=== PATIENT | male | born 1940 | race Caucasian/White ===

== ENCOUNTER 2017-08-03 19:36 | Emergency (ER) | payer MEDICARE, BC ==
[~2017-08-03] VITALS: Ht 167.6 cm; Wt 80.8 kg
[~2017-08-03 19:36] MED LIST: ARIC5TAB PO; ATEN-100 PO; CLIN150 PO; CLOP75 PO; SIMV40TA PO; TAMS0.4C67 PO
[2017-08-03 19:47] VITALS: BP 187/90; PULSE 69; RESP 18; TEMP 97.7; O2SAT 96
[2017-08-03] MEDS ORDERED: TRAM50TA PO (20:57)
--- NOTE | 2017-08-03 20:57 | PD ---
HPI Chief Complaint: Pain: Acute or Chronic Time Seen by Provider: 20:50 Travel History International Travel<30 days: No Contact w/Intl Traveler<30days: No Traveled to known affect area: No History of Present Illness HPI The patient is a 76-year-old male that complains of low back pain, his states he has a history of sciatic nerve problems. Initially he may have said the right leg hurt but his and him state its the left leg now. His states he could not walk at home. Now he is walking around fine. He claims a pain level of 7/10, sharp pain, aching pain in the back and left leg. He denies any bladder or bowel dysfunction. He is on Plavix to prevent strokes apparently. His gave him a tramadol 2 hours ago and he feels much better now. The gave the her tramadol, he has not been prescribed tramadol. PFSH Past Medical History Hx Anticoagulant Therapy: Yes (Plavix) Arthritis: No Asthma: No Autoimmune Disease: No Blood Disorders: No Anxiety: No Depression: No Heart Rhythm Problems: No Cancer: No Cardiovascular Problems: Yes (PAD) High Cholesterol: Yes Chemotherapy: No Chest Pain: No Congestive Heart Failure: No COPD: Yes Cerebrovascular Accident: No Diabetes: No Diminished Hearing: No Endocrine: No GERD: No Glaucoma: No Genitourinary: No Headaches: No Hepatitis: No Hiatal Hernia: No Hypertension: Yes Immune Disorder: No Implanted Vascular Access Dvce: Yes Kidney Stones: No Musculoskeletal: No Neurologic: No Psychiatric: No Reproductive: No Respiratory: Yes (COPD) Immunizations Current: Yes Migraines: No Myocardial Infarction: No Radiation Therapy: No Renal Failure: No Seizures: No Sickle Cell Disease: No Sleep Apnea: No Thyroid Disease: No Ulcer: No ?: Not Past Surgical History Abdominal Surgery: No AICD: No Appendectomy: No Arteriovenous Shunt: No Body Medical Devices: stent placed RLE on Cardiac Surgery: No Cholecystectomy: No Ear Surgery: No Endocrine Surgery: No Eye Surgery: No Genitourinary Surgery: No Gynecologic Surgery: No Insulin Pump: No Joint Replacement: No Oral Surgery: Yes (esophageal dialation) Pacemaker: No Thoracic Surgery: No Other Surgery: Yes Social History Alcohol Use: Yes (A BEER A DAY ) Tobacco Use: Yes (quit in september 2008) Substance Use: No Allergies-Medications (Allergen,Severity, Reaction): Coded Allergies: penicillin G (Unverified Allergy, Severe, Anaphylaxis, 08/03/17) haloperidol (Unverified Adverse Reaction, Intermediate, 08/03/17) lorazepam (Unverified Adverse Reaction, Intermediate, 08/03/17) *MDRO Multi-Drug Resistant Organism (Verified Adverse Reaction, Unknown, ) 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 His gait is fairly good without any help at all. He walks around the bed. His vital signs show blood pressure 187/90 but are otherwise normal. SKIN: Focused skin assessment warm/dry. HEAD: Atraumatic. Normocephalic. EYES: Pupils equal and round. No scleral icterus. No injection or drainage. ENT: No nasal bleeding or discharge. Mucous membranes pink and moist. NECK: Trachea midline. No JVD. CARDIOVASCULAR: Regular rate and rhythm. No murmur appreciated. RESPIRATORY: No accessory muscle use. Clear to auscultation. Breath sounds equal bilaterally. GASTROINTESTINAL: Abdomen soft, non-tender, nondistended. Hepatic and splenic margins not palpable. MUSCULOSKELETAL: No obvious deformities. No clubbing. No cyanosis. No edema. Straight leg raising is normal, deep tendon reflexes are +1 bilaterally both patella and Achilles and pinprick is normal. NEUROLOGICAL: Awake and alert. No obvious cranial nerve deficits. Motor grossly within normal limits. Normal speech. PSYCHIATRIC: Appropriate mood and affect; insight and judgment normal. Data Data Last Documented VS Vital Signs Date Time Temp Pulse Resp B/P (MAP) Pulse Ox O2 Delivery O2 Flow Rate FiO2 08/03/17 19:47 97.7 69 18 187/90 (122) 96 MDM Medical Decision Making Medical Screen Exam Complete: Yes Emergency Medical Condition: Yes Medical Record Reviewed: Yes Differential Diagnosis Herniated nucleus pulposus, acute lumbosacral strain, sciatic nerve pain Narrative Course The patient appears to have sciatic nerve pain. His pain is minimal at this time and he walks fairly well. Plan: He will be prescribed tramadol and follow up with Dr. Kim. He should get a walker for when his pain flares up again. Additional Instructions: As we discussed, his pain is likely to flare up again and he should get a walker. The tramadol is one tablet every 4-6 hours as needed for pain. Follow- up with Dr. Kim as soon as possible. Med/Other Pt SpecificInfo: Prescription(s) given Scripts Tramadol (Tramadol) 50 Mg Tab 50 MG PO Q4H Y for PAIN, #30 TAB 0 Refills Prov: Buck Good MD 08/03/17 Disposition: 01 DISCHARGE HOME Condition: Stable Buck Good MD Aug 03, 2017 20:57
== END 2017-08-03 21:22 | disposition home or self-care (01) ==
LOC: PHEFT 19:36
DX: M54.32 Sciatica, left side (principal); E78.00 Pure hypercholesterolemia, unspecified; I73.9 Peripheral vascular disease, unspecified; J44.9 Chronic obstructive pulmonary disease, unspecified; I10 Essential (primary) hypertension; Z79.02 Long term (current) use of antithrombotics/antiplatelets; Z79.899 Other long term (current) drug therapy; Z88.8 Allergy status to other drugs, medicaments and biological substances
CPT/HCPCS: 99283

== ENCOUNTER 2017-08-04 05:28 | Inpatient (IN) | payer MEDICARE, BC ==
[~2017-08-04] VITALS: Ht 167.6 cm; Wt 82.6 kg
[2017-08-04] VITALS (17 sets, daily range): BP systolic 69–193; BP diastolic 41–84; PULSE 59–114; RESP 16–19; TEMP 97.6–102.4; O2SAT 94–100
[~2017-08-04 05:28] MED LIST changes: +TRAM50TA PO
[2017-08-04] MEDS ORDERED: PROPOFOL 500 MG/50 ML INJ 50 ML ONE (05:31)
[2017-08-04] MEDS ORDERED: NITROGLYCERIN-D5W 50 MG/250 ML 250 ML ONE (05:32)
[2017-08-04] MEDS ORDERED: PROPOFOL 1000 MG/100 ML BTL IV STA (05:36)
--- NOTE | 2017-08-04 05:39 | PD ---
HPI Chief Complaint: resp failure Time Seen by Provider: 05:33 Travel History International Travel<30 days: No Contact w/Intl Traveler<30days: No Traveled to known affect area: No History of Present Illness HPI Patient CHF history was ddeveloping respiratory distress at home paramedics found him to be desaturating to 65 put him on CPAP gave him 100 of Lasix and transported him to [place].. En route patient became more somnolent en route and he decompensated. EMS then intubated him with no complications. On arrival he is sedated ET tube in place O2 sat is 96%... patient arrived sedated with 20 of etomidate for Versed 4mg per protocol EMS .. ET tube is in place good color change on the capnometer`. ROS and HPI unable to obtain from pt intubated and sedated [facility] Past Medical History Hx Anticoagulant Therapy: Yes (Plavix) Arthritis: No Asthma: No Autoimmune Disease: No Blood Disorders: No Anxiety: No Depression: No Heart Rhythm Problems: No Cancer: No Cardiovascular Problems: Yes (PAD) High Cholesterol: Yes Chemotherapy: No Chest Pain: No Congestive Heart Failure: No COPD: Yes Cerebrovascular Accident: No Diabetes: No Diminished Hearing: No Endocrine: No GERD: No Glaucoma: No Genitourinary: No Headaches: No Hepatitis: No Hiatal Hernia: No Hypertension: Yes Immune Disorder: No Implanted Vascular Access Dvce: Yes Kidney Stones: No Musculoskeletal: No Neurologic: No Psychiatric: No Reproductive: No Respiratory: Yes (COPD) Immunizations Current: Yes Migraines: No Myocardial Infarction: No Radiation Therapy: No Renal Failure: No Seizures: No Sickle Cell Disease: No Sleep Apnea: No Thyroid Disease: No Ulcer: No Past Surgical History Abdominal Surgery: No AICD: No Appendectomy: No Arteriovenous Shunt: No Body Medical Devices: stent placed RLE on Cardiac Surgery: No Cholecystectomy: No Ear Surgery: No Endocrine Surgery: No Eye Surgery: No Genitourinary Surgery: No Gynecologic Surgery: No Insulin Pump: No Joint Replacement: No Oral Surgery: Yes (esophageal dialation) Pacemaker: No Thoracic Surgery: No Other Surgery: Yes Social History Alcohol Use: Yes (A BEER A DAY ) Tobacco Use: Yes (quit in september 2008) Substance Use: No Allergies-Medications (Allergen,Severity, Reaction): Coded Allergies: penicillin G (Unverified Allergy, Severe, Anaphylaxis, 08/04/17) haloperidol (Unverified Adverse Reaction, Intermediate, 08/04/17) lorazepam (Unverified Adverse Reaction, Intermediate, 08/04/17) *MDRO Multi-Drug Resistant Organism (Verified Adverse Reaction, Unknown, ) 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 HEAD: Atraumatic. Normocephalic. EYES: Pupils equal and round. No scleral icterus. No injection or drainage. ENT: No nasal bleeding or discharge. Mucous membranes pink and moist. ET tube [place] frothy sputum in ET tube NECK: Trachea midline. No JVD. CARDIOVASCULAR: Regular rate and rhythm. RESPIRATORY: No accessory muscle use. Ventilated coarse Breath Sounds in axilla bilateral equal GASTROINTESTINAL: Abdomen soft, non-tender, nondistended. Hepatic and splenic margins not palpable. MUSCULOSKELETAL: Extremities without clubbing, cyanosis, or edema. No obvious deformities. NEUROLOGICAL: sedated and intubated neuro exam no able to be completed Data Data Last Documented VS Orders Orders Propofol 500 Mg/50 Ml Inj (Diprivan 500 (08/04/17 05:31) Nitroglycerin-D5w 50 Mg/250 Ml (Nitrogly (08/04/17 05:32) Propofol 1000 Mg/100 Ml Inj (Diprivan 10 (08/04/17 05:45) Urinary Catheter Management MILTON.Q8H (08/04/17 05:34) Propofol 1000 Mg/100 Ml Inj (Diprivan 10 (08/04/17 05:36) Atenolol (Tenormin) (08/04/17 09:00) Clopidogrel (Plavix) (08/04/17 09:00) Donepezil (Aricept) (08/04/17 09:00) Tamsulosin (Flomax) (08/04/17 09:00) Tramadol (Ultram) (08/04/17 05:45) Pravastatin (Pravachol) (08/04/17 21:00) Chest, Single Ap (08/04/17 ) Nitroglycerin-D5w 50 Mg/250 Ml (Nitrogly (08/04/17 06:00) Restraints Non-Violent MILTON.Q3H (08/04/17 05:53) Complete Blood Count With Diff (08/04/17 05:54) Comprehensive Metabolic Panel (08/04/17 05:54) Ckmb (Isoenzyme) Profile (08/04/17 05:54) Troponin I (08/04/17 05:54) B-Type Natriuretic Peptide (08/04/17 05:54) Lipase (08/04/17 05:54) Electrocardiogram (08/04/17 ) Admit To Inpatient (08/04/17 ) Code Status (08/04/17 05:54) Vital Signs (Adult) MILTON.Q1H (08/04/17 05:54) Activity Bed Rest (08/04/17 05:54) Elevate Head Of Bed (08/04/17 05:54) Neuro Checks . ORDERED (08/04/17 05:54) Intake + Output Q1H (08/04/17 05:54) Sodium Chloride 0.9% Flush (Ns Flush) (08/04/17 06:00) Sodium Chloride 0.9% Flush (Ns Flush) (08/04/17 09:00) Acetaminophen (Tylenol) (08/04/17 06:00) Famotidine Inj (Pepcid Inj) (08/04/17 09:00) Midazolam Inj (Versed Inj) (08/04/17 06:00) Artificial Tears Opth Soln (Tears Natura (08/04/17 09:00) Ondansetron Inj (Zofran Inj) (08/04/17 06:00) Albuterol-Ipratropium Neb (Duoneb Neb) (08/04/17 06:00) Complete Blood Count With Diff (08/05/17 04:00) Comprehensive Metabolic Panel (08/05/17 04:00) Troponin I (08/04/17 11:54) Act Partial Throm Time (Ptt) (08/05/17 04:00) Prothrombin Time / Inr (Pt) (08/05/17 04:00) Magnesium (Mg) (08/05/17 04:00) Phosphorus (Po4) (08/05/17 04:00) Lactic Acid (08/05/17 04:00) Chest, Single Ap (08/05/17 ) Electrocardiogram (08/04/17 11:54) Echo 2d Comp With Doppler (08/04/17 05:54) Arterial Blood Gas (Abg) (08/04/17 ) Pt Request For Service (08/04/17 05:54) Residential Coordinator / Telemetry MILTON.Q8H (08/04/17 05:54) Heparin Inj (Heparin Inj) (08/04/17 06:00) Scd Bilateral/Knee High MILTON.BID (08/04/17 05:54) Kaz Bilateral/Knee High MILTON.QSHIFT (08/04/17 05:54) ^ Initiate Protocol (08/04/17 05:54) Instruction (08/04/17 05:54) [facility] (08/04/17 06:00) Chlorhexidine 2% Cloth (Chlorhexidine 2% (08/05/17 04:00) Chlorhexidine 2% Cloth (Chlorhexidine 2% (08/04/17 06:00) Docusate Sodium-Senna (Adri-Colace) (08/04/17 09:00) Magnesium Hydroxide Liq (Milk Of Magnesi (08/04/17 06:00) Sennosides (Senokot) (08/04/17 06:00) Bisacodyl Supp (Dulcolax Supp) (08/04/17 06:00) Lactulose Liq (Lactulose Liq) (08/04/17 06:00) Elevate Head Of Bed (08/04/17 05:54) Chlorhexidine 0.12% Liq (Peridex 0.12% L (08/04/17 08:00) Oral Hygiene Kit (08/04/17 06:00) Restraints Non-Violent MILTON.Q3H (08/04/17 05:54) Ventilator Weaning Readiness MILTON.DAILY@0800 (08/04/17 05:54) Propofol 1000 Mg/100 Ml Inj (Diprivan 10 (08/04/17 06:00) Inpatient Certification (08/04/17 ) Tube Feeding 08,20 (08/04/17 05:54) Nicardipine Inj (Cardene Inj) (08/04/17 06:00) Admit Order (Ed Use Only) (08/04/17 06:05) Furosemide Inj (Lasix Inj) (08/04/17 06:15) CKMB (08/04/17 05:55) CKMB% (08/04/17 05:55) Labs Laboratory Tests Test 08/04/17 05:55 White Blood Count 17.7 TH/MM3 Red Blood Count 4.83 MIL/MM3 Hemoglobin 13.2 GM/DL Hematocrit 39.4 % Mean Corpuscular Volume 81.5 FL Mean Corpuscular Hemoglobin 27.4 PG Mean Corpuscular Hemoglobin Concent 33.7 % Red Cell Distribution Width 14.2 % Platelet Count 271 TH/MM3 Mean Platelet Volume 6.8 FL Neutrophils (%) (Auto) 88.1 % Lymphocytes (%) (Auto) 8.5 % Monocytes (%) (Auto) 1.8 % Eosinophils (%) (Auto) 0.8 % Basophils (%) (Auto) 0.8 % Neutrophils # (Auto) 15.6 TH/MM3 Lymphocytes # (Auto) 1.5 TH/MM3 Monocytes # (Auto) 0.3 TH/MM3 Eosinophils # (Auto) 0.1 TH/MM3 Basophils # (Auto) 0.1 TH/MM3 CBC Comment DIFF FINAL Differential Comment Blood Urea Nitrogen 13 MG/DL Creatinine 0.85 MG/DL Random Glucose 113 MG/DL Total Protein 7.1 GM/DL Albumin 3.4 GM/DL Calcium Level 8.6 MG/DL Alkaline Phosphatase 71 U/L Aspartate Amino Transf (AST/SGOT) 32 U/L Alanine Aminotransferase (ALT/SGPT) 27 U/L Total Bilirubin 0.7 MG/DL Sodium Level 131 MEQ/L Potassium Level 4.6 MEQ/L Chloride Level 93 MEQ/L Carbon Dioxide Level 33.6 MEQ/L Anion Gap 4 MEQ/L Estimat Glomerular Filtration Rate 87 ML/MIN Total Creatine Kinase 120 U/L Creatine Kinase MB 2.6 NG/ML Troponin I LESS THAN 0.02 NG/ML B-Type Natriuretic Peptide 79 PG/ML Lipase 133 U/L MDM Medical Decision Making Medical Screen Exam Complete: Yes Emergency Medical Condition: Yes Medical Record Reviewed: Yes Interpretation(s) ekg NSR 113 Differential Diagnosis Respiratory failure secondary CHF versus NM induced cardiac arrhythmia CHF versus fluid overload CHF versus infarct with akinesis of the ventricle left side of the heart causing CHF versus pneumonia versus bronchitis Narrative Course Patient comes intubated by the paramedics they had done CPAP but it did not work patient's mental dictation deteriorated patient is intubated in the field given 100 of Lasix for diuresis arrival we transfer rheumatoid stretcher I give him a nitroglycerin drip bolus propofol 50 mics to lower the pressure with the nitroglycerin and start the drip at 10 mics per kick per minute of propofol for sedation patient is on the vent chest x-ray, I see on Xray he has a large right lower lateral dependent PNA I ordered Zosyn to cover pneumonia , and the Vanco will be given in UNIT , CHF AND PNA RLL Critical Care Narrative 30 minutes CC time , Medical management of CHF HTN and Ventilator settings and discussion [facility] paramedics and ICU admit and report to attending medical coverage of PNA RLL Diagnosis Primary Impression: CHF (congestive heart failure) Qualified Codes: I50.9 - Heart failure, unspecified Additional Impression: Pneumonia involving right lung Admitting Information Admitting Physician Requests: Alonso Alfaro MD Aug 04, 2017 05:39
--- NOTE | 2017-08-04 05:39 | HHI.HP ---
HPI Service Critical Care Medicine Primary Care Physician Pedro White MD Admission Diagnosis Diagnosis: Travel History International Travel<30 Days: No Contact w/Intl Traveler <30 Da: No Traveled to Known Affected Are: No History of Present Illness 68-year-old gentleman with past medical history of coronary artery disease, CHF was complaining of worsening respiratory distress at home, paramedics found him to be decided to 65 put him on CPAP gave him 100 of Lasix and transported him patient became more somnolent en route and he decompensated they intubated him with no complications sat is 96% patient arrived sedated with 20 of etomidate for Versed ET tube is in place good color change on the capnometer. 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) Past Medical History Dementia History myocardial infarction Chronic obstructive pulmonary disease Peripheral vascular disease Hyperlipidemia Hypertension Past Surgical History Cataract surgery Reported Medications Reported Meds & Active Scripts Active Tramadol (Tramadol HCl) 50 Mg Tab 50 Mg PO Q4H PRN Cleocin (Clindamycin HCl) 150 Mg Cap 300 Mg PO Q6 10 Days Reported Flomax (Tamsulosin HCl) 0.4 Mg Cap 0.4 Mg PO DAILY Aricept (Donepezil HCl) 5 Mg Tab 10 Mg PO DAILY Simvastatin 40 Mg Tab 1 Tab PO HS Atenolol 25 Mg Tab 25 Mg PO DAILY Plavix (Clopidogrel Bisulfate) 75 Mg Tab 75 Mg PO DAILY Active Ordered Medications Current Medications Medications (Trade) Dose Ordered Sig/Veronica Route PRN Reason Start Time Stop Time Status Last Admin Dose Admin Propofol 100 ml @ 0 mls/hr TITRATE PRN IV SEDATION 08/04/17 05:45 08/04/17 05:47 Atenolol (Tenormin) 25 mg DAILY PO 08/04/17 09:00 Clopidogrel Bisulfate (Plavix) 75 mg DAILY PO 08/04/17 09:00 Donepezil HCl (Aricept) 10 mg DAILY PO 08/04/17 09:00 Tamsulosin HCl (Flomax) 0.4 mg DAILY PO 08/04/17 09:00 Tramadol HCl (Ultram) 50 mg Q4H PRN PO PAIN 08/04/17 05:45 Pravastatin Sodium (Pravachol) 80 mg HS PO 08/04/17 21:00 Nitroglycerin/ Dextrose 250 ml @ 1.5 mls/hr TITRATE PRN IV Hypertension 08/04/17 06:00 08/04/17 05:35 Sodium Chloride (NS Flush) 2 ml UNSCH PRN IV FLUSH FLUSH AFTER USING IV ACCESS 08/04/17 06:00 UNV Sodium Chloride (NS Flush) 2 ml BID IV FLUSH 08/04/17 09:00 UNV Acetaminophen (Tylenol) 650 mg Q6H PRN PO PAIN 1-10 AND/OR FEVER >101F 08/04/17 06:00 UNV Famotidine (Pepcid Inj) 20 mg Q12HR IV PUSH 08/04/17 09:00 UNV Midazolam HCl (Versed Inj) 2 mg Q1H PRN IV PUSH SEDATION 08/04/17 06:00 UNV Artificial Tears (Tears Naturale Opth Soln) 1 drop TID EACH EYE 08/04/17 09:00 UNV Ondansetron HCl (Zofran Inj) 4 mg Q6H PRN IV PUSH NAUSEA OR VOMITING 08/04/17 06:00 UNV Albuterol/ Ipratropium (Duoneb Neb) 1 ampule Q2HR NEB PRN INH WHEEZING 08/04/17 06:00 UNV Heparin Sodium (Porcine) (Heparin Inj) 5,000 units Q8H SQ 08/04/17 06:00 UNV Miscellaneous Information 1 Q361D XX 08/04/17 06:00 UNV Chlorhexidine Gluconate (Chlorhexidine 2% Cloth) 3 pack Taper DAILY@04 TOP 08/05/17 04:00 08/01/18 03:59 UNV Chlorhexidine Gluconate (Chlorhexidine 2% Cloth) 3 pack UNSCH PRN TOP HYGIENIC CARE 08/04/17 06:00 UNV Senna/Docusate Sodium (Adri-Colace) 1 tab BID PO 08/04/17 09:00 UNV Magnesium Hydroxide (Milk Of Magnesia Liq) 30 ml Q12H PRN PO Mild constipation 08/04/17 06:00 UNV Sennosides (Senokot) 17.2 mg Q12H PRN PO Moderate constipation 08/04/17 06:00 UNV Bisacodyl (Dulcolax Supp) 10 mg DAILY PRN RECTAL SEVERE CONSITIPATION 08/04/17 06:00 UNV Lactulose (Lactulose Liq) 30 ml DAILY PRN PO SEVERE CONSITIPATION 08/04/17 06:00 UNV Chlorhexidine Gluconate (Peridex 0.12% Liq) 15 ml BID@08,20 MT 08/04/17 08:00 UNV Propofol 100 ml @ 0 mls/hr TITRATE PRN IV SEDATION 08/04/17 06:00 UNV Nicardipine HCl 25 mg/Sodium Chloride 250 ml @ 50 mls/hr TITRATE PRN IV Blood pressure management 08/04/17 06:00 UNV Family History Reported Medications Reviewed is significant for father from myocardial infarction Social History Patient quit smoking in 2008, drinks beer occasionally, denies any illicit drugs Physical Exam Vital Signs Vital Signs Date Time Temp Pulse Resp B/P (MAP) Pulse Ox O2 Delivery O2 Flow Rate FiO2 08/04/17 05:33 97.6 114 16 193/83 (119 97 Physical Exam GENERAL: Elderly appearing gentleman sedated and intubated SKIN: Warm and dry. HEAD: Normocephalic. EYES: No scleral icterus. No injection or drainage. NECK: Supple, trachea midline. No JVD or lymphadenopathy. CARDIOVASCULAR: Regular rate and rhythm without murmurs, gallops, or rubs. RESPIRATORY: Breath sounds equal bilaterally. No accessory muscle use. GASTROINTESTINAL: Abdomen soft, non-tender, nondistended. MUSCULOSKELETAL: No cyanosis, or edema. BACK: Nontender without obvious deformity. NEURO EXAM: Mental Status: The patient is sedated and intubated Septic Shock Reassessment Septic shock perfusion: reassessment completed Caprini VTE Risk Assessment Caprini VTE Risk Assessment: Mod/High Risk (score >= 2) Caprini Risk Assessment Model Point Value = 1 Point Value = 2 Point Value = 3 Point Value = 5 Age 41-60 Minor surgery BMI > 25 kg/m2 Swollen legs Varicose veins or History of unexplained or recurrent spontaneous Oral contraceptives or hormone replacement Sepsis (< 1 month) Serious lung disease, including pneumonia (< 1 month) Abnormal pulmonary function Acute myocardial infarction Congestive heart failure (< 1 month) History of inflammatory bowel disease Medical patient at bed rest Age 61-74 Arthroscopic surgery Major open surgery (> 45 min) Laparoscopic surgery (> 45 min) Malignancy Confined to bed (> 72 hours) Immobilizing plaster cast Central venous access Age >= 75 History of VTE Family history of VTE Factor V Leiden Prothrombin [id number] Lupus anticoagulant Anticardiolipin antibodies Elevated serum homocysteine Heparin-induced thrombocytopenia Other congenital or acquired thrombophilia Stroke (< 1 month) Elective arthroplasty Hip, pelvis, or leg fracture Acute spinal cord injury (< 1 month) Prophylaxis Regimen Total Risk Factor Score Risk Level Prophylaxis Regimen 0-1 Low Early ambulation 2 Moderate Order ONE of the following: *Sequential Compression Device (SCD) *Heparin 5000 units SQ BID 3-4 Higher Order ONE of the following medications: *Heparin 5000 units SQ TID *Enoxaparin/Lovenox 40 mg SQ daily (WT < 150 kg, CrCl > 30 mL/min) *Enoxaparin/Lovenox 30 mg SQ daily (WT < 150 kg, CrCl > 10-29 mL/min) *Enoxaparin/Lovenox 30 mg SQ BID (WT < 150 kg, CrCl > 30 mL/min) AND/OR *Sequential Compression Device (SCD) 5 or more Highest Order ONE of the following medications: *Heparin 5000 units SQ TID (Preferred with Epidurals) *Enoxaparin/Lovenox 40 mg SQ daily (WT < 150 kg, CrCl > 30 mL/min) *Enoxaparin/Lovenox 30 mg SQ daily (WT < 150 kg, CrCl > 10-29 mL/min) *Enoxaparin/Lovenox 30 mg SQ BID (WT < 150 kg, CrCl > 30 mL/min) AND *Sequential Compression Device (SCD) Assessment and Plan Assessment and Plan Respiratory failure - CHF - Pneumonia - Broad-spectrum antibiotic - Mechanical ventilation - De-escalate antibiotics per sensitivity Hypertension - Continue home meds - Nicardipine drip to keep SBP less than 160 Dementia - Aricept Coronary artery disease - Aspirin - Series of troponin - 2-D echo - Series of EKGs Chronic obstructive pulmonary disease - DuoNeb scheduled and when necessary Hyperlipidemia - Continue home meds DVT GI prophylaxis - Teds SCDs - Subcutaneous heparin - Pepcid Critical Care: The total critical care time was 35 minutes. Time to perform other separately billable procedures was not included in the critical care time. Jamey Alvarez MD Aug 04, 2017 5:39 am
[2017-08-04] MEDS ORDERED: traMADol HCL 50 MG TAB PO PRN (05:45)
[2017-08-04] MEDS ORDERED: PROPOFOL 1000 MG/100 ML INJ 100 ML IV PRN ×2 (05:45→06:00)
[2017-08-04] MEDS ORDERED: NITROGLYCERIN-D5W 50 MG/250 ML 250 ML IV PRN ×2 (05:45→06:00)
[2017-08-04] MEDS ORDERED: SENNOSIDES 8.6 MG TAB PO PRN (06:00)
[2017-08-04] MEDS ORDERED: CHLORHEXIDINE GLUCONATE 2 % 1 PACK (2 CLOTHS) TOP PRN (06:00)
[2017-08-04] MEDS ORDERED: LACTULOSE SYRUP 20 GM/30 ML CUP PO PRN (06:00)
[2017-08-04] MEDS ORDERED: MISCELLANEOUS NURSING INFORMATION XX SCH (06:00)
[2017-08-04] MEDS ORDERED: ONDANSETRON HCL 4 MG/2 ML VIAL IV PUSH PRN (06:00)
[2017-08-04] MEDS ORDERED: niCARdipine INJ 25 MG in SODIUM CHLOR 0.9% 250 ML INJ 240 ML IV PRN (06:00)
[2017-08-04] MEDS ORDERED: RESP: ALBUTEROL 2.5 MG/IPRATROPIUM 0.5 MG NEB (PRN) INH (06:00)
[2017-08-04] MEDS ORDERED: BISACODYL 10 MG SUPP RECTAL PRN (06:00)
[2017-08-04] MEDS ORDERED: MIDAZOLAM HCL 2 MG/2 ML VIAL IV PUSH PRN (06:00)
[2017-08-04] MEDS ORDERED: MAGNESIUM HYDROXIDE SUSP 30 ML CUP PO PRN (06:00)
[2017-08-04] MEDS ORDERED: ACETAMINOPHEN 325 MG TAB PO PRN (06:00)
[2017-08-04 06:11] LABS: AUTOMATED NEUTROPHIL # 15.6 TH/MM3 (1.8-7.7); BASOPHIL # 0.1 TH/MM3 (0-0.2); BASOPHIL % 0.8 % (0.0-2.0); EOSINOPHIL # 0.1 TH/MM3 (0-0.4); EOSINOPHIL % 0.8 % (0.0-4.0); HEMATOCRIT 39.4 % (39.0-51.0); HEMOGLOBIN 13.2 GM/DL (13.0-17.0); LYMPH % 8.5 % (9.0-44.0); LYMPHOCYTE # 1.5 TH/MM3 (1.0-4.8); MEAN CELL VOLUME 81.5 FL (80.0-100.0); MEAN CORPUSCULAR HEMOGLOBIN 27.4 PG (27.0-34.0); MEAN CORPUSCULAR HGB CONC 33.7 % (32.0-36.0); MEAN PLATELET VOLUME 6.8 FL (7.0-11.0); MONO % 1.8 % (0.0-8.0); MONOCYTE # 0.3 TH/MM3 (0-0.9); NEUT % 88.1 % (16.0-70.0); PLATELET COUNT 271 TH/MM3 (150-450); RED BLOOD COUNT 4.83 MIL/MM3 (4.50-5.90); RED CELL DISTRIBUTION WIDTH 14.2 % (11.6-17.2); WHITE BLOOD COUNT 17.7 TH/MM3 (4.0-11.0)
[2017-08-04] MEDS ORDERED: FUROSEMIDE 20 MG/2 ML VIAL IV PUSH SCH (06:15)
[2017-08-04] MEDS: HEPARIN SODIUM - SQ 10,000 UNITS/ML VIAL SQ SCH ×3 (06:16→22:10)
[2017-08-04 06:33] LABS: ALT (GPT) 27 U/L (12-78)
[2017-08-04 06:35] LABS: ALBUMIN 3.4 GM/DL (3.4-5.0); AST (GOT) 32 U/L (15-37); BICARBONATE 33.6 MEQ/L (21.0-32.0); BLOOD UREA NITROGEN 13 MG/DL (7-18); CALCIUM 8.6 MG/DL (8.5-10.1); CHLORIDE 93 MEQ/L (98-107); CREATININE 0.85 MG/DL (0.60-1.30); GLOMERULAR FILTRATION RATE 87 ML/MIN (>89); GLUCOSE,RANDOM 113 MG/DL (74-106); SODIUM (NA) 131 MEQ/L (136-145)
[2017-08-04] MEDS ORDERED: PIPERACIL-TAZO 3.375 GM PREMIX 50 ML IV ONE (06:45)
[2017-08-04 06:46] LABS: ALKALINE PHOSPHATASE 71 U/L (45-117); TOTAL BILIRUBIN ADULT 0.7 MG/DL (0.2-1.0); TOTAL PROTEIN 7.1 GM/DL (6.4-8.2); TROPONIN I LESS THAN 0.02 NG/ML (0.02-0.05)
--- NOTE | 2017-08-04 06:47 | RADRPT ---
EXAM DATE/TIME: 08/04/2017 06:02 [facility] COMPARISON: CHEST SINGLE AP, March 16, 2016, 15:06. INDICATIONS : Short of breath. Post intubation, tube placement. MEDICAL HISTORY : Hypercholesterolemia. Hypertension. Myocardial infarction. COPD. PVD. SURGICAL HISTORY : Esophageal dilation. Right leg stent. ENCOUNTER: Initial ACUITY: 1 day PAIN SCORE: Non-responsive. LOCATION: Bilateral chest FINDINGS: Large area of peripheral dense consolidation seen of the right mid and lower lung. This is new. Left lung clear. No pleural effusion. No pneumothorax. Heart size stable, within normal limits. Nasogastric tube courses into the stomach. There is an endotracheal tube with tip about 4.5 cm above the jonah. CONCLUSION: Large area of dense consolidation/pneumonia of the right mid and lower lung. Medical management and f ollowup to resolution recommended. Appropriate position of the endotracheal tube and nasogastric tube . Santi Putnam MD on August 04, 2017 at 6:44 Board Certified Radiologist. This report was verified electronically.
[2017-08-04] MEDS ORDERED: HYDROCORTISONE SOD SUCCINATE 100 MG VIAL IV PUSH SCH (08:45)
[2017-08-04] MEDS ORDERED: ATENOLOL 25 MG TAB PO SCH (09:00)
[2017-08-04] MEDS ORDERED: DEXTROSE 50% IN WATER 50 ML VIAL(D50) IV PUSH PRN (09:00)
[2017-08-04] MEDS: INSULIN NovoLIN REGULAR SUPPLEMENTAL SCALE SQ SCH ×4 (09:00→21:00)
[2017-08-04] MEDS ORDERED: GLUCAGON 1 MG/ML VIAL OTHER PRN (09:00)
[2017-08-04] MEDS ORDERED: TAMSULOSIN HCL 0.4 MG CAP PO SCH (09:00)
[2017-08-04] MEDS: DONEPEZIL HCL 5 MG TAB PO SCH (09:00)
--- NOTE | 2017-08-04 09:08 | RADRPT ---
EXAM DATE/TIME: 08/04/2017 08:32 [facility] COMPARISON: CHEST SINGLE AP, August 04, 2017, 6:02. INDICATIONS : Post line placement. MEDICAL HISTORY : Hypercholesterolemia. Hypertension. Myocardial infarction. COPD. PVD. SURGICAL HISTORY : Esophageal dilation. Right leg stent. ENCOUNTER: Initial ACUITY: 1 day PAIN SCORE: Non-responsive. LOCATION: Bilateral chest FINDINGS: Interval placement of right internal jugular catheter with tip projected over the distal superior paul a cava. No evidence of pneumothorax. ET tube and gastric tube stable in position. Large area of co nsolidation in the lateral right mid and lower lung stable in size and appearance. The left lung is clear. The heart is normal in size. CONCLUSION: Right IJ catheter in good position. No evidence of pneumothorax. Chris Rhoades MD on August 04, 2017 at 9:05 Board Certified Radiologist. This report was verified electronically.
[2017-08-04] MEDS ORDERED: SODIUM CHLOR 0.9% 1000 ML INJ 1,000 ML IV ONE ×4 (09:15→13:30)
[2017-08-04] MEDS: FAMOTIDINE 20 MG/2 ML VIAL IV PUSH SCH ×2 (09:46→22:10)
[2017-08-04] MEDS: SODIUM CHLORIDE 0.9% FLUSH 10 ML FLUSH IV FLUSH SCH ×2 (09:47→22:10)
[2017-08-04] MEDS: VANCOMYCIN INJ 1,000 MG in SODIUM CHLOR 0.9% 250 ML INJ 250 ML IV SCH ×2 (09:48→22:22)
[2017-08-04] MEDS: CHLORHEXIDINE 0.12% (ORAL KIT) 15 ML CUP MT SCH ×2 (09:49→20:23)
[2017-08-04] MEDS: ARTIFICIAL TEARS OPTH SOLN 15 ML BTL EACH EYE SCH ×3 (09:49→18:03)
[2017-08-04] MEDS: SODIUM CHLOR 0.9% 1000 ML INJ 1,000 ML IV SCH ×2 (10:07→18:47)
[2017-08-04] MEDS: AZTREONAM INJ 1,000 MG in SODIUM CHLORIDE 0.9% INJ 100 ML IV SCH ×2 (10:20→18:03)
[2017-08-04] MEDS: AZITHROMYCIN INJ 500 MG in SODIUM CHLOR 0.9% 250 ML INJ 250 ML IV SCH (11:30)
[2017-08-04] MEDS ORDERED: ATROPINE SULFATE 1 MG/10 ML SYRINGE ONE ×2 (11:52)
[2017-08-04] MEDS ORDERED: EPINEPHrine HCL (1:10,000) 1 MG/10 ML SYRINGE ONE ×2 (11:52→11:53)
[2017-08-04 12:37] LABS: AUTOMATED NEUTROPHIL # 26.2 TH/MM3 (1.8-7.7); BASOPHIL # 0.1 TH/MM3 (0-0.2); BASOPHIL % 0.3 % (0.0-2.0); EOSINOPHIL # 0.1 TH/MM3 (0-0.4); EOSINOPHIL % 0.2 % (0.0-4.0); HEMATOCRIT 33.2 % (39.0-51.0); HEMOGLOBIN 10.8 GM/DL (13.0-17.0); LYMPH % 4.2 % (9.0-44.0); LYMPHOCYTE # 1.2 TH/MM3 (1.0-4.8); MEAN CELL VOLUME 81.8 FL (80.0-100.0); MEAN CORPUSCULAR HEMOGLOBIN 26.6 PG (27.0-34.0); MEAN CORPUSCULAR HGB CONC 32.6 % (32.0-36.0); MEAN PLATELET VOLUME 6.9 FL (7.0-11.0); MONO % 5.3 % (0.0-8.0); MONOCYTE # 1.5 TH/MM3 (0-0.9); PLATELET COUNT 252 TH/MM3 (150-450); RED BLOOD COUNT 4.06 MIL/MM3 (4.50-5.90); WHITE BLOOD COUNT 29.2 TH/MM3 (4.0-11.0)
--- NOTE | 2017-08-04 12:40 | RADRPT ---
EXAM DATE/TIME: 08/04/2017 12:24 [facility] COMPARISON: No previous studies available for comparison. INDICATIONS : Altered mental status, unstable BP RADIATION DOSE: 59.75 CTDIvol (mGy) ; Tabletop CT Head MEDICAL HISTORY : Cardiovascular disease. Hypertension. Beer a day SURGICAL HISTORY : PVD, esophageal dilitation ENCOUNTER: Initial ACUITY: 1 day PAIN SCALE: 0/10 LOCATION: cranial TECHNIQUE: Multiple contiguous axial images were obtained of the head. Using automated exposure control and adj ustment of the mA and/or kV according to patient size, radiation dose was kept as low as reasonably a chievable to obtain optimal diagnostic quality images. DICOM format image data is available electro nically for review and comparison. FINDINGS: There is a focal area of low attenuation in the superior left frontal lobe. Primary differential diag nosis includes a subacute infarct. This is a somewhat rounded appearance. No mass effect or shift. No hydrocephalus. No acute bony abnormalities. CONCLUSION: 1. Oval-shaped 1.6 cm low attenuation area in the superior left frontal lobe. Primary differential di agnosis is a subacute infarct. This could be either evaluated with MRI to exclude other etiologies. Gallo Caal MD on August 04, 2017 at 12:35 Board Certified Radiologist. This report was verified electronically.
--- NOTE | 2017-08-04 12:44 | RADRPT ---
EXAM DATE/TIME: 08/04/2017 12:28 [facility] COMPARISON: CHEST SINGLE AP, August 04, 2017, 6:02. INDICATIONS : Pneumonia, CHF RADIATION DOSE: 15.49 CTDIvol (mGy) MEDICAL HISTORY : Cardiovascular disease. Congestive heart failure. Hypertension. Respiratory failure,Beer a day SURGICAL HISTORY : Esophageal dilitation,PVC ENCOUNTER: Initial ACUITY: 1 day PAIN SCALE: 0/10 LOCATION: chest TECHNIQUE: Volumetric scanning of the chest was performed. Using automated exposure control and adjustment of t he mA and/or kV according to patient size, radiation dose was kept as low as reasonably achievable to obtain optimal diagnostic quality images. DICOM format image data is available electronically for r eview and comparison. Follow-up recommendations for detected pulmonary nodules are based at a minimum on nodule size and pa tient risk factors according to Fleischner Society Guidelines. FINDINGS: There is patchy airspace disease in the right lung most characteristic of a bronchopneumonia. There i s a small right-sided pleural effusion. A borderline enlarged right hilar and mediastinal lymph nodes are present. There is mild underlying emphysema. Endotracheal tube is in good position. Nasogastric tube enters stomach. Moderate to severe coronary calcifications. No acute infiltrate in the left lung. Right central line in superior vena cava. A CONCLUSION: 1. Patchy airspace disease and some interstitial prominence in the right lung most characteristic of a bronchopneumonia with small parapneumonic right pleural effusion and dependent atelectasis. Borderl ine enlarged mediastinal and hilar lymph nodes. 2. Moderate to severe coronary calcifications. 3. There is some narrowing of the bronchi, especially on the right side at bronchus intermedius. Etio logy unclear. Gallo Caal MD on August 04, 2017 at 12:37 Board Certified Radiologist. This report was verified electronically.
--- NOTE | 2017-08-04 12:59 | ECHRPT ---
Indication: heart failure CONCLUSIONS Normal left ventricular size. The left ventricular systolic function is normal with an estimated ejection fraction in the range of 55-60%. [id number] mitral valve regurgitation. The aortic valve is not well visualized. Aortic valve sclerosis is present. No aortic valve regurgitation. No aortic valve stenosis. There is mild tricuspid valve regurgitation. The estimated pulmonary arterial pressure is 38.9 mmHg. BP: / HR: Rhythm: MEASUREMENTS (Male / Female) Normal Values Technical Quality:Very technically difficult study 2D ECHO LV Diastolic Diameter PLAX 4.2 cm 4.2 - 5.9 / 3.9 - 5.3 cm LV Systolic Diameter PLAX 3.1 cm IVS Diastolic Thickness 1.1 cm 0.6 - 1.0 / 0.6 - 0.9 cm LVPW Diastolic Thickness 1.1 cm 0.6 - 1.0 / 0.6 - 0.9 cm LV Relative Wall Thickness 0.5 RV Internal Dim ED PLAX 2.7 cm M-MODE Aortic Root Diameter MM 3.5 cm LA Systolic Diameter MM 3.6 cm LA Ao Ratio MM 1.0 AV Cusp Separation MM 1.5 cm DOPPLER Mitral E Point Velocity 54.3 cm/s Mitral A Point Velocity 83.9 cm/s Mitral E to A Ratio 0.6 LV E' Lateral Velocity 6.3 cm/s Mitral E to LV E' Lateral Ratio 8.6 LV E' Septal Velocity 5.8 cm/s Mitral E to LV E' Septal Ratio 9.4 TR Peak Velocity 269.0 cm/s TR Peak Gradient 28.9 mmHg Right Atrial Pressure 10.0 mmHg Pulmonary Artery Systolic Pressu 38.9 mmHg Right Ventricular Systolic Press 38.9 mmHg FINDINGS LEFT VENTRICLE Normal left ventricular size. The left ventricular systolic function is normal with an estimated ejection fraction in the range of 55-60%. RIGHT VENTRICLE Normal right ventricular size and systolic function. LEFT ATRIUM The left atrial size is normal. RIGHT ATRIUM The right atrial size is normal. ATRIAL SEPTUM Normal atrial septal thickness without atrial level shunting by limited color doppler interrogation. AORTA The aortic root and proximal ascending aorta are normal in size on limited imaging. MITRAL VALVE Structurally normal mitral valve. [id number]-aw-[id number] mitral valve regurgitation. AORTIC VALVE The aortic valve is not well visualized. Aortic valve sclerosis is present. No aortic valve regurgitation. No aortic valve stenosis. TRICUSPID VALVE Structurally normal tricuspid valve. There is mild tricuspid valve regurgitation. The estimated pulmonary arterial pressure is 38.9 mmHg. PULMONARY VALVE No pulmonary valve regurgitation or stenosis. VESSELS The inferior vena cava is normal in size. PERICARDIUM No pericardial effusion. Isaias Rivera MD, FACC (Electronically Signed) Final Date:04 August 2017 12:58
[2017-08-04 13:01] LABS: BICARBONATE 27.9 MEQ/L (21.0-32.0); CALCIUM 7.4 MG/DL (8.5-10.1); CREATININE 1.11 MG/DL (0.60-1.30)
[2017-08-04] MEDS: HYDROCORTISONE SOD SUCCINATE 100 MG VIAL IV PUSH SCH ×2 (13:03→18:03)
[2017-08-04 13:14] LABS: CALCIUM-PROTEIN CORRECTED 8.5 MG/DL (8.5-10.1); TOTAL PROTEIN 5.1 GM/DL (6.4-8.2)
--- NOTE | 2017-08-04 13:29 | PD.PROCEDR ---
Central Line Procedure REASON FOR PROCEDURE Central venous access PROCEDURE PERFORMED Central line placement: Right IJ CVP CONSENT Informed consent for procedure was obtained . The risks and benefits of the procedure were discussed to include but limited to bleeding, clot formation, infection, and even . ANESTHESIA Local injection of 1% Lidocaine DESCRIPTION OF THE PROCEDURE The patient was placed in supine, mild Trendelenburg position. The area was exposed and cleansed with ChloraPrep, times two. Large sterile drape was used to cover the patient, with the site exposed, under sterile conditions including cap, face mask, sterile gown, and sterile gloves. On single attempt, the introducer needle was inserted with negative pressure in syringe and venous flash was obtained. The guide wire was then advanced without any restriction and the needle was removed. The dilator was used without any complications. Using Seldinger technique the catheter was advanced over the guide wire to a depth of 20centimeters. The guide wire was removed. All ports were aspirated with dark venous blood return and flushed easily with sterile saline. All ports were capped. Antibiotic disc was placed around central line at puncture site. The central line was secured to the skin with two interrupted 2.0 silk sutures. The area was bandaged with sterile see-through central line bandage. RADIOLOGICAL DATA Ultrasound guidance was used to locate right IJ vein. CXR post line placement showed line is in good position, no evidence of PTX COMPLICATIONS: No apparent complications ESTIMATED BLOOD LOSS: Less than 1 cc. Henrry Frey MD Aug 04, 2017 13:29
--- NOTE | 2017-08-04 14:18 | EKG ---
Date Performed: 08/04/2017 Time Performed: 05:37:36 PTAGE: 76 years EKG: SINUS TACHYCARDIA POSSIBLE LEFT ATRIAL ENLARGEMENT LEFT ANTERIOR FASCICULAR BLOCK ABNORMAL ECG PREVIOUS TRACING : 03/12/2016 04.24 Since the prior tracing, there has been no serial change ex cept for the prominent sinus tachycardia on the present tracing. The patient does have some minimal i ncrease in the T-wave changes. DOCTOR: Candace Pathak Interpretating Date/Time 08/04/2017 14:16:51
[2017-08-04] MEDS: DOCUSATE SODIUM 50 MG/SENNA 8.6 MG TAB PO SCH (15:00)
[2017-08-04] MEDS ORDERED: VASOPRESSIN INJ 40 UNITS in DEXTROSE 5% IN WATER 100ML INJ 98 ML IV SCH ×2 (15:00)
[2017-08-04] MEDS: CLOPIDOGREL 75 MG TAB PO SCH (15:02)
--- NOTE | 2017-08-04 17:02 | MB ---
cc: BELEM ESCAMILLA M.D. DATE OF CONSULTATION: 08/04/2017. REASON FOR CONSULTATION: He is a 76-year-old seen in neurological consultation in regards to obtundation. HISTORY OF PRESENT ILLNESS: The patient has a history of dementia and apparently had some decreased responsiveness today and required prompt intubation and was brought to the hospital where he remained obtunded. He did receive some sedation initially. A CT brain showed a small area possible subacute left frontal lobe infarct. NEUROLOGICAL EXAMINATION: Exam shows the patient on the ventilator and deeply asleep. No longer being sedated but he just not awakening. Pupils were pinpoint. As I stimulated him stronger and stronger, he opened the eyes and woke up at least briefly and started following commands. 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 His pupils became larger. His reflexes were absent throughout and plantar response is flexor. LABS: White count up to 29.2, hemoglobin 10.8, platelets 252,000. Chemistry largely unremarkable. Calcium today is 7.4 but earlier today it was 8.6. ASSESSMENT: Probable metabolic encephalopathy. The possibility of multiple ischemic strokes is a consideration. He is scheduled for MRI brain and this will be helpful. The CT brain was reviewed with an abnormality in the left high frontal lobe possibly subacute infarct. Apparent underlying dementia. He is on a statin and Plavix at home. Okay to resume the Plavix. He is also on Aricept. Discussed with the R.N. I will follow the neurological course and thank you for asking us to assist in his care. MD CHAITANYA Morris/DOLORES /3:07 PM /4:37 PM
[2017-08-04] MEDS ORDERED: POTASSIUM PHOSPHATE MONOBASIC 500 MG TAB PO/TUBE PRN (17:30)
[2017-08-04] MEDS ORDERED: POTASSIUM PHOSPHATE MONOBASIC 500 MG TAB PO PRN (17:30)
[2017-08-04] MEDS ORDERED: MAGNESIUM SULFATE INJ 2 GM in SODIUM CHLORIDE 0.9% INJ 96 ML IV PRN (17:30)
[2017-08-04] MEDS ORDERED: POTASSIUM CHLORIDE 25 MEQ EFFERVESCENT TAB PO PRN (17:30)
[2017-08-04] MEDS ORDERED: POTASSIUM CHLOR 40 MEQ PREMIX 100 ML IV PRN (17:30)
[2017-08-04] MEDS ORDERED: POTASSIUM PHOSPHATE INJ 30 MMOL in SODIUM CHLOR 0.9% 250 ML INJ 250 ML IV PRN (17:30)
[2017-08-04] MEDS ORDERED: MAGNESIUM OXIDE 400 MG TAB PO PRN (17:30)
[2017-08-04] MEDS ORDERED: POTASSIUM CHLOR 20 MEQ PREMIX 100 ML IV PRN ×2 (17:30)
[2017-08-04] MEDS ORDERED: MAGNESIUM SULFATE INJ 4 GM in SODIUM CHLORIDE 0.9% INJ 92 ML IV PRN (17:30)
[2017-08-04] MEDS ORDERED: DIATRIZOATE MEGLUM/DIATRIZOATE SOD 9 ML CUP PO ONE (18:00)
--- NOTE | 2017-08-04 18:05 | RADRPT ---
EXAM DATE/TIME: 08/04/2017 17:22 [facility] COMPARISON: No previous studies available for comparison. INDICATIONS : Altered mental status. MEDICAL HISTORY : Hypertension. Cardiovascular disease SURGICAL HISTORY : Craniotomy. Coronary artery stent. ENCOUNTER: Initial ACUITY: 1 day PAIN SCORE: 0/10 LOCATION: cranial Known MRI PrecautionsSedation Utilized? No Anesthesia Present? MRI reaction? If YES expla in: TECHNIQUE: Multiplanar, multisequence MRI of the brain was performed without contrast. FINDINGS: CEREBRUM: Mild diffuse dural volume loss. The ventricles are normal for age. No evidence of midline shift, mas s lesion, hemorrhage or acute infarction. No extraaxial fluid collections are seen. The pituitary g land and suprasellar cistern are normal in configuration. WHITE MATTER: Mild periventricular and deep white matter focal T2 pronation. POSTERIOR FOSSA: The cerebellum and brainstem are intact. The 4th ventricle is midline. The cerebellopontine angle is unremarkable. The cerebellar tonsils are normal in position. DIFFUSION IMAGING: Very small focal region of restricted diffusion in the right occipital lobe. EXTRACRANIAL: The visualized portions of the orbits and paranasal sinuses are unremarkable. CONCLUSION: 1. Small focal region of acute infarction in the right occipital lobe. 2. Senescent changes with mild periventricular small vessel ischemic white matter demyelination. Julian Vernon MD on August 04, 2017 at 17:59 Board Certified Radiologist. This report was verified electronically.
[2017-08-04] MEDS: POTASSIUM CHLOR 40 MEQ PREMIX 100 ML IV PRN (18:27)
--- NOTE | 2017-08-04 19:34 | PD.ID.CON ---
History of Present Illness Service ID Consult Requested By Dr Singh Reason for Consult multilobar PNA Primary Care Physician Pedro White MD Diagnoses: History of Present Illness 76 yo male with h/o COPD, dementia and chronic schiatica pain presetned wtih RLE pain typical for his schiaticva in ER yday and was released He was later admitted wtih resp failure, hypoxia His sats were in 60s He was intubated CXR showed dense consolidation R lung CT chest showed PNA UOP was minimal and urine seemed quirte concentrated, thought he started to produce urine later + gastric drainage Fever up to 102.4 lactic acodosis of 2.5 on presentation WBC 29 K No diarrhea, no abd pain - per , but did noticed worsning abdominal distention He is now intubated, frothy white ETT secretions Due to high grade PCN allergy pt was started on azactam based Rx (along with vancomycin and azithromycin) Review of Systems ROS Limitations: Clinical Condition, Intubated, Altered Mental Status, Unresponsive Past Family Social History 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) Past Medical History Dementia History myocardial infarction Chronic obstructive pulmonary disease Peripheral vascular disease Hyperlipidemia Hypertension Past Surgical History Cataract surgery Active Ordered Medications Medications where reviewed in EMR Antibiotics Include: azctam vanco aztreonam Family History SC (father) Social History quit tobacco 2009 occasional beer no drugs of abuse Physical Exam Vital Signs Vital Signs Date Time Temp Pulse Resp B/P (MAP) Pulse Ox O2 Delivery O2 Flow Rate FiO2 08/04/17 16:00 68 08/04/17 16:00 100.9 68 19 120/60 (80) 95 08/04/17 16:00 40 08/04/17 15:46 99 40 08/04/17 14:19 99 40 08/04/17 12:20 97 08/04/17 11:00 73 08/04/17 11:00 60 08/04/17 11:00 100.3 73 19 100/52 (68) 95 08/04/17 10:15 98 40 08/04/17 08:00 102.4 63 19 69/41 (50) 94 08/04/17 08:00 62 08/04/17 08:00 60 08/04/17 07:22 97 40 08/04/17 06:29 79 16 143/84 (103) 98 Ventilator 100 08/04/17 06:08 83 16 92/55 (67) 100 Ventilator 100 08/04/17 05:53 100 08/04/17 05:45 109 16 113/56 (75) 100 Ventilator 100 08/04/17 05:35 105 195/85 08/04/17 05:33 97.6 114 16 193/83 (119) 97 08/04/17 05:28 100 100 Physical Exam CONSTITUTIONAL/GENERAL: This is an adequately nourished patient, in no apparent distress. TUBES/LINES/DRAINS: SKIN: No jaundice, rashes, or lesions. Skin temperature appropriate. Not diaphoretic. HEAD: Atraumatic. Normocephalic. EYES: Pupils equal and round and reactive. Extraocular motions intact. No scleral icterus. No injection or drainage. Fundi not examined. ENT: Hearing grossly normal. Nose without bleeding or purulent drainage. Oral mucosae without visible erythema, exudates, masses, or lesions. Orally intubated NGT in place NECK: Trachea midline. Supple, nontender. No palpable thyroid enlargement or nodularity. CARDIOVASCULAR: Regular rate and rhythm without murmurs, gallops, or rubs. No JVD. Peripheral pulses symmetric. RESPIRATORY/CHEST: Symmetric, unlabored respirations. Clear to auscultation. Breath sounds equal bilaterally. No wheezes, rales, or rhonchi. GASTROINTESTINAL: Abdomen soft, non-tender, markedly distended. Tympany to percussion. BS markedly diminished No hepato-splenomegaly, or palpable masses. No guarding. GENITOURINARY: Without palpable bladder distension. Fang catheter in place with dark yellow urine MUSCULOSKELETAL: Extremities without clubbing, cyanosis, or edema. No joint tenderness or effusion noted. No calf tenderness. No mottling or clubbing. LYMPHATICS: No palpable cervical or supraclavicular adenopathy. NEUROLOGICAL: sedated. Arousable. Follows some commands PSYCHIATRIC: unable to assess Laboratory Laboratory Tests Test 08/04/17 05:55 08/04/17 06:20 08/04/17 09:30 08/04/17 09:45 White Blood Count 17.7 Red Blood Count 4.83 Hemoglobin 13.2 Hematocrit 39.4 Mean Corpuscular Volume 81.5 Mean Corpuscular Hemoglobin 27.4 Mean Corpuscular Hemoglobin Concent 33.7 Red Cell Distribution Width 14.2 Platelet Count 271 Mean Platelet Volume 6.8 Neutrophils (%) (Auto) 88.1 Lymphocytes (%) (Auto) 8.5 Monocytes (%) (Auto) 1.8 Eosinophils (%) (Auto) 0.8 Basophils (%) (Auto) 0.8 Neutrophils # (Auto) 15.6 Lymphocytes # (Auto) 1.5 Monocytes # (Auto) 0.3 Eosinophils # (Auto) 0.1 Basophils # (Auto) 0.1 CBC Comment DIFF FINAL Differential Comment Blood Urea Nitrogen 13 Creatinine 0.85 Random Glucose 113 Total Protein 7.1 Albumin 3.4 Calcium Level 8.6 Alkaline Phosphatase 71 Aspartate Amino Transf (AST/SGOT) 32 Alanine Aminotransferase (ALT/SGPT) 27 Total Bilirubin 0.7 Sodium Level 131 Potassium Level 4.6 Chloride Level 93 Carbon Dioxide Level 33.6 Anion Gap 4 Estimat Glomerular Filtration Rate 87 Total Creatine Kinase 120 Creatine Kinase MB 2.6 Troponin I LESS THAN 0.02 B-Type Natriuretic Peptide 79 Lipase 133 Blood Gas Puncture Site RT RADIAL Blood Gas Patient Temperature 98.6 Blood Gas HCO3 27 Blood Gas Base Excess 2.4 Blood Gas Oxygen Saturation 99 Arterial Blood pH 7.42 Arterial Blood Partial Pressure CO2 42 Arterial Blood Partial Pressure O2 299 Arterial Blood Oxygen Content 17.3 Arterial Blood Carboxyhemoglobin 1.2 Arterial Blood Methemoglobin 0.4 Blood Gas Hemoglobin 12.0 Oxygen Delivery Device VENTILATOR Blood Gas Ventilator Setting Blood Gas Inspired Oxygen 100 Lactic Acid Level 2.4 Test 08/04/17 12:12 08/04/17 18:30 08/04/17 18:45 White Blood Count 29.2 Red Blood Count 4.06 Hemoglobin 10.8 Hematocrit 33.2 Mean Corpuscular Volume 81.8 Mean Corpuscular Hemoglobin 26.6 Mean Corpuscular Hemoglobin Concent 32.6 Red Cell Distribution Width 14.0 Platelet Count 252 Mean Platelet Volume 6.9 Neutrophils (%) (Auto) 90.0 Lymphocytes (%) (Auto) 4.2 Monocytes (%) (Auto) 5.3 Eosinophils (%) (Auto) 0.2 Basophils (%) (Auto) 0.3 Neutrophils # (Auto) 26.2 Lymphocytes # (Auto) 1.2 Monocytes # (Auto) 1.5 Eosinophils # (Auto) 0.1 Basophils # (Auto) 0.1 CBC Comment DIFF FINAL Differential Comment Blood Urea Nitrogen 18 Creatinine 1.11 Random Glucose 91 Total Protein 5.1 Calcium Level 7.4 Sodium Level 136 Potassium Level 3.5 Chloride Level 100 Carbon Dioxide Level 27.9 Anion Gap 8 Estimat Glomerular Filtration Rate 64 Protein Corrected Calcium 8.5 Troponin I 0.10 Lactic Acid Level 1.4 Date/Time Source Procedure Growth Status 08/04/17 09:45 Blood Peripheral Aerobic Blood Culture Pending Received 08/04/17 09:45 Blood Peripheral Anaerobic Blood Culture Pending Received 08/04/17 18:30 Nasal Washing Influenza Types A,B Antigen (VALERIANO) - Final NEGATIVE FOR FLU A AND B ANTIGEN.... Complete 08/04/17 09:15 Urine Catheterized Urine Legionella Antigen - Final PRESUMPTIVE NEGATIVE FOR LEGIONELLA P... Complete 08/04/17 09:15 Urine Catheterized Urine Streptococcus pneumoniae Antigen (M - Final PRESUMPTIVE NEGATIVE FOR STREPTOCOCCU... Complete Result Diagram: 08/04/17 1212 08/04/17 1212 Imaging Last Impressions Head CT 08/04/17 0000 Signed Impressions: Service Date/Time: Friday, August 04, 2017 12:24 - CONCLUSION: 1. Oval-shaped 1.6 cm low attenuation area in the superior left frontal lobe. Primary differential diagnosis is a subacute infarct. This could be either evaluated with MRI to exclude other etiologies. Gallo Caal MD Chest X-Ray 08/04/17 0000 Signed Impressions: Service Date/Time: Friday, August 04, 2017 08:32 - CONCLUSION: Right IJ catheter in good position. No evidence of pneumothorax. Chris Rhoades MD Chest CT 08/04/17 0000 Signed Impressions: Service Date/Time: Friday, August 04, 2017 12:28 - CONCLUSION: 1. Patchy airspace disease and some interstitial prominence in the right lung most characteristic of a bronchopneumonia with small parapneumonic right pleural effusion and dependent atelectasis. Borderline enlarged mediastinal and hilar lymph nodes. 2. Moderate to severe coronary calcifications. 3. There is some narrowing of the bronchi, especially on the right side at bronchus intermedius. Etiology unclear. Gallo Caal MD Brain MRI 08/04/17 0000 Signed Impressions: Service Date/Time: Friday, August 04, 2017 17:22 - CONCLUSION: 1. Small focal region of acute infarction in the right occipital lobe. 2. Senescent changes with mild periventricular small vessel ischemic white matter demyelination. Julian Vernon MD Assessment and Plan Assessment and Plan PNA, multilobar, severe ethiolgy included bacterial vs viral, including flu Resp failure Sepsis Abnormal abd distention - r/o intraabd process Critically ill unstable cont current abx flu test/resp panle tamiflu while awaiting results CT A/P UA, C+S if indicalted add flagyl Discussed Condition With RN pt's spouse @ b/s Alexandra Hernandez MD Aug 04, 2017 19:34
[2017-08-04] MEDS: metroNIDAZOLE 500 MG INJ 100 ML IV SCH (20:23)
[2017-08-04] MEDS: PRAVASTATIN SOD 80 MG TAB PO SCH (21:00)
--- NOTE | 2017-08-04 21:13 | MG ---
cc: BELEM BENNETT MD Lab No: Date: 08/04/17 Age: 76 Sex: M Race: REFERRING PHYSICIAN Dr. Ball An EEG was obtained on this 76-year-old patient intubated and being evaluated for apparent stroke. The EEG shows continuous bilateral slowing and attenuation. There are theta and delta rhythms bilaterally. There are some beta rhythms and artifact. There are no epileptiform features. Photic stimulation was unremarkable. INTERPRETATION Abnormal EEG because of bihemisphere slowing suggesting bilateral abnormalities. No epileptiform features are present. Belem Bennett MD [facility] /8:23 PM /9:08 PM
[2017-08-04] MEDS ORDERED: NOREPINEPHRINE INJ 4 MG in SODIUM CHLOR 0.9% 250 ML INJ 250 ML IV PRN (21:30)
[2017-08-04] MEDS: PROPOFOL 1000 MG/100 ML IV PRN (22:08)
--- NOTE | 2017-08-04 23:10 | EKG ---
Date Performed: 08/04/2017 Time Performed: 16:35:10 PTAGE: 76 years EKG: Sinus rhythm Left anterior fascicular block Low QRS voltages in precordial leads Borderline ECG PREVIOUS TRACING : 08/04/2017 05.37 No significant change from previous tracing noted. DOCTOR: Sebas Monteiro Interpretating Date/Time 08/04/2017 23:08:47
[2017-08-05] VITALS (13 sets, daily range): BP systolic 114–171; BP diastolic 56–95; PULSE 55–112; RESP 16–25; TEMP 97.9–98.8; O2SAT 97–99
--- NOTE | 2017-08-05 00:14 | RADRPT ---
EXAM DATE/TIME: 08/04/2017 22:55 [facility] COMPARISON: CT THORAX W/O CONTRAST, August 04, 2017, 12:28. INDICATIONS : Abdominal distention and leukocytosis. ORAL CONTRAST: Prescribed oral contrast ingested. RADIATION DOSE: 9.3 CTDIvol (mGy) MEDICAL HISTORY : Cardiovascular disease. Peripheral vascular disease. SURGICAL HISTORY : None. ENCOUNTER: Initial ACUITY: 1 day PAIN SCALE: Non-responsive LOCATION: abdomen TECHNIQUE: Volumetric scanning of the abdomen and pelvis was performed. Using automated exposure control and ad justment of the mA and/or kV according to patient size, radiation dose was kept as low as reasonably achievable to obtain optimal diagnostic quality images. DICOM format image data is available electro nically for review and comparison. FINDINGS: LOWER LUNGS: Patchy consolidation visualized portions of the right base. LIVER: Homogeneous density without lesion. There is no dilation of the biliary tree. No calcified gallston es. SPLEEN: Normal size without lesion. PANCREAS: Within normal limits. KIDNEYS: Normal in size and shape. There is no mass, stone, or hydronephrosis. ADRENAL GLANDS: Within normal limits. VASCULAR: Atherosclerotic abdominal aorta. No aneurysm. BOWEL/MESENTERY: The stomach, small bowel, and colon demonstrate no acute abnormality. There is no free intraperitone al air or fluid. Considerable stool in the rectum. Normal appendix. Nasogastric tube present with tip in the proximal duodenum. ABDOMINAL WALL: Within normal limits. RETROPERITONEUM: There is no lymphadenopathy. BLADDER: No wall thickening or mass. REPRODUCTIVE: Within normal limits. INGUINAL: There is a right inguinal hernia that measures approximately 3.4 cm across and contains a short loop of ileum. No associated obstruction or inflammatory changes. MUSCULOSKELETAL: No acute bony abnormality demonstrated. There are chronic L5 pars defects with grade one L5/S1 spondy lolisthesis. CONCLUSION: 1. No acute abnormality seen in the abdomen or pelvis. 2. Right base pneumonia. 3. Right inguinal hernia containing distal small bowel but no obstruction or evidence of strangulatio n. 4. Atherosclerotic aorta without aneurysm. 5. Chronic L5 pars defects with grade one L5/S1 spondylolisthesis. No acute bony abnormality demonstr ated. Santi Putnam MD on August 05, 2017 at 0:08 Board Certified Radiologist. This report was verified electronically.
[2017-08-05] MEDS: HYDROCORTISONE SOD SUCCINATE 100 MG VIAL IV PUSH SCH ×3 (00:33→12:50)
[2017-08-05] MEDS: DOCUSATE SODIUM 50 MG/SENNA 8.6 MG TAB PO SCH ×3 (00:33→20:23)
[2017-08-05] MEDS: OSELTAMIVIR PHOSPHATE 75 MG CAP PO SCH ×2 (00:34→10:49)
[2017-08-05] MEDS: INSULIN NovoLIN REGULAR SUPPLEMENTAL SCALE SQ SCH ×6 (00:45→20:21)
[2017-08-05 00:47] LABS: BILIRUBIN, URINE NEG (NEG); BLOOD, URINE NEG (NEG); GLUCOSE,URINE NEG (NEG); KETONE, URINE NEG (NEG); NITRITE,URINE NEG (NEG); PH, URINE 5.5 (5.0-8.5); URINE COLOR YELLOW (YELLW/STRAW); URINE LEUKOCYTE ESTERASE TRACE (NEG)
[2017-08-05 00:48] LABS: BACTERIA, URINE RARE /hpf
[2017-08-05] MEDS: AZTREONAM INJ 1,000 MG in SODIUM CHLORIDE 0.9% INJ 100 ML IV SCH ×3 (02:03→18:21)
[2017-08-05] MEDS: SODIUM CHLOR 0.9% 1000 ML INJ 1,000 ML IV SCH ×3 (02:03→21:20)
[2017-08-05] MEDS: CHLORHEXIDINE GLUCONATE 2 % 1 PACK (2 CLOTHS) TOP SCH (04:00)
[2017-08-05 04:59] LABS: AUTOMATED NEUTROPHIL # 31.3 TH/MM3 (1.8-7.7); BASOPHIL % 0.1 % (0.0-2.0); HEMOGLOBIN 9.8 GM/DL (13.0-17.0); LYMPH % 2.9 % (9.0-44.0); MEAN CELL VOLUME 81.4 FL (80.0-100.0); MEAN CORPUSCULAR HEMOGLOBIN 26.5 PG (27.0-34.0); MEAN CORPUSCULAR HGB CONC 32.6 % (32.0-36.0); MONO % 3.3 % (0.0-8.0); MONOCYTE # 1.1 TH/MM3 (0-0.9); NEUT % 93.7 % (16.0-70.0); PLATELET COUNT 209 TH/MM3 (150-450); RED BLOOD COUNT 3.69 MIL/MM3 (4.50-5.90); RED CELL DISTRIBUTION WIDTH 14.2 % (11.6-17.2); WHITE BLOOD COUNT 33.5 TH/MM3 (4.0-11.0)
[2017-08-05 05:15] LABS: ALBUMIN 2.1 GM/DL (3.4-5.0); BICARBONATE 24.3 MEQ/L (21.0-32.0); CALCIUM 6.7 MG/DL (8.5-10.1); CALCIUM-PROTEIN CORRECTED 7.9 MG/DL (8.5-10.1); CREATININE 0.89 MG/DL (0.60-1.30); MAGNESIUM 1.5 MG/DL (1.5-2.5); PHOSPHORUS 2.2 MG/DL (2.5-4.9); TOTAL BILIRUBIN ADULT 0.5 MG/DL (0.2-1.0); TOTAL PROTEIN 4.8 GM/DL (6.4-8.2)
[2017-08-05 05:23] LABS: INTERNATIONAL NORMALIZED RATIO 1.3 RATIO; PROTHROMBIN TIME - PATIENT 12.7 SEC (9.8-11.6)
[2017-08-05] MEDS: HEPARIN SODIUM - SQ 10,000 UNITS/ML VIAL SQ SCH ×3 (05:30→21:48)
[2017-08-05] MEDS: metroNIDAZOLE 500 MG INJ 100 ML IV SCH ×2 (05:30→12:50)
[2017-08-05] MEDS: PROPOFOL 1000 MG/100 ML IV PRN (06:06)
--- NOTE | 2017-08-05 06:20 | RADRPT ---
EXAM DATE/TIME: 08/05/2017 04:52 [facility] COMPARISON: No previous studies available for comparison. INDICATIONS : Shortness of breath, possible pulmonary disease. MEDICAL HISTORY : Hypercholesterolemia. Hypertension Myocardial infarction. COPD PVD SURGICAL HISTORY : Esophageal dilitation ENCOUNTER: Subsequent ACUITY: 3 days PAIN SCORE: Non-responsive. LOCATION: Bilateral chest FINDINGS: Broad area of moderate severity parenchymal consolidation again seen in the right midlung, slightly i mproved in the interim. Left lung remains clear. No pleural effusion or pneumothorax. Endotracheal tube tip approximately 4 cm above the jonah. Nasogastric tube courses into the stomach. There is a right internal jugular central venous catheter with tip in the superior vena cava. CONCLUSION: Right mid lung infiltrate is slightly improved. Santi Putnam MD on August 05, 2017 at 6:18 Board Certified Radiologist. This report was verified electronically.
[2017-08-05 06:32] LABS: BANDS 15 % (0-6); MONOCYTES 1 % (0-8); NEUTROPHIL # MANUAL DIFF 33.2 TH/MM3 (1.8-7.7); POLYS (SEG NEUTROPHILS) 84 % (16-70)
[2017-08-05 06:33] LABS: BURR CELLS 1+ (NORMAL); OVALOCYTES 1+ (NORMAL)
--- NOTE | 2017-08-05 06:43 | HHI.CCPN ---
Subjective Remarks/Hospital Course 68-year-old gentleman with past medical history of coronary artery disease, CHF was complaining of worsening respiratory distress at home, paramedics found him to be decided to 65 put him on CPAP gave him 100 of Lasix and transported him patient became more somnolent en route and he decompensated they intubated him with no complications sat is 96% patient arrived sedated with 20 of etomidate for Versed ET tube is in place good color change on the capnometer. Subjective: 08/05 On levophed 1 mcg/min. Vasopressin was never started. Tolerating tube feeds 10 ml/hr with scant residuals. Had a formed BM. Following commands on vent , placing on CPAP trial. Objective Vital Signs Date Time Temp Pulse Resp B/P (MAP) Pulse Ox O2 Delivery O2 Flow Rate FiO2 08/05/17 06:06 55 77/50 08/05/17 04:24 99 40 08/05/17 03:00 97.9 17 08/04/17 06:29 Ventilator Intake and Output 08/05/17 08/05/17 08/06/17 08:00 16:00 00:00 Intake Total 1608 ml Output Total 720 ml Balance 888 ml Result Diagram: 08/05/17 0430 08/05/17 0430 Other Results Microbiology Date/Time Source Procedure Growth Status 08/04/17 18:30 Nasal Washing Influenza Types A,B Antigen (VALERIANO) - Final NEGATIVE FOR FLU A AND B ANTIGEN.... Complete 08/04/17 09:15 Urine Catheterized Urine Legionella Antigen - Final PRESUMPTIVE NEGATIVE FOR LEGIONELLA P... Complete 08/04/17 09:15 Urine Catheterized Urine Streptococcus pneumoniae Antigen (M - Final PRESUMPTIVE NEGATIVE FOR STREPTOCOCCU... Complete Imaging Last 72 hours Impressions Chest X-Ray 08/05/17 0000 Signed Impressions: Service Date/Time: Saturday, August 05, 2017 04:52 - CONCLUSION: Right mid lung infiltrate is slightly improved. Santi Putnam MD Head CT 08/04/17 0000 Signed Impressions: Service Date/Time: Friday, August 04, 2017 12:24 - CONCLUSION: 1. Oval-shaped 1.6 cm low attenuation area in the superior left frontal lobe. Primary differential diagnosis is a subacute infarct. This could be either evaluated with MRI to exclude other etiologies. Gallo Caal MD Chest X-Ray 08/04/17 0000 Signed Impressions: Service Date/Time: Friday, August 04, 2017 08:32 - CONCLUSION: Right IJ catheter in good position. No evidence of pneumothorax. Chris Rhoades MD Chest X-Ray 08/04/17 0000 Signed Impressions: Service Date/Time: Friday, August 04, 2017 06:02 - CONCLUSION: Large area of dense consolidation/pneumonia of the right mid and lower lung. Medical management and followup to resolution recommended. Appropriate position of the endotracheal tube and nasogastric tube. Santi Putnam MD Chest CT 08/04/17 0000 Signed Impressions: Service Date/Time: Friday, August 04, 2017 12:28 - CONCLUSION: 1. Patchy airspace disease and some interstitial prominence in the right lung most characteristic of a bronchopneumonia with small parapneumonic right pleural effusion and dependent atelectasis. Borderline enlarged mediastinal and hilar lymph nodes. 2. Moderate to severe coronary calcifications. 3. There is some narrowing of the bronchi, especially on the right side at bronchus intermedius. Etiology unclear. Gallo Caal MD Brain MRI 08/04/17 0000 Signed Impressions: Service Date/Time: Friday, August 04, 2017 17:22 - CONCLUSION: 1. Small focal region of acute infarction in the right occipital lobe. 2. Senescent changes with mild periventricular small vessel ischemic white matter demyelination. Julian Vernon MD Abdomen/Pelvis CT 08/04/17 0000 Signed Impressions: Service Date/Time: Friday, August 04, 2017 22:55 - CONCLUSION: 1. No acute abnormality seen in the abdomen or pelvis. 2. Right base pneumonia. 3. Right inguinal hernia containing distal small bowel but no obstruction or evidence of strangulation. 4. Atherosclerotic aorta without aneurysm. 5. Chronic L5 pars defects with grade one L5/S1 spondylolisthesis. No acute bony abnormality demonstrated. Santi Putnam MD Objective Remarks GENERAL: Elderly male who is orotracheally intubated. SKIN: Warm and dry, well perfused. HEAD: Atraumatic. Normocephalic. EYES: Pupils equal and round, 2mm and reactive bilaterally. No scleral icterus. No injection or drainage. ENT: No nasal bleeding or discharge. Mucous membranes pink and moist. NECK: Trachea midline. No JVD. R IJ CVL with dressing c/d/i. CARDIOVASCULAR: Regular rate and rhythm. No murmurs rubs or gallops. RESPIRATORY: Breathing appears comfortable on mechanical ventilation with no accessory muscle use. Rhonchi in the right lung. GASTROINTESTINAL: Abdomen soft, mildly distended. Bowel sounds present. Reducible R Inguinal hernia. : Fang in place with yellow urine output. MUSCULOSKELETAL: Extremities without clubbing, cyanosis, or edema. No obvious deformities. NEUROLOGICAL: Opens eyes to voice while on sedation.. No obvious cranial nerve deficits. Follows commands by hand squeezing and moving legs bilaterally. Unable to to assess speech A/P Assessment and Plan NEURO: Acute ischemic stroke, R occipital lobe Dementia h/o cataract removal. CT brain 08/04 - 1.6 cm low-attenuation superior left frontal lobe which may represent subacute infarct. MRI brain - focal area of restricted diffusion and right occipital lobe. Mild periventricular small vessel ischemic white matter demyelination. EEG 08/04/17 - bihemispheric slowing. No epileptiform features. Neurology following, Dr. Bennett. On statin/plavix. Propofol for sedation. Target RASS -2. Daily sedation vacation. Following commands now. Continue Aricept 10 mg by mouth daily. Tramadol (home med) 50 milligram by mouth every 4 hours as needed for pain. RESP: Acute Respiratory failure COPD Acute community acquired pneumonia, right. Tiny right parapneumonic effusion is not amenable to drainage. Prior tobacco abuse -On mechanical ventilation. Ventilator bundle. Spontaneous breathing trial today with possible extubation if tolerated. DuoNeb every 6 hours. Albuterol every 2 hours as needed. CXR 08/05 R lung opacity improved CV: Septic shock Essential hypertension Coronary artery disease with prior CO Hyperlipidemia PVD 2-D echo 08/04/17 - EF 55-60%. Trace to mild MR. Aortic valve sclerosis. Mild TR. Pulmonary artery pressure 38.9 mmHg. Plavix 75 mg by mouth daily Pravastatin 80 mg by mouth daily at bedtime Atenolol on hold due to hypotension. Wean the Levophed off for MAP greater than 65 Hydrocortisone 50 g IV every 6 hours, taper when off vasopressors GI: OG tube is in place. On TwoCal at 10 ML's per hour. Adjust goal rate to 50 mL per hour per nutrition recommendations CT abdomen and pelvis -no acute abnormality. Right inguinal hernia containing distal small bowel but no evidence of obstruction or strangulation. Atherosclerotic aorta. FEN/RENAL/UROLOGY: Lactic acidemia, resolved Hypophosphatemia Fang catheter in place. Urine output is on the low side but adequate. Monitor intake and output. Monitor electrolytes and replace as indicated per ICU electrolyte replacement protocol. 0.9 NaCl at 125 mL per hour BPH - Resume Flomax 0.4 mg po daily when hypotension resolved and able to swallow. ID: Septic shock Acute community acquired pneumonia Leukocytosis -uptrend noted but patient otherwise clinically improving and afebrile. Abdomen benign and denies abd pain. CT negative. Had a formed stool. Follow cultures. ??steroids Antibiotics per infectious disease, Dr. Hernandez. Tamiflu 75 twice a day 08/04 #2 Aztreonam 1 g IV every 8 hours 08/04 #2 Azithromycin 500 mg IV every 24 hours 08/04 #2 Flagyl 500 mg IV q8 08/04 #2. Vancomycin 08/04 #2 Microbiology: Urine Legionella and pneumococcal antigen - negative Blood cultures 07/2317 - pending Sputum culture 08/04 - pending Influenza nasal washing negative HEME: Anemia. Hgb downtrending in setting of critical illness, multiple lab draws and crystalloid resuscitation but does not appear to be actively bleeding. ENDO: Monitor bedside glucose every 4 hours while on steroids and administer low -dose insulin sliding scale as indicated. Previously was on 20 day course of prednisone for COPD, was completed 1 week ago PROPH: SCDs/heparin 5000 units subcutaneous every 8 hours for DVT prophylaxis. Famotidine for stress ulcer prophylaxis. ACCESS: Right IJ central venous line placed 08/04 #2 Reassesed several times throughout the day. Tolerating CPAP 5/5 with RSBI 20s. Following commands, Added precedex for anxiety. Came off levophed. D/c IVF and gave Lasix 20 m g IV which resulted in >1 L additional diuresis. Extubated and tolerating NC. Will use Bipap with precedex for Bipap tolerance post extubation. D/c hydrocortisone, will place on solumedrol. updated multiple times regarding this management. Reintubate if needed. Level III follow-up Alia Rosen MD Aug 05, 2017 06:43
[2017-08-05] MEDS ORDERED: RESP: ALBUTEROL 2.5 MG/3 ML NEB (PRN) NEB (07:30)
[2017-08-05] MEDS: CHLORHEXIDINE 0.12% (ORAL KIT) 15 ML CUP MT SCH ×2 (08:00→20:00)
[2017-08-05] MEDS: DONEPEZIL HCL 5 MG TAB PO SCH (09:00)
[2017-08-05] MEDS: RESP: ALBUTEROL 2.5 MG/IPRATROPIUM 0.5 MG NEB (SCH) NEB ×4 (10:31→23:29)
[2017-08-05] MEDS: AZITHROMYCIN INJ 500 MG in SODIUM CHLOR 0.9% 250 ML INJ 250 ML IV SCH ×2 (10:36→11:27)
[2017-08-05] MEDS: VANCOMYCIN INJ 1,000 MG in SODIUM CHLOR 0.9% 250 ML INJ 250 ML IV SCH ×2 (10:36→21:49)
[2017-08-05] MEDS: SODIUM CHLORIDE 0.9% FLUSH 10 ML FLUSH IV FLUSH SCH ×2 (10:37→20:23)
[2017-08-05] MEDS: FAMOTIDINE 20 MG/2 ML VIAL IV PUSH SCH ×2 (10:37→20:23)
[2017-08-05] MEDS: CLOPIDOGREL 75 MG TAB PO SCH (10:38)
[2017-08-05] MEDS: ARTIFICIAL TEARS OPTH SOLN 15 ML BTL EACH EYE SCH ×3 (10:39→18:20)
--- NOTE | 2017-08-05 12:09 | PD.PROCEDR ---
Alia Rosen MD Aug 05, 2017 12:09
[2017-08-05] MEDS ORDERED: NOREPINEPHRINE-DEXTROSE DRIP 250 ML IV PRN (12:15)
[2017-08-05] MEDS ORDERED: TERBUTALINE INJ 1 MG/ML AMP SQ PRN (12:15)
[2017-08-05] MEDS ORDERED: FUROSEMIDE 40 MG/4 ML VIAL ONE (15:30)
[2017-08-05] MEDS ORDERED: FUROSEMIDE 20 MG/2 ML VIAL IV PUSH ONE (15:30)
[2017-08-05] MEDS: DEXMEDETOMIDINE INJ 200 MCG in SODIUM CHLORIDE 0.9% INJ 50 ML IV PRN ×2 (16:25→21:22)
--- NOTE | 2017-08-05 18:15 | HHI.IDPN ---
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 Vital Signs Date Time Temp Pulse Resp B/P (MAP) Pulse Ox O2 Delivery O2 Flow Rate FiO2 08/05/17 17:07 97 Nasal Cannula 4 08/05/17 16:57 99 Nasal Cannula 2.00 08/05/17 15:00 112 08/05/17 15:00 98.4 112 25 171/89 (116) 98 08/05/17 15:00 40 08/05/17 14:52 40 08/05/17 14:30 98 40 08/05/17 11:00 95 08/05/17 11:00 40 08/05/17 11:00 98.3 95 18 162/91 (114) 99 08/05/17 10:31 99 40 08/05/17 10:31 40 08/05/17 10:00 75 136/73 08/05/17 08:00 40 08/05/17 07:25 99 40 08/05/17 07:00 40 08/05/17 07:00 56 08/05/17 07:00 98.3 56 16 120/67 (84) 99 08/05/17 06:06 55 77/50 08/05/17 04:24 99 40 08/05/17 04:00 55 111/60 08/05/17 03:00 55 08/05/17 03:00 97.9 55 17 114/56 (75) 98 08/05/17 03:00 40 08/05/17 03:00 55 114/56 08/05/17 02:00 53 103/54 08/05/17 01:06 99 40 08/05/17 00:00 59 95/51 08/04/17 23:00 59 08/04/17 23:00 40 08/04/17 23:00 98.5 59 17 89/56 (67) 98 08/04/17 23:00 59 89/56 08/04/17 22:40 98 100 08/04/17 22:09 61 103/63 08/04/17 19:55 99 40 08/04/17 19:00 76 08/04/17 19:00 99.0 85 17 125/66 (85) 99 08/04/17 19:00 40 08/05/17 08/05/17 08/06/17 15:00 23:00 07:00 Intake Total 663 ml Balance 663 ml IV Total 663 ml . Laboratory Tests Test 08/04/17 05:55 08/04/17 12:12 08/05/17 04:30 White Blood Count 17.7 TH/MM3 29.2 TH/MM3 33.5 TH/MM3 Red Blood Count 4.83 MIL/MM3 4.06 MIL/MM3 3.69 MIL/MM3 Hemoglobin 13.2 GM/DL 10.8 GM/DL 9.8 GM/DL Hematocrit 39.4 % 33.2 % 30.0 % Mean Corpuscular Volume 81.5 FL 81.8 FL 81.4 FL Mean Corpuscular Hemoglobin 27.4 PG 26.6 PG 26.5 PG Mean Corpuscular Hemoglobin Concent 33.7 % 32.6 % 32.6 % Red Cell Distribution Width 14.2 % 14.0 % 14.2 % Platelet Count 271 TH/MM3 252 TH/MM3 209 TH/MM3 Mean Platelet Volume 6.8 FL 6.9 FL 7.0 FL Neutrophils (%) (Auto) 88.1 % 90.0 % 93.7 % Lymphocytes (%) (Auto) 8.5 % 4.2 % 2.9 % Monocytes (%) (Auto) 1.8 % 5.3 % 3.3 % Eosinophils (%) (Auto) 0.8 % 0.2 % 0.0 % Basophils (%) (Auto) 0.8 % 0.3 % 0.1 % Neutrophils # (Auto) 15.6 TH/MM3 26.2 TH/MM3 31.3 TH/MM3 Lymphocytes # (Auto) 1.5 TH/MM3 1.2 TH/MM3 1.0 TH/MM3 Monocytes # (Auto) 0.3 TH/MM3 1.5 TH/MM3 1.1 TH/MM3 Eosinophils # (Auto) 0.1 TH/MM3 0.1 TH/MM3 0.0 TH/MM3 Basophils # (Auto) 0.1 TH/MM3 0.1 TH/MM3 0.0 TH/MM3 CBC Comment DIFF FINAL DIFF FINAL AUTO DIFF Differential Comment FINAL DIFF MANUAL Differential Total Cells Counted 100 Neutrophils % (Manual) 84 % Band Neutrophils % 15 % Monocytes % 1 % Neutrophils # (Manual) 33.2 TH/MM3 Platelet Estimate NORMAL Platelet Morphology Comment NORMAL Ovalocytes 1+ Lizet Cells 1+ Laboratory Tests Test 08/04/17 05:55 08/04/17 09:45 08/04/17 12:12 08/04/17 18:30 Blood Urea Nitrogen 13 MG/DL 18 MG/DL Creatinine 0.85 MG/DL 1.11 MG/DL Random Glucose 113 MG/DL 91 MG/DL Total Protein 7.1 GM/DL 5.1 GM/DL Albumin 3.4 GM/DL Calcium Level 8.6 MG/DL 7.4 MG/DL Alkaline Phosphatase 71 U/L Aspartate Amino Transf (AST/SGOT) 32 U/L Alanine Aminotransferase (ALT/SGPT) 27 U/L Total Bilirubin 0.7 MG/DL Sodium Level 131 MEQ/L 136 MEQ/L Potassium Level 4.6 MEQ/L 3.5 MEQ/L Chloride Level 93 MEQ/L 100 MEQ/L Carbon Dioxide Level 33.6 MEQ/L 27.9 MEQ/L Anion Gap 4 MEQ/L 8 MEQ/L Estimat Glomerular Filtration Rate 87 ML/MIN 64 ML/MIN Total Creatine Kinase 120 U/L Creatine Kinase MB 2.6 NG/ML Troponin I LESS THAN 0.02 NG/ML 0.10 NG/ML B-Type Natriuretic Peptide 79 PG/ML Lipase 133 U/L Lactic Acid Level 2.4 mmol/L 1.4 mmol/L Protein Corrected Calcium 8.5 MG/DL Phosphorus Level 2.8 MG/DL Test 08/05/17 04:30 08/05/17 12:57 Blood Urea Nitrogen 20 MG/DL Creatinine 0.89 MG/DL Random Glucose 128 MG/DL Total Protein 4.8 GM/DL Albumin 2.1 GM/DL Calcium Level 6.7 MG/DL Phosphorus Level 2.2 MG/DL Magnesium Level 1.5 MG/DL Alkaline Phosphatase 47 U/L Aspartate Amino Transf (AST/SGOT) 37 U/L Alanine Aminotransferase (ALT/SGPT) 20 U/L Total Bilirubin 0.5 MG/DL Sodium Level 136 MEQ/L Potassium Level 4.3 MEQ/L Chloride Level 105 MEQ/L Carbon Dioxide Level 24.3 MEQ/L Anion Gap 7 MEQ/L Estimat Glomerular Filtration Rate 83 ML/MIN Lactic Acid Level 1.0 mmol/L 0.9 mmol/L Protein Corrected Calcium 7.9 MG/DL Lipase 42 U/L Microbiology Date/Time Source Procedure Growth Status 08/04/17 09:45 Blood Peripheral Aerobic Blood Culture - Preliminary NO GROWTH IN 1 DAY Resulted 08/04/17 09:45 Blood Peripheral Anaerobic Blood Culture - Preliminary NO GROWTH IN 1 DAY Resulted 08/04/17 09:35 Blood Peripheral Aerobic Blood Culture - Preliminary NO GROWTH IN 1 DAY Resulted 08/04/17 09:35 Blood Peripheral Anaerobic Blood Culture - Preliminary NO GROWTH IN 1 DAY Resulted 08/04/17 18:30 Nasal Washing Influenza Types A,B Antigen (VALERIANO) - Final NEGATIVE FOR FLU A AND B ANTIGEN.... Complete 08/04/17 12:00 Sputum Endotracheal Gram Stain - Final Resulted 08/04/17 12:00 Sputum Endotracheal Sputum Culture - Preliminary IMMATURE GROWTH - REINCUBATE Resulted 08/04/17 23:20 Urine Catheterized Urine Urine Culture Pending Received 08/04/17 09:15 Urine Catheterized Urine Legionella Antigen - Final PRESUMPTIVE NEGATIVE FOR LEGIONELLA P... Complete 08/04/17 09:15 Urine Catheterized Urine Streptococcus pneumoniae Antigen (M - Final PRESUMPTIVE NEGATIVE FOR STREPTOCOCCU... Complete Imaging Last Impressions Chest X-Ray 08/05/17 0000 Signed Impressions: Service Date/Time: Saturday, August 05, 2017 04:52 - CONCLUSION: Right mid lung infiltrate is slightly improved. Santi Putnam MD Head CT 08/04/17 0000 Signed Impressions: Service Date/Time: Friday, August 04, 2017 12:24 - CONCLUSION: 1. Oval-shaped 1.6 cm low attenuation area in the superior left frontal lobe. Primary differential diagnosis is a subacute infarct. This could be either evaluated with MRI to exclude other etiologies. Gallo Caal MD Chest CT 08/04/17 0000 Signed Impressions: Service Date/Time: Friday, August 04, 2017 12:28 - CONCLUSION: 1. Patchy airspace disease and some interstitial prominence in the right lung most characteristic of a bronchopneumonia with small parapneumonic right pleural effusion and dependent atelectasis. Borderline enlarged mediastinal and hilar lymph nodes. 2. Moderate to severe coronary calcifications. 3. There is some narrowing of the bronchi, especially on the right side at bronchus intermedius. Etiology unclear. Gallo Caal MD Brain MRI 08/04/17 0000 Signed Impressions: Service Date/Time: Friday, August 04, 2017 17:22 - CONCLUSION: 1. Small focal region of acute infarction in the right occipital lobe. 2. Senescent changes with mild periventricular small vessel ischemic white matter demyelination. Julian Vernon MD Abdomen/Pelvis CT 08/04/17 0000 Signed Impressions: Service Date/Time: Friday, August 04, 2017 22:55 - CONCLUSION: 1. No acute abnormality seen in the abdomen or pelvis. 2. Right base pneumonia. 3. Right inguinal hernia containing distal small bowel but no obstruction or evidence of strangulation. 4. Atherosclerotic aorta without aneurysm. 5. Chronic L5 pars defects with grade one L5/S1 spondylolisthesis. No acute bony abnormality demonstrated. Santi Putnam MD Physical Exam CONSTITUTIONAL/GENERAL: This is an adequately nourished patient, in no apparent distress. TUBES/LINES/DRAINS: SKIN: No jaundice, rashes, or lesions. Skin temperature appropriate. Not diaphoretic. CARDIOVASCULAR: Regular rate and rhythm without murmurs, gallops, or rubs. No JVD. Peripheral pulses symmetric. RESPIRATORY/CHEST: Symmetric, unlabored respirations. Clear to auscultation. Breath sounds equal bilaterally. No wheezes, rales, or rhonchi. GASTROINTESTINAL: Abdomen soft, non-tender, mildly distended. No tympany to percussion. BS markedly diminished No hepato-splenomegaly, or palpable masses. No guarding. GENITOURINARY: Without palpable bladder distension. Fang catheter in place with light yellow urine MUSCULOSKELETAL: Extremities without clubbing, cyanosis, or edema. No joint tenderness or effusion noted. No calf tenderness. No mottling or clubbing. LYMPHATICS: No palpable cervical or supraclavicular adenopathy. NEUROLOGICAL: awake alert and talking over the phone . Follows some commands PSYCHIATRIC: calm and cooperative Assessment & Plan Remarks Assessment and Plan Assessment and Plan PNA, multilobar, severe: marked improvement clinically and some radiological clearing - resp panel negative - flu neg - clx P ethiolgy included bacterial vs viral, including flu Resp failure - resolved Sepsis Abnormal abd distention - no e/o intraabd process on CT - clinically resolving ileus Critically ill stable Worsning leukocytosis - probably reactive, plus sterroids are contributing cont azithro, azactam vanco dc tamiflu dc flagyl Discussed Condition With Dr Rosen pt's spouse @ b/s Alexandra Hernandez MD Aug 05, 2017 18:15
[2017-08-05] MEDS: PRAVASTATIN SOD 80 MG TAB PO SCH (20:24)
[2017-08-05] MEDS ORDERED: ZIPRASIDONE MESYLATE 20 MG VIAL IM ONE (21:00)
[2017-08-05 21:02] LABS: BICARBONATE 27.1 MEQ/L (21.0-32.0); CREATININE 0.77 MG/DL (0.60-1.30)
[2017-08-05 21:20] LABS: CALCIUM-PROTEIN CORRECTED 7.9 MG/DL (8.5-10.1); TOTAL PROTEIN 5.3 GM/DL (6.4-8.2)
[2017-08-05] MEDS: methylPREDNISolone SOD SUCC 40 MG/1 ML VIAL IV PUSH SCH (21:47)
[2017-08-05] MEDS: POTASSIUM CHLOR 40 MEQ PREMIX 100 ML IV PRN (22:14)
[2017-08-05] MEDS ORDERED: CALCIUM GLUCONATE INJ 2 GM in DEXTROSE 5% IN WATER 100ML INJ 100 ML IV ONE ×2 (23:15)
[2017-08-06] VITALS (9 sets, daily range): BP systolic 147–192; BP diastolic 48–104; PULSE 53–118; RESP 20–28; TEMP 97.4–98.5; O2SAT 92–99
[2017-08-06] MEDS: DEXMEDETOMIDINE INJ 200 MCG in SODIUM CHLORIDE 0.9% INJ 50 ML IV PRN ×2 (00:34→02:57)
[2017-08-06] MEDS ORDERED: HYDROCORTISONE SOD SUCCINATE 100 MG VIAL IV PUSH SCH (01:00)
[2017-08-06] MEDS: INSULIN NovoLIN REGULAR SUPPLEMENTAL SCALE SQ SCH ×6 (01:00→21:00)
[2017-08-06] MEDS: AZTREONAM INJ 1,000 MG in SODIUM CHLORIDE 0.9% INJ 100 ML IV SCH ×3 (02:00→18:07)
[2017-08-06] MEDS: CHLORHEXIDINE GLUCONATE 2 % 1 PACK (2 CLOTHS) TOP SCH (03:50)
[2017-08-06] MEDS: RESP: ALBUTEROL 2.5 MG/IPRATROPIUM 0.5 MG NEB (SCH) NEB ×4 (03:56→20:27)
[2017-08-06 04:05] LABS: AUTOMATED NEUTROPHIL # 31.1 TH/MM3 (1.8-7.7); BASOPHIL # 0.1 TH/MM3 (0-0.2); BASOPHIL % 0.2 % (0.0-2.0); HEMATOCRIT 31.1 % (39.0-51.0); HEMOGLOBIN 10.4 GM/DL (13.0-17.0); LYMPH % 1.6 % (9.0-44.0); LYMPHOCYTE # 0.5 TH/MM3 (1.0-4.8); MEAN CELL VOLUME 80.1 FL (80.0-100.0); MEAN CORPUSCULAR HEMOGLOBIN 26.8 PG (27.0-34.0); MEAN CORPUSCULAR HGB CONC 33.4 % (32.0-36.0); MEAN PLATELET VOLUME 6.8 FL (7.0-11.0); MONOCYTE # 0.6 TH/MM3 (0-0.9); NEUT % 96.2 % (16.0-70.0); PLATELET COUNT 201 TH/MM3 (150-450); RED BLOOD COUNT 3.89 MIL/MM3 (4.50-5.90); RED CELL DISTRIBUTION WIDTH 14.1 % (11.6-17.2); WHITE BLOOD COUNT 32.3 TH/MM3 (4.0-11.0)
[2017-08-06 04:36] LABS: ALBUMIN 2.5 GM/DL (3.4-5.0); AST (GOT) 46 U/L (15-37); BICARBONATE 26.3 MEQ/L (21.0-32.0); BLOOD UREA NITROGEN 22 MG/DL (7-18); CALCIUM 7.8 MG/DL (8.5-10.1); CHLORIDE 107 MEQ/L (98-107); CREATININE 0.73 MG/DL (0.60-1.30); GLOMERULAR FILTRATION RATE 104 ML/MIN (>89); GLUCOSE,RANDOM 140 MG/DL (74-106); SODIUM (NA) 140 MEQ/L (136-145)
[2017-08-06 04:41] LABS: ALKALINE PHOSPHATASE 59 U/L (45-117); ALT (GPT) 24 U/L (12-78); PHOSPHORUS 1.5 MG/DL (2.5-4.9); TOTAL BILIRUBIN ADULT 0.4 MG/DL (0.2-1.0); TOTAL PROTEIN 5.8 GM/DL (6.4-8.2)
[2017-08-06] MEDS: methylPREDNISolone SOD SUCC 40 MG/1 ML VIAL IV PUSH SCH ×3 (05:09→21:11)
[2017-08-06] MEDS: HEPARIN SODIUM - SQ 10,000 UNITS/ML VIAL SQ SCH ×3 (05:09→21:11)
[2017-08-06 05:35] LABS: BANDS 8 % (0-6); LYMPHOCYTES 1 % (9-44); MONOCYTES 3 % (0-8); POLYS (SEG NEUTROPHILS) 88 % (16-70)
[2017-08-06 05:36] LABS: ACANTHOCYTES OCC (NORMAL)
[2017-08-06 05:37] LABS: DOHLE BODIES PRESENT (NONE SEEN); TOXIC GRANULATION 1+ (NORMAL)
[2017-08-06] MEDS: VANCOMYCIN INJ 1,000 MG in SODIUM CHLOR 0.9% 250 ML INJ 250 ML IV SCH ×2 (08:33→21:11)
[2017-08-06] MEDS: SODIUM PHOSPHATE INJ 30 MMOL in SODIUM CHLOR 0.9% 250 ML INJ 240 ML IV PRN ×2 (08:34→08:39)
[2017-08-06] MEDS: CLOPIDOGREL 75 MG TAB PO SCH (08:35)
[2017-08-06] MEDS: DOCUSATE SODIUM 50 MG/SENNA 8.6 MG TAB PO SCH ×2 (08:35→21:09)
[2017-08-06] MEDS: FAMOTIDINE 20 MG/2 ML VIAL IV PUSH SCH ×2 (08:36→21:10)
[2017-08-06] MEDS: CHLORHEXIDINE 0.12% (ORAL KIT) 15 ML CUP MT SCH ×2 (08:37→20:00)
[2017-08-06] MEDS: DONEPEZIL HCL 5 MG TAB PO SCH (08:42)
[2017-08-06] MEDS: ARTIFICIAL TEARS OPTH SOLN 15 ML BTL EACH EYE SCH (08:43)
[2017-08-06] MEDS: SODIUM CHLORIDE 0.9% FLUSH 10 ML FLUSH IV FLUSH SCH ×2 (08:43→21:00)
--- NOTE | 2017-08-06 08:49 | HHI.PR ---
Review/Management Daily Summary 08/06 exrtubated agitated, given geodon, sedated now mri small acute infarct right occipital plavix, statin, add asa Subjective Subjective Comments sedated Active Medications Current Medications Medications (Trade) Dose Ordered Sig/Veronica Route Start Time Stop Time Status Last Admin (Plavix) 75 mg DAILY PO 08/04/17 09:00 08/06/17 08:35 (Aricept) 10 mg DAILY PO 08/04/17 09:00 08/06/17 08:42 (Flomax) 0.4 mg DAILY PO 08/04/17 09:00 Future Hold 08/04/17 18:01 (Ultram) 50 mg Q4H PRN PO 08/04/17 05:45 (Pravachol) 80 mg HS PO 08/04/17 21:00 08/05/17 20:24 (NS Flush) 2 ml UNSCH PRN IV FLUSH 08/04/17 06:00 (NS Flush) 2 ml BID IV FLUSH 08/04/17 09:00 08/06/17 08:43 (Tylenol) 650 mg Q6H PRN PO 08/04/17 06:00 (Pepcid Inj) 20 mg Q12HR IV PUSH 08/04/17 09:00 08/06/17 08:36 (Tears Naturale Opth Soln) 1 drop TID EACH EYE 08/04/17 09:00 08/06/17 08:43 (Zofran Inj) 4 mg Q6H PRN IV PUSH 08/04/17 06:00 (Heparin Inj) 5,000 units Q8H SQ 08/04/17 06:00 08/06/17 05:09 Miscellaneous Information 1 Q361D XX 08/04/17 06:00 (Chlorhexidine 2% Cloth) 3 pack Taper DAILY@04 TOP 08/05/17 04:00 08/01/18 03:59 08/06/17 03:50 (Chlorhexidine 2% Cloth) 3 pack UNSCH PRN TOP 08/04/17 06:00 (Adri-Colace) 1 tab BID PO 08/04/17 09:00 08/06/17 08:35 (Milk Of Magnesia Liq) 30 ml Q12H PRN PO 08/04/17 06:00 (Senokot) 17.2 mg Q12H PRN PO 08/04/17 06:00 (Dulcolax Supp) 10 mg DAILY PRN RECTAL 08/04/17 06:00 (Lactulose Liq) 30 ml DAILY PRN PO 08/04/17 06:00 08/04/17 15:00 (Peridex 0.12% Liq) 15 ml BID@08,20 MT 08/04/17 08:00 08/06/17 08:37 Vancomycin HCl 1000 mg/Sodium Chloride 250 ml @ 250 mls/hr Q12H IV 08/04/17 10:00 08/06/17 08:33 Aztreonam 1000 mg/ Sodium Chloride 100 ml @ 200 mls/hr Q8H IV 08/04/17 10:00 08/06/17 02:00 Azithromycin 500 mg/Sodium Chloride 250 ml @ 250 mls/hr Q24H IV 08/04/17 11:00 08/05/17 11:27 Sodium Chloride 1,000 ml @ 10 mls/hr Q24H IV 08/04/17 09:30 08/05/17 21:20 (D50w (Vial) Inj) 50 ml UNSCH PRN IV PUSH 08/04/17 09:00 (Glucagon Inj) 1 mg UNSCH PRN OTHER 08/04/17 09:00 (NovoLIN R SUPPLEMENTAL SCALE) 1 Q4H SQ 08/04/17 09:00 08/06/17 08:42 Potassium Chloride 100 ml @ 50 mls/hr Q2H PRN IV 08/04/17 17:30 Potassium Chloride 100 ml @ 50 mls/hr Q2H PRN IV 08/04/17 17:30 08/05/17 12:01 (K-Lyte Cl Eff) 50 meq UNSCH PRN PO 08/04/17 17:30 Potassium Chloride 100 ml @ 25 mls/hr UNSCH PRN IV 08/04/17 17:30 08/05/17 22:14 Potassium Chloride 100 ml @ 50 mls/hr Q2H PRN IV 08/04/17 17:30 Magnesium Sulfate 4 gm/Sodium Chloride 100 ml @ 50 mls/hr UNSCH PRN IV 08/04/17 17:30 (Mag-Ox) 800 mg UNSCH PRN PO 08/04/17 17:30 Magnesium Sulfate 2 gm/Sodium Chloride 100 ml @ 50 mls/hr UNSCH PRN IV 08/04/17 17:30 08/05/17 08:03 (K-Phos) 2,000 mg Q4H PRN PO 08/04/17 17:30 Sodium Phosphate 30 mmol/Sodium Chloride 250 ml @ 42 mls/hr UNSCH PRN IV 08/04/17 17:30 08/06/17 08:39 (K-Phos) 2,000 mg UNSCH PRN PO/TUBE 08/04/17 17:30 Potassium Phosphate 30 mmol/ Sodium Chloride 260 ml @ 42 mls/hr UNSCH PRN IV 08/04/17 17:30 (Brethine Inj) 1 mg UNSCH PRN SQ 08/05/17 12:15 Dexmedetomidine HCl 200 mcg/ Sodium Chloride 52 ml @ 4.29 mls/hr TITRATE PRN IV 08/05/17 15:30 08/06/17 02:57 (SoluMEDROL INJ) 40 mg Q8HR IV PUSH 08/05/17 22:00 08/06/17 05:09 (Atrovent Neb) 0.5 mg Q6HR NEB NEB 08/06/17 10:00 Allergies Allergies Coded Allergies penicillin G (Unverified Allergy, Severe, Anaphylaxis, 08/04/17) haloperidol (Unverified Adverse Reaction, Intermediate, 08/04/17) lorazepam (Unverified Adverse Reaction, Intermediate, 08/04/17) *MDRO Multi-Drug Resistant Organism (Verified Adverse Reaction, Unknown, ) Exam I&O / VS Vital Signs Date Time Temp Pulse Resp B/P (MAP) Pulse Ox O2 Delivery O2 Flow Rate FiO2 08/06/17 07:32 98 Nasal Cannula 4.00 08/06/17 07:00 97.4 53 26 174/86 (115) 98 08/06/17 06:00 57 182/93 (122) 08/06/17 03:00 82 08/06/17 03:00 98.5 68 21 192/104 (133) 96 08/05/17 23:33 97 Nasal Cannula 4.00 08/05/17 23:00 81 08/05/17 23:00 98.7 78 22 149/95 (113) 98 08/05/17 19:00 98.8 86 20 149/79 (102) 97 08/05/17 19:00 90 08/05/17 19:00 97 Nasal Cannula 4.00 08/05/17 17:07 97 Nasal Cannula 4 08/05/17 16:57 99 Nasal Cannula 2.00 08/05/17 15:00 112 08/05/17 15:00 98.4 112 25 171/89 (116) 98 08/05/17 15:00 40 08/05/17 14:52 40 08/05/17 14:30 98 40 08/05/17 11:00 95 08/05/17 11:00 40 08/05/17 11:00 98.3 95 18 162/91 (114) 99 08/05/17 10:31 99 40 08/05/17 10:31 40 08/05/17 10:00 75 136/73 Objective Radiology Results Laboratory Tests Test 08/04/17 05:55 08/04/17 06:20 08/04/17 09:30 08/04/17 09:45 White Blood Count 17.7 TH/MM3 (4.0-11.0) Mean Platelet Volume 6.8 FL (7.0-11.0) Neutrophils (%) (Auto) 88.1 % (16.0-70.0) Lymphocytes (%) (Auto) 8.5 % (9.0-44.0) Neutrophils # (Auto) 15.6 TH/MM3 (1.8-7.7) Random Glucose 113 MG/DL (74-106) Sodium Level 131 MEQ/L (136-145) Chloride Level 93 MEQ/L (98-107) Carbon Dioxide Level 33.6 MEQ/L (21.0-32.0) Anion Gap 4 MEQ/L (5-15) Estimat Glomerular Filtration Rate 87 ML/MIN (>89) Troponin I LESS THAN 0.02 NG/ML Blood Gas HCO3 27 mmol/L (22-26) Blood Gas Base Excess 2.4 mmol/L (-2-2) Arterial Blood Partial Pressure O2 299 mmHG (61-120) Lactic Acid Level 2.4 mmol/L (0.4-2.0) Test 08/04/17 12:12 08/04/17 18:30 08/04/17 18:45 08/04/17 23:20 White Blood Count 29.2 TH/MM3 (4.0-11.0) Red Blood Count 4.06 MIL/MM3 (4.50-5.90) Hemoglobin 10.8 GM/DL (13.0-17.0) Hematocrit 33.2 % (39.0-51.0) Mean Corpuscular Hemoglobin 26.6 PG (27.0-34.0) Mean Platelet Volume 6.9 FL (7.0-11.0) Neutrophils (%) (Auto) 90.0 % (16.0-70.0) Lymphocytes (%) (Auto) 4.2 % (9.0-44.0) Neutrophils # (Auto) 26.2 TH/MM3 (1.8-7.7) Monocytes # (Auto) 1.5 TH/MM3 (0-0.9) Total Protein 5.1 GM/DL (6.4-8.2) Calcium Level 7.4 MG/DL (8.5-10.1) Estimat Glomerular Filtration Rate 64 ML/MIN (>89) Troponin I 0.10 NG/ML (0.02-0.05) Urine Leukocyte Esterase TRACE (NEG) Urine Bacteria RARE /hpf (NONE) Test 08/05/17 04:30 08/05/17 12:57 08/05/17 20:00 08/06/17 03:38 White Blood Count 33.5 TH/MM3 (4.0-11.0) 32.3 TH/MM3 (4.0-11.0) Red Blood Count 3.69 MIL/MM3 (4.50-5.90) 3.89 MIL/MM3 (4.50-5.90) Hemoglobin 9.8 GM/DL (13.0-17.0) 10.4 GM/DL (13.0-17.0) Hematocrit 30.0 % (39.0-51.0) 31.1 % (39.0-51.0) Mean Corpuscular Hemoglobin 26.5 PG (27.0-34.0) 26.8 PG (27.0-34.0) Neutrophils (%) (Auto) 93.7 % (16.0-70.0) 96.2 % (16.0-70.0) Lymphocytes (%) (Auto) 2.9 % (9.0-44.0) 1.6 % (9.0-44.0) Neutrophils # (Auto) 31.3 TH/MM3 (1.8-7.7) 31.1 TH/MM3 (1.8-7.7) Monocytes # (Auto) 1.1 TH/MM3 (0-0.9) Neutrophils % (Manual) 84 % (16-70) 88 % (16-70) Band Neutrophils % 15 % (0-6) 8 % (0-6) Neutrophils # (Manual) 33.2 TH/MM3 (1.8-7.7) 31.0 TH/MM3 (1.8-7.7) Ovalocytes 1+ (NORMAL) Lizet Cells 1+ (NORMAL) Prothrombin Time 12.7 SEC (9.8-11.6) Blood Urea Nitrogen 20 MG/DL (7-18) 21 MG/DL (7-18) 22 MG/DL (7-18) Random Glucose 128 MG/DL (74-106) 124 MG/DL (74-106) 140 MG/DL (74-106) Total Protein 4.8 GM/DL (6.4-8.2) 5.3 GM/DL (6.4-8.2) 5.8 GM/DL (6.4-8.2) Albumin 2.1 GM/DL (3.4-5.0) 2.5 GM/DL (3.4-5.0) Calcium Level 6.7 MG/DL (8.5-10.1) 7.0 MG/DL (8.5-10.1) 7.8 MG/DL (8.5-10.1) Phosphorus Level 2.2 MG/DL (2.5-4.9) 1.5 MG/DL (2.5-4.9) Estimat Glomerular Filtration Rate 83 ML/MIN (>89) Protein Corrected Calcium 7.9 MG/DL (8.5-10.1) 7.9 MG/DL (8.5-10.1) Lipase 42 U/L (73-393) Potassium Level 3.4 MEQ/L (3.5-5.1) Mean Platelet Volume 6.8 FL (7.0-11.0) Lymphocytes # (Auto) 0.5 TH/MM3 (1.0-4.8) Lymphocytes % 1 % (9-44) Toxic Granulation 1+ (NORMAL) Dohle Bodies PRESENT (NONE SEEN) Aspartate Amino Transf (AST/SGOT) 46 U/L (15-37) Last 48 hours Impressions Chest X-Ray 08/05/17 0000 Signed Impressions: Service Date/Time: Saturday, August 05, 2017 04:52 - CONCLUSION: Right mid lung infiltrate is slightly improved. Santi Putnam MD Micro and Labs Laboratory Tests Test 08/05/17 12:57 08/05/17 20:00 08/06/17 03:38 Lactic Acid Level 0.9 Blood Urea Nitrogen 21 22 Creatinine 0.77 0.73 Random Glucose 124 140 Total Protein 5.3 5.8 Calcium Level 7.0 7.8 Magnesium Level 2.0 Sodium Level 138 140 Potassium Level 3.4 3.9 Chloride Level 106 107 Carbon Dioxide Level 27.1 26.3 Anion Gap 5 7 Estimat Glomerular Filtration Rate 98 104 Protein Corrected Calcium 7.9 White Blood Count 32.3 Red Blood Count 3.89 Hemoglobin 10.4 Hematocrit 31.1 Mean Corpuscular Volume 80.1 Mean Corpuscular Hemoglobin 26.8 Mean Corpuscular Hemoglobin Concent 33.4 Red Cell Distribution Width 14.1 Platelet Count 201 Mean Platelet Volume 6.8 Neutrophils (%) (Auto) 96.2 Lymphocytes (%) (Auto) 1.6 Monocytes (%) (Auto) 2.0 Eosinophils (%) (Auto) 0.0 Basophils (%) (Auto) 0.2 Neutrophils # (Auto) 31.1 Lymphocytes # (Auto) 0.5 Monocytes # (Auto) 0.6 Eosinophils # (Auto) 0.0 Basophils # (Auto) 0.1 CBC Comment AUTO DIFF Differential Total Cells Counted 100 Neutrophils % (Manual) 88 Band Neutrophils % 8 Lymphocytes % 1 Monocytes % 3 Neutrophils # (Manual) 31.0 Differential Comment FINAL DIFF MANUAL Toxic Granulation 1+ Dohle Bodies PRESENT Platelet Estimate NORMAL Platelet Morphology Comment NORMAL Acanthocytes OCC Albumin 2.5 Phosphorus Level 1.5 Alkaline Phosphatase 59 Aspartate Amino Transf (AST/SGOT) 46 Alanine Aminotransferase (ALT/SGPT) 24 Total Bilirubin 0.4 Date/Time Source Procedure Growth Status 08/04/17 09:45 Blood Peripheral Aerobic Blood Culture - Preliminary NO GROWTH IN 1 DAY Resulted 08/04/17 09:45 Blood Peripheral Anaerobic Blood Culture - Preliminary NO GROWTH IN 1 DAY Resulted 08/04/17 18:30 Nasal Washing Influenza Types A,B Antigen (VALERIANO) - Final NEGATIVE FOR FLU A AND B ANTIGEN.... Complete 08/04/17 23:20 Urine Catheterized Urine Urine Culture Pending Received Ulises Bennett MD Aug 06, 2017 08:49
[2017-08-06] MEDS ORDERED: RESP: IPRATROPIUM 0.5 MG/2.5 ML NEB NEB SCH (10:00)
--- NOTE | 2017-08-06 10:21 | HHI.CCPN ---
Subjective Remarks/Hospital Course 68-year-old gentleman with past medical history of coronary artery disease, CHF was complaining of worsening respiratory distress at home, paramedics found him to be decided to 65 put him on CPAP gave him 100 of Lasix and transported him patient became more somnolent en route and he decompensated they intubated him with no complications sat is 96% patient arrived sedated with 20 of etomidate for Versed ET tube is in place good color change on the capnometer. 08/05 On levophed 1 mcg/min. Vasopressin was never started. Tolerating tube feeds 10 ml/hr with scant residuals. Had a formed BM. Following commands on vent , placing on CPAP trial. Subjective: 08/06: Afebrile. Received ziprasidone 10 mg IM last night due to agitation. Currently on dexmedetomidine drip at 0.2 mcg/kg per minute and appears also tended. ABG. Not retaining pCO2 is currently 42.6. Stat CT brain ordered. Noted acute right occipital CVA on MRI brain. states baseline he is severe dementia has capacity 5-year-old currently. Objective Vital Signs Date Time Temp Pulse Resp B/P (MAP) Pulse Ox O2 Delivery O2 Flow Rate FiO2 08/06/17 07:32 98 Nasal Cannula 4.00 08/06/17 07:00 97.4 53 26 174/86 (115) 08/05/17 15:00 40 Intake and Output 08/06/17 08/06/17 08/07/17 08:00 16:00 00:00 Intake Total 516 ml Output Total 530 ml Balance -14 ml Result Diagram: 08/06/17 0338 08/06/17 0338 Other Results Microbiology Date/Time Source Procedure Growth Status 08/04/17 09:45 Blood Peripheral Aerobic Blood Culture - Preliminary NO GROWTH IN 1 DAY Resulted 08/04/17 09:45 Blood Peripheral Anaerobic Blood Culture - Preliminary NO GROWTH IN 1 DAY Resulted 08/04/17 18:30 Nasal Washing Influenza Types A,B Antigen (VALERIANO) - Final NEGATIVE FOR FLU A AND B ANTIGEN.... Complete 08/04/17 23:20 Urine Catheterized Urine Urine Culture Pending Received Imaging Last Impressions Chest X-Ray 08/05/17 0000 Signed Impressions: Service Date/Time: Saturday, August 05, 2017 04:52 - CONCLUSION: Right mid lung infiltrate is slightly improved. Santi Putnam MD Head CT 08/04/17 0000 Signed Impressions: Service Date/Time: Friday, August 04, 2017 12:24 - CONCLUSION: 1. Oval-shaped 1.6 cm low attenuation area in the superior left frontal lobe. Primary differential diagnosis is a subacute infarct. This could be either evaluated with MRI to exclude other etiologies. Gallo Caal MD Chest CT 08/04/17 0000 Signed Impressions: Service Date/Time: Friday, August 04, 2017 12:28 - CONCLUSION: 1. Patchy airspace disease and some interstitial prominence in the right lung most characteristic of a bronchopneumonia with small parapneumonic right pleural effusion and dependent atelectasis. Borderline enlarged mediastinal and hilar lymph nodes. 2. Moderate to severe coronary calcifications. 3. There is some narrowing of the bronchi, especially on the right side at bronchus intermedius. Etiology unclear. Gallo Caal MD Brain MRI 08/04/17 0000 Signed Impressions: Service Date/Time: Friday, August 04, 2017 17:22 - CONCLUSION: 1. Small focal region of acute infarction in the right occipital lobe. 2. Senescent changes with mild periventricular small vessel ischemic white matter demyelination. Julian Vernon MD Abdomen/Pelvis CT 08/04/17 0000 Signed Impressions: Service Date/Time: Friday, August 04, 2017 22:55 - CONCLUSION: 1. No acute abnormality seen in the abdomen or pelvis. 2. Right base pneumonia. 3. Right inguinal hernia containing distal small bowel but no obstruction or evidence of strangulation. 4. Atherosclerotic aorta without aneurysm. 5. Chronic L5 pars defects with grade one L5/S1 spondylolisthesis. No acute bony abnormality demonstrated. Santi Putnam MD Objective Remarks GENERAL: 68-year-old male currently resting in bed on 4 L nasal cannula in no acute distress SKIN: Warm and dry, well perfused. HEAD: Atraumatic. Normocephalic. EYES: Pupils equal and round, 2mm and reactive bilaterally. No scleral icterus. No injection or drainage. ENT: No nasal bleeding or discharge. Mucous membranes pink and moist. Oropharynx without erythema or exudates NECK: Trachea midline. No JVD. R IJ CVL with dressing clean dry and intact without erythema or exudates CARDIOVASCULAR: RRR. S1, S2are present murmur RESPIRATORY: Coarse rhonchorous breath sounds are appreciated throughout the right lung zambrano anteriorly and posteriorly are positive and extremity wheezes GASTROINTESTINAL: Abdomen soft, mildly distended. Bowel sounds present. Reducible R Inguinal hernia. MUSCULOSKELETAL: Extremities without significant peripheral edema. No obvious deformities. NEUROLOGICAL: Currently appears almost obtunded. We'll discontinue dexmedetomidine drip. Pupils about 1 mm bilaterally and reactive. Withdraws to pain in right upper extremity. He is difficult to elicit withdrawal symptoms involving right lower, left upper along with left lower extremity. Upward toes bilaterally. Urinary Catheter: Yes Assessment to: Remove Assessment to: Continue Date of Insertion: Aug 04, 2017 Line: Central Venous Catheter Side: Right Location: Internal, Jugular A/P Assessment and Plan NEURO/PSYCH: Acute ischemic stroke, R occipital lobe Severe Dementia H/o cataract removal unknown eye CT brain 08/04 - 1.6 cm low-attenuation superior left frontal lobe which may represent subacute infarct. MRI brain - focal area of restricted diffusion involving right occipital lobe. Mild periventricular small vessel ischemic white matter demyelination. EEG 08/04/17 - bihemispheric slowing. No epileptiform features. Neurology following, Dr. Bennett. On pravastatin 80 mg daily and clopidogrel bisulfate 75 mg by mouth daily Check MRA brain/neck today 08/06 Continue acetaminophen 650 mg by mouth every 6 hours when necessary fever/pain 1 -10 Continue donepezil 10 mg by mouth daily. Discontinue Tramadol (home med) 50 milligram by mouth every 4 hours as needed for pain. Currently on dexmedetomidine drip at 0.2 mcg/kg per minute. Weaned off. Received 1 dose of ziprasidone 10 mg IM 1 overnight RESP: COPD Acute community acquired pneumonia, right. Small right parapneumonic effusion is not amenable to drainage. Prior tobacco abuse Nasal cannula to maintain saturations greater than equal to 92% Incentive spirometry while awake Albuterol/ipratropium aerosols every 6 hours with Albuterol aerosols 2.5 mg/3 milliliters every 2 hours as needed. Reevaluate chest x-ray 08/07 AM CV: Septic shock - resolving Essential hypertension Coronary artery disease with prior UT Hyperlipidemia Peripheral vascular disease History of left SFA/popliteal occlusion/right iliac stent Related troponin Moderate MR 2-D echo 08/04/17 - EF 55-60%. Trace to mild MR. Aortic valve sclerosis. Mild TR. Pulmonary artery pressure 38.9 mmHg. Clopidogrel bisulfate 75 mg by mouth daily Pravastatin 80 mg by mouth daily at bedtime - on simvastatin 40 mg daily at home Atenolol 25 mg daily/home medication on hold due to hypotension. Currently off norepinephrine drip with goal MAP greater than 65 Hydrocortisone 50 mg IV every 8 hours was transition to methylprednisolone succinate 40 mg IV every 8 hours decubitus COPD exacerbation by hand washer yesterday IV fluids currently normal saline at 50 cc an hour while nothing by mouth GI: History of esophageal dilatation Right inguinal hernia Elevated AST Hypoalbuminemia Currently not able to swallow. Speech therapy evaluate and treat If unable to place NG tube today CT abdomen and pelvis -no acute abnormality. Right inguinal hernia containing distal small bowel but no evidence of obstruction or strangulation. Atherosclerotic aorta. Famotidine for GI prophylaxis Docusate sodium/senna 1 tablet twice a day for bowel regimen FEN/RENAL/UROLOGY: Hypophosphatemia BPH Fang catheter in place. Removed as clinically indicated Urine output is on the low side but adequate. Monitor intake and output. Monitor electrolytes and replace as indicated per ICU electrolyte replacement protocol. Resume tamsulosin 0.4 mg po daily when hypotension resolved and able to swallow. Will receive sodium phosphate 30 mmol IV 1. Recheck in a.m. ID: Acute community acquired pneumonia Antibiotics and antivirals per infectious disease, Dr. Hernandez. Oseltamivir 75 milligrams twice a day 08/04-08/05 Aztreonam 1 g IV every 8 hours 08/04 #3 Azithromycin 500 mg IV every 24 hours 08/04 #3 Metronidazole 500 mg IV q8 08/04-08/05 Vancomycin 08/04 #3 Pertinent cultures Urine Legionella and pneumococcal antigen - negative Blood cultures 08/04 -no growth to date Urine culture 08/04 - pending Influenza A&B nasal washing negative Sputum culture 08/04 immature growth/reincubate HEME: Normocytic normochromic Anemia. Hemoglobin downtrending in setting of critical illness, multiple lab draws and crystalloid resuscitation but does not appear to be actively bleeding. Does not meet transfusion thresholds at this time Recheck CBC in a.m. ENDO: Scale insulin with Accu-Cheks before meals/at bedtime on steroids and administer low-dose insulin sliding scale as indicated. Previously was on 20 day course of prednisone for COPD, was completed 1 week ago MSK Sciatica Chronic L5 pars defects with grade one L5/S1 spondylolisthesis. No acute bony abnormality demonstrated. PT evaluate and treat PROPH: SCDs/heparin 5000 units subcutaneous every 8 hours for DVT prophylaxis. Famotidine for stress ulcer prophylaxis. ACCESS: Right IJ central venous line placed 08/04 #3 Level II follow-up Oscar Louis MD Aug 06, 2017 10:21
[2017-08-06] MEDS ORDERED: SODIUM PHOSPHATE INJ 30 MMOL in SODIUM CHLOR 0.9% 250 ML INJ 250 ML IV ONE (11:00)
--- NOTE | 2017-08-06 11:28 | RADRPT ---
EXAM DATE/TIME: 08/06/2017 10:44 [facility] COMPARISON: MRI BRAIN W/O CONTRAST, August 04, 2017, 17:22. CT BRAIN W/O CONTRAST, August 04, 2017, 12:24. INDICATIONS : Altered mental status. RADIATION DOSE: 50.97 CTDIvol (mGy) MEDICAL HISTORY : Stroke. Hypertension. SURGICAL HISTORY : None. ENCOUNTER: Subsequent ACUITY: 1 day PAIN SCALE: Non-responsive LOCATION: Bilateral head TECHNIQUE: Multiple contiguous axial images were obtained of the head. Using automated exposure control and adj ustment of the mA and/or kV according to patient size, radiation dose was kept as low as reasonably a chievable to obtain optimal diagnostic quality images. DICOM format image data is available electro nically for review and comparison. FINDINGS: CEREBRUM: The ventricles and cortical sulci are widened. There is low density in the cerebral white matter incl uding a peripheral area in the left parietal lobe. These are stable. No evidence of midline shift, m ass lesion, hemorrhage or acute infarction. No extra-axial fluid collections are seen. POSTERIOR FOSSA: The cerebellum and brainstem are intact. The 4th ventricle is midline. The cerebellopontine angle i s unremarkable. EXTRACRANIAL: The visualized portion of the orbits is intact. There is mucosal disease of the left maxillary sinus. SKULL: The calvaria is intact. No evidence of skull fracture. CONCLUSION: No acute intracranial abnormality seen on this noncontrast CT examination. There is age-related atrop hy and suspected small vessel ischemic change in the white matter. Small areas of infarction are seen on the prior MRI examination in the occipital lobes and possibly in the left cerebellar hemisphere. Santi Aguillon MD on August 06, 2017 at 11:22 Board Certified Radiologist. This report was verified electronically.
[2017-08-06] MEDS ORDERED: GADODIAMIDE PF 287 MG/ML 20 ML VIAL (for RAD MRI) IVCONTRAST ONE (11:55)
[2017-08-06] MEDS ORDERED: NITROGLYCERIN 2% OINT 1 GM PACKET TOPICAL PRN (12:00)
--- NOTE | 2017-08-06 12:07 | RADRPT ---
EXAM DATE/TIME: 08/06/2017 10:52 [facility] COMPARISON: MRI BRAIN W/O CONTRAST, August 04, 2017, 17:22. CT BRAIN W/O CONTRAST, August 06, 2017, 10:44. INDICATIONS : Altered mental status. CONTRAST: 20 cc Omniscan (gadodiamide) IV MEDICAL HISTORY : Hypertension. Cardiovascular disease SURGICAL HISTORY : Stent left leg. Head injury 1963. ENCOUNTER: Subsequent ACUITY: 3 day PAIN SCORE: 0/10 LOCATION: cranial Percent stenosis is calculated using the diameter of the stenotic region over the diameter of the nor mal distal internal carotid artery. TECHNIQUE: Bolus infused MRA of the extracranial circulation was performed using a neurovascular coil. Post pro cessing was performed including rotating subvolume maximum intensity projections of each carotid trell ry, rotating full volume maximum intensity projections of both carotid arteries, sagittal and coronal sliding thin slab reformations of each carotid artery, and left oblique sliding thin slab reformatio n through the aortic arch to include the origin of the arch branch vessels. FINDINGS: AORTIC ARCH: There is a three vessel origin of the great vessels from the aorta. No evidence of ostial narrowing. RIGHT CAROTID: The common carotid artery is intact. The carotid bulb has a normal configuration without ulceration or narrowing. The internal carotid artery lumen is smooth without stenosis. There is some plaquing a t the origin of the external carotid artery. The external carotid artery is patent.. LEFT CAROTID: The common carotid artery is intact. The carotid bulb has a normal configuration without ulceration or narrowing. The internal carotid artery lumen is smooth without stenosis. There appears to be a fo joellen stenosis at the origin of the left external carotid artery. The external carotid artery is patent . VERTEBRALS: The vertebral arteries have a symmetric diameter. No stenotic lesions are seen. The left vertebral a rtery ends in PICA CONCLUSION: 1. No focal or high-grade stenosis is demonstrated involving the right or left internal carotid arter ies. 2. There is some narrowing at the origin of both the right and left external carotid arteries. 3. Otherwise, the rest examination is unremarkable for patient's age. Mark Madden MD on August 06, 2017 at 12:01 Board Certified Radiologist. This report was verified electronically.
--- NOTE | 2017-08-06 12:09 | RADRPT ---
EXAM DATE/TIME: 08/06/2017 10:52 [facility] COMPARISON: MRI BRAIN W/O CONTRAST, August 04, 2017, 17:22. INDICATIONS : Altered mental status. MEDICAL HISTORY : Hypertension. SURGICAL HISTORY : Stent left leg. Head injury 1963. ENCOUNTER: Initial ACUITY: 3 day PAIN SCORE: 0/10 LOCATION: cranial Please note a normal MRA of the brain does not entirely exclude the possibility of a small aneurysm, nor the possibility of distal intracranial vessel disease. TECHNIQUE: 3D time of flight MRA was performed. Source images, multiplanar STS MIP, and 3D volume MIP reconstru ctions were reviewed. FINDINGS: There is excellent visualization of the major intracranial arteries out to the second-order branch ve ssels. There appears to be a gap in the mid left M1 segment of the middle cerebral artery. This could be art ifact from splicing 2 adjacent acquisition slices. Similar appearance are seen in some of the M2 segm ents of the left middle cerebral artery. The distal flow in the left middle cerebral artery territory appears normal. There are similar but less prominent gaps seen in the medial A1 segments of the ante rior cerebral arteries. These are likely artifact given the normal distal flow. No aneurysm is seen. CONCLUSION: Suspected artifacts at the left middle cerebral and anterior cerebral arteries as described above. Santi Aguillon MD on August 06, 2017 at 12:01 Board Certified Radiologist. This report was verified electronically.
[2017-08-06] MEDS: ASPIRIN EC 81 MG TABEC PO SCH (12:58)
[2017-08-06] MEDS: RESP: ALBUTEROL 2.5 MG/3 ML NEB (PRN) NEB (13:59)
[2017-08-06] MEDS ORDERED: OLANZapine IM 10 MG VIAL IM ONE (17:45)
[2017-08-06] MEDS: RESP: BUDESONIDE 0.5 MG/2 ML NEB NEB SCH (20:26)
[2017-08-06] MEDS: PRAVASTATIN SOD 80 MG TAB PO SCH (21:09)
[2017-08-06] MEDS: SODIUM CHLOR 0.9% 1000 ML INJ 1,000 ML IV SCH (21:20)
[2017-08-06] MEDS: diphenhydrAMINE HCL 50 MG/ML VIAL IV PRN (22:14)
[2017-08-07] VITALS (9 sets, daily range): BP systolic 147–187; BP diastolic 74–102; PULSE 67–98; RESP 20–36; TEMP 97.7–97.9; O2SAT 96–98
[2017-08-07] MEDS: RESP: ALBUTEROL 2.5 MG/3 ML NEB (PRN) NEB (01:27)
[2017-08-07] MEDS: AZTREONAM INJ 1,000 MG in SODIUM CHLORIDE 0.9% INJ 100 ML IV SCH ×3 (03:24→16:55)
[2017-08-07] MEDS: CHLORHEXIDINE GLUCONATE 2 % 1 PACK (2 CLOTHS) TOP SCH (04:00)
[2017-08-07] MEDS: RESP: ALBUTEROL 2.5 MG/IPRATROPIUM 0.5 MG NEB (SCH) NEB ×4 (04:04→21:00)
[2017-08-07] MEDS: DEXMEDETOMIDINE INJ 200 MCG in SODIUM CHLORIDE 0.9% INJ 50 ML IV PRN ×2 (04:58→08:48)
[2017-08-07 05:19] LABS: AUTOMATED NEUTROPHIL # 27.5 TH/MM3 (1.8-7.7); BASOPHIL % 0.1 % (0.0-2.0); HEMATOCRIT 30.6 % (39.0-51.0); HEMOGLOBIN 10.2 GM/DL (13.0-17.0); LYMPH % 2.5 % (9.0-44.0); LYMPHOCYTE # 0.7 TH/MM3 (1.0-4.8); MEAN CELL VOLUME 80.3 FL (80.0-100.0); MEAN CORPUSCULAR HEMOGLOBIN 26.8 PG (27.0-34.0); MEAN CORPUSCULAR HGB CONC 33.4 % (32.0-36.0); MEAN PLATELET VOLUME 6.8 FL (7.0-11.0); MONO % 2.3 % (0.0-8.0); MONOCYTE # 0.7 TH/MM3 (0-0.9); NEUT % 95.1 % (16.0-70.0); PLATELET COUNT 228 TH/MM3 (150-450); RED BLOOD COUNT 3.81 MIL/MM3 (4.50-5.90); RED CELL DISTRIBUTION WIDTH 14.3 % (11.6-17.2); WHITE BLOOD COUNT 28.9 TH/MM3 (4.0-11.0)
[2017-08-07] MEDS: hydrALAZINE HCL 20 MG/ML VIAL IV PUSH PRN ×2 (05:35→14:23)
--- NOTE | 2017-08-07 05:39 | RADRPT ---
EXAM DATE/TIME: 08/07/2017 04:21 [facility] COMPARISON: CHEST SINGLE AP, August 05, 2017, 4:52. INDICATIONS : Shortness of breath, possible pulmonary disease. MEDICAL HISTORY : Hypercholesterolemia. Hypertension Myocardial infarction. COPD PVD SURGICAL HISTORY : Esophageal dilitation ENCOUNTER: Subsequent ACUITY: 4 - 6 days PAIN SCORE: Non-responsive. LOCATION: Bilateral chest FINDINGS: Stable right IJ central line. Patient has been extubated and NGT removed. Persistent diffuse intersti tial prominence with patchy airspace disease throughout the right lung, slightly progressed. Minimal patchy airspace disease in the left lower lung zone also appears slightly more prominent. Cardiomedia stinal contours are stable with slightly increased central pulmonary vascularity. Remainder of the ex am is unchanged. CONCLUSION: 1. Status post extubation with slightly more prominent patchy airspace disease in the right lung and left lung base. 2. Mild positive fluid balance. Julian Vernon MD on August 07, 2017 at 5:37 Board Certified Radiologist. This report was verified electronically.
[2017-08-07 05:45] LABS: ALBUMIN 2.5 GM/DL (3.4-5.0); AST (GOT) 43 U/L (15-37); BICARBONATE 27.3 MEQ/L (21.0-32.0); BLOOD UREA NITROGEN 21 MG/DL (7-18); CHLORIDE 109 MEQ/L (98-107); CHOLESTEROL 111 MG/DL (120-200); CREATININE 0.69 MG/DL (0.60-1.30); GLOMERULAR FILTRATION RATE 111 ML/MIN (>89); GLUCOSE,RANDOM 149 MG/DL (74-106); MAGNESIUM 2.5 MG/DL (1.5-2.5); SODIUM (NA) 142 MEQ/L (136-145)
[2017-08-07 05:58] LABS: ALKALINE PHOSPHATASE 67 U/L (45-117); ALT (GPT) 33 U/L (12-78); CHOLESTEROL/ HDL RATIO 2.12 RATIO; HDL CHOLESTEROL 52.3 MG/DL (40.0-60.0); LDL CHOLESTEROL 46 MG/DL (0-99); PHOSPHORUS 1.8 MG/DL (2.5-4.9); TOTAL BILIRUBIN ADULT 0.4 MG/DL (0.2-1.0); TOTAL PROTEIN 5.8 GM/DL (6.4-8.2); TRIGLYCERIDES 62 MG/DL (42-150)
[2017-08-07] MEDS: HEPARIN SODIUM - SQ 10,000 UNITS/ML VIAL SQ SCH ×3 (06:34→21:12)
[2017-08-07] MEDS: methylPREDNISolone SOD SUCC 40 MG/1 ML VIAL IV PUSH SCH ×2 (06:35→21:12)
[2017-08-07] MEDS: CHLORHEXIDINE 0.12% (ORAL KIT) 15 ML CUP MT SCH ×2 (08:00→20:00)
[2017-08-07] MEDS: INSULIN NovoLIN REGULAR SUPPLEMENTAL SCALE SQ SCH ×4 (08:00→21:00)
[2017-08-07] MEDS: DOCUSATE SODIUM 50 MG/SENNA 8.6 MG TAB PO SCH ×2 (08:48→21:13)
[2017-08-07] MEDS: CLOPIDOGREL 75 MG TAB PO SCH (08:48)
[2017-08-07] MEDS: FAMOTIDINE 20 MG/2 ML VIAL IV PUSH SCH ×2 (08:49→21:12)
[2017-08-07] MEDS: DONEPEZIL HCL 5 MG TAB PO SCH (08:49)
[2017-08-07] MEDS: ASPIRIN EC 81 MG TABEC PO SCH (08:49)
[2017-08-07] MEDS: SODIUM CHLORIDE 0.9% FLUSH 10 ML FLUSH IV FLUSH SCH ×2 (08:50→21:12)
[2017-08-07 09:09] LABS: BANDS 6 % (0-6); LYMPHOCYTES 2 % (9-44); METAMYELOCYTES 2 % (0-1); MONOCYTES 1 % (0-8); POLYS (SEG NEUTROPHILS) 89 % (16-70)
[2017-08-07 09:10] LABS: ACANTHOCYTES OCC (NORMAL)
[2017-08-07] MEDS: RESP: BUDESONIDE 0.5 MG/2 ML NEB NEB SCH ×2 (09:24→21:00)
[2017-08-07] MEDS: VANCOMYCIN INJ 1,000 MG in SODIUM CHLOR 0.9% 250 ML INJ 250 ML IV SCH ×2 (10:00→21:14)
[2017-08-07] MEDS: AZITHROMYCIN INJ 500 MG in SODIUM CHLOR 0.9% 250 ML INJ 250 ML IV SCH (11:32)
--- NOTE | 2017-08-07 11:59 | HHI.CCPN ---
Subjective Remarks/Hospital Course 68-year-old gentleman with past medical history of coronary artery disease, CHF was complaining of worsening respiratory distress at home, paramedics found him to be decided to 65 put him on CPAP gave him 100 of Lasix and transported him patient became more somnolent en route and he decompensated they intubated him with no complications sat is 96% patient arrived sedated with 20 of etomidate for Versed ET tube is in place good color change on the capnometer. 08/05 On levophed 1 mcg/min. Vasopressin was never started. Tolerating tube feeds 10 ml/hr with scant residuals. Had a formed BM. Following commands on vent , placing on CPAP trial. Subjective: 08/06: Afebrile. Received ziprasidone 10 mg IM last night due to agitation. Currently on dexmedetomidine drip at 0.2 mcg/kg per minute and appears also tended. ABG. Not retaining pCO2 is currently 42.6. Stat CT brain ordered. Noted acute right occipital CVA on MRI brain. states baseline he is severe dementia has capacity 5-year-old currently. 08/07 Patient is on Precedex drip. Afebrile. On 2L oxygen. Objective Vital Signs Date Time Temp Pulse Resp B/P (MAP) Pulse Ox O2 Delivery O2 Flow Rate FiO2 08/07/17 11:00 67 08/07/17 11:00 97.8 21 147/82 (103) 98 08/07/17 09:24 Nasal Cannula 2.00 08/05/17 15:00 40 Intake and Output 08/07/17 08/07/17 08/08/17 08:00 16:00 00:00 Intake Total 120 ml Output Total 650 ml Balance -530 ml Result Diagram: 08/07/17 0440 08/07/17 0440 Other Results Laboratory Tests Test 08/06/17 18:35 08/07/17 04:40 Nasal Screen MRSA (PCR) MRSA NOT DETECTED White Blood Count 28.9 TH/MM3 Red Blood Count 3.81 MIL/MM3 Hemoglobin 10.2 GM/DL Hematocrit 30.6 % Mean Corpuscular Volume 80.3 FL Mean Corpuscular Hemoglobin 26.8 PG Mean Corpuscular Hemoglobin Concent 33.4 % Red Cell Distribution Width 14.3 % Platelet Count 228 TH/MM3 Mean Platelet Volume 6.8 FL Neutrophils (%) (Auto) 95.1 % Lymphocytes (%) (Auto) 2.5 % Monocytes (%) (Auto) 2.3 % Eosinophils (%) (Auto) 0.0 % Basophils (%) (Auto) 0.1 % Neutrophils # (Auto) 27.5 TH/MM3 Lymphocytes # (Auto) 0.7 TH/MM3 Monocytes # (Auto) 0.7 TH/MM3 Eosinophils # (Auto) 0.0 TH/MM3 Basophils # (Auto) 0.0 TH/MM3 CBC Comment AUTO DIFF Differential Total Cells Counted 100 Neutrophils % (Manual) 89 % Band Neutrophils % 6 % Lymphocytes % 2 % Monocytes % 1 % Neutrophils # (Manual) 28.0 TH/MM3 Metamyelocytes 2 % Differential Comment FINAL DIFF MANUAL Platelet Estimate NORMAL Platelet Morphology Comment NORMAL Basophilic Stippling MOD Acanthocytes OCC Blood Urea Nitrogen 21 MG/DL Creatinine 0.69 MG/DL Random Glucose 149 MG/DL Total Protein 5.8 GM/DL Albumin 2.5 GM/DL Calcium Level 8.0 MG/DL Phosphorus Level 1.8 MG/DL Magnesium Level 2.5 MG/DL Alkaline Phosphatase 67 U/L Aspartate Amino Transf (AST/SGOT) 43 U/L Alanine Aminotransferase (ALT/SGPT) 33 U/L Total Bilirubin 0.4 MG/DL Sodium Level 142 MEQ/L Potassium Level 3.6 MEQ/L Chloride Level 109 MEQ/L Carbon Dioxide Level 27.3 MEQ/L Anion Gap 6 MEQ/L Estimat Glomerular Filtration Rate 111 ML/MIN Ammonia 22 MCMOL/L Triglycerides Level 62 MG/DL Cholesterol Level 111 MG/DL LDL Cholesterol 46 MG/DL HDL Cholesterol 52.3 MG/DL Cholesterol/HDL Ratio 2.12 RATIO Imaging Last Impressions Neck Magnetic Resonance Angiography 08/06/17 0000 Signed Impressions: Service Date/Time: Sunday, August 06, 2017 10:52 - CONCLUSION: 1. No focal or high-grade stenosis is demonstrated involving the right or left internal carotid arteries. 2. There is some narrowing at the origin of both the right and left external carotid arteries. 3. Otherwise, the rest examination is unremarkable for patient's age. Mark Madden MD Head Magnetic Resonance Angiography 08/06/17 0000 Signed Impressions: Service Date/Time: Sunday, August 06, 2017 10:52 - CONCLUSION: Suspected artifacts at the left middle cerebral and anterior cerebral arteries as described above. Santi Aguillon MD Head CT 08/06/17 0000 Signed Impressions: Service Date/Time: Sunday, August 06, 2017 10:44 - CONCLUSION: No acute intracranial abnormality seen on this noncontrast CT examination. There is age-related atrophy and suspected small vessel ischemic change in the white matter. Small areas of infarction are seen on the prior MRI examination in the occipital lobes and possibly in the left cerebellar hemisphere. Santi Aguillon MD Chest X-Ray 08/05/17 Signed Impressions: Service Date/Time: Saturday, August 05, 2017 04:52 - CONCLUSION: Right mid lung infiltrate is slightly improved. Santi Putnam MD Chest CT 08/04/17 0000 Signed Impressions: Service Date/Time: Friday, August 04, 2017 12:28 - CONCLUSION: 1. Patchy airspace disease and some interstitial prominence in the right lung most characteristic of a bronchopneumonia with small parapneumonic right pleural effusion and dependent atelectasis. Borderline enlarged mediastinal and hilar lymph nodes. 2. Moderate to severe coronary calcifications. 3. There is some narrowing of the bronchi, especially on the right side at bronchus intermedius. Etiology unclear. Gallo Caal MD Brain MRI 08/04/17 0000 Signed Impressions: Service Date/Time: Friday, August 04, 2017 17:22 - CONCLUSION: 1. Small focal region of acute infarction in the right occipital lobe. 2. Senescent changes with mild periventricular small vessel ischemic white matter demyelination. Julian Vernon MD Abdomen/Pelvis CT 08/04/17 0000 Signed Impressions: Service Date/Time: Friday, August 04, 2017 22:55 - CONCLUSION: 1. No acute abnormality seen in the abdomen or pelvis. 2. Right base pneumonia. 3. Right inguinal hernia containing distal small bowel but no obstruction or evidence of strangulation. 4. Atherosclerotic aorta without aneurysm. 5. Chronic L5 pars defects with grade one L5/S1 spondylolisthesis. No acute bony abnormality demonstrated. Santi Putnam MD Objective Remarks GENERAL: 68-year-old male currently resting in bed on 2 L nasal cannula in no acute distress SKIN: Warm and dry, well perfused. HEAD: Atraumatic. Normocephalic. EYES: Pupils equal and round, 2mm and reactive bilaterally. No scleral icterus. No injection or drainage. ENT: No nasal bleeding or discharge. Mucous membranes pink and moist. Oropharynx without erythema or exudates NECK: Trachea midline. No JVD. R IJ CVL with dressing clean dry and intact without erythema or exudates CARDIOVASCULAR: RRR. S1, S2are present murmur RESPIRATORY: B/L equal air entry GASTROINTESTINAL: Abdomen soft, mildly distended. Bowel sounds present. Reducible R Inguinal hernia. MUSCULOSKELETAL: Extremities without significant peripheral edema. No obvious deformities. NEUROLOGICAL: Currently appears almost obtunded. Withdraws to pain in right upper extremity. He is difficult to elicit withdrawal symptoms involving right lower, left upper along with left lower extremity. Upward toes bilaterally. Date of Insertion: Aug 04, 2017 Line: Central Venous Catheter Side: Right Location: Internal, Jugular A/P Assessment and Plan NEURO/PSYCH: Acute ischemic stroke, R occipital lobe Severe Dementia H/o cataract removal unknown eye CT brain 08/04 - 1.6 cm low-attenuation superior left frontal lobe which may represent subacute infarct. MRI brain - focal area of restricted diffusion involving right occipital lobe. Mild periventricular small vessel ischemic white matter demyelination. EEG 08/04/17 - bihemispheric slowing. No epileptiform features. Neurology following, Dr. Bennett. On pravastatin 80 mg daily and clopidogrel bisulfate 75 mg by mouth daily MRA neck 08/06: No focal or high-grade stenosis is demonstrated involving the right or left internal carotid arteries. There is some narrowing at the origin of both the right and left external carotid arteries. MRA Brain: suspected artifacts Continue acetaminophen 650 mg by mouth every 6 hours when necessary fever/pain 1 -10 Continue donepezil 10 mg by mouth daily. Discontinue Tramadol (home med) 50 milligram by mouth every 4 hours as needed for pain. Wean off Precedex drip RESP: COPD Acute community acquired pneumonia, right. Small right parapneumonic effusion is not amenable to drainage. Prior tobacco abuse Continue with oxygen keep sat> 92% Incentive spirometry while awake Albuterol/ipratropium aerosols every 6 hours with Albuterol aerosols 2.5 mg/3 milliliters every 2 hours as needed. CV: Septic shock - resolving Essential hypertension Coronary artery disease with prior [place] Hyperlipidemia Peripheral vascular disease History of left SFA/popliteal occlusion/right iliac stent Related troponin Moderate MR 2-D echo 08/04/17 - EF 55-60%. Trace to mild MR. Aortic valve sclerosis. Mild TR. Pulmonary artery pressure 38.9 mmHg. Clopidogrel bisulfate 75 mg by mouth daily Pravastatin 80 mg by mouth daily at bedtime - on simvastatin 40 mg daily at home On Solumederol 40 mg IV every 8 hours GI: History of esophageal dilatation Right inguinal hernia Elevated AST Hypoalbuminemia On PO diet per speech CT abdomen and pelvis -no acute abnormality. Right inguinal hernia containing distal small bowel but no evidence of obstruction or strangulation. Atherosclerotic aorta. Famotidine for GI prophylaxis Docusate sodium/senna 1 tablet twice a day for bowel regimen FEN/RENAL/UROLOGY: Hypophosphatemia BPH Monitor intake and output. Monitor electrolytes and replace as indicated per ICU electrolyte replacement protocol. d/c IVF and diurese with Lasix 40mg x1 Will need Phos replacement today ID: Acute community acquired pneumonia Continue abx per ID ( On Aztreonam, Azithromycin, Vanco) Monitor for signs of infections ( Fever, WBC) Pertinent cultures Urine Legionella and pneumococcal antigen - negative Blood cultures 08/04 -no growth to date Urine culture 08/04 - pending Influenza A&B nasal washing negative Sputum culture 08/04 immature growth/reincubate HEME: Normocytic normochromic Anemia. Monitor CBC ENDO: Scale insulin with Accu-Cheks before meals/at bedtime on steroids and administer low-dose insulin sliding scale as indicated. MSK Sciatica Chronic L5 pars defects with grade one L5/S1 spondylolisthesis. No acute bony abnormality demonstrated. PT evaluate and treat PROPH: SCDs/heparin 5000 units subcutaneous every 8 hours for DVT prophylaxis. Famotidine for stress ulcer prophylaxis. ACCESS: Right IJ central venous line placed 08/04 #3 Level III Henrry Frey MD Aug 07, 2017 11:59
[2017-08-07] MEDS ORDERED: FUROSEMIDE 40 MG/4 ML VIAL IV PUSH ONE (12:00)
[2017-08-08] VITALS (28 sets, daily range): BP systolic 150–191; BP diastolic 69–95; PULSE 66–99; RESP 15–33; TEMP 97.6–98.3; O2SAT 93–99
[2017-08-08] MEDS: hydrALAZINE HCL 20 MG/ML VIAL IV PUSH PRN ×6 (02:45→23:24)
[2017-08-08] MEDS: AZTREONAM INJ 1,000 MG in SODIUM CHLORIDE 0.9% INJ 100 ML IV SCH ×3 (02:45→18:03)
[2017-08-08] MEDS: SODIUM CHLORIDE 0.9% FLUSH 10 ML FLUSH IV FLUSH PRN (02:45)
[2017-08-08] MEDS: PRAVASTATIN SOD 80 MG TAB PO SCH ×2 (02:46→21:56)
[2017-08-08] MEDS: RESP: ALBUTEROL 2.5 MG/IPRATROPIUM 0.5 MG NEB (SCH) NEB ×4 (03:02→20:37)
[2017-08-08] MEDS ORDERED: FUROSEMIDE 40 MG/4 ML VIAL IV PUSH ONE (03:15)
[2017-08-08] MEDS: CHLORHEXIDINE GLUCONATE 2 % 1 PACK (2 CLOTHS) TOP SCH (04:00)
--- NOTE | 2017-08-08 05:15 | RADRPT ---
EXAM DATE/TIME: 08/08/2017 03:48 [facility] COMPARISON: CHEST SINGLE AP, August 07, 2017, 4:21. INDICATIONS : Short of breath. MEDICAL HISTORY : Hypercholesterolemia. Hypertension Myocardial infarction. COPD PVD SURGICAL HISTORY : Esophageal dilitation ENCOUNTER: Subsequent ACUITY: 4 - 6 days PAIN SCORE: 0/10 LOCATION: Bilateral chest FINDINGS: Stable right IJ central line. Improving patchy airspace disease throughout the right lung and left sridevi ng base. Improved interstitial prominence. Cardiomediastinal contours are within normal limits. Remai nder of the exam is unchanged. CONCLUSION: 1. Improved patchy airspace disease throughout the right lung and in the left lung base. 2. Improved mild interstitial edema. Julian Vernon MD on August 08, 2017 at 5:13 Board Certified Radiologist. This report was verified electronically.
[2017-08-08] MEDS: HEPARIN SODIUM - SQ 10,000 UNITS/ML VIAL SQ SCH ×3 (06:00→21:57)
[2017-08-08 06:50] LABS: AUTOMATED NEUTROPHIL # 24.4 TH/MM3 (1.8-7.7); BASOPHIL % 0.1 % (0.0-2.0); HEMATOCRIT 31.3 % (39.0-51.0); HEMOGLOBIN 10.5 GM/DL (13.0-17.0); LYMPH % 3.5 % (9.0-44.0); LYMPHOCYTE # 0.9 TH/MM3 (1.0-4.8); MEAN CELL VOLUME 79.9 FL (80.0-100.0); MEAN CORPUSCULAR HEMOGLOBIN 26.8 PG (27.0-34.0); MEAN CORPUSCULAR HGB CONC 33.5 % (32.0-36.0); MEAN PLATELET VOLUME 6.6 FL (7.0-11.0); MONO % 3.6 % (0.0-8.0); MONOCYTE # 0.9 TH/MM3 (0-0.9); NEUT % 92.8 % (16.0-70.0); PLATELET COUNT 257 TH/MM3 (150-450); RED BLOOD COUNT 3.92 MIL/MM3 (4.50-5.90); RED CELL DISTRIBUTION WIDTH 14.3 % (11.6-17.2); WHITE BLOOD COUNT 26.3 TH/MM3 (4.0-11.0)
[2017-08-08 07:06] LABS: BICARBONATE 33.9 MEQ/L (21.0-32.0); CALCIUM 8.4 MG/DL (8.5-10.1); CREATININE 0.81 MG/DL (0.60-1.30); MAGNESIUM 2.2 MG/DL (1.5-2.5); PHOSPHORUS 1.9 MG/DL (2.5-4.9)
[2017-08-08] MEDS: CHLORHEXIDINE 0.12% (ORAL KIT) 15 ML CUP MT SCH ×2 (08:00→20:00)
[2017-08-08] MEDS: INSULIN NovoLIN REGULAR SUPPLEMENTAL SCALE SQ SCH ×4 (08:00→21:00)
[2017-08-08 08:29] LABS: BANDS 4 % (0-6); LYMPHOCYTES 5 % (9-44); METAMYELOCYTES 2 % (0-1); MONOCYTES 3 % (0-8); MYELOCYTES 1 % (0-0); NEUTROPHIL # MANUAL DIFF 24.2 TH/MM3 (1.8-7.7); POLYS (SEG NEUTROPHILS) 85 % (16-70)
--- NOTE | 2017-08-08 08:39 | HHI.CCPN ---
Subjective Remarks/Hospital Course 68-year-old gentleman with past medical history of coronary artery disease, CHF was complaining of worsening respiratory distress at home, paramedics found him to be decided to 65 put him on CPAP gave him 100 of Lasix and transported him patient became more somnolent en route and he decompensated they intubated him with no complications sat is 96% patient arrived sedated with 20 of etomidate for Versed ET tube is in place good color change on the capnometer. 08/05 On levophed 1 mcg/min. Vasopressin was never started. Tolerating tube feeds 10 ml/hr with scant residuals. Had a formed BM. Following commands on vent , placing on CPAP trial. Subjective: 08/06: Afebrile. Received ziprasidone 10 mg IM last night due to agitation. Currently on dexmedetomidine drip at 0.2 mcg/kg per minute and appears also tended. ABG. Not retaining pCO2 is currently 42.6. Stat CT brain ordered. Noted acute right occipital CVA on MRI brain. states baseline he is severe dementia has capacity 5-year-old currently. 08/07 Patient is on Precedex drip. Afebrile. On 2L oxygen. 08/08 Patient was placed on BIPAP 10/5 with 35% FIO2. Afebrile. Hypertensive Objective Vital Signs Date Time Temp Pulse Resp B/P (MAP) Pulse Ox O2 Delivery O2 Flow Rate FiO2 08/08/17 06:00 83 08/08/17 04:00 98.0 27 171/72 (105) 97 08/08/17 03:25 35 08/07/17 21:00 Nasal Cannula 4.00 Intake and Output 08/08/17 08/08/17 08/09/17 08:00 16:00 00:00 Intake Total 100 ml Output Total 1850 ml Balance -1750 ml Result Diagram: 08/08/17 0630 08/08/17 0630 Other Results Laboratory Tests Test 08/07/17 19:35 08/08/17 06:30 Potassium Level 3.3 MEQ/L 3.3 MEQ/L White Blood Count 26.3 TH/MM3 Red Blood Count 3.92 MIL/MM3 Hemoglobin 10.5 GM/DL Hematocrit 31.3 % Mean Corpuscular Volume 79.9 FL Mean Corpuscular Hemoglobin 26.8 PG Mean Corpuscular Hemoglobin Concent 33.5 % Red Cell Distribution Width 14.3 % Platelet Count 257 TH/MM3 Mean Platelet Volume 6.6 FL Neutrophils (%) (Auto) 92.8 % Lymphocytes (%) (Auto) 3.5 % Monocytes (%) (Auto) 3.6 % Eosinophils (%) (Auto) 0.0 % Basophils (%) (Auto) 0.1 % Neutrophils # (Auto) 24.4 TH/MM3 Lymphocytes # (Auto) 0.9 TH/MM3 Monocytes # (Auto) 0.9 TH/MM3 Eosinophils # (Auto) 0.0 TH/MM3 Basophils # (Auto) 0.0 TH/MM3 CBC Comment AUTO DIFF Differential Total Cells Counted 100 Neutrophils % (Manual) 85 % Band Neutrophils % 4 % Lymphocytes % 5 % Monocytes % 3 % Neutrophils # (Manual) 24.2 TH/MM3 Metamyelocytes 2 % Myelocytes 1 % Differential Comment FINAL DIFF MANUAL Platelet Estimate NORMAL Platelet Morphology Comment NORMAL Blood Urea Nitrogen 26 MG/DL Creatinine 0.81 MG/DL Random Glucose 133 MG/DL Calcium Level 8.4 MG/DL Phosphorus Level 1.9 MG/DL Magnesium Level 2.2 MG/DL Sodium Level 145 MEQ/L Chloride Level 106 MEQ/L Carbon Dioxide Level 33.9 MEQ/L Anion Gap 5 MEQ/L Estimat Glomerular Filtration Rate 92 ML/MIN Imaging Last Impressions Chest X-Ray 08/08/17 0000 Signed Impressions: Service Date/Time: Tuesday, August 08, 2017 03:48 - CONCLUSION: 1. Improved patchy airspace disease throughout the right lung and in the left lung base. 2. Improved mild interstitial edema. Julian Vernon MD Neck Magnetic Resonance Angiography 08/06/17 0000 Signed Impressions: Service Date/Time: Sunday, August 06, 2017 10:52 - CONCLUSION: 1. No focal or high-grade stenosis is demonstrated involving the right or left internal carotid arteries. 2. There is some narrowing at the origin of both the right and left external carotid arteries. 3. Otherwise, the rest examination is unremarkable for patient's age. Mark Madden MD Head Magnetic Resonance Angiography 08/06/17 0000 Signed Impressions: Service Date/Time: Sunday, August 06, 2017 10:52 - CONCLUSION: Suspected artifacts at the left middle cerebral and anterior cerebral arteries as described above. Santi Aguillon MD Head CT 08/06/17 0000 Signed Impressions: Service Date/Time: Sunday, August 06, 2017 10:44 - CONCLUSION: No acute intracranial abnormality seen on this noncontrast CT examination. There is age-related atrophy and suspected small vessel ischemic change in the white matter. Small areas of infarction are seen on the prior MRI examination in the occipital lobes and possibly in the left cerebellar hemisphere. Santi Aguillon MD Chest CT 08/04/17 0000 Signed Impressions: Service Date/Time: Friday, August 04, 2017 12:28 - CONCLUSION: 1. Patchy airspace disease and some interstitial prominence in the right lung most characteristic of a bronchopneumonia with small parapneumonic right pleural effusion and dependent atelectasis. Borderline enlarged mediastinal and hilar lymph nodes. 2. Moderate to severe coronary calcifications. 3. There is some narrowing of the bronchi, especially on the right side at bronchus intermedius. Etiology unclear. Gallo Caal MD Brain MRI 08/04/17 0000 Signed Impressions: Service Date/Time: Friday, August 04, 2017 17:22 - CONCLUSION: 1. Small focal region of acute infarction in the right occipital lobe. 2. Senescent changes with mild periventricular small vessel ischemic white matter demyelination. Julian Vernon MD Abdomen/Pelvis CT 08/04/17 0000 Signed Impressions: Service Date/Time: Friday, August 04, 2017 22:55 - CONCLUSION: 1. No acute abnormality seen in the abdomen or pelvis. 2. Right base pneumonia. 3. Right inguinal hernia containing distal small bowel but no obstruction or evidence of strangulation. 4. Atherosclerotic aorta without aneurysm. 5. Chronic L5 pars defects with grade one L5/S1 spondylolisthesis. No acute bony abnormality demonstrated. Santi Putnam MD Objective Remarks GENERAL: 68-year-old male currently resting in bed in no acute distress SKIN: Warm and dry, well perfused. HEAD: Atraumatic. Normocephalic. EYES: Pupils equal and round, 2mm and reactive bilaterally. No scleral icterus. No injection or drainage. ENT: No nasal bleeding or discharge. Mucous membranes pink and moist. Oropharynx without erythema or exudates NECK: Trachea midline. No JVD. CARDIOVASCULAR: RRR. S1, S2 , no murmurs RESPIRATORY: B/L equal air entry, scattered wheezing GASTROINTESTINAL: Abdomen soft, mildly distended. Bowel sounds present. MUSCULOSKELETAL: Extremities without significant peripheral edema. No obvious deformities. NEUROLOGICAL: Awake, alert confused at times Date of Insertion: Aug 04, 2017 Line: Central Venous Catheter Side: Right Location: Internal, Jugular A/P Assessment and Plan NEURO/PSYCH: Acute ischemic stroke, R occipital lobe Severe Dementia H/o cataract removal unknown eye Awake and alert avoid sedatives. Off Precedex drip. CT brain 08/04 - 1.6 cm low-attenuation superior left frontal lobe which may represent subacute infarct. MRI brain - focal area of restricted diffusion involving right occipital lobe. Mild periventricular small vessel ischemic white matter demyelination. EEG 08/04/17 - bihemispheric slowing. No epileptiform features. Neurology following, Dr. Bennett. On pravastatin 80 mg daily and clopidogrel bisulfate 75 mg by mouth daily MRA neck 08/06: No focal or high-grade stenosis is demonstrated involving the right or left internal carotid arteries. There is some narrowing at the origin of both the right and left external carotid arteries. MRA Brain: suspected artifacts Continue acetaminophen 650 mg by mouth every 6 hours when necessary fever/pain 1 -10 Continue donepezil 10 mg by mouth daily. RESP: COPD Acute community acquired pneumonia, right. Small right parapneumonic effusion is not amenable to drainage. Prior tobacco abuse Continue with oxygen keep sat> 92% Incentive spirometry while awake Albuterol/ipratropium aerosols every 6 hours with Albuterol aerosols 2.5 mg/3 milliliters every 2 hours as needed. On Solumederol 40 mg IV Q12 NIPPV PRN for resod distress CXR today- Improved patchy airspace disease throughout the right lung and in the left lung base. Improved mild interstitial edema. CV: Septic shock - resolved Essential hypertension Coronary artery disease with prior [place] Hyperlipidemia Peripheral vascular disease History of left SFA/popliteal occlusion/right iliac stent Related troponin Moderate MR Place on Hydralazine 50mg Q8 for BP control. Avoid beta rhonda due to bronchospasm and wheezing on exam 2-D echo 08/04/17 - EF 55-60%. Trace to mild MR. Aortic valve sclerosis. Mild TR. Pulmonary artery pressure 38.9 mmHg. Clopidogrel bisulfate 75 mg by mouth daily Pravastatin 80 mg by mouth daily at bedtime - on simvastatin 40 mg daily at home GI: History of esophageal dilatation Right inguinal hernia Elevated AST Hypoalbuminemia On PO diet per speech CT abdomen and pelvis -no acute abnormality. Right inguinal hernia containing distal small bowel but no evidence of obstruction or strangulation. Atherosclerotic aorta. Famotidine for GI prophylaxis Docusate sodium/senna 1 tablet twice a day for bowel regimen FEN/RENAL/UROLOGY: Hypophosphatemia BPH Monitor intake and output. Monitor electrolytes and replace as indicated per ICU electrolyte replacement protocol. Will need K, Phos replacement today ID: Acute community acquired pneumonia Continue abx per ID ( On Aztreonam, Azithromycin, Vanco) Monitor for signs of infections ( Fever, WBC) WBC is trending down Pertinent cultures Urine Legionella and pneumococcal antigen - negative Blood cultures 08/04 -no growth to date Urine culture 08/04 - pending Influenza A&B nasal washing negative Sputum culture 08/04 immature growth/reincubate HEME: Normocytic normochromic Anemia. Monitor CBC ENDO: Scale insulin with Accu-Cheks before meals/at bedtime on steroids and administer low-dose insulin sliding scale as indicated. MSK Sciatica Chronic L5 pars defects with grade one L5/S1 spondylolisthesis. No acute bony abnormality demonstrated. PT evaluate and treat PROPH: SCDs/heparin 5000 units subcutaneous every 8 hours for DVT prophylaxis. Famotidine for stress ulcer prophylaxis. ACCESS: Right IJ central venous line placed 08/04, d/c central line and place peripheral IV's. Level2 Henrry Frey MD Aug 08, 2017 08:39
[2017-08-08] MEDS: DONEPEZIL HCL 5 MG TAB PO SCH (09:00)
[2017-08-08] MEDS: RESP: BUDESONIDE 0.5 MG/2 ML NEB NEB SCH ×2 (09:36→20:37)
[2017-08-08] MEDS: VANCOMYCIN INJ 1,000 MG in SODIUM CHLOR 0.9% 250 ML INJ 250 ML IV SCH ×2 (10:00→21:58)
[2017-08-08] MEDS: DOCUSATE SODIUM 50 MG/SENNA 8.6 MG TAB PO SCH ×2 (10:03→21:56)
[2017-08-08] MEDS: SODIUM CHLORIDE 0.9% FLUSH 10 ML FLUSH IV FLUSH SCH ×2 (10:04→21:55)
[2017-08-08] MEDS: CLOPIDOGREL 75 MG TAB PO SCH (10:04)
[2017-08-08] MEDS: ASPIRIN EC 81 MG TABEC PO SCH (10:05)
[2017-08-08] MEDS: FAMOTIDINE 20 MG/2 ML VIAL IV PUSH SCH ×2 (10:05→21:56)
[2017-08-08] MEDS: methylPREDNISolone SOD SUCC 40 MG/1 ML VIAL IV PUSH SCH ×2 (10:06→21:56)
[2017-08-08] MEDS: hydrALAZINE HCL 50 MG TAB PO SCH ×2 (10:06→17:34)
[2017-08-08] MEDS: POTASSIUM CHLOR 40 MEQ PREMIX 100 ML IV PRN (10:52)
[2017-08-08] MEDS: AZITHROMYCIN INJ 500 MG in SODIUM CHLOR 0.9% 250 ML INJ 250 ML IV SCH (11:01)
[2017-08-08] MEDS: SODIUM PHOSPHATE INJ 30 MMOL in SODIUM CHLOR 0.9% 250 ML INJ 240 ML IV PRN (11:38)
[2017-08-08] MEDS: LABETALOL HCL 100 MG/20 ML VIAL IV PUSH PRN ×2 (14:20→15:56)
[2017-08-08] MEDS ORDERED: DILTIAZEM HCL 25 MG/5 ML VIAL IV ONE ×2 (16:15→17:30)
[2017-08-08] MEDS: DILTIAZEM HCL 30 MG TAB PO SCH ×2 (17:34→21:00)
[2017-08-09] VITALS (14 sets, daily range): BP systolic 117–178; BP diastolic 67–83; PULSE 66–85; RESP 15–18; TEMP 97.6–99.1; O2SAT 72–95
[2017-08-09] MEDS: AZTREONAM INJ 1,000 MG in SODIUM CHLORIDE 0.9% INJ 100 ML IV SCH ×2 (01:06→11:19)
[2017-08-09] MEDS: hydrALAZINE HCL 50 MG TAB PO SCH ×4 (01:06→23:35)
[2017-08-09] MEDS: LABETALOL HCL 100 MG/20 ML VIAL IV PUSH PRN ×3 (01:07→06:10)
[2017-08-09] MEDS: CHLORHEXIDINE GLUCONATE 2 % 1 PACK (2 CLOTHS) TOP SCH (03:29)
[2017-08-09] MEDS: RESP: ALBUTEROL 2.5 MG/IPRATROPIUM 0.5 MG NEB (SCH) NEB ×4 (03:31→20:53)
[2017-08-09] MEDS: HEPARIN SODIUM - SQ 10,000 UNITS/ML VIAL SQ SCH ×3 (05:05→20:43)
[2017-08-09] MEDS: hydrALAZINE HCL 20 MG/ML VIAL IV PUSH PRN (05:09)
[2017-08-09 05:35] LABS: AUTOMATED NEUTROPHIL # 20.2 TH/MM3 (1.8-7.7); BASOPHIL % 0.1 % (0.0-2.0); HEMATOCRIT 31.7 % (39.0-51.0); HEMOGLOBIN 10.2 GM/DL (13.0-17.0); LYMPH % 5.3 % (9.0-44.0); LYMPHOCYTE # 1.2 TH/MM3 (1.0-4.8); MEAN CELL VOLUME 80.4 FL (80.0-100.0); MEAN CORPUSCULAR HEMOGLOBIN 25.8 PG (27.0-34.0); MEAN CORPUSCULAR HGB CONC 32.1 % (32.0-36.0); MEAN PLATELET VOLUME 6.9 FL (7.0-11.0); MONO % 3.6 % (0.0-8.0); MONOCYTE # 0.8 TH/MM3 (0-0.9); PLATELET COUNT 274 TH/MM3 (150-450); RED BLOOD COUNT 3.95 MIL/MM3 (4.50-5.90); RED CELL DISTRIBUTION WIDTH 14.7 % (11.6-17.2); WHITE BLOOD COUNT 22.1 TH/MM3 (4.0-11.0)
[2017-08-09 05:57] LABS: BICARBONATE 33.9 MEQ/L (21.0-32.0); CALCIUM 8.4 MG/DL (8.5-10.1); CREATININE 0.69 MG/DL (0.60-1.30); MAGNESIUM 2.3 MG/DL (1.5-2.5); PHOSPHORUS 2.5 MG/DL (2.5-4.9)
[2017-08-09] MEDS: RESP: BUDESONIDE 0.5 MG/2 ML NEB NEB SCH ×2 (07:35→20:53)
[2017-08-09] MEDS: FAMOTIDINE 20 MG/2 ML VIAL IV PUSH SCH (07:45)
[2017-08-09] MEDS: methylPREDNISolone SOD SUCC 40 MG/1 ML VIAL IV PUSH SCH ×2 (07:46→20:42)
[2017-08-09] MEDS: DILTIAZEM HCL 30 MG TAB PO SCH ×4 (07:47→20:42)
[2017-08-09] MEDS: DONEPEZIL HCL 5 MG TAB PO SCH (07:47)
[2017-08-09] MEDS: ASPIRIN EC 81 MG TABEC PO SCH (07:48)
[2017-08-09] MEDS: DOCUSATE SODIUM 50 MG/SENNA 8.6 MG TAB PO SCH ×2 (07:48→20:43)
[2017-08-09] MEDS: CLOPIDOGREL 75 MG TAB PO SCH (07:48)
[2017-08-09] MEDS: SODIUM CHLORIDE 0.9% FLUSH 10 ML FLUSH IV FLUSH SCH ×2 (07:49→20:42)
[2017-08-09 07:51] LABS: BANDS 16 % (0-6); LYMPHOCYTES 11 % (9-44); METAMYELOCYTES 1 % (0-1); MONOCYTES 7 % (0-8); MYELOCYTES 6 % (0-0); NEUTROPHIL # MANUAL DIFF 18.1 TH/MM3 (1.8-7.7); POLYS (SEG NEUTROPHILS) 59 % (16-70)
[2017-08-09 07:52] LABS: ACANTHOCYTES OCC (NORMAL); OVALOCYTES 1+ (NORMAL)
[2017-08-09] MEDS: INSULIN NovoLIN REGULAR SUPPLEMENTAL SCALE SQ SCH ×4 (08:00→20:44)
[2017-08-09] MEDS: CHLORHEXIDINE 0.12% (ORAL KIT) 15 ML CUP MT SCH ×2 (08:00→20:00)
[2017-08-09] MEDS ORDERED: HALOPERIDOL LACTATE 5 MG/ML AMP IV PRN (09:30)
--- NOTE | 2017-08-09 09:35 | HHI.CCPN ---
Subjective Remarks/Hospital Course 68-year-old gentleman with past medical history of coronary artery disease, CHF was complaining of worsening respiratory distress at home, paramedics found him to be decided to 65 put him on CPAP gave him 100 of Lasix and transported him patient became more somnolent en route and he decompensated they intubated him with no complications sat is 96% patient arrived sedated with 20 of etomidate for Versed ET tube is in place good color change on the capnometer. 08/05 On levophed 1 mcg/min. Vasopressin was never started. Tolerating tube feeds 10 ml/hr with scant residuals. Had a formed BM. Following commands on vent , placing on CPAP trial. Subjective: 08/06: Afebrile. Received ziprasidone 10 mg IM last night due to agitation. Currently on dexmedetomidine drip at 0.2 mcg/kg per minute and appears also tended. ABG. Not retaining pCO2 is currently 42.6. Stat CT brain ordered. Noted acute right occipital CVA on MRI brain. states baseline he is severe dementia has capacity 5-year-old currently. 08/07 Patient is on Precedex drip. Afebrile. On 2L oxygen. 08/08 Patient was placed on BIPAP / with 35% FIO2. Afebrile. Hypertensive 08/09: Breathing comfortably. Agitated overnight. Currently lethargic but wakes up easily follows commands. Oriented to person only. Patient has significant underlying dementia Objective Vital Signs Date Time Temp Pulse Resp B/P (MAP) Pulse Ox O2 Delivery O2 Flow Rate FiO2 08/09/17 07:37 94 Nasal Cannula 4.00 08/09/17 06:00 71 08/09/17 04:00 98.5 16 178/83 (114) 08/08/17 03:25 35 Intake and Output 08/09/17 08/09/17 08/10/17 08:00 16:00 00:00 Intake Total 340 ml Output Total 650 ml Balance -310 ml Result Diagram: 08/09/17 0405 08/09/17 0405 Imaging Last Impressions Chest X-Ray 08/08/17 0000 Signed Impressions: Service Date/Time: Tuesday, August 08, 2017 03:48 - CONCLUSION: 1. Improved patchy airspace disease throughout the right lung and in the left lung base. 2. Improved mild interstitial edema. Julian Vernon MD Neck Magnetic Resonance Angiography 08/06/17 Signed Impressions: Service Date/Time: Sunday, August 06, 2017 10:52 - CONCLUSION: 1. No focal or high-grade stenosis is demonstrated involving the right or left internal carotid arteries. 2. There is some narrowing at the origin of both the right and left external carotid arteries. 3. Otherwise, the rest examination is unremarkable for patient's age. Mark Madden MD Head Magnetic Resonance Angiography 08/06/17 Signed Impressions: Service Date/Time: Sunday, August 06, 2017 10:52 - CONCLUSION: Suspected artifacts at the left middle cerebral and anterior cerebral arteries as described above. Santi Aguillon MD Head CT 08/06/17 Signed Impressions: Service Date/Time: Sunday, August 06, 2017 10:44 - CONCLUSION: No acute intracranial abnormality seen on this noncontrast CT examination. There is age-related atrophy and suspected small vessel ischemic change in the white matter. Small areas of infarction are seen on the prior MRI examination in the occipital lobes and possibly in the left cerebellar hemisphere. Santi Aguillon MD Chest CT 08/04/17 Signed Impressions: Service Date/Time: Friday, August 04, 2017 12:28 - CONCLUSION: 1. Patchy airspace disease and some interstitial prominence in the right lung most characteristic of a bronchopneumonia with small parapneumonic right pleural effusion and dependent atelectasis. Borderline enlarged mediastinal and hilar lymph nodes. 2. Moderate to severe coronary calcifications. 3. There is some narrowing of the bronchi, especially on the right side at bronchus intermedius. Etiology unclear. Gallo Caal MD Brain MRI 08/04/17 Signed Impressions: Service Date/Time: Friday, August 04, 2017 17:22 - CONCLUSION: 1. Small focal region of acute infarction in the right occipital lobe. 2. Senescent changes with mild periventricular small vessel ischemic white matter demyelination. Julian Vernon MD Abdomen/Pelvis CT 08/04/17 Signed Impressions: Service Date/Time: Friday, August 04, 2017 22:55 - CONCLUSION: 1. No acute abnormality seen in the abdomen or pelvis. 2. Right base pneumonia. 3. Right inguinal hernia containing distal small bowel but no obstruction or evidence of strangulation. 4. Atherosclerotic aorta without aneurysm. 5. Chronic L5 pars defects with grade one L5/S1 spondylolisthesis. No acute bony abnormality demonstrated. Santi Putnam MD Objective Remarks GENERAL: 68-year-old male currently resting in bed in no acute distress, somnolent SKIN: Warm and dry, well perfused. HEAD: Atraumatic. Normocephalic. EYES: Pupils equal and round, 2mm and reactive bilaterally. No scleral icterus. No injection or drainage. ENT: No nasal bleeding or discharge. Mucous membranes pink and moist. NECK: Trachea midline. No JVD. CARDIOVASCULAR: RRR. S1, S2 , no murmurs RESPIRATORY: B/L equal air entry, bilateral wheezing GASTROINTESTINAL: Abdomen soft, mildly distended. Bowel sounds present. MUSCULOSKELETAL: Extremities without significant peripheral edema. No obvious deformities. NEUROLOGICAL: Awake, alert oriented to person only. Following commands Date of Insertion: Aug 04, 2017 Line: Central Venous Catheter Side: Right Location: Internal, Jugular A/P Assessment and Plan NEURO/PSYCH: Acute ischemic stroke, R occipital lobe Agitated delirium Severe Dementia H/o cataract removal unknown eye Awake and alert minimize sedatives. Off Precedex drip. CT brain 08/04 - 1.6 cm low-attenuation superior left frontal lobe which may represent subacute infarct. MRI brain - focal area of restricted diffusion involving right occipital lobe. Mild periventricular small vessel ischemic white matter demyelination. EEG 08/04/17 - bihemispheric slowing. No epileptiform features. Neurology following, Dr. Bennett. On pravastatin 80 mg daily and clopidogrel bisulfate 75 mg by mouth daily MRA neck 08/06: No focal or high-grade stenosis is demonstrated involving the right or left ICA. There is some narrowing at the origin of both the right and left external carotid arteries. MRA Brain: suspected artifacts Continue acetaminophen 650 mg by mouth every 6 hours when necessary fever/pain 1 -10 Continue donepezil 10 mg by mouth daily. May use Haldol PRN for agitation RESP: COPD with exacerbation Acute community acquired pneumonia, right. Prior tobacco abuse Continue with oxygen keep sat> 92% Incentive spirometry while awake Albuterol/ipratropium aerosols every 6 hours with Albuterol aerosols 2.5 mg/3 milliliters every 2 hours as needed. On Solu Medrol 40 mg IV Q12. Add Symbicort, Spiriva NIPPV PRN for resod distress CXR 08/08- Improved patchy airspace disease throughout the right lung and in the left lung base. Improved mild interstitial edema. CV: Septic shock - resolved Coronary artery disease with prior AK Hyperlipidemia Essential hypertension Peripheral vascular disease History of left SFA/popliteal occlusion/right iliac stent Moderate MR (mild on Echo 08/04/17) Hydralazine 50mg Q8 for BP control. Avoiding beta rhonda due to bronchospasm and wheezing on exam 2-D echo 08/04/17 - EF 55-60%. Trace to mild MR. Aortic valve sclerosis. Mild TR. Pulmonary artery pressure 38.9 mmHg. Clopidogrel bisulfate 75 mg by mouth daily Pravastatin 80 mg by mouth daily at bedtime - on simvastatin 40 mg daily at home GI: History of esophageal dilatation Right inguinal hernia Elevated AST Hypoalbuminemia On PO diet per speech CT abdomen and pelvis -no acute abnormality. Right inguinal hernia containing distal small bowel but no evidence of obstruction or strangulation. Atherosclerotic aorta. Famotidine for GI prophylaxis Docusate sodium/senna 1 tablet twice a day for bowel regimen FEN/RENAL/UROLOGY: Hypophosphatemia BPH Monitor intake and output. Monitor electrolytes and replace as indicated per ICU electrolyte replacement protocol. K- Phos replacement today ID: Acute community acquired pneumonia Continue ABX per ID ( On Aztreonam, Azithromycin, Off Vanco) Monitor for signs of infections ( Fever, WBC) WBC is trending down Pertinent cultures Urine Legionella and pneumococcal antigen - negative Blood cultures 08/04 -no growth to date Urine culture 08/04 - pending Influenza A&B nasal washing negative Sputum culture 08/04 immature growth/reincubate HEME: Normocytic normochromic Anemia. Monitor CBC ENDO: Scale insulin with Accu-Cheks before meals/at bedtime on steroids and administer low-dose insulin sliding scale as indicated. MSK Sciatica Chronic L5 pars defects with grade one L5/S1 spondylolisthesis. No acute bony abnormality demonstrated. PT evaluate and treat PROPH: SCDs/heparin 5000 units subcutaneous every 8 hours for DVT prophylaxis. Famotidine for stress ulcer prophylaxis. ACCESS: Right IJ central venous line placed 08/04, d/c central line and place peripheral IV's. Level 3 Continue ICU care due to agitation, COPD exacerbation and risk of acute decompensation Jeyson Hancock MD Aug 09, 2017 09:35
[2017-08-09] MEDS: TIOTROPIUM BROMIDE 18 MCG INH INH SCH (11:08)
[2017-08-09] MEDS: BUDESONIDE-FORMOTEROL 160/4.5 MCG INHALER INH SCH ×2 (11:08→20:42)
[2017-08-09] MEDS: AZITHROMYCIN INJ 500 MG in SODIUM CHLOR 0.9% 250 ML INJ 250 ML IV SCH (11:09)
[2017-08-09] MEDS: VANCOMYCIN INJ 1,000 MG in SODIUM CHLOR 0.9% 250 ML INJ 250 ML IV SCH (11:09)
--- NOTE | 2017-08-09 12:18 | HHI.IDPN ---
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 Vital Signs Date Time Temp Pulse Resp B/P (MAP) Pulse Ox O2 Delivery O2 Flow Rate FiO2 08/09/17 07:37 94 Nasal Cannula 4.00 08/09/17 07:00 96 Nasal Cannula 3.00 08/09/17 06:00 71 08/09/17 04:00 98.5 75 16 178/83 (114) 91 08/09/17 04:00 75 08/09/17 02:00 85 08/09/17 02:00 80 08/09/17 00:00 83 08/09/17 00:00 99.1 85 16 174/81 (112) 91 08/08/17 22:00 68 08/08/17 20:42 97 Nasal Cannula 4.00 08/08/17 20:00 71 08/08/17 20:00 98.3 68 15 176/81 (112) 96 08/08/17 19:00 96 Nasal Cannula 3.00 08/08/17 18:00 71 08/08/17 16:45 74 159/82 (107) 95 08/08/17 16:30 72 159/80 (106) 96 08/08/17 16:15 78 153/83 (106) 96 08/08/17 16:00 83 08/08/17 16:00 98.0 83 167/79 (108) 95 08/08/17 15:50 73 188/88 (121) 96 08/08/17 15:45 69 184/88 (120) 96 08/08/17 15:30 68 185/86 (119) 97 08/08/17 15:15 68 190/95 (126) 97 08/08/17 15:00 71 189/92 (124) 96 08/08/17 14:45 79 188/89 (122) 96 08/08/17 14:30 66 182/85 (117) 95 08/08/17 14:00 81 08/08/17 14:00 81 26 186/85 (118) 96 08/08/17 13:00 84 27 182/86 (118) 96 . Laboratory Tests Test 08/08/17 06:30 08/09/17 04:05 White Blood Count 26.3 TH/MM3 22.1 TH/MM3 Red Blood Count 3.92 MIL/MM3 3.95 MIL/MM3 Hemoglobin 10.5 GM/DL 10.2 GM/DL Hematocrit 31.3 % 31.7 % Mean Corpuscular Volume 79.9 FL 80.4 FL Mean Corpuscular Hemoglobin 26.8 PG 25.8 PG Mean Corpuscular Hemoglobin Concent 33.5 % 32.1 % Red Cell Distribution Width 14.3 % 14.7 % Platelet Count 257 TH/MM3 274 TH/MM3 Mean Platelet Volume 6.6 FL 6.9 FL Neutrophils (%) (Auto) 92.8 % 91.0 % Lymphocytes (%) (Auto) 3.5 % 5.3 % Monocytes (%) (Auto) 3.6 % 3.6 % Eosinophils (%) (Auto) 0.0 % 0.0 % Basophils (%) (Auto) 0.1 % 0.1 % Neutrophils # (Auto) 24.4 TH/MM3 20.2 TH/MM3 Lymphocytes # (Auto) 0.9 TH/MM3 1.2 TH/MM3 Monocytes # (Auto) 0.9 TH/MM3 0.8 TH/MM3 Eosinophils # (Auto) 0.0 TH/MM3 0.0 TH/MM3 Basophils # (Auto) 0.0 TH/MM3 0.0 TH/MM3 CBC Comment AUTO DIFF AUTO DIFF Differential Total Cells Counted 100 100 Neutrophils % (Manual) 85 % 59 % Band Neutrophils % 4 % 16 % Lymphocytes % 5 % 11 % Monocytes % 3 % 7 % Neutrophils # (Manual) 24.2 TH/MM3 18.1 TH/MM3 Metamyelocytes 2 % 1 % Myelocytes 1 % 6 % Differential Comment FINAL DIFF MANUAL FINAL DIFF MANUAL Platelet Estimate NORMAL NORMAL Platelet Morphology Comment NORMAL NORMAL Ovalocytes 1+ Acanthocytes OCC Laboratory Tests Test 08/07/17 19:35 08/08/17 06:30 08/09/17 04:05 Potassium Level 3.3 MEQ/L 3.3 MEQ/L 4.0 MEQ/L Blood Urea Nitrogen 26 MG/DL 28 MG/DL Creatinine 0.81 MG/DL 0.69 MG/DL Random Glucose 133 MG/DL 128 MG/DL Calcium Level 8.4 MG/DL 8.4 MG/DL Phosphorus Level 1.9 MG/DL 2.5 MG/DL Magnesium Level 2.2 MG/DL 2.3 MG/DL Sodium Level 145 MEQ/L 148 MEQ/L Chloride Level 106 MEQ/L 109 MEQ/L Carbon Dioxide Level 33.9 MEQ/L 33.9 MEQ/L Anion Gap 5 MEQ/L 5 MEQ/L Estimat Glomerular Filtration Rate 92 ML/MIN 111 ML/MIN Imaging Last Impressions Chest X-Ray 08/08/17 0000 Signed Impressions: Service Date/Time: Tuesday, August 08, 2017 03:48 - CONCLUSION: 1. Improved patchy airspace disease throughout the right lung and in the left lung base. 2. Improved mild interstitial edema. Julian Vernon MD Neck Magnetic Resonance Angiography 08/06/17 0000 Signed Impressions: Service Date/Time: Sunday, August 06, 2017 10:52 - CONCLUSION: 1. No focal or high-grade stenosis is demonstrated involving the right or left internal carotid arteries. 2. There is some narrowing at the origin of both the right and left external carotid arteries. 3. Otherwise, the rest examination is unremarkable for patient's age. Mark Madden MD Head Magnetic Resonance Angiography 08/06/17 0000 Signed Impressions: Service Date/Time: Sunday, August 06, 2017 10:52 - CONCLUSION: Suspected artifacts at the left middle cerebral and anterior cerebral arteries as described above. Santi Aguillon MD Head CT 08/06/17 0000 Signed Impressions: Service Date/Time: Sunday, August 06, 2017 10:44 - CONCLUSION: No acute intracranial abnormality seen on this noncontrast CT examination. There is age-related atrophy and suspected small vessel ischemic change in the white matter. Small areas of infarction are seen on the prior MRI examination in the occipital lobes and possibly in the left cerebellar hemisphere. Santi Aguillon MD Chest CT 08/04/17 0000 Signed Impressions: Service Date/Time: Friday, August 04, 2017 12:28 - CONCLUSION: 1. Patchy airspace disease and some interstitial prominence in the right lung most characteristic of a bronchopneumonia with small parapneumonic right pleural effusion and dependent atelectasis. Borderline enlarged mediastinal and hilar lymph nodes. 2. Moderate to severe coronary calcifications. 3. There is some narrowing of the bronchi, especially on the right side at bronchus intermedius. Etiology unclear. Gallo Caal MD Brain MRI 08/04/17 0000 Signed Impressions: Service Date/Time: Friday, August 04, 2017 17:22 - CONCLUSION: 1. Small focal region of acute infarction in the right occipital lobe. 2. Senescent changes with mild periventricular small vessel ischemic white matter demyelination. Julian Vernon MD Abdomen/Pelvis CT 08/04/17 0000 Signed Impressions: Service Date/Time: Friday, August 04, 2017 22:55 - CONCLUSION: 1. No acute abnormality seen in the abdomen or pelvis. 2. Right base pneumonia. 3. Right inguinal hernia containing distal small bowel but no obstruction or evidence of strangulation. 4. Atherosclerotic aorta without aneurysm. 5. Chronic L5 pars defects with grade one L5/S1 spondylolisthesis. No acute bony abnormality demonstrated. Santi Putnam MD Physical Exam CONSTITUTIONAL/GENERAL: This is an adequately nourished patient, in no apparent distress. TUBES/LINES/DRAINS: SKIN: No jaundice, rashes, or lesions. Skin temperature appropriate. Not diaphoretic. CARDIOVASCULAR: Regular rate and rhythm without murmurs, gallops, or rubs. No JVD. Peripheral pulses symmetric. RESPIRATORY/CHEST: Symmetric, unlabored respirations. Breath sounds markedly diminished + Tight wheezes GASTROINTESTINAL: Abdomen soft, non-tender, mildly distended. No tympany to percussion. BS markedly diminished No hepato-splenomegaly, or palpable masses. No guarding. GENITOURINARY: Without palpable bladder distension. Fang catheter in place with yellow urine MUSCULOSKELETAL: Extremities without clubbing, cyanosis, or edema. No joint tenderness or effusion noted. No calf tenderness. No mottling or clubbing. LYMPHATICS: No palpable cervical or supraclavicular adenopathy. NEUROLOGICAL: awake alert and talking over the phone . Follows some commands PSYCHIATRIC: calm and cooperative Assessment & Plan Remarks Assessment and Plan Assessment and Plan PNA, multilobar, severe: marked improvement clinically and some radiological clearing - resp panel negative - flu neg - clx P ethiolgy included bacterial vs viral, including flu Resp failure - resolved Sepsis Abnormal abd distention - no e/o intraabd process on CT - clinically resolving ileus stable, extubatged Worsning leukocytosis - probably reactive, plus sterroids are contributing cont naima yu azactam vanco start levaquine Discussed Condition With Dr Santi Hernandez,Alexandra Stone MD Aug 09, 2017 12:18
[2017-08-09] MEDS: FAMOTIDINE 20 MG TAB PO SCH (20:43)
[2017-08-09] MEDS: PRAVASTATIN SOD 80 MG TAB PO SCH (20:43)
[2017-08-10] VITALS (14 sets, daily range): BP systolic 100–148; BP diastolic 58–84; PULSE 55–100; RESP 15–24; TEMP 97.8–98.4; O2SAT 93–97
[2017-08-10] MEDS ORDERED: ZIPRASIDONE MESYLATE 20 MG VIAL IM ONE (02:00)
[2017-08-10] MEDS: CHLORHEXIDINE GLUCONATE 2 % 1 PACK (2 CLOTHS) TOP SCH (04:00)
[2017-08-10] MEDS: RESP: ALBUTEROL 2.5 MG/IPRATROPIUM 0.5 MG NEB (SCH) NEB ×4 (04:08→20:50)
[2017-08-10 04:20] LABS: AUTOMATED NEUTROPHIL # 21.4 TH/MM3 (1.8-7.7); BASOPHIL % 0.2 % (0.0-2.0); HEMATOCRIT 32.5 % (39.0-51.0); HEMOGLOBIN 10.6 GM/DL (13.0-17.0); LYMPH % 4.4 % (9.0-44.0); MEAN CELL VOLUME 81.1 FL (80.0-100.0); MEAN CORPUSCULAR HEMOGLOBIN 26.4 PG (27.0-34.0); MEAN CORPUSCULAR HGB CONC 32.6 % (32.0-36.0); MEAN PLATELET VOLUME 6.8 FL (7.0-11.0); MONO % 3.8 % (0.0-8.0); MONOCYTE # 0.9 TH/MM3 (0-0.9); NEUT % 91.6 % (16.0-70.0); PLATELET COUNT 279 TH/MM3 (150-450); RED BLOOD COUNT 4.01 MIL/MM3 (4.50-5.90); RED CELL DISTRIBUTION WIDTH 14.7 % (11.6-17.2); WHITE BLOOD COUNT 23.4 TH/MM3 (4.0-11.0)
--- NOTE | 2017-08-10 04:47 | RADRPT ---
EXAM DATE/TIME: 08/10/2017 03:26 [facility] COMPARISON: CHEST SINGLE AP, August 08, 2017, 3:48. INDICATIONS : Shortness of breath, possible pulmonary disease. MEDICAL HISTORY : Hypercholesterolemia. Hypertension Myocardial infarction. COPD PVD SURGICAL HISTORY : Esophageal dilitation ENCOUNTER: Subsequent ACUITY: 1 week PAIN SCORE: Non-responsive. LOCATION: Bilateral chest FINDINGS: Interval removal right IJ central line. Persistent mild interstitial prominence with improving patchy airspace disease throughout the right lung and left lung base. Cardiomediastinal contours are within normal limits. Remainder of the exam is unchanged. CONCLUSION: 1. Continued improving patchy right lung and left lower lung zone airspace disease. 2. Mild interstitial edema. Julian Vernon MD on August 10, 2017 at 4:45 Board Certified Radiologist. This report was verified electronically.
[2017-08-10 04:48] LABS: ALBUMIN 2.9 GM/DL (3.4-5.0); AST (GOT) 32 U/L (15-37); BICARBONATE 31.1 MEQ/L (21.0-32.0); BLOOD UREA NITROGEN 25 MG/DL (7-18); CALCIUM 8.8 MG/DL (8.5-10.1); CHLORIDE 107 MEQ/L (98-107); CREATININE 0.68 MG/DL (0.60-1.30); GLOMERULAR FILTRATION RATE 113 ML/MIN (>89); GLUCOSE,RANDOM 141 MG/DL (74-106); SODIUM (NA) 147 MEQ/L (136-145)
[2017-08-10 04:49] LABS: ALT (GPT) 46 U/L (12-78)
[2017-08-10] MEDS: HEPARIN SODIUM - SQ 10,000 UNITS/ML VIAL SQ SCH ×3 (04:49→22:35)
[2017-08-10 04:51] LABS: ALKALINE PHOSPHATASE 69 U/L (45-117); TOTAL BILIRUBIN ADULT 0.5 MG/DL (0.2-1.0); TOTAL PROTEIN 6.1 GM/DL (6.4-8.2)
[2017-08-10] MEDS ORDERED: HALOPERIDOL LACTATE 5 MG/ML AMP IV PRN (05:30)
[2017-08-10] MEDS: LEVOFLOXACIN 750 MG TAB PO SCH (07:46)
[2017-08-10] MEDS: DONEPEZIL HCL 5 MG TAB PO SCH (07:47)
[2017-08-10] MEDS: hydrALAZINE HCL 50 MG TAB PO SCH ×2 (07:47→17:00)
[2017-08-10] MEDS: FAMOTIDINE 20 MG TAB PO SCH ×2 (07:48→19:44)
[2017-08-10] MEDS: SODIUM CHLORIDE 0.9% FLUSH 10 ML FLUSH IV FLUSH SCH ×2 (07:48→19:46)
[2017-08-10] MEDS: CLOPIDOGREL 75 MG TAB PO SCH (07:48)
[2017-08-10] MEDS: DILTIAZEM HCL 30 MG TAB PO SCH ×4 (07:48→19:45)
[2017-08-10] MEDS: methylPREDNISolone SOD SUCC 40 MG/1 ML VIAL IV PUSH SCH ×2 (07:48→19:45)
[2017-08-10] MEDS: ASPIRIN EC 81 MG TABEC PO SCH (07:48)
[2017-08-10] MEDS: BUDESONIDE-FORMOTEROL 160/4.5 MCG INHALER INH SCH ×2 (07:49→19:44)
[2017-08-10] MEDS: CHLORHEXIDINE 0.12% (ORAL KIT) 15 ML CUP MT SCH ×2 (07:49→19:42)
[2017-08-10] MEDS: TIOTROPIUM BROMIDE 18 MCG INH INH SCH (07:49)
[2017-08-10] MEDS: DOCUSATE SODIUM 50 MG/SENNA 8.6 MG TAB PO SCH ×2 (07:49→19:44)
[2017-08-10] MEDS: INSULIN NovoLIN REGULAR SUPPLEMENTAL SCALE SQ SCH ×4 (08:00→20:04)
[2017-08-10 08:27] LABS: BANDS 1 % (0-6); LYMPHOCYTES 6 % (9-44); METAMYELOCYTES 4 % (0-1); MONOCYTES 5 % (0-8); MYELOCYTES 3 % (0-0); NEUTROPHIL # MANUAL DIFF 20.8 TH/MM3 (1.8-7.7); POLYS (SEG NEUTROPHILS) 81 % (16-70)
[2017-08-10 08:28] LABS: ACANTHOCYTES OCC (NORMAL)
[2017-08-10] MEDS: QUEtiapine FUMARATE 100 MG TAB PO SCH ×2 (08:39→19:44)
[2017-08-10] MEDS: diphenhydrAMINE HCL 50 MG/ML VIAL IV PRN (08:39)
[2017-08-10] MEDS: RESP: BUDESONIDE 0.5 MG/2 ML NEB NEB SCH ×2 (08:57→20:50)
[2017-08-10] MEDS ORDERED: DEXMEDETOMIDINE HCL 200 MCG/2 ML VIAL IV PUSH ONE (09:00)
[2017-08-10] MEDS ORDERED: DEXMEDETOMIDINE INJ 200 MCG in SODIUM CHLORIDE 0.9% INJ 50 ML IV PRN (09:00)
--- NOTE | 2017-08-10 09:19 | HHI.CCPN ---
Subjective Remarks/Hospital Course 68-year-old gentleman with past medical history of coronary artery disease, CHF was complaining of worsening respiratory distress at home, paramedics found him to be decided to 65 put him on CPAP gave him 100 of Lasix and transported him patient became more somnolent en route and he decompensated they intubated him with no complications sat is 96% patient arrived sedated with 20 of etomidate for Versed ET tube is in place good color change on the capnometer. 08/05 On levophed 1 mcg/min. Vasopressin was never started. Tolerating tube feeds 10 ml/hr with scant residuals. Had a formed BM. Following commands on vent , placing on CPAP trial. Subjective: 08/06: Afebrile. Received ziprasidone 10 mg IM last night due to agitation. Currently on dexmedetomidine drip at 0.2 mcg/kg per minute and appears also tended. ABG. Not retaining pCO2 is currently 42.6. Stat CT brain ordered. Noted acute right occipital CVA on MRI brain. states baseline he is severe dementia has capacity 5-year-old currently. 08/07 Patient is on Precedex drip. Afebrile. On 2L oxygen. 08/08 Patient was placed on BIPAP / with 35% FIO2. Afebrile. Hypertensive 08/09: Breathing comfortably. Agitated overnight. Currently lethargic but wakes up easily follows commands. Oriented to person only. Patient has significant underlying dementia 08/10: Agitated with some wheezing. Appears anxious. Oriented to person only. Objective Vital Signs Date Time Temp Pulse Resp B/P (MAP) Pulse Ox O2 Delivery O2 Flow Rate FiO2 08/10/17 06:00 83 08/10/17 04:00 98.3 15 117/79 (92) 93 08/09/17 20:20 Nasal Cannula 3.50 08/08/17 03:25 35 Intake and Output 08/10/17 08/10/17 08/11/17 08:00 16:00 00:00 Intake Total 240 ml Output Total 700 ml Balance -460 ml Result Diagram: 08/10/17 0340 08/10/17 0340 Imaging Last Impressions Chest X-Ray 08/08/17 0000 Signed Impressions: Service Date/Time: Tuesday, August 08, 2017 03:48 - CONCLUSION: 1. Improved patchy airspace disease throughout the right lung and in the left lung base. 2. Improved mild interstitial edema. Julian Vernon MD Neck Magnetic Resonance Angiography 08/06/17 Signed Impressions: Service Date/Time: Sunday, August 06, 2017 10:52 - CONCLUSION: 1. No focal or high-grade stenosis is demonstrated involving the right or left internal carotid arteries. 2. There is some narrowing at the origin of both the right and left external carotid arteries. 3. Otherwise, the rest examination is unremarkable for patient's age. Mark Madden MD Head Magnetic Resonance Angiography 08/06/17 Signed Impressions: Service Date/Time: Sunday, August 06, 2017 10:52 - CONCLUSION: Suspected artifacts at the left middle cerebral and anterior cerebral arteries as described above. Santi Aguillon MD Head CT 08/06/17 Signed Impressions: Service Date/Time: Sunday, August 06, 2017 10:44 - CONCLUSION: No acute intracranial abnormality seen on this noncontrast CT examination. There is age-related atrophy and suspected small vessel ischemic change in the white matter. Small areas of infarction are seen on the prior MRI examination in the occipital lobes and possibly in the left cerebellar hemisphere. Santi Aguillon MD Chest CT 08/04/17 Signed Impressions: Service Date/Time: Friday, August 04, 2017 12:28 - CONCLUSION: 1. Patchy airspace disease and some interstitial prominence in the right lung most characteristic of a bronchopneumonia with small parapneumonic right pleural effusion and dependent atelectasis. Borderline enlarged mediastinal and hilar lymph nodes. 2. Moderate to severe coronary calcifications. 3. There is some narrowing of the bronchi, especially on the right side at bronchus intermedius. Etiology unclear. Gallo Caal MD Brain MRI 08/04/17 Signed Impressions: Service Date/Time: Friday, August 04, 2017 17:22 - CONCLUSION: 1. Small focal region of acute infarction in the right occipital lobe. 2. Senescent changes with mild periventricular small vessel ischemic white matter demyelination. Julian Vernon MD Abdomen/Pelvis CT 08/04/17 Signed Impressions: Service Date/Time: Friday, August 04, 2017 22:55 - CONCLUSION: 1. No acute abnormality seen in the abdomen or pelvis. 2. Right base pneumonia. 3. Right inguinal hernia containing distal small bowel but no obstruction or evidence of strangulation. 4. Atherosclerotic aorta without aneurysm. 5. Chronic L5 pars defects with grade one L5/S1 spondylolisthesis. No acute bony abnormality demonstrated. Santi Putnam MD Objective Remarks GENERAL: 68-year-old male currently resting in bed in no acute distress, somnolent SKIN: Warm and dry, well perfused. HEAD: Atraumatic. Normocephalic. EYES: Pupils equal and round, 2mm and reactive bilaterally. No scleral icterus. No injection or drainage. ENT: No nasal bleeding or discharge. Mucous membranes pink and moist. NECK: Trachea midline. No JVD. CARDIOVASCULAR: RRR. S1, S2 , no murmurs RESPIRATORY: B/L equal air entry, bilateral wheezing GASTROINTESTINAL: Abdomen soft, mildly distended. Bowel sounds present. MUSCULOSKELETAL: Extremities without significant peripheral edema. No obvious deformities. NEUROLOGICAL: Awake, alert oriented to person only. Following commands Date of Insertion: Aug 04, 2017 Line: Central Venous Catheter Side: Right Location: Internal, Jugular A/P Assessment and Plan NEURO/PSYCH: Acute ischemic stroke, R occipital lobe Agitated delirium Severe Dementia H/o cataract removal unknown eye Awake and alert minimize sedatives. Restarting Precedex drip for agitation on CT brain 08/04 - 1.6 cm low-attenuation superior left frontal lobe which may represent subacute infarct. MRI brain - focal area of restricted diffusion involving right occipital lobe. Mild periventricular small vessel ischemic white matter demyelination. EEG 08/04/17 - bihemispheric slowing. No epileptiform features. Neurology following, Dr. Bennett. On pravastatin 80 mg daily and clopidogrel bisulfate 75 mg by mouth daily MRA neck 08/06: No focal or high-grade stenosis is demonstrated involving the right or left ICA. There is some narrowing at the origin of both the right and left external carotid arteries. MRA Brain: suspected artifacts Continue acetaminophen 650 mg by mouth every 6 hours when necessary fever/pain 1 -10 Continue donepezil 10 mg by mouth daily. May use Haldol PRN for agitation. Added Seroquel when necessary on 08/10. RESP: COPD with exacerbation Acute community acquired pneumonia, right. Prior tobacco abuse Continue with oxygen keep sat> 92% Incentive spirometry while awake Albuterol/ipratropium aerosols every 6 hours with Albuterol aerosols 2.5 mg/3 milliliters every 2 hours as needed. On Solu Medrol 40 mg IV Q12. Add Symbicort, Spiriva NIPPV PRN for resp distress CXR 08/08- Improved patchy airspace disease throughout the right lung and in the left lung base. Improved mild interstitial edema. CV: Septic shock - resolved Coronary artery disease with prior [place] Hyperlipidemia Essential hypertension Peripheral vascular disease History of left SFA/popliteal occlusion/right iliac stent Moderate MR (mild on Echo 08/04/17) Hydralazine 50mg Q8 for BP control. Avoiding beta rhonda due to bronchospasm and wheezing on exam 2-D echo 08/04/17 - EF 55-60%. Trace to mild MR. Aortic valve sclerosis. Mild TR. Pulmonary artery pressure 38.9 mmHg. Clopidogrel bisulfate 75 mg by mouth daily Pravastatin 80 mg by mouth daily at bedtime - on simvastatin 40 mg daily at home GI: History of esophageal dilatation Right inguinal hernia Elevated AST Hypoalbuminemia On PO diet per speech CT abdomen and pelvis -no acute abnormality. Right inguinal hernia containing distal small bowel but no evidence of obstruction or strangulation. Atherosclerotic aorta. Famotidine for GI prophylaxis Docusate sodium/senna 1 tablet twice a day for bowel regimen FEN/RENAL/UROLOGY: Hypophosphatemia BPH Monitor intake and output. Monitor electrolytes and replace as indicated per ICU electrolyte replacement protocol. ID: Acute community acquired pneumonia Continue ABX per ID ( On Aztreonam, Azithromycin, Off Vanco) Monitor for signs of infections ( Fever, WBC) WBC is trending down Pertinent cultures Urine Legionella and pneumococcal antigen - negative Blood cultures 08/04 -no growth to date Urine culture 08/04 - pending Influenza A&B nasal washing negative Sputum culture 08/04 immature growth/reincubate HEME: Normocytic normochromic Anemia. Monitor CBC ENDO: Scale insulin with Accu-Cheks before meals/at bedtime on steroids and administer low-dose insulin sliding scale as indicated. MSK Sciatica Chronic L5 pars defects with grade one L5/S1 spondylolisthesis. No acute bony abnormality demonstrated. PT evaluate and treat PROPH: SCDs/heparin 5000 units subcutaneous every 8 hours for DVT prophylaxis. Famotidine for stress ulcer prophylaxis. ACCESS: Right IJ central venous line placed 08/04, d/c central line and place peripheral IV's. Level 3 Continue ICU care due to agitation, COPD exacerbation and risk of acute decompensation Roberto Pritchett MD Aug 10, 2017 09:18
[2017-08-10] MEDS: DEXMEDETOMIDINE INJ 400 MCG in SODIUM CHLORIDE 0.9% INJ 96 ML IV PRN (09:55)
[2017-08-10] MEDS: AZITHROMYCIN INJ 500 MG in SODIUM CHLOR 0.9% 250 ML INJ 250 ML IV SCH (11:30)
[2017-08-10 11:47] LABS: BILIRUBIN, URINE NEG (NEG); BLOOD, URINE MOD (NEG); GLUCOSE,URINE NEG (NEG); KETONE, URINE NEG (NEG); MUCUS URINE FEW /lpf (OCC); NITRITE,URINE NEG (NEG); PH, URINE 7.5 (5.0-8.5); SQUAMOUS EPITHELIAL CELL URINE <1 /hpf (0-5); URINE COLOR YELLOW (YELLW/STRAW); URINE LEUKOCYTE ESTERASE NEG (NEG)
[2017-08-10] MEDS: PRAVASTATIN SOD 80 MG TAB PO SCH (20:15)
[2017-08-11] VITALS (14 sets, daily range): BP systolic 118–143; BP diastolic 60–80; PULSE 50–92; RESP 16–19; TEMP 97.5–98.6; O2SAT 93–100
[2017-08-11] MEDS: hydrALAZINE HCL 50 MG TAB PO SCH ×3 (00:37→17:00)
[2017-08-11] MEDS: DEXMEDETOMIDINE INJ 400 MCG in SODIUM CHLORIDE 0.9% INJ 96 ML IV PRN (02:22)
[2017-08-11] MEDS: RESP: ALBUTEROL 2.5 MG/IPRATROPIUM 0.5 MG NEB (SCH) NEB ×4 (03:03→21:22)
[2017-08-11] MEDS: CHLORHEXIDINE GLUCONATE 2 % 1 PACK (2 CLOTHS) TOP SCH (03:37)
[2017-08-11] MEDS: HEPARIN SODIUM - SQ 10,000 UNITS/ML VIAL SQ SCH ×3 (05:15→23:04)
[2017-08-11 05:16] LABS: AUTOMATED NEUTROPHIL # 17.6 TH/MM3 (1.8-7.7); BASOPHIL % 0.2 % (0.0-2.0); EOSINOPHIL % 0.1 % (0.0-4.0); HEMATOCRIT 28.9 % (39.0-51.0); HEMOGLOBIN 9.7 GM/DL (13.0-17.0); LYMPH % 4.3 % (9.0-44.0); LYMPHOCYTE # 0.8 TH/MM3 (1.0-4.8); MEAN CORPUSCULAR HEMOGLOBIN 27.1 PG (27.0-34.0); MEAN CORPUSCULAR HGB CONC 33.4 % (32.0-36.0); MONO % 2.1 % (0.0-8.0); MONOCYTE # 0.4 TH/MM3 (0-0.9); NEUT % 93.3 % (16.0-70.0); PLATELET COUNT 236 TH/MM3 (150-450); RED BLOOD COUNT 3.57 MIL/MM3 (4.50-5.90); RED CELL DISTRIBUTION WIDTH 14.6 % (11.6-17.2); WHITE BLOOD COUNT 18.9 TH/MM3 (4.0-11.0)
[2017-08-11 05:37] LABS: ALBUMIN 2.5 GM/DL (3.4-5.0); AST (GOT) 37 U/L (15-37); BICARBONATE 30.3 MEQ/L (21.0-32.0); BLOOD UREA NITROGEN 25 MG/DL (7-18); CALCIUM 8.5 MG/DL (8.5-10.1); CHLORIDE 108 MEQ/L (98-107); GLUCOSE,RANDOM 143 MG/DL (74-106); SODIUM (NA) 145 MEQ/L (136-145)
[2017-08-11 06:17] LABS: ALKALINE PHOSPHATASE 64 U/L (45-117); ALT (GPT) 57 U/L (12-78); CREATININE 0.66 MG/DL (0.60-1.30); GLOMERULAR FILTRATION RATE 117 ML/MIN (>89); TOTAL BILIRUBIN ADULT 0.4 MG/DL (0.2-1.0)
[2017-08-11 07:38] LABS: TOTAL PROTEIN 5.3 GM/DL (6.4-8.2)
[2017-08-11] MEDS: RESP: BUDESONIDE 0.5 MG/2 ML NEB NEB SCH ×2 (07:47→21:22)
[2017-08-11] MEDS: CHLORHEXIDINE 0.12% (ORAL KIT) 15 ML CUP MT SCH ×2 (08:00→19:30)
[2017-08-11] MEDS: INSULIN NovoLIN REGULAR SUPPLEMENTAL SCALE SQ SCH ×4 (08:00→19:31)
[2017-08-11] MEDS: TIOTROPIUM BROMIDE 18 MCG INH INH SCH (08:18)
[2017-08-11] MEDS: BUDESONIDE-FORMOTEROL 160/4.5 MCG INHALER INH SCH ×2 (08:18→19:27)
[2017-08-11] MEDS: SODIUM CHLORIDE 0.9% FLUSH 10 ML FLUSH IV FLUSH SCH ×2 (08:18→19:29)
[2017-08-11] MEDS: ASPIRIN EC 81 MG TABEC PO SCH (08:19)
[2017-08-11] MEDS: DONEPEZIL HCL 5 MG TAB PO SCH (08:19)
[2017-08-11] MEDS: QUEtiapine FUMARATE 100 MG TAB PO SCH ×2 (08:19→19:27)
[2017-08-11] MEDS: DOCUSATE SODIUM 50 MG/SENNA 8.6 MG TAB PO SCH ×2 (08:19→19:27)
[2017-08-11] MEDS: methylPREDNISolone SOD SUCC 40 MG/1 ML VIAL IV PUSH SCH ×2 (08:20→19:28)
[2017-08-11] MEDS: DILTIAZEM HCL 30 MG TAB PO SCH ×4 (08:20→19:36)
[2017-08-11] MEDS: LEVOFLOXACIN 750 MG TAB PO SCH (08:20)
[2017-08-11] MEDS: CLOPIDOGREL 75 MG TAB PO SCH (08:20)
[2017-08-11] MEDS: FAMOTIDINE 20 MG TAB PO SCH ×2 (08:20→19:27)
[2017-08-11 09:35] LABS: BANDS 6 % (0-6); KERATOCYTES OCC (NORMAL); LYMPHOCYTES 4 % (9-44); MONOCYTES 3 % (0-8); MYELOCYTES 3 % (0-0); NEUTROPHIL # MANUAL DIFF 17.6 TH/MM3 (1.8-7.7); POLYS (SEG NEUTROPHILS) 84 % (16-70)
[2017-08-11 09:36] LABS: OVALOCYTES 1+ (NORMAL)
[2017-08-11] MEDS: AZITHROMYCIN INJ 500 MG in SODIUM CHLOR 0.9% 250 ML INJ 250 ML IV SCH (12:56)
--- NOTE | 2017-08-11 14:59 | HHI.CCPN ---
Subjective Remarks/Hospital Course 68-year-old gentleman with past medical history of coronary artery disease, CHF was complaining of worsening respiratory distress at home, paramedics found him to be decided to 65 put him on CPAP gave him 100 of Lasix and transported him patient became more somnolent en route and he decompensated they intubated him with no complications sat is 96% patient arrived sedated with 20 of etomidate for Versed ET tube is in place good color change on the capnometer. 08/05 On levophed 1 mcg/min. Vasopressin was never started. Tolerating tube feeds 10 ml/hr with scant residuals. Had a formed BM. Following commands on vent , placing on CPAP trial. Subjective: 08/06: Afebrile. Received ziprasidone 10 mg IM last night due to agitation. Currently on dexmedetomidine drip at 0.2 mcg/kg per minute and appears also tended. ABG. Not retaining pCO2 is currently 42.6. Stat CT brain ordered. Noted acute right occipital CVA on MRI brain. states baseline he is severe dementia has capacity 5-year-old currently. 08/07 Patient is on Precedex drip. Afebrile. On 2L oxygen. 08/08 Patient was placed on BIPAP 03/16 with 35% FIO2. Afebrile. Hypertensive 08/09: Breathing comfortably. Agitated overnight. Currently lethargic but wakes up easily follows commands. Oriented to person only. Patient has significant underlying dementia 08/10: Agitated with some wheezing. Appears anxious. Oriented to person only. 08/11: Currently off Precedex. Appears comfortable. Not in any acute distress. Objective Vital Signs Date Time Temp Pulse Resp B/P (MAP) Pulse Ox O2 Delivery O2 Flow Rate FiO2 08/11/17 14:00 56 08/11/17 12:00 97.5 16 126/70 (88) 97 08/11/17 07:48 Nasal Cannula 3.00 08/08/17 03:25 35 Intake and Output 08/11/17 08/11/17 08/12/17 08:00 16:00 00:00 Intake Total 730.1 ml Output Total 1000 ml Balance -269.9 ml Result Diagram: 08/11/17 0350 08/11/17 0350 Imaging Last Impressions Chest X-Ray 08/08/17 0000 Signed Impressions: Service Date/Time: Tuesday, August 08, 2017 03:48 - CONCLUSION: 1. Improved patchy airspace disease throughout the right lung and in the left lung base. 2. Improved mild interstitial edema. Julian Vernon MD Neck Magnetic Resonance Angiography 08/06/17 0000 Signed Impressions: Service Date/Time: Sunday, August 06, 2017 10:52 - CONCLUSION: 1. No focal or high-grade stenosis is demonstrated involving the right or left internal carotid arteries. 2. There is some narrowing at the origin of both the right and left external carotid arteries. 3. Otherwise, the rest examination is unremarkable for patient's age. Mark Madden MD Head Magnetic Resonance Angiography 08/06/17 0000 Signed Impressions: Service Date/Time: Sunday, August 06, 2017 10:52 - CONCLUSION: Suspected artifacts at the left middle cerebral and anterior cerebral arteries as described above. Santi Aguillon MD Head CT 08/06/17 0000 Signed Impressions: Service Date/Time: Sunday, August 06, 2017 10:44 - CONCLUSION: No acute intracranial abnormality seen on this noncontrast CT examination. There is age-related atrophy and suspected small vessel ischemic change in the white matter. Small areas of infarction are seen on the prior MRI examination in the occipital lobes and possibly in the left cerebellar hemisphere. Santi Aguillon MD Chest CT 08/04/17 0000 Signed Impressions: Service Date/Time: Friday, August 04, 2017 12:28 - CONCLUSION: 1. Patchy airspace disease and some interstitial prominence in the right lung most characteristic of a bronchopneumonia with small parapneumonic right pleural effusion and dependent atelectasis. Borderline enlarged mediastinal and hilar lymph nodes. 2. Moderate to severe coronary calcifications. 3. There is some narrowing of the bronchi, especially on the right side at bronchus intermedius. Etiology unclear. Gallo Caal MD Brain MRI 08/04/17 0000 Signed Impressions: Service Date/Time: Friday, August 04, 2017 17:22 - CONCLUSION: 1. Small focal region of acute infarction in the right occipital lobe. 2. Senescent changes with mild periventricular small vessel ischemic white matter demyelination. Julian Vernon MD Abdomen/Pelvis CT 08/04/17 0000 Signed Impressions: Service Date/Time: Friday, August 04, 2017 22:55 - CONCLUSION: 1. No acute abnormality seen in the abdomen or pelvis. 2. Right base pneumonia. 3. Right inguinal hernia containing distal small bowel but no obstruction or evidence of strangulation. 4. Atherosclerotic aorta without aneurysm. 5. Chronic L5 pars defects with grade one L5/S1 spondylolisthesis. No acute bony abnormality demonstrated. Santi Putnam MD Objective Remarks GENERAL: 68-year-old male currently resting in bed in no acute distress, somnolent SKIN: Warm and dry, well perfused. HEAD: Atraumatic. Normocephalic. EYES: Pupils equal and round, 2mm and reactive bilaterally. No scleral icterus. No injection or drainage. ENT: No nasal bleeding or discharge. Mucous membranes pink and moist. NECK: Trachea midline. No JVD. CARDIOVASCULAR: RRR. S1, S2 , no murmurs RESPIRATORY: B/L equal air entry, scattered rhonchi, no wheezing GASTROINTESTINAL: Abdomen soft, mildly distended. Bowel sounds present. MUSCULOSKELETAL: Extremities without significant peripheral edema. No obvious deformities. NEUROLOGICAL: Awake, alert oriented to person only. Following commands Date of Insertion: Aug 04, 2017 Line: Central Venous Catheter Side: Right Location: Internal, Jugular A/P Assessment and Plan NEURO/PSYCH: Acute ischemic stroke, R occipital lobe Agitated delirium Severe Dementia H/o cataract removal unknown eye Awake and alert minimize sedatives. Restarted Precedex drip for agitation on 08/10 CT brain 08/04 - 1.6 cm low-attenuation superior left frontal lobe which may represent subacute infarct. MRI brain - focal area of restricted diffusion involving right occipital lobe. Mild periventricular small vessel ischemic white matter demyelination. EEG 08/04/17 - bihemispheric slowing. No epileptiform features. Neurology following, Dr. Bennett. On pravastatin 80 mg daily and clopidogrel bisulfate 75 mg by mouth daily MRA neck 08/06: No focal or high-grade stenosis is demonstrated involving the right or left ICA. There is some narrowing at the origin of both the right and left external carotid arteries. MRA Brain: suspected artifacts Continue acetaminophen 650 mg by mouth every 6 hours when necessary fever/pain 1 -10 Continue donepezil 10 mg by mouth daily. May use Haldol PRN for agitation. Added Seroquel when necessary on 08/10. RESP: COPD with exacerbation Acute community acquired pneumonia, right. Prior tobacco abuse Continue with oxygen keep sat> 92% Incentive spirometry while awake Albuterol/ipratropium aerosols every 6 hours with Albuterol aerosols 2.5 mg/3 milliliters every 2 hours as needed. On Solu Medrol 40 mg IV Q12. Add Symbicort, Spiriva NIPPV PRN for resp distress CXR 08/08- Improved patchy airspace disease throughout the right lung and in the left lung base. Improved mild interstitial edema. CV: Septic shock - resolved Coronary artery disease with prior [place] Hyperlipidemia Essential hypertension Peripheral vascular disease History of left SFA/popliteal occlusion/right iliac stent Moderate MR (mild on Echo 08/04/17) Hydralazine 50mg Q8 for BP control. Avoiding beta rhonda due to bronchospasm and wheezing on exam 2-D echo 08/04/17 - EF 55-60%. Trace to mild MR. Aortic valve sclerosis. Mild TR. Pulmonary artery pressure 38.9 mmHg. Clopidogrel bisulfate 75 mg by mouth daily Pravastatin 80 mg by mouth daily at bedtime - on simvastatin 40 mg daily at home GI: History of esophageal dilatation Right inguinal hernia Elevated AST Hypoalbuminemia On PO diet per speech CT abdomen and pelvis -no acute abnormality. Right inguinal hernia containing distal small bowel but no evidence of obstruction or strangulation. Atherosclerotic aorta. Famotidine for GI prophylaxis Docusate sodium/senna 1 tablet twice a day for bowel regimen FEN/RENAL/UROLOGY: Hypophosphatemia BPH Monitor intake and output. Monitor electrolytes and replace as indicated per ICU electrolyte replacement protocol. ID: Acute community acquired pneumonia Continue ABX per ID ( On Aztreonam, Azithromycin, Off Vanco) Monitor for signs of infections ( Fever, WBC) WBC is trending down Pertinent cultures Urine Legionella and pneumococcal antigen - negative Blood cultures 08/04 -no growth to date Urine culture 08/04 - pending Influenza A&B nasal washing negative Sputum culture 08/04 immature growth/reincubate HEME: Normocytic normochromic Anemia. Monitor CBC ENDO: Scale insulin with Accu-Cheks before meals/at bedtime on steroids and administer low-dose insulin sliding scale as indicated. MSK Sciatica Chronic L5 pars defects with grade one L5/S1 spondylolisthesis. No acute bony abnormality demonstrated. PT evaluate and treat PROPH: SCDs/heparin 5000 units subcutaneous every 8 hours for DVT prophylaxis. Famotidine for stress ulcer prophylaxis. ACCESS: Right IJ central venous line placed 08/04, d/c central line and placed peripheral IV's on 08/10. Level 3 Consult and transfer to hospitalist service for further medical management. Critical care will be signing off, please reconsult if needed. Roberto Pritchett MD Aug 11, 2017 14:59
[2017-08-11] MEDS: PRAVASTATIN SOD 80 MG TAB PO SCH (19:27)
--- NOTE | 2017-08-11 20:33 | HHI.IDPN ---
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 Vital Signs Date Time Temp Pulse Resp B/P (MAP) Pulse Ox O2 Delivery O2 Flow Rate FiO2 08/11/17 18:00 70 08/11/17 16:00 53 08/11/17 16:00 97.6 53 18 123/60 (81) 100 08/11/17 14:00 56 08/11/17 12:00 70 08/11/17 12:00 97.5 70 16 126/70 (88) 97 08/11/17 10:00 55 08/11/17 08:00 50 08/11/17 08:00 98.6 50 18 143/76 (98) 100 08/11/17 07:48 98 Nasal Cannula 3.00 08/11/17 07:00 97 Nasal Cannula 3.00 08/11/17 06:00 51 08/11/17 04:00 97.9 53 119/67 (84) 96 08/11/17 04:00 53 08/11/17 02:00 53 08/11/17 00:00 97.7 86 19 118/74 (89) 93 08/11/17 00:00 86 08/10/17 22:00 80 08/10/17 20:52 96 Nasal Cannula 3.50 08/11/17 08/11/17 08/12/17 15:00 23:00 07:00 Intake Total 730 ml Output Total 600 ml Balance 130 ml Intake Oral 480 ml IV Total 250 ml Output Urine Total 600 ml . Laboratory Tests Test 08/10/17 03:40 08/11/17 03:50 White Blood Count 23.4 TH/MM3 18.9 TH/MM3 Red Blood Count 4.01 MIL/MM3 3.57 MIL/MM3 Hemoglobin 10.6 GM/DL 9.7 GM/DL Hematocrit 32.5 % 28.9 % Mean Corpuscular Volume 81.1 FL 81.0 FL Mean Corpuscular Hemoglobin 26.4 PG 27.1 PG Mean Corpuscular Hemoglobin Concent 32.6 % 33.4 % Red Cell Distribution Width 14.7 % 14.6 % Platelet Count 279 TH/MM3 236 TH/MM3 Mean Platelet Volume 6.8 FL 7.0 FL Neutrophils (%) (Auto) 91.6 % 93.3 % Lymphocytes (%) (Auto) 4.4 % 4.3 % Monocytes (%) (Auto) 3.8 % 2.1 % Eosinophils (%) (Auto) 0.0 % 0.1 % Basophils (%) (Auto) 0.2 % 0.2 % Neutrophils # (Auto) 21.4 TH/MM3 17.6 TH/MM3 Lymphocytes # (Auto) 1.0 TH/MM3 0.8 TH/MM3 Monocytes # (Auto) 0.9 TH/MM3 0.4 TH/MM3 Eosinophils # (Auto) 0.0 TH/MM3 0.0 TH/MM3 Basophils # (Auto) 0.0 TH/MM3 0.0 TH/MM3 CBC Comment AUTO DIFF AUTO DIFF Differential Total Cells Counted 100 100 Neutrophils % (Manual) 81 % 84 % Band Neutrophils % 1 % 6 % Lymphocytes % 6 % 4 % Monocytes % 5 % 3 % Neutrophils # (Manual) 20.8 TH/MM3 17.6 TH/MM3 Metamyelocytes 4 % Myelocytes 3 % 3 % Differential Comment FINAL DIFF MANUAL FINAL DIFF MANUAL Platelet Estimate NORMAL NORMAL Platelet Morphology Comment NORMAL NORMAL Acanthocytes OCC Ovalocytes 1+ Keratocytes OCC Laboratory Tests Test 08/10/17 03:40 08/11/17 03:50 Blood Urea Nitrogen 25 MG/DL 25 MG/DL Creatinine 0.68 MG/DL 0.66 MG/DL Random Glucose 141 MG/DL 143 MG/DL Total Protein 6.1 GM/DL 5.3 GM/DL Albumin 2.9 GM/DL 2.5 GM/DL Calcium Level 8.8 MG/DL 8.5 MG/DL Alkaline Phosphatase 69 U/L 64 U/L Aspartate Amino Transf (AST/SGOT) 32 U/L 37 U/L Alanine Aminotransferase (ALT/SGPT) 46 U/L 57 U/L Total Bilirubin 0.5 MG/DL 0.4 MG/DL Sodium Level 147 MEQ/L 145 MEQ/L Potassium Level 3.5 MEQ/L 3.9 MEQ/L Chloride Level 107 MEQ/L 108 MEQ/L Carbon Dioxide Level 31.1 MEQ/L 30.3 MEQ/L Anion Gap 9 MEQ/L 7 MEQ/L Estimat Glomerular Filtration Rate 113 ML/MIN 117 ML/MIN Imaging Last Impressions Chest X-Ray 08/10/17 0600 Signed Impressions: Service Date/Time: August 03:26 - CONCLUSION: 1. Continued improving patchy right lung and left lower lung zone airspace disease. 2. Mild interstitial edema. Julian Vernon MD Neck Magnetic Resonance Angiography 08/06/17 0000 Signed Impressions: Service Date/Time: Sunday, August 06, 2017 10:52 - CONCLUSION: 1. No focal or high-grade stenosis is demonstrated involving the right or left internal carotid arteries. 2. There is some narrowing at the origin of both the right and left external carotid arteries. 3. Otherwise, the rest examination is unremarkable for patient's age. Mark Madden MD Head Magnetic Resonance Angiography 08/06/17 0000 Signed Impressions: Service Date/Time: Sunday, August 06, 2017 10:52 - CONCLUSION: Suspected artifacts at the left middle cerebral and anterior cerebral arteries as described above. Santi Aguillon MD Head CT 08/06/17 0000 Signed Impressions: Service Date/Time: Sunday, August 06, 2017 10:44 - CONCLUSION: No acute intracranial abnormality seen on this noncontrast CT examination. There is age-related atrophy and suspected small vessel ischemic change in the white matter. Small areas of infarction are seen on the prior MRI examination in the occipital lobes and possibly in the left cerebellar hemisphere. Santi Aguillon MD Chest CT 08/04/17 0000 Signed Impressions: Service Date/Time: Friday, August 04, 2017 12:28 - CONCLUSION: 1. Patchy airspace disease and some interstitial prominence in the right lung most characteristic of a bronchopneumonia with small parapneumonic right pleural effusion and dependent atelectasis. Borderline enlarged mediastinal and hilar lymph nodes. 2. Moderate to severe coronary calcifications. 3. There is some narrowing of the bronchi, especially on the right side at bronchus intermedius. Etiology unclear. Gallo Caal MD Brain MRI 08/04/17 0000 Signed Impressions: Service Date/Time: Friday, August 04, 2017 17:22 - CONCLUSION: 1. Small focal region of acute infarction in the right occipital lobe. 2. Senescent changes with mild periventricular small vessel ischemic white matter demyelination. Julian Vernon MD Abdomen/Pelvis CT 08/04/17 0000 Signed Impressions: Service Date/Time: Friday, August 04, 2017 22:55 - CONCLUSION: 1. No acute abnormality seen in the abdomen or pelvis. 2. Right base pneumonia. 3. Right inguinal hernia containing distal small bowel but no obstruction or evidence of strangulation. 4. Atherosclerotic aorta without aneurysm. 5. Chronic L5 pars defects with grade one L5/S1 spondylolisthesis. No acute bony abnormality demonstrated. Santi Putnam MD Physical Exam CONSTITUTIONAL/GENERAL: This is an adequately nourished patient, in no apparent distress. TUBES/LINES/DRAINS: SKIN: No jaundice, rashes, or lesions. Skin temperature appropriate. Not diaphoretic. CARDIOVASCULAR: Regular rate and rhythm without murmurs, gallops, or rubs. No JVD. Peripheral pulses symmetric. RESPIRATORY/CHEST: Symmetric, unlabored respirations. Breath sounds markedly diminished + scattered rhonchi GASTROINTESTINAL: Abdomen soft, non-tender, mildly distended. No tympany to percussion. BS markedly diminished No hepato-splenomegaly, or palpable masses. No guarding. GENITOURINARY: Without palpable bladder distension. Fang catheter in place with yellow urine MUSCULOSKELETAL: Extremities without clubbing, cyanosis, or edema. No joint tenderness or effusion noted. No calf tenderness. No mottling or clubbing. NEUROLOGICAL:awake alert . Follows some commands PSYCHIATRIC: resting Assessment & Plan Remarks Assessment and Plan Assessment and Plan PNA, multilobar, severe: marked improvement clinically and some radiological clearing - resp panel negative - flu neg - clx P ethiolgy included bacterial vs viral, including flu Resp failure - resolved Sepsis Abnormal abd distention - no e/o intraabd process on CT - clinically resolving ileus stable, extubatged Worsning leukocytosis - improving now angel romano Discussed Condition With Alexandra Soares MD Aug 11, 2017 20:33
[2017-08-12] VITALS (15 sets, daily range): BP systolic 92–163; BP diastolic 53–82; PULSE 75–160; RESP 18–19; TEMP 97.8–98.7; O2SAT 89–98
[2017-08-12] MEDS: hydrALAZINE HCL 50 MG TAB PO SCH ×3 (01:47→17:30)
[2017-08-12] MEDS: CHLORHEXIDINE GLUCONATE 2 % 1 PACK (2 CLOTHS) TOP SCH (04:00)
[2017-08-12] MEDS: RESP: ALBUTEROL 2.5 MG/IPRATROPIUM 0.5 MG NEB (SCH) NEB ×4 (04:30→21:30)
[2017-08-12] MEDS: HEPARIN SODIUM - SQ 10,000 UNITS/ML VIAL SQ SCH ×3 (06:06→21:58)
[2017-08-12] MEDS: RESP: BUDESONIDE 0.5 MG/2 ML NEB NEB SCH ×2 (07:25→21:30)
[2017-08-12] MEDS: CHLORHEXIDINE 0.12% (ORAL KIT) 15 ML CUP MT SCH ×2 (08:00→19:57)
[2017-08-12] MEDS: INSULIN NovoLIN REGULAR SUPPLEMENTAL SCALE SQ SCH ×4 (08:00→19:57)
[2017-08-12 08:35] LABS: HEMATOCRIT 34.7 % (39.0-51.0); HEMOGLOBIN 11.3 GM/DL (13.0-17.0); MEAN CORPUSCULAR HEMOGLOBIN 26.3 PG (27.0-34.0); MEAN CORPUSCULAR HGB CONC 32.5 % (32.0-36.0); MEAN PLATELET VOLUME 7.1 FL (7.0-11.0); PLATELET COUNT 285 TH/MM3 (150-450); RED BLOOD COUNT 4.29 MIL/MM3 (4.50-5.90); WHITE BLOOD COUNT 25.7 TH/MM3 (4.0-11.0)
[2017-08-12 08:58] LABS: ALBUMIN 2.9 GM/DL (3.4-5.0); AST (GOT) 36 U/L (15-37); BICARBONATE 31.7 MEQ/L (21.0-32.0); BLOOD UREA NITROGEN 26 MG/DL (7-18); CALCIUM 9.2 MG/DL (8.5-10.1); CHLORIDE 106 MEQ/L (98-107); CREATININE 0.74 MG/DL (0.60-1.30); GLOMERULAR FILTRATION RATE 102 ML/MIN (>89); GLUCOSE,RANDOM 124 MG/DL (74-106); SODIUM (NA) 144 MEQ/L (136-145)
[2017-08-12 08:59] LABS: ALT (GPT) 57 U/L (12-78)
[2017-08-12 09:01] LABS: ALKALINE PHOSPHATASE 66 U/L (45-117); TOTAL BILIRUBIN ADULT 0.5 MG/DL (0.2-1.0); TOTAL PROTEIN 5.9 GM/DL (6.4-8.2)
[2017-08-12] MEDS: SODIUM CHLORIDE 0.9% FLUSH 10 ML FLUSH IV FLUSH SCH ×2 (09:05→20:02)
[2017-08-12] MEDS: methylPREDNISolone SOD SUCC 40 MG/1 ML VIAL IV PUSH SCH ×2 (09:05→19:50)
[2017-08-12] MEDS: TIOTROPIUM BROMIDE 18 MCG INH INH SCH (09:05)
[2017-08-12] MEDS: BUDESONIDE-FORMOTEROL 160/4.5 MCG INHALER INH SCH ×2 (09:05→19:55)
[2017-08-12] MEDS: SODIUM CHLORIDE 0.9% FLUSH 10 ML FLUSH IV FLUSH PRN (09:05)
[2017-08-12] MEDS: DILTIAZEM HCL 30 MG TAB PO SCH ×4 (09:06→19:48)
[2017-08-12] MEDS: DONEPEZIL HCL 5 MG TAB PO SCH (09:06)
[2017-08-12] MEDS: ASPIRIN EC 81 MG TABEC PO SCH (09:06)
[2017-08-12] MEDS: FAMOTIDINE 20 MG TAB PO SCH ×2 (09:06→19:49)
[2017-08-12] MEDS: QUEtiapine FUMARATE 100 MG TAB PO SCH ×2 (09:07→19:48)
[2017-08-12] MEDS: DOCUSATE SODIUM 50 MG/SENNA 8.6 MG TAB PO SCH ×2 (09:07→19:49)
[2017-08-12] MEDS: CLOPIDOGREL 75 MG TAB PO SCH (09:07)
[2017-08-12 10:08] LABS: ACANTHOCYTES OCC (NORMAL); BANDS 1 % (0-6); CORRECTED NUCLEATED RBC 1 /100 WBC (0-0); LYMPHOCYTES 3 % (9-44); METAMYELOCYTES 3 % (0-1); MONOCYTES 1 % (0-8); MYELOCYTES 1 % (0-0); NEUTROPHIL # MANUAL DIFF 24.7 TH/MM3 (1.8-7.7); NUCLEATED RED BLOOD CELL 1 (0-0); OVALOCYTES 1+ (NORMAL); POLYS (SEG NEUTROPHILS) 91 % (16-70)
[2017-08-12 10:09] LABS: TOXIC VACUOLATION PRESENT (NONE SEEN)
--- NOTE | 2017-08-12 10:25 | HHI.PR ---
Subjective Remarks Follow up Sepsis shock/PNA/COPD exacerbation 08/12/17-patient seen and examined; still with shortness of breath and wheezings. Alert and oriented x 2; by the bedside Objective Vitals Vital Signs Date Time Temp Pulse Resp B/P (MAP) Pulse Ox O2 Delivery O2 Flow Rate FiO2 08/12/17 10:00 77 08/12/17 09:00 97 138/78 (98) 08/12/17 08:00 98.6 160 158/72 (100) 98 08/12/17 08:00 97 08/12/17 07:28 94 Nasal Cannula 4.00 08/12/17 07:00 94 Nasal Cannula 3.00 08/12/17 07:00 82 160/77 (104) 95 08/12/17 06:00 78 08/12/17 04:00 98.5 115 163/82 (109) 90 08/12/17 04:00 115 08/12/17 02:00 86 08/12/17 00:00 75 08/12/17 00:00 98.4 75 124/70 (88) 93 08/11/17 22:00 92 08/11/17 21:24 95 Nasal Cannula 4.00 08/11/17 20:00 98.3 83 135/80 (98) 96 08/11/17 20:00 83 08/11/17 19:00 96 Nasal Cannula 3.00 08/11/17 18:00 70 08/11/17 16:00 53 08/11/17 16:00 97.6 53 18 123/60 (81) 100 08/11/17 14:00 56 08/11/17 12:00 70 08/11/17 12:00 97.5 70 16 126/70 (88) 97 I/O 08/11/17 08/11/17 08/11/17 08/12/17 08/12/17 08/12/17 07:00 15:00 23:00 07:00 15:00 23:00 Intake Total 730.1 ml 730 ml 360 ml Output Total 1000 ml 600 ml 1200 ml Balance -269.9 ml 130 ml -840 ml Intake Oral 600 ml 480 ml 360 ml IV Total 130.1 ml 250 ml Output Urine Total 1000 ml 600 ml 1200 ml # Bowel Movements 0 0 Result Diagram: 3/3/18 0818 3/3/18 0818 Imaging Last Impressions Chest X-Ray 08/10/17 0600 Signed Impressions: Service Date/Time: August 03:26 - CONCLUSION: 1. Continued improving patchy right lung and left lower lung zone airspace disease. 2. Mild interstitial edema. Julian Vernon MD Neck Magnetic Resonance Angiography 08/06/17 0000 Signed Impressions: Service Date/Time: Sunday, August 06, 2017 10:52 - CONCLUSION: 1. No focal or high-grade stenosis is demonstrated involving the right or left internal carotid arteries. 2. There is some narrowing at the origin of both the right and left external carotid arteries. 3. Otherwise, the rest examination is unremarkable for patient's age. Mark Madden MD Head Magnetic Resonance Angiography 08/06/17 0000 Signed Impressions: Service Date/Time: Sunday, August 06, 2017 10:52 - CONCLUSION: Suspected artifacts at the left middle cerebral and anterior cerebral arteries as described above. Santi Aguillon MD Head CT 08/06/17 0000 Signed Impressions: Service Date/Time: Sunday, August 06, 2017 10:44 - CONCLUSION: No acute intracranial abnormality seen on this noncontrast CT examination. There is age-related atrophy and suspected small vessel ischemic change in the white matter. Small areas of infarction are seen on the prior MRI examination in the occipital lobes and possibly in the left cerebellar hemisphere. Santi Aguillon MD Chest CT 08/04/17 0000 Signed Impressions: Service Date/Time: Friday, August 04, 2017 12:28 - CONCLUSION: 1. Patchy airspace disease and some interstitial prominence in the right lung most characteristic of a bronchopneumonia with small parapneumonic right pleural effusion and dependent atelectasis. Borderline enlarged mediastinal and hilar lymph nodes. 2. Moderate to severe coronary calcifications. 3. There is some narrowing of the bronchi, especially on the right side at bronchus intermedius. Etiology unclear. Gallo Caal MD Brain MRI 08/04/17 0000 Signed Impressions: Service Date/Time: Friday, August 04, 2017 17:22 - CONCLUSION: 1. Small focal region of acute infarction in the right occipital lobe. 2. Senescent changes with mild periventricular small vessel ischemic white matter demyelination. Julian Vernon MD Abdomen/Pelvis CT 08/04/17 0000 Signed Impressions: Service Date/Time: Friday, August 04, 2017 22:55 - CONCLUSION: 1. No acute abnormality seen in the abdomen or pelvis. 2. Right base pneumonia. 3. Right inguinal hernia containing distal small bowel but no obstruction or evidence of strangulation. 4. Atherosclerotic aorta without aneurysm. 5. Chronic L5 pars defects with grade one L5/S1 spondylolisthesis. No acute bony abnormality demonstrated. Santi Putnam MD Objective Remarks GENERAL: NAD SKIN: Warm and dry. HEAD: Normocephalic. EYES: No scleral icterus. No injection or drainage. NECK: Supple, trachea midline. No JVD or lymphadenopathy. CARDIOVASCULAR: Regular rate and rhythm with II/ MARCELO RESPIRATORY: Breath sounds equal bilaterally. No accessory muscle use. GASTROINTESTINAL: Abdomen soft, non-tender, nondistended. MUSCULOSKELETAL: No cyanosis, or edema. BACK: Nontender without obvious deformity. No CVA tenderness. Date of Insertion: Aug 04, 2017 Line: Central Venous Catheter Side: Right Location: Internal, Jugular A/P Problem List: (1) COPD with exacerbation ICD Code: J44.1 - Chronic obstructive pulmonary disease with (acute) exacerbation (2) Metabolic encephalopathy ICD Code: G93.41 - Metabolic encephalopathy Status: Resolved Assessment and Plan 76 yrs old man with Acute ischemic stroke, R occipital lobe Agitated delirium-Resolved Severe Dementia H/o cataract removal unknown eye CT brain 08/04 - 1.6 cm low-attenuation superior left frontal lobe which may represent subacute infarct. MRI brain - focal area of restricted diffusion involving right occipital lobe. Mild periventricular small vessel ischemic white matter demyelination. EEG 08/04/17 - bihemispheric slowing. No epileptiform features. Neurology following, Dr. Bennett. On pravastatin 80 mg daily and clopidogrel bisulfate 75 mg by mouth daily MRA neck 08/06: No focal or high-grade stenosis is demonstrated involving the right or left ICA. MRA Brain: suspected artifacts Continue donepezil 10 mg by mouth daily. Seroquel when necessary on 08/10. COPD with exacerbation Acute community acquired pneumonia, right. Prior tobacco abuse Continue with oxygen keep sat> 92% Incentive spirometry while awake Albuterol/ipratropium aerosols every 6 hours with Albuterol aerosols 2.5 mg/3 milliliters every 2 hours as needed. On Solu Medrol 40 mg IV Q12H, Symbicort, Spiriva. Add Mucinex Septic shock - resolved Coronary artery disease with prior [place] Hyperlipidemia Essential hypertension Peripheral vascular disease History of left SFA/popliteal occlusion/right iliac stent Moderate MR (mild on Echo 08/04/17) Hydralazine 50mg Q8 Avoiding beta rhonda due to bronchospasm and wheezing on exam 2-D echo 08/04/17 - EF 55-60%. Clopidogrel bisulfate 75 mg by mouth daily Pravastatin 80 mg by mouth daily at bedtime History of esophageal dilatation Right inguinal hernia Elevated AST Hypoalbuminemia CT abdomen and pelvis -no acute abnormality. Famotidine for GI prophylaxis Acute community acquired pneumonia Completed ABX per ID Normocytic normochromic Anemia. Monitor CBC Sciatica Chronic L5 pars defects with grade one L5/S1 spondylolisthesis. No acute bony abnormality demonstrated. PT evaluate and treat PROPH: SCDs/heparin 5000 units subcutaneous every 8 hours for DVT prophylaxis. Famotidine for stress ulcer prophylaxis. Transfer to Med/Surg Mj Gordon MD Aug 12, 2017 10:25
[2017-08-12] MEDS ORDERED: ARTIFICIAL TEARS OPTH SOLN 15 ML BTL EACH EYE PRN (10:30)
[2017-08-12] MEDS: guaiFENesin E.R. 600 MG TAB PO SCH (19:48)
[2017-08-12] MEDS: PRAVASTATIN SOD 80 MG TAB PO SCH (19:48)
[2017-08-13] VITALS (10 sets, daily range): BP systolic 106–143; BP diastolic 57–71; PULSE 68–90; RESP 18–24; TEMP 97.6–99.7; O2SAT 94–98
[2017-08-13] MEDS: hydrALAZINE HCL 50 MG TAB PO SCH ×3 (01:00→17:12)
[2017-08-13] MEDS: CHLORHEXIDINE GLUCONATE 2 % 1 PACK (2 CLOTHS) TOP SCH (04:00)
[2017-08-13] MEDS: RESP: ALBUTEROL 2.5 MG/IPRATROPIUM 0.5 MG NEB (SCH) NEB ×4 (04:09→21:06)
[2017-08-13] MEDS: HEPARIN SODIUM - SQ 10,000 UNITS/ML VIAL SQ SCH ×3 (06:21→22:05)
[2017-08-13] MEDS: CHLORHEXIDINE 0.12% (ORAL KIT) 15 ML CUP MT SCH ×2 (07:20→20:00)
[2017-08-13] MEDS: INSULIN NovoLIN REGULAR SUPPLEMENTAL SCALE SQ SCH ×4 (07:39→21:00)
[2017-08-13] MEDS: TIOTROPIUM BROMIDE 18 MCG INH INH SCH (09:18)
[2017-08-13] MEDS: SODIUM CHLORIDE 0.9% FLUSH 10 ML FLUSH IV FLUSH SCH ×2 (09:18→20:55)
[2017-08-13] MEDS: BUDESONIDE-FORMOTEROL 160/4.5 MCG INHALER INH SCH ×2 (09:18→20:56)
[2017-08-13] MEDS: DOCUSATE SODIUM 50 MG/SENNA 8.6 MG TAB PO SCH ×2 (09:19→20:55)
[2017-08-13] MEDS: QUEtiapine FUMARATE 100 MG TAB PO SCH ×2 (09:19→20:54)
[2017-08-13] MEDS: DILTIAZEM HCL 30 MG TAB PO SCH ×4 (09:19→20:54)
[2017-08-13] MEDS: DONEPEZIL HCL 5 MG TAB PO SCH (09:19)
[2017-08-13] MEDS: ASPIRIN EC 81 MG TABEC PO SCH (09:19)
[2017-08-13] MEDS: FAMOTIDINE 20 MG TAB PO SCH ×2 (09:19→20:54)
[2017-08-13] MEDS: CLOPIDOGREL 75 MG TAB PO SCH (09:19)
[2017-08-13] MEDS: guaiFENesin E.R. 600 MG TAB PO SCH ×2 (09:19→20:55)
[2017-08-13] MEDS: methylPREDNISolone SOD SUCC 40 MG/1 ML VIAL IV PUSH SCH ×2 (09:20→20:55)
[2017-08-13] MEDS: RESP: BUDESONIDE 0.5 MG/2 ML NEB NEB SCH ×2 (09:44→21:06)
--- NOTE | 2017-08-13 09:56 | HHI.PR ---
Subjective Remarks In bed appers in nad Pleasantly confused. Denies cp, sob, n/v/dc. No fevers or chills. Patent is not wheezing . no cough , fever or chills. Feels week Objective Vitals Vital Signs Date Time Temp Pulse Resp B/P (MAP) Pulse Ox O2 Delivery O2 Flow Rate FiO2 08/13/17 09:42 Nasal Cannula 3.00 08/13/17 08:00 81 08/13/17 04:12 94 Nasal Cannula 3.00 08/13/17 04:00 83 08/13/17 04:00 Nasal Cannula 3.00 08/13/17 04:00 98.0 84 22 113/59 (77) 96 08/13/17 00:00 Nasal Cannula 3.00 08/13/17 00:00 81 08/12/17 21:38 98.5 86 18 92/55 (67) 95 08/12/17 21:30 Nasal Cannula 3.00 08/12/17 21:30 94 Nasal Cannula 3.00 08/12/17 20:00 98.7 80 19 136/70 (92) 89 08/12/17 20:00 80 08/12/17 19:00 95 Nasal Cannula 3.00 08/12/17 16:00 80 08/12/17 16:00 97.8 80 129/74 (92) 95 08/12/17 12:00 83 08/12/17 12:00 97.9 83 122/66 (84) 95 08/12/17 11:00 86 122/70 (87) 95 08/12/17 10:00 76 96/53 (67) 95 08/12/17 10:00 77 I/O 08/12/17 08/12/17 08/12/17 08/13/17 08/13/17 08/13/17 07:00 15:00 23:00 07:00 15:00 23:00 Intake Total 360 ml Output Total 1200 ml 1200 ml Balance -840 ml -1200 ml Intake Oral 360 ml Output Urine Total 1200 ml 1200 ml # Voids 2 # Bowel Movements 0 Result Diagram: 08/12/17 0818 08/12/17 0818 Imaging Last Impressions Chest X-Ray 08/10/17 0600 Signed Impressions: Service Date/Time: August 03:26 - CONCLUSION: 1. Continued improving patchy right lung and left lower lung zone airspace disease. 2. Mild interstitial edema. Julian Vernon MD Neck Magnetic Resonance Angiography 08/06/17 Signed Impressions: Service Date/Time: Sunday, August 06, 2017 10:52 - CONCLUSION: 1. No focal or high-grade stenosis is demonstrated involving the right or left internal carotid arteries. 2. There is some narrowing at the origin of both the right and left external carotid arteries. 3. Otherwise, the rest examination is unremarkable for patient's age. Mark Madden MD Head Magnetic Resonance Angiography 08/06/17 Signed Impressions: Service Date/Time: Sunday, August 06, 2017 10:52 - CONCLUSION: Suspected artifacts at the left middle cerebral and anterior cerebral arteries as described above. Santi Aguillon MD Head CT 08/06/17 Signed Impressions: Service Date/Time: Sunday, August 06, 2017 10:44 - CONCLUSION: No acute intracranial abnormality seen on this noncontrast CT examination. There is age-related atrophy and suspected small vessel ischemic change in the white matter. Small areas of infarction are seen on the prior MRI examination in the occipital lobes and possibly in the left cerebellar hemisphere. Santi Aguillon MD Chest CT 08/04/17 Signed Impressions: Service Date/Time: Friday, August 04, 2017 12:28 - CONCLUSION: 1. Patchy airspace disease and some interstitial prominence in the right lung most characteristic of a bronchopneumonia with small parapneumonic right pleural effusion and dependent atelectasis. Borderline enlarged mediastinal and hilar lymph nodes. 2. Moderate to severe coronary calcifications. 3. There is some narrowing of the bronchi, especially on the right side at bronchus intermedius. Etiology unclear. Gallo Caal MD Brain MRI 08/04/17 0000 Signed Impressions: Service Date/Time: Friday, August 04, 2017 17:22 - CONCLUSION: 1. Small focal region of acute infarction in the right occipital lobe. 2. Senescent changes with mild periventricular small vessel ischemic white matter demyelination. Julian Vernon MD Abdomen/Pelvis CT 08/04/17 Signed Impressions: Service Date/Time: Friday, August 04, 2017 22:55 - CONCLUSION: 1. No acute abnormality seen in the abdomen or pelvis. 2. Right base pneumonia. 3. Right inguinal hernia containing distal small bowel but no obstruction or evidence of strangulation. 4. Atherosclerotic aorta without aneurysm. 5. Chronic L5 pars defects with grade one L5/S1 spondylolisthesis. No acute bony abnormality demonstrated. Santi Putnam MD Objective Remarks GENERAL: NAD CARDIOVASCULAR: Regular rate and rhythm with II/ MARCELO RESPIRATORY: Breath sounds equal bilaterally. No accessory muscle use. GASTROINTESTINAL: Abdomen soft, non-tender, nondistended. MUSCULOSKELETAL: No cyanosis, or edema. BACK: Nontender without obvious deformity. No CVA tenderness. Date of Insertion: Aug 04, 2017 Line: Central Venous Catheter Side: Right Location: Internal, Jugular A/P Problem List: (1) COPD with exacerbation ICD Code: J44.1 - Chronic obstructive pulmonary disease with (acute) exacerbation (2) Metabolic encephalopathy ICD Code: G93.41 - Metabolic encephalopathy Status: Resolved Assessment and Plan 76 yrs old man with Acute ischemic stroke, R occipital lobe Agitated delirium-Resolved Severe Dementia H/o cataract removal unknown eye CT brain 08/04 - 1.6 cm low-attenuation superior left frontal lobe which may represent subacute infarct. MRI brain - focal area of restricted diffusion involving right occipital lobe. Mild periventricular small vessel ischemic white matter demyelination. EEG 08/04/17 - bihemispheric slowing. No epileptiform features. Neurology following, Dr. Bennett. On pravastatin 80 mg daily and clopidogrel bisulfate 75 mg by mouth daily MRA neck 08/06: No focal or high-grade stenosis is demonstrated involving the right or left ICA. MRA Brain: suspected artifacts Continue donepezil 10 mg by mouth daily. Seroquel when necessary on 08/10. COPD with exacerbation Acute community acquired pneumonia, right. Prior tobacco abuse Continue with oxygen keep sat> 92% Incentive spirometry while awake Albuterol/ipratropium aerosols every 6 hours with Albuterol aerosols 2.5 mg/3 milliliters every 2 hours as needed. On Solu Medrol 40 mg IV Q12H, Symbicort, Spiriva. Add Mucinex Septic shock - resolved Coronary artery disease with prior [place] Hyperlipidemia Essential hypertension Peripheral vascular disease History of left SFA/popliteal occlusion/right iliac stent Moderate MR (mild on Echo 08/04/17) Hydralazine 50mg Q8 Avoiding beta rhonda due to bronchospasm and wheezing on exam 2-D echo 08/04/17 - EF 55-60%. Clopidogrel bisulfate 75 mg by mouth daily Pravastatin 80 mg by mouth daily at bedtime History of esophageal dilatation Right inguinal hernia Elevated AST Hypoalbuminemia CT abdomen and pelvis -no acute abnormality. Famotidine for GI prophylaxis Acute community acquired pneumonia Completed ABX per ID Normocytic normochromic Anemia. Monitor CBC Sciatica Chronic L5 pars defects with grade one L5/S1 spondylolisthesis. No acute bony abnormality demonstrated. PT evaluate and treat PROPH: SCDs/heparin 5000 units subcutaneous every 8 hours for DVT prophylaxis. Famotidine for stress ulcer prophylaxis. DC when improved and cleared by consultants PT recommends Rehab However patient / declinig rehab and would like to go home with home health. PT reevaluation if patient deemed safe for DC at home Discussed with the patient, nurse, Lianet Lee MD Aug 13, 2017 09:56
[2017-08-13] MEDS ORDERED: QUET1TAB8 PO (10:03)
[2017-08-13] MEDS ORDERED: FAMO20TA2 PO (10:03)
[2017-08-13] MEDS ORDERED: HYDR-3800 PO (10:03)
[2017-08-13] MEDS ORDERED: SPIRCAP INH (10:03)
[2017-08-13] MEDS ORDERED: AMLO10 PO (10:03)
[2017-08-13] MEDS ORDERED: IPRA17I INH (10:03)
[2017-08-13] MEDS ORDERED: PRED10PA PO (10:03)
[2017-08-13] MEDS ORDERED: BUDE.5I NEB (10:03)
[2017-08-13] MEDS ORDERED: DILT31TA PO (10:03)
[2017-08-13] MEDS ORDERED: VENTAER INH (10:03)
[2017-08-13] MEDS ORDERED: ECASA81 PO (10:03)
--- NOTE | 2017-08-13 10:03 | HHI.DS ---
Discharge Summary Admission Date Aug 04, 2017 at 06:06 Discharge Date: Aug 14, 2017 Admitting Diagnosis (1) COPD with exacerbation ICD Code: J44.1 - Chronic obstructive pulmonary disease with (acute) exacerbation (2) Metabolic encephalopathy ICD Code: G93.41 - Metabolic encephalopathy Status: Resolved Procedures none Brief History - From Admission 68-year-old gentleman with past medical history of coronary artery disease, CHF was complaining of worsening respiratory distress at home, paramedics found him to be decided to 65 put him on CPAP gave him 100 of Lasix and transported him patient became more somnolent en route and he decompensated they intubated him with no complications sat is 96% patient arrived sedated with 20 of etomidate for Versed ET tube is in place good color change on the capnometer. CBC/BMP: 08/12/17 0818 08/12/17 0818 Significant Findings Laboratory Tests Test 08/10/17 11:00 08/11/17 03:50 08/12/17 08:18 Urine Occult Blood MOD (NEG) Urine RBC 69 /hpf (0-3) Urine Mucus FEW /lpf (OCC) White Blood Count 18.9 TH/MM3 (4.0-11.0) 25.7 TH/MM3 (4.0-11.0) Red Blood Count 3.57 MIL/MM3 (4.50-5.90) 4.29 MIL/MM3 (4.50-5.90) Hemoglobin 9.7 GM/DL (13.0-17.0) 11.3 GM/DL (13.0-17.0) Hematocrit 28.9 % (39.0-51.0) 34.7 % (39.0-51.0) Neutrophils (%) (Auto) 93.3 % (16.0-70.0) Lymphocytes (%) (Auto) 4.3 % (9.0-44.0) Neutrophils # (Auto) 17.6 TH/MM3 (1.8-7.7) Lymphocytes # (Auto) 0.8 TH/MM3 (1.0-4.8) Neutrophils % (Manual) 84 % (16-70) 91 % (16-70) Lymphocytes % 4 % (9-44) 3 % (9-44) Neutrophils # (Manual) 17.6 TH/MM3 (1.8-7.7) 24.7 TH/MM3 (1.8-7.7) Myelocytes 3 % (0-0) 1 % (0-0) Ovalocytes 1+ (NORMAL) 1+ (NORMAL) Blood Urea Nitrogen 25 MG/DL (7-18) 26 MG/DL (7-18) Random Glucose 143 MG/DL (74-106) 124 MG/DL (74-106) Total Protein 5.3 GM/DL (6.4-8.2) 5.9 GM/DL (6.4-8.2) Albumin 2.5 GM/DL (3.4-5.0) 2.9 GM/DL (3.4-5.0) Chloride Level 108 MEQ/L (98-107) Mean Corpuscular Hemoglobin 26.3 PG (27.0-34.0) Metamyelocytes 3 % (0-1) Nucleated Red Blood Cells 1 /100 WBC (0-0) Toxic Vacuolation PRESENT (NONE SEEN) Imaging Last Impressions Chest X-Ray 08/13/17 0000 Signed Impressions: Service Date/Time: Sunday, August 13, 2017 12:28 - CONCLUSION: No acute disease. Khanh Nina MD Neck Magnetic Resonance Angiography 08/06/17 0000 Signed Impressions: Service Date/Time: Sunday, August 06, 2017 10:52 - CONCLUSION: 1. No focal or high-grade stenosis is demonstrated involving the right or left internal carotid arteries. 2. There is some narrowing at the origin of both the right and left external carotid arteries. 3. Otherwise, the rest examination is unremarkable for patient's age. Mark Madden MD Head Magnetic Resonance Angiography 08/06/17 0000 Signed Impressions: Service Date/Time: Sunday, August 06, 2017 10:52 - CONCLUSION: Suspected artifacts at the left middle cerebral and anterior cerebral arteries as described above. Santi Aguillon MD Head CT 08/06/17 0000 Signed Impressions: Service Date/Time: Sunday, August 06, 2017 10:44 - CONCLUSION: No acute intracranial abnormality seen on this noncontrast CT examination. There is age-related atrophy and suspected small vessel ischemic change in the white matter. Small areas of infarction are seen on the prior MRI examination in the occipital lobes and possibly in the left cerebellar hemisphere. Santi Aguillon MD Chest CT 08/04/17 0000 Signed Impressions: Service Date/Time: Friday, August 04, 2017 12:28 - CONCLUSION: 1. Patchy airspace disease and some interstitial prominence in the right lung most characteristic of a bronchopneumonia with small parapneumonic right pleural effusion and dependent atelectasis. Borderline enlarged mediastinal and hilar lymph nodes. 2. Moderate to severe coronary calcifications. 3. There is some narrowing of the bronchi, especially on the right side at bronchus intermedius. Etiology unclear. Gallo Cala MD Brain MRI 08/04/17 0000 Signed Impressions: Service Date/Time: Friday, August 04, 2017 17:22 - CONCLUSION: 1. Small focal region of acute infarction in the right occipital lobe. 2. Senescent changes with mild periventricular small vessel ischemic white matter demyelination. Julian Vernon MD Abdomen/Pelvis CT 08/04/17 0000 Signed Impressions: Service Date/Time: Friday, August 04, 2017 22:55 - CONCLUSION: 1. No acute abnormality seen in the abdomen or pelvis. 2. Right base pneumonia. 3. Right inguinal hernia containing distal small bowel but no obstruction or evidence of strangulation. 4. Atherosclerotic aorta without aneurysm. 5. Chronic L5 pars defects with grade one L5/S1 spondylolisthesis. No acute bony abnormality demonstrated. Santi Putnam MD PE at Discharge GENERAL: NAD CARDIOVASCULAR: Regular rate and rhythm with II/ MARCELO RESPIRATORY: Breath sounds equal bilaterally. No accessory muscle use. GASTROINTESTINAL: Abdomen soft, non-tender, nondistended. MUSCULOSKELETAL: No cyanosis, or edema. BACK: Nontender without obvious deformity. No CVA tenderness. Pt update on day of discharge Patien tin nad walkign with PT . Failed O2 walking test. Patient/ doesn't want to go t any rehab. he is accepted to [facility]. Patient with dementia. Very pleasant at this time; Has no complaints. No n/v/d/ c. Eating fairly well. Hospital Course 76 yrs old man with Acute ischemic stroke, R occipital lobe Agitated delirium-Resolved Severe Dementia H/o cataract removal unknown eye CT brain 08/04 - 1.6 cm low-attenuation superior left frontal lobe which may represent subacute infarct. MRI brain - focal area of restricted diffusion involving right occipital lobe. Mild periventricular small vessel ischemic white matter demyelination. EEG 08/04/17 - bihemispheric slowing. No epileptiform features. Neurology following, Dr. Bennett. On pravastatin 80 mg daily and clopidogrel bisulfate 75 mg by mouth daily MRA neck 08/06: No focal or high-grade stenosis is demonstrated involving the right or left ICA. MRA Brain: suspected artifacts Continue donepezil 10 mg by mouth daily. Seroquel when necessary on 08/10. COPD with exacerbation Acute community acquired pneumonia, right. Prior tobacco abuse Continue with oxygen keep sat> 92% Incentive spirometry while awake Albuterol/ipratropium aerosols every 6 hours with Albuterol aerosols 2.5 mg/3 milliliters every 2 hours as needed. On Solu Medrol 40 mg IV Q12H, Symbicort, Spiriva. Added Mucinex.Prednisone po taper at DC. Failed O2 walk test , O2 at home Septic shock - resolved Coronary artery disease with prior ME Hyperlipidemia Essential hypertension Peripheral vascular disease History of left SFA/popliteal occlusion/right iliac stent Moderate MR (mild on Echo 08/04/17) Hydralazine 50mg Q8 Avoiding beta rhonda due to bronchospasm and wheezing on exam 2-D echo 08/04/17 - EF 55-60%. Clopidogrel bisulfate 75 mg by mouth daily Pravastatin 80 mg by mouth daily at bedtime History of esophageal dilatation Right inguinal hernia Elevated AST Hypoalbuminemia CT abdomen and pelvis -no acute abnormality. Famotidine for GI prophylaxis Acute community acquired pneumonia Completed ABX per ID CXR repeat stable Normocytic normochromic Anemia. Monitor CBC Sciatica Chronic L5 pars defects with grade one L5/S1 spondylolisthesis. No acute bony abnormality demonstrated. PT evaluate and treat PROPH: SCDs/heparin 5000 units subcutaneous every 8 hours for DVT prophylaxis. Famotidine for stress ulcer prophylaxis. DC when improved and cleared by consultants PT recommends Rehab However patient / declinig rehab and would like to go home with home health. PT reevaluation if patient deemed safe for DC at home. dC patient home with home health. Discussed with the and she says if not doing well at home she will contact PCP for SNF placement later on. Says she has a very good family support son lieaving across the street and will help, other son is flying in to help as well. Failed O2 walk test needs O2 at home. CM arranging Discussed with the patient, nurse, Pt Condition on Discharge: Stable Discharge Disposition: Discharge to SNF Discharge Time: > 30 minutes Discharge Instructions DIET: Follow Instructions for: Heart Healthy Diet Speech Therapy-Diet Recommends: Honey Thickened Liquids, Mechanical Soft Activities you can perform: Regular-No Restrictions Follow up Referrals: Appointment for Follow Up - 1 Week @ [facility] Neurology - 1 Week PCP Follow-up - 2-3 Days PCP Follow-up - 2-3 Days [place] [facility] [place] - 2 Weeks Pulmonology - 2 Weeks New Medications: Albuterol 18 GM Inh (Ventolin Hfa 18 GM Inh) 90 Mcg/Act Aer 2 PUFF INH Q4-6H PRN for SHORTNESS OF BREATH, #1 INHALER 0 Refills Commode 3-in-1 (Commode 3-in-1) 1 Mis Mis EA .XX DIRECTED, #1 0 Refills Ipratropium HFA 12.9 GM Inh (Atrovent HFA 12.9 GM Inh) 17 Mcg/Actuation Aer 2 PUFF INH Q6HR PRN for SHORTNESS OF BREATH, #1 INHALER 0 Refills Misc. Devices (Roller Walker) 1 Mis Mis EA .XX NOW, #1 Oxygen (O2) (Oxygen (O2)) Device LITER SINTIA.CANULA CONTINUOUS for Prevent Hypoxemia, #2 Oxygen Concentrator Portable Gaseous 2 L/min via Nasal Canula Continuous For 99 months Prednisone (21) 10 mg tab Dose Pack (Prednisone (21) 10 mg tab Dose Pack) 10 Mg Pack 10 MG PO DIRECTED for Inflammation, #1 DSPK 0 Refills Wheelchair (Wheelchair) 1 Mis Mis EA .XX DIRECTED, #1 0 Refills Amlodipine (Norvasc) 10 Mg Tab 10 MG PO DAILY for Blood Pressure Management, #[address] (Aspirin DR) 81 Mg Tabdr 81 MG PO DAILY for Blood Clot Prevention, #30 TAB Budesonide Neb (Pulmicort Respules) 0.5 Mg/2 Ml Neb 0.5 MG NEB Q12HR NEB for Broncospasm for 30 Days, CONTAINER Diltiazem (Cardizem) 30 Mg Tab 60 MG PO QID for Blood Pressure Management, #60 TAB Famotidine (Famotidine) 20 Mg Tab 20 MG PO BID for Dyspepsia, #60 TAB Hydralazine HCl (Hydralazine HCl) 50 Mg Tablet 50 MG PO Q8H for Blood Pressure Management, #90 MG Quetiapine (Quetiapine) 100 Mg Tab 100 MG PO BID for Agitation, #31 TAB Tiotropium Inh (Spiriva Handihaler) 18 Mcg Cap 18 MCG INH DAILY for Shortness of Breath, #30 CAP 1 capsule = 18 mcg Continued Medications: Atenolol (Atenolol) 25 Mg Tab 25 MG PO DAILY Clopidogrel Bisulfate (Plavix) 75 Mg Tab 75 MG PO DAILY Donepezil Hydrochloride (Aricept) 5 Mg Tab 10 MG PO DAILY, TAB Simvastatin (Simvastatin) 40 Mg Tab 1 TAB PO HS, TAB Tamsulosin Hcl (Flomax) 0.4 Mg Cap 0.4 MG PO DAILY, CAP Discontinued Medications: Clindamycin Hcl (Cleocin) 150 Mg Cap 300 MG PO Q6 for Infection for 10 Days, CAP Tramadol (Tramadol) 50 Mg Tab 50 MG PO Q4H PRN for PAIN, #30 TAB 0 Refills Lianet Lee MD Aug 13, 2017 10:03
--- NOTE | 2017-08-13 12:46 | RADRPT ---
EXAM DATE/TIME: 08/13/2017 12:28 [facility] COMPARISON: CHEST SINGLE AP, August 10, 2017, 3:26. INDICATIONS : Short of breath MEDICAL HISTORY : Hypercholesterolemia. Hypertension Myocardial infarction. COPD PVD SURGICAL HISTORY : Esophageal dilitation ENCOUNTER: Subsequent ACUITY: 1 week PAIN SCORE: 0/10 LOCATION: chest FINDINGS: Cardiomegaly. Clear lungs. Aortic calcification. Degenerative changes of the spine. CONCLUSION: No acute disease. Khanh Nina MD on August 13, 2017 at 12:45 Board Certified Radiologist. This report was verified electronically.
[2017-08-13] MEDS: PRAVASTATIN SOD 80 MG TAB PO SCH (20:55)
[2017-08-14] VITALS (8 sets, daily range): BP systolic 103–132; BP diastolic 60–63; PULSE 72–103; RESP 18–20; TEMP 97.2–98.2; O2SAT 92–99
[2017-08-14] MEDS: hydrALAZINE HCL 50 MG TAB PO SCH ×2 (00:05→09:59)
[2017-08-14] MEDS: CHLORHEXIDINE GLUCONATE 2 % 1 PACK (2 CLOTHS) TOP SCH (01:05)
[2017-08-14] MEDS: RESP: ALBUTEROL 2.5 MG/IPRATROPIUM 0.5 MG NEB (SCH) NEB (03:54)
[2017-08-14] MEDS: HEPARIN SODIUM - SQ 10,000 UNITS/ML VIAL SQ SCH ×2 (05:14→14:37)
[2017-08-14] MEDS: RESP: BUDESONIDE 0.5 MG/2 ML NEB NEB SCH (07:46)
[2017-08-14] MEDS: CHLORHEXIDINE 0.12% (ORAL KIT) 15 ML CUP MT SCH (08:00)
[2017-08-14] MEDS: INSULIN NovoLIN REGULAR SUPPLEMENTAL SCALE SQ SCH ×2 (08:00→12:00)
[2017-08-14] MEDS: DILTIAZEM HCL 30 MG TAB PO SCH ×2 (09:58→13:13)
[2017-08-14] MEDS: DONEPEZIL HCL 5 MG TAB PO SCH (09:59)
[2017-08-14] MEDS: FAMOTIDINE 20 MG TAB PO SCH (09:59)
[2017-08-14] MEDS: ASPIRIN EC 81 MG TABEC PO SCH (09:59)
[2017-08-14] MEDS: DOCUSATE SODIUM 50 MG/SENNA 8.6 MG TAB PO SCH (09:59)
[2017-08-14] MEDS: guaiFENesin E.R. 600 MG TAB PO SCH (09:59)
[2017-08-14] MEDS: CLOPIDOGREL 75 MG TAB PO SCH (09:59)
[2017-08-14] MEDS: QUEtiapine FUMARATE 100 MG TAB PO SCH (09:59)
[2017-08-14] MEDS: methylPREDNISolone SOD SUCC 40 MG/1 ML VIAL IV PUSH SCH (10:00)
[2017-08-14] MEDS: SODIUM CHLORIDE 0.9% FLUSH 10 ML FLUSH IV FLUSH SCH (10:00)
[2017-08-14] MEDS: BUDESONIDE-FORMOTEROL 160/4.5 MCG INHALER INH SCH (10:42)
--- NOTE | 2017-08-14 11:05 | HHI.FF ---
Face to Face Verification Diagnosis: (1) COPD with exacerbation (2) Metabolic encephalopathy (3) History of myocardial infarction (4) Occipital stroke (5) Hypertension (6) Peripheral vascular disease (7) Hyperlipidemia (8) Dementia (9) Chronic obstructive pulmonary disease Physical Therapy Order: Evaluate and Treat Occupational Therapy Order: Evaluate and Treat Speech Therapy Order: To Improve: Speech and communication skills, Cognitive skills, Swallowing Home Health Nursing Order: Medical education Signs/symptoms of disease process Oxygen administration education Medication education-adverse effect Nursing assessment with vital signs I have seen patient Steven Butts on 08/14/17. My clinical findings support the need for the requested home health care services because: Ltd mobility - disease progression Patient has SOB I certify that my clinical findings support that this patient is homebound because: Post-op weakness Impaired cognitive ability/safety Hx COPD- exertion dyspnea/weakness Unsteady gait/balance Lianet Lee MD Aug 14, 2017 11:05
[2017-08-14] MEDS ORDERED: WHEEMIS3 (11:09)
[2017-08-14] MEDS ORDERED: COMMODE 3-IN-11 MIS (11:09)
[2017-08-14] MEDS ORDERED: ROLLER WALKER1 MI1 (11:09)
[2017-08-14] MEDS: TIOTROPIUM BROMIDE 18 MCG INH INH SCH (11:18)
[2017-08-14] MEDS: RESP: ALBUTEROL 2.5 MG/3 ML NEB (PRN) NEB (12:15)
[2017-08-14] MEDS ORDERED: OXYGENDME NAS.CANULA (12:45)
== END 2017-08-14 16:46 | disposition home health service (06) | DRG 871 ==
LOC: NEPC 05:28 → NEDA 06:06 → HCVI 07:15 → HIMN 08-07 11:39 → HCVI 08-07 11:44 → HIME 08-07 13:37 → N04B 08-12 21:25
PROVIDERS: ADMIT Hospitalist; ATTEND Hospitalist
PROC: 05HM33Z Insertion of Infusion Device into Right Internal Jugular Vein, Percutaneous Approach (ICD-10-PCS; principal; 2017-08-04)
PROC: 5A1935Z Respiratory Ventilation, Less than 24 Consecutive Hours (ICD-10-PCS; 2017-08-04)
PROC: 0D9670Z Drainage of Stomach with Drainage Device, Via Natural or Artificial Opening (ICD-10-PCS; 2017-08-04)
PROC: 0T9B70Z Drainage of Bladder with Drainage Device, Via Natural or Artificial Opening (ICD-10-PCS; 2017-08-04)
PROC: 5A09357 Assistance with Respiratory Ventilation, Less than 24 Consecutive Hours, Continuous Positive Airway Pressure (ICD-10-PCS; 2017-08-08)
DX: A41.9 Sepsis, unspecified organism (principal); I63.9 Cerebral infarction, unspecified; J96.01 Acute respiratory failure with hypoxia; R65.21 Severe sepsis with septic shock; J18.9 Pneumonia, unspecified organism; G93.41 Metabolic encephalopathy; I11.0 Hypertensive heart disease with heart failure; J44.0 Chronic obstructive pulmonary disease with (acute) lower respiratory infection; E87.2 Acidosis; I50.9 Heart failure, unspecified; J44.1 Chronic obstructive pulmonary disease with (acute) exacerbation; F03.90 Unspecified dementia, unspecified severity, without behavioral disturbance, psychotic disturbance, mood disturbance, and anxiety; I25.10 Atherosclerotic heart disease of native coronary artery without angina pectoris; I25.2 Old myocardial infarction; I73.9 Peripheral vascular disease, unspecified; E78.5 Hyperlipidemia, unspecified; Z87.891 Personal history of nicotine dependence; M79.604 Pain in right leg; Z88.0 Allergy status to penicillin; M54.30 Sciatica, unspecified side; R45.1 Restlessness and agitation; K40.90 Unilateral inguinal hernia, without obstruction or gangrene, not specified as recurrent; I70.0 Atherosclerosis of aorta; N40.0 Benign prostatic hyperplasia without lower urinary tract symptoms; E83.39 Other disorders of phosphorus metabolism; I08.3 Combined rheumatic disorders of mitral, aortic and tricuspid valves; E88.09 Other disorders of plasma-protein metabolism, not elsewhere classified; D64.9 Anemia, unspecified; J98.01 Acute bronchospasm; Z95.820 Peripheral vascular angioplasty status with implants and grafts
CPT/HCPCS: 36600; 70450; 70544; 70548; 70551; 71045; 71250; 74176; 76937; 80048; 80053; 80061; 81001; 82140; 82550; 82552; 82805; 82948; 83036; 83605; 83690; 83735; 83880; 84100; 84132; 84155; 84484; 85007; 85025; 85027; 85610; 85730; 87040; 87070; 87086; 87205; 87449; 87633; 87641; 87804; 93005; 93306; 94002; 94003; 94150; 94618; 94640; 94664; 95819; 96365; 96375; A9579; J0171; J0360; J0456; J0461; J0610; J1200; J1630; J1644; J1720; J1940; J2920; J3370; J3475; J3480; J3486; J7030; J7050; J7613; J7626; J7644; Q9963

== ENCOUNTER 2017-08-18 12:25 | Emergency (ER) | payer BC, MEDICARE ==
[~2017-08-18 12:25] MED LIST changes: +AMLO10 PO; +BUDE.5I NEB; -CLIN150 PO; +COMMODE 3-IN-11 MIS; +DILT31TA PO; +ECASA81 PO; +FAMO20TA2 PO; +HYDR-3800 PO; +IPRA17I INH; +OXYGENDME NAS.CANULA; +PRED10PA PO; +QUET1TAB8 PO; +ROLLER WALKER1 MI1; +SPIRCAP INH; -TRAM50TA PO; +VENTAER INH; +WHEEMIS3
[2017-08-18 12:39] VITALS: BP 108/71; PULSE 80; RESP 20; TEMP 97.8; O2SAT 94
[2017-08-18 13:28] LABS: AUTOMATED NEUTROPHIL # 21.1 TH/MM3 (1.8-7.7); BASOPHIL # 0.1 TH/MM3 (0-0.2); BASOPHIL % 0.6 % (0.0-2.0); HEMATOCRIT 28.6 % (39.0-51.0); HEMOGLOBIN 9.5 GM/DL (13.0-17.0); LYMPH % 2.8 % (9.0-44.0); LYMPHOCYTE # 0.6 TH/MM3 (1.0-4.8); MEAN CELL VOLUME 81.5 FL (80.0-100.0); MEAN CORPUSCULAR HGB CONC 33.1 % (32.0-36.0); MEAN PLATELET VOLUME 7.1 FL (7.0-11.0); MONO % 4.7 % (0.0-8.0); MONOCYTE # 1.1 TH/MM3 (0-0.9); NEUT % 91.9 % (16.0-70.0); PLATELET COUNT 248 TH/MM3 (150-450); RED BLOOD COUNT 3.51 MIL/MM3 (4.50-5.90); RED CELL DISTRIBUTION WIDTH 15.3 % (11.6-17.2)
--- NOTE | 2017-08-18 13:30 | RADRPT ---
EXAM DATE/TIME: 08/18/2017 13:03 [facility] COMPARISON: CHEST SINGLE AP, August 13, 2017, 12:28. INDICATIONS : Short of breath. Cough. MEDICAL HISTORY : Hypercholesterolemia. Hypertension Myocardial infarction. COPD PVD SURGICAL HISTORY : Esophageal dilation. ENCOUNTER: Initial ACUITY: 1 day PAIN SCORE: Non-responsive. LOCATION: Bilateral chest FINDINGS: A single view of the chest demonstrates the lungs to be symmetrically aerated without evidence of mas s, infiltrate or effusion. The cardiomediastinal contours are unremarkable. Osseous structures are intact. CONCLUSION: No acute disease. Chris Zuñiga Jr., MD on August 18, 2017 at 13:27 Board Certified Radiologist. This report was verified electronically.
[2017-08-18 13:59] VITALS: BP 122/66; PULSE 77; RESP 18; O2SAT 92
[2017-08-18 13:59] LABS: ALBUMIN 2.9 GM/DL (3.4-5.0); DIRECT BILIRUBIN ADULT 0.1 MG/DL (0.0-0.2)
[2017-08-18 14:00] LABS: INDIRECT BILIRUBIN 0.3 MG/DL (0.0-0.8); TOTAL BILIRUBIN ADULT 0.4 MG/DL (0.2-1.0); TOTAL PROTEIN 5.6 GM/DL (6.4-8.2)
[2017-08-18 14:04] LABS: BICARBONATE 25.2 MEQ/L (21.0-32.0); BLOOD UREA NITROGEN 36 MG/DL (7-18); CALCIUM 8.8 MG/DL (8.5-10.1); CHLORIDE 110 MEQ/L (98-107); CREATININE 0.93 MG/DL (0.60-1.30); GLOMERULAR FILTRATION RATE 79 ML/MIN (>89); GLUCOSE,RANDOM 90 MG/DL (74-106); SODIUM (NA) 143 MEQ/L (136-145)
--- NOTE | 2017-08-18 14:06 | PD ---
HPI Chief Complaint: Edema Time Seen by Provider: 13:59 Travel History International Travel<30 days: No Contact w/Intl Traveler<30days: No Traveled to known affect area: No History of Present Illness HPI Patient is a 76-year-old male presenting to the emergency department for evaluation of weakness and edema. History is limited due to patient's cognitive deficits. Per RN in the ambulance hernandez agents called EMS because of those symptoms. Patient has no complaints at this time. PFSH Past Medical History Hx Anticoagulant Therapy: Yes (Plavix) Arthritis: No Asthma: Yes Autoimmune Disease: No Blood Disorders: No Anxiety: No Depression: No Heart Rhythm Problems: No Cancer: No High Cholesterol: Yes Chemotherapy: No Chest Pain: Yes Congestive Heart Failure: No COPD: Yes Cerebrovascular Accident: No Diabetes: No Diminished Hearing: No Endocrine: No GERD: No Glaucoma: No Genitourinary: No Headaches: No Hepatitis: No Hiatal Hernia: No Hypertension: Yes Immune Disorder: No Implanted Vascular Access Dvce: Yes Kidney Stones: No Musculoskeletal: Yes (sciatica) Neurologic: No Psychiatric: No Reproductive: No Respiratory: Yes (COPD) Immunizations Current: Yes Migraines: No Myocardial Infarction: No Radiation Therapy: No Renal Failure: No Seizures: No Sickle Cell Disease: No Sleep Apnea: No Thyroid Disease: No Ulcer: No Past Surgical History Abdominal Surgery: No AICD: No Appendectomy: No Arteriovenous Shunt: No Body Medical Devices: stent placed RLE on Cardiac Surgery: No Cholecystectomy: No Ear Surgery: No Endocrine Surgery: No Eye Surgery: No Genitourinary Surgery: No Gynecologic Surgery: No Insulin Pump: No Joint Replacement: No Oral Surgery: Yes (esophageal dialation) Pacemaker: No Thoracic Surgery: No Other Surgery: Yes Social History Alcohol Use: Yes (A BEER A DAY ) Tobacco Use: Yes (quit in september 2008) Substance Use: No Allergies-Medications (Allergen,Severity, Reaction): Coded Allergies: penicillin G (Unverified Allergy, Severe, Anaphylaxis, 08/04/17) haloperidol (Unverified Adverse Reaction, Intermediate, 08/04/17) lorazepam (Unverified Adverse Reaction, Intermediate, 08/04/17) *MDRO Multi-Drug Resistant Organism (Verified Adverse Reaction, Unknown, ) 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 Devices) 1 Mis Mis Ea .XX NOW Atrovent HFA 12.9 GM Inh (Ipratropium [place]) 17 Mcg/Actuation Aer 2 Puff INH Q6HR PRN Ventolin Hfa 18 GM Inh (Albuterol Sulfate) 90 Mcg/Act Aer 2 Puff INH Q4-6H PRN Prednisone (21) 10 mg tab Dose Pack (Prednisone) 10 Mg Pack 10 Mg PO DIRECTED Famotidine 20 Mg Tab 20 Mg PO BID Pulmicort Respules (Budesonide) 0.5 Mg/2 Ml Neb 0.5 Mg NEB Q12HR NEB 30 Days Quetiapine (Quetiapine Fumarate) 100 Mg Tab 100 Mg PO BID Aspirin DR (Aspirin) 81 Mg Tabdr 81 Mg PO DAILY Cardizem (Diltiazem HCl) 30 Mg Tab 60 Mg PO QID Norvasc (Amlodipine Besylate) 10 Mg Tab 10 Mg PO DAILY Hydralazine HCl 50 Mg Tablet 50 Mg PO Q8H Spiriva Handihaler (Tiotropium Inh) 18 Mcg Cap 18 Mcg INH DAILY 1 capsule = 18 mcg Reported Flomax (Tamsulosin HCl) 0.4 Mg Cap 0.4 Mg PO DAILY Aricept (Donepezil HCl) 5 Mg Tab 10 Mg PO DAILY Simvastatin 40 Mg Tab 1 Tab PO HS Atenolol 25 Mg Tab 25 Mg PO DAILY Plavix (Clopidogrel Bisulfate) 75 Mg Tab 75 Mg PO DAILY Review of Systems ROS Limitations: Poor Historian Except as stated in HPI: all other systems reviewed are Neg Physical Exam Narrative GENERAL: Well-developed, well-nourished, alert elderly gentleman. Resting in no acute distress. SKIN: Warm and dry. HEAD: Atraumatic. Normocephalic. EYES: Pupils equal and round. No scleral icterus. No injection or drainage. ENT: No nasal bleeding or discharge. Mucous membranes pink and moist. NECK: Trachea midline. No JVD. CARDIOVASCULAR: Regular rate and rhythm. RESPIRATORY: No accessory muscle use. Breath sounds diminished in bases bilaterally, wheezes throughout. GASTROINTESTINAL: Abdomen soft, non-tender, nondistended. Hepatic and splenic margins not palpable. MUSCULOSKELETAL: Extremities without clubbing, cyanosis. No obvious deformities. Trace-1+ nonpitting edema to bilateral lower extremities. NEUROLOGICAL: Awake and alert oriented to self only. No obvious cranial nerve deficits. Motor grossly within normal limits. Five out of 5 muscle strength in the arms and legs. Normal speech. PSYCHIATRIC: Appropriate mood and affect; insight and judgment normal. Data Data Last Documented VS Vital Signs Date Time Temp Pulse Resp B/P (MAP) Pulse Ox O2 Delivery O2 Flow Rate FiO2 08/18/17 13:59 77 18 122/66 (84) 92 Room Air 08/18/17 12:39 97.8 Orders Orders Electrocardiogram (08/18/17 12:39) Complete Blood Count With Diff (08/18/17 12:39) Basic Metabolic Panel (Bmp) (08/18/17 12:39) Ckmb (Isoenzyme) Profile (08/18/17 12:39) Troponin I (08/18/17 12:39) Chest, Single Ap (08/18/17 12:39) B-Type Natriuretic Peptide (08/18/17 12:43) Hepatic Functional Panel (08/18/17 12:43) Act Partial Throm Time (Ptt) (08/18/17 12:43) Prothrombin Time / Inr (Pt) (08/18/17 12:43) CKMB (08/18/17 12:50) CKMB% (08/18/17 12:50) Urinary Catheter Insert/Apply (08/18/17 15:17) Urinalysis - C+S If Indicated (08/18/17 15:40) Cath, Leg Strap Ea (08/18/17 16:33) Bag, Leg 32oz Sterile Large Ea (08/18/17 16:33) Ed Discharge Order (08/18/17 16:33) Labs Laboratory Tests Test 08/18/17 12:50 08/18/17 15:20 White Blood Count 23.0 TH/MM3 Red Blood Count 3.51 MIL/MM3 Hemoglobin 9.5 GM/DL Hematocrit 28.6 % Mean Corpuscular Volume 81.5 FL Mean Corpuscular Hemoglobin 27.0 PG Mean Corpuscular Hemoglobin Concent 33.1 % Red Cell Distribution Width 15.3 % Platelet Count 248 TH/MM3 Mean Platelet Volume 7.1 FL Neutrophils (%) (Auto) 91.9 % Lymphocytes (%) (Auto) 2.8 % Monocytes (%) (Auto) 4.7 % Eosinophils (%) (Auto) 0.0 % Basophils (%) (Auto) 0.6 % Neutrophils # (Auto) 21.1 TH/MM3 Lymphocytes # (Auto) 0.6 TH/MM3 Monocytes # (Auto) 1.1 TH/MM3 Eosinophils # (Auto) 0.0 TH/MM3 Basophils # (Auto) 0.1 TH/MM3 CBC Comment DIFF FINAL Differential Comment Blood Urea Nitrogen 36 MG/DL Creatinine 0.93 MG/DL Random Glucose 90 MG/DL Calcium Level 8.8 MG/DL Sodium Level 143 MEQ/L Potassium Level 4.7 MEQ/L Chloride Level 110 MEQ/L Carbon Dioxide Level 25.2 MEQ/L Anion Gap 8 MEQ/L Estimat Glomerular Filtration Rate 79 ML/MIN Total Bilirubin 0.4 MG/DL Direct Bilirubin 0.1 MG/DL Indirect Bilirubin 0.3 MG/DL Aspartate Amino Transf (AST/SGOT) 32 U/L Alanine Aminotransferase (ALT/SGPT) 58 U/L Alkaline Phosphatase 63 U/L Total Creatine Kinase 108 U/L Creatine Kinase MB 3.5 NG/ML Troponin I LESS THAN 0.02 NG/ML B-Type Natriuretic Peptide 52 PG/ML Total Protein 5.6 GM/DL Albumin 2.9 GM/DL Urine Color YELLOW Urine Turbidity CLEAR Urine pH 5.5 Urine Specific [place] 1.015 Urine Protein NEG mg/dL Urine Glucose (UA) NEG mg/dL Urine Ketones NEG mg/dL Urine Occult Blood NEG Urine Nitrite NEG Urine Bilirubin NEG Urine Urobilinogen LESS THAN 2.0 MG/DL Urine Leukocyte Esterase NEG Urine WBC 1 /hpf Urine Hyaline Casts 1 /lpf Microscopic Urinalysis Comment CATH-CULT NOT IND MDM Medical Decision Making Medical Screen Exam Complete: Yes Emergency Medical Condition: Yes Medical Record Reviewed: Yes Interpretation(s) Laboratory Tests Test 08/18/17 12:50 08/18/17 15:20 White Blood Count 23.0 TH/MM3 Red Blood Count 3.51 MIL/MM3 Hemoglobin 9.5 GM/DL Hematocrit 28.6 % Mean Corpuscular Volume 81.5 FL Mean Corpuscular Hemoglobin 27.0 PG Mean Corpuscular Hemoglobin Concent 33.1 % Red Cell Distribution Width 15.3 % Platelet Count 248 TH/MM3 Mean Platelet Volume 7.1 FL Neutrophils (%) (Auto) 91.9 % Lymphocytes (%) (Auto) 2.8 % Monocytes (%) (Auto) 4.7 % Eosinophils (%) (Auto) 0.0 % Basophils (%) (Auto) 0.6 % Neutrophils # (Auto) 21.1 TH/MM3 Lymphocytes # (Auto) 0.6 TH/MM3 Monocytes # (Auto) 1.1 TH/MM3 Eosinophils # (Auto) 0.0 TH/MM3 Basophils # (Auto) 0.1 TH/MM3 CBC Comment DIFF FINAL Differential Comment Blood Urea Nitrogen 36 MG/DL Creatinine 0.93 MG/DL Random Glucose 90 MG/DL Calcium Level 8.8 MG/DL Sodium Level 143 MEQ/L Potassium Level 4.7 MEQ/L Chloride Level 110 MEQ/L Carbon Dioxide Level 25.2 MEQ/L Anion Gap 8 MEQ/L Estimat Glomerular Filtration Rate 79 ML/MIN Total Bilirubin 0.4 MG/DL Direct Bilirubin 0.1 MG/DL Indirect Bilirubin 0.3 MG/DL Aspartate Amino Transf (AST/SGOT) 32 U/L Alanine Aminotransferase (ALT/SGPT) 58 U/L Alkaline Phosphatase 63 U/L Total Creatine Kinase 108 U/L Creatine Kinase MB 3.5 NG/ML Troponin I LESS THAN 0.02 NG/ML B-Type Natriuretic Peptide 52 PG/ML Total Protein 5.6 GM/DL Albumin 2.9 GM/DL Urine Color YELLOW Urine Turbidity CLEAR Urine pH 5.5 Urine Specific [place] 1.015 Urine Protein NEG mg/dL Urine Glucose (UA) NEG mg/dL Urine Ketones NEG mg/dL Urine Occult Blood NEG Urine Nitrite NEG Urine Bilirubin NEG Urine Urobilinogen LESS THAN 2.0 MG/DL Urine Leukocyte Esterase NEG Urine WBC 1 /hpf Urine Hyaline Casts 1 /lpf Microscopic Urinalysis Comment CATH-CULT NOT IND Vital Signs Date Time Temp Pulse Resp B/P (MAP) Pulse Ox O2 Delivery O2 Flow Rate FiO2 08/18/17 13:59 77 18 122/66 (84) 92 Room Air 08/18/17 12:39 97.8 80 20 108/71 (83) 94 Differential Diagnosis CHF versus metabolic abnormality versus COPD exacerbation versus other Narrative Course Patient is a 76-year-old male presenting for evaluation of edema and weakness. Patient was just discharged from [place] on August 14, 2017 after being diagnosed with COPD exacerbation and the metabolic encephalopathy. It also appears patient suffered from an acute ischemic stroke the right occipital lobe. Patient has a history of coronary artery disease, congestive heart failure. Patient's vital signs are stable. Labs and imaging ordered and pending. CBC with white blood cell count of 23,000 with left shift. This is improved from prior results on 08/12/17. Hemoglobin and hematocrit 9.5/28.6 Chemistry with BUN of 36 Hemoccult is negative for occult blood. presented at bedside, she states patient has been unable to completely urinate for the last 3 days. She states that he will dribble every 5-10 minutes. She reports that he was complaining of lower abdominal/suprapubic pain and pressure. A urinary catheter was placed, 2000 cc of urine was drained from patient's bladder. Urinalysis is pending. Urinalysis is not consistent with urinary tract infection. Patient will be switched to a leg bag, they are encouraged to follow-up with urologist. Patient is to continue home medications as previously prescribed. They are encouraged to follow-up with his primary doctor as well. Patient verbalized understanding of instructions. Patient stable for discharge. Diagnosis Primary Impression: Urinary retention Referrals: Urologist 3 days Patient Instructions: General Instructions, Urinary Leg Bag (GEN), Urinary Retention in Men (ED) Additional Instructions: Follow-up with your urologist on Monday Follow-up with your primary doctor Continue home medications as previously prescribed Return to emergency department for any new worsening symptoms Med/Other Pt SpecificInfo: No Change to Meds Disposition: 01 DISCHARGE HOME Condition: Stable Shruthi Griffith Aug 18, 2017 14:06
[2017-08-18 14:08] LABS: TROPONIN I LESS THAN 0.02 NG/ML (0.02-0.05)
[2017-08-18 15:52] LABS: BILIRUBIN, URINE NEG (NEG); BLOOD, URINE NEG (NEG); GLUCOSE,URINE NEG (NEG); HYALINE CAST, URINE 1 /lpf (RARE); KETONE, URINE NEG (NEG); NITRITE,URINE NEG (NEG); PH, URINE 5.5 (5.0-8.5); URINE COLOR YELLOW (YELLW/STRAW); URINE LEUKOCYTE ESTERASE NEG (NEG)
[2017-08-18 17:02] VITALS: BP 147/76
--- NOTE | 2017-08-19 23:36 | EKG ---
Date Performed: 08/18/2017 Time Performed: 13:23:53 PTAGE: 76 years EKG: Sinus rhythm BASELINE ARTIFACT MARKED LEFT AXIS DEVIATION ABNORMAL ECG PREVIOUS TRACING : 08/04/2017 16.35 Since the prior tracing, there has been no significant chun DOCTOR: Chaka Worrell Interpretating Date/Time 08/19/2017 23:34:27
== END 2017-08-18 17:04 | disposition home or self-care (01) ==
LOC: NEPE 12:25
DX: R33.9 Retention of urine, unspecified (principal); J44.9 Chronic obstructive pulmonary disease, unspecified; I10 Essential (primary) hypertension; E78.00 Pure hypercholesterolemia, unspecified; R94.31 Abnormal electrocardiogram [ECG] [EKG]
CPT/HCPCS: 51702; 71045; 80048; 80076; 81001; 82550; 82552; 83880; 84484; 85025; 93005

== ENCOUNTER 2017-08-21 12:41 | Inpatient (IN) | payer MEDICARE, BC ==
[~2017-08-21] VITALS: Ht 177.8 cm; Wt 90.1 kg
[2017-08-21] VITALS (22 sets, daily range): BP systolic 66–153; BP diastolic 43–107; PULSE 67–82; RESP 15–18; TEMP 98.7–99; O2SAT 93–100
[2017-08-21] MEDS ORDERED: NALOXONE HCL 0.4 MG/ML AMP ONE ×2 (12:44→12:47)
[2017-08-21] MEDS ORDERED: SODIUM CHLOR 0.9% 1000 ML INJ 800 ML IV ONE (12:52)
[2017-08-21] MEDS ORDERED: SODIUM CHLOR 0.9% 1000 ML INJ 1,000 ML IV ONE (12:52)
[2017-08-21] MEDS ORDERED: NALOXONE HCL 2 MG/2 ML VIAL IV PUSH ONE (13:00)
[2017-08-21] MEDS ORDERED: CEFEPIME INJ 2,000 MG in SODIUM CHLORIDE 0.9% INJ 100 ML IV ONE (13:30)
[2017-08-21] MEDS ORDERED: VANCOMYCIN INJ 1,750 MG in SODIUM CHLORID 0.9% 500 ML INJ 500 ML IV ONE (13:30)
[2017-08-21] MEDS ORDERED: PLAV75TA29 PO (13:33)
[2017-08-21] MEDS ORDERED: PROS5TAB PO (13:33)
[2017-08-21] MEDS ORDERED: DONE10TA7 PO (13:33)
[2017-08-21] MEDS ORDERED: TOPR25TA PO (13:33)
[2017-08-21] MEDS ORDERED: GABA300C5 PO (13:33)
[2017-08-21] MEDS ORDERED: TAMS5CAP PO (13:33)
[2017-08-21] MEDS ORDERED: NOREPINEPHRINE 4 MG/4 ML AMP ONE (13:36)
[2017-08-21 13:43] LABS: INTERNATIONAL NORMALIZED RATIO 1.1 RATIO; PROTHROMBIN TIME - PATIENT 11.4 SEC (9.8-11.6)
[2017-08-21 13:44] LABS: AUTOMATED NEUTROPHIL # 22.6 TH/MM3 (1.8-7.7); BASOPHIL % 0.1 % (0.0-2.0); HEMATOCRIT 22.6 % (39.0-51.0); HEMOGLOBIN 7.4 GM/DL (13.0-17.0); LYMPH % 1.2 % (9.0-44.0); LYMPHOCYTE # 0.3 TH/MM3 (1.0-4.8); MEAN CELL VOLUME 82.2 FL (80.0-100.0); MEAN CORPUSCULAR HGB CONC 32.8 % (32.0-36.0); MEAN PLATELET VOLUME 7.4 FL (7.0-11.0); MONO % 3.2 % (0.0-8.0); MONOCYTE # 0.8 TH/MM3 (0-0.9); NEUT % 95.5 % (16.0-70.0); PLATELET COUNT 163 TH/MM3 (150-450); RED BLOOD COUNT 2.74 MIL/MM3 (4.50-5.90); RED CELL DISTRIBUTION WIDTH 16.2 % (11.6-17.2); WHITE BLOOD COUNT 23.7 TH/MM3 (4.0-11.0)
[2017-08-21 13:44] LABS: LACTIC ACID SEPSIS PROTOCOL 2.3 mmol/L (0.4-2.0)
--- NOTE | 2017-08-21 13:51 | RADRPT ---
EXAM DATE/TIME: 08/21/2017 12:59 [facility] COMPARISON: CHEST SINGLE AP, August 18, 2017, 13:03. INDICATIONS : Shortness of breath. MEDICAL HISTORY : Hypercholesterolemia. Hypertension Myocardial infarction. COPD PVD SURGICAL HISTORY : Esophageal dilation. ENCOUNTER: Initial ACUITY: 1 day PAIN SCORE: Non-responsive. LOCATION: Bilateral chest FINDINGS: The endotracheal tube in good position. The heart is normal in size. There is diffuse infiltrate at the right base with a right basilar effusion. This would be concerning for pneumonia. The osseous structures are intact. CONCLUSION: 1. Right basilar effusion and infiltrate concerning for pneumonia. Aspiration would be a consideratio n. 2. Endotracheal tube in good position. Jonathon Jenkins MD on August 21, 2017 at 13:43 Board Certified Radiologist. This report was verified electronically.
[2017-08-21 13:53] LABS: ALBUMIN 1.7 GM/DL (3.4-5.0); ALT (GPT) 43 U/L (12-78); AST (GOT) 17 U/L (15-37); BICARBONATE 26.1 MEQ/L (21.0-32.0); BLOOD UREA NITROGEN 25 MG/DL (7-18); CALCIUM 7.8 MG/DL (8.5-10.1); CHLORIDE 114 MEQ/L (98-107); CREATININE 1.18 MG/DL (0.60-1.30); GLOMERULAR FILTRATION RATE 60 ML/MIN (>89); GLUCOSE,RANDOM 142 MG/DL (74-106); MAGNESIUM 1.9 MG/DL (1.5-2.5); SODIUM (NA) 147 MEQ/L (136-145)
[2017-08-21 13:58] LABS: ALKALINE PHOSPHATASE 69 U/L (45-117); TOTAL BILIRUBIN ADULT 0.4 MG/DL (0.2-1.0); TOTAL PROTEIN 4.1 GM/DL (6.4-8.2); TROPONIN I LESS THAN 0.02 NG/ML (0.02-0.05)
[2017-08-21] MEDS ORDERED: NOREPINEPHRINE-DEXTROSE DRIP 250 ML IV PRN (14:00)
--- NOTE | 2017-08-21 14:10 | PD ---
HPI Chief Complaint: Respiratory Symptoms Time Seen by Provider: 12:52 Travel History International Travel<30 days: No Contact w/Intl Traveler<30days: No Traveled to known affect area: No History of Present Illness HPI The patient 76 years old and arrives to the ER by EMS. He was found short of breath this morning and on scene the patient was unresponsive ultimately leading to intubation in the field. EMS reports initially the blood pressure was 50 over 30s with a temperature 99.3. EMS reports a pulse ox in the 80s. He received a liter of normal saline in the field followed by 2 additional liters here. The family arrived and reported the patient was short of breath yesterday and worsened overnight and into the morning. Patient intubated upon arrival in the history. He is recently admitted for respiratory failure with an echo at that time revealing an EF of 55-60%. PFSH Past Medical History Hx Anticoagulant Therapy: Yes (Plavix) Arthritis: No Asthma: Yes Autoimmune Disease: No Blood Disorders: No Anxiety: No Depression: No Heart Rhythm Problems: No Cancer: No High Cholesterol: Yes Chemotherapy: No Chest Pain: Yes Congestive Heart Failure: No COPD: Yes Cerebrovascular Accident: No Diabetes: No Diminished Hearing: No Endocrine: No Gastrointestinal Disorders: No GERD: No Glaucoma: No Genitourinary: No Headaches: No Hepatitis: No Hiatal Hernia: No Heparin Induced Thrombocytopen: No Hypertension: Yes Immune Disorder: No Implanted Vascular Access Dvce: Yes Kidney Stones: No Musculoskeletal: Yes (sciatica) Neurologic: No Psychiatric: No Reproductive: No Respiratory: Yes (COPD) Immunizations Current: Yes Migraines: No Myocardial Infarction: No Radiation Therapy: No Renal Failure: No Seizures: No Sickle Cell Disease: No Sleep Apnea: No Thyroid Disease: No Ulcer: No Past Surgical History Abdominal Surgery: No AICD: No Appendectomy: No Arteriovenous Shunt: No Body Medical Devices: stent placed RLE on Cardiac Surgery: No Cholecystectomy: No Ear Surgery: No Endocrine Surgery: No Eye Surgery: No Genitourinary Surgery: No Gynecologic Surgery: No Insulin Pump: No Joint Replacement: No Neurologic Surgery: No Oral Surgery: Yes (esophageal dialation) Pacemaker: No Thoracic Surgery: No Other Surgery: Yes Social History Alcohol Use: Yes (A BEER A DAY ) Tobacco Use: No (quit in september 2008) Substance Use: No Allergies-Medications (Allergen,Severity, Reaction): Coded Allergies: penicillin G (Unverified Allergy, Severe, Anaphylaxis, 08/04/17) haloperidol (Unverified Adverse Reaction, Intermediate, 08/04/17) lorazepam (Unverified Adverse Reaction, Intermediate, 08/04/17) *MDRO Multi-Drug Resistant Organism (Verified Adverse Reaction, Unknown, ) 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) Reported Meds & Prescriptions Reported Meds & Active Scripts Active Oxygen (O2) Device Liter SINTIA.CANULA CONTINUOUS Oxygen Concentrator Portable Gaseous 2 L/min via Nasal Canula Continuous For 99 months Atrovent HFA 12.9 GM Inh (Ipratropium [place]) 17 Mcg/Actuation Aer 2 Puff INH Q6HR PRN Ventolin Hfa 18 GM Inh (Albuterol Sulfate) 90 Mcg/Act Aer 2 Puff INH Q4-6H PRN Famotidine 20 Mg Tab 20 Mg PO BID Pulmicort Respules (Budesonide) 0.5 Mg/2 Ml Neb 0.5 Mg NEB Q12HR NEB 30 Days Quetiapine (Quetiapine Fumarate) 100 Mg Tab 100 Mg PO BID Aspirin DR (Aspirin) 81 Mg Tabdr 81 Mg PO DAILY Cardizem (Diltiazem HCl) 30 Mg Tab 60 Mg PO QID Norvasc (Amlodipine Besylate) 10 Mg Tab 10 Mg PO DAILY Hydralazine HCl 50 Mg Tablet 50 Mg PO Q8H Reported Flomax (Tamsulosin HCl) 0.4 Mg Cap 0.4 Mg PO DAILY Plavix (Clopidogrel Bisulfate) 75 Mg Tab 75 Mg PO DAILY Toprol XL (Metoprolol Succinate) 25 Mg Tab 25 Mg PO DAILY Gabapentin 300 Mg Cap 300 Mg PO HS Donepezil 10 Mg Tab 10 Mg PO HS Proscar (Finasteride) 5 Mg Tab 5 Mg PO DAILY Do not crush. Review of Systems ROS Limitations: Clinical Condition Physical Exam Narrative GENERAL: 76-year-old male intubated Vital Signs Date Time Temp Pulse Resp B/P (MAP) Pulse Ox O2 Delivery O2 Flow Rate FiO2 08/21/17 14:10 79 16 153/107 (122) 100 Ventilator 100 08/21/17 14:00 82 16 101/78 (86) 100 Ventilator 100 08/21/17 13:53 74 75/51 08/21/17 13:45 74 16 67/51 (56) 100 Ventilator 100 08/21/17 13:42 78 72/51 08/21/17 13:35 72 16 72/51 (58) 100 Ventilator 100 08/21/17 13:20 72 16 84/50 (61) 100 Ventilator 100 08/21/17 13:00 72 16 76/50 (59) 100 Ventilator 100 08/21/17 12:41 98 Ventilator 08/21/17 12:41 89 20 98 08/21/17 12:41 99.0 75 15 66/43 (51) SKIN: Warm and dry. HEAD: Atraumatic. Normocephalic. EYES: Pupils are pinpoint. Pupils are minimally reactive to light. ENT: No nasal bleeding or discharge. Mucous membranes pink and moist. NECK: Trachea midline. No JVD. CARDIOVASCULAR: Regular rate and rhythm. RESPIRATORY: Intubated. Breath sounds present bilaterally. GASTROINTESTINAL: Abdomen soft, non-tender, nondistended. Hepatic and splenic margins not palpable. MUSCULOSKELETAL: Extremities without clubbing, cyanosis, or edema. No obvious deformities. NEUROLOGICAL: GCS 3T. PSYCHIATRIC: Unable to assess Data Data Last Documented VS Vital Signs Date Time Temp Pulse Resp B/P (MAP) Pulse Ox O2 Delivery O2 Flow Rate FiO2 08/21/17 14:10 79 16 153/107 (122) 100 Ventilator 100 08/21/17 12:41 99.0 Orders Orders Naloxone Inj (Narcan Inj) (08/21/17 12:44) Naloxone Inj (Narcan Inj) (08/21/17 12:47) Sepsis Workup Initiated (08/21/17 ) Electrocardiogram (08/21/17 12:52) Complete Blood Count With Diff (08/21/17 12:52) Comprehensive Metabolic Panel (08/21/17 12:52) Prothrombin Time / Inr (Pt) (08/21/17 12:52) Act Partial Throm Time (Ptt) (08/21/17 12:52) Lactic Acid Sepsis Protocol (08/21/17 12:52) Magnesium (Mg) (08/21/17 12:52) Lipase (08/21/17 12:52) Ckmb (Isoenzyme) Profile (08/21/17 12:52) Troponin I (08/21/17 12:52) Urinalysis - C+S If Indicated (08/21/17 12:52) Influenzae A/B Antigen (08/21/17 12:52) Blood Culture (08/21/17 12:52) Chest, Single Ap (08/21/17 12:52) Blood Glucose (08/21/17 12:52) Ecg Monitoring (08/21/17 12:52) Iv Access Insert/Monitor (08/21/17 12:52) Oximetry (08/21/17 12:52) Oxygen Administration (08/21/17 12:52) Sodium Chlor 0.9% 1000 Ml Inj (Ns 1000 M (08/21/17 12:52) Sodium Chlor 0.9% 1000 Ml Inj (Ns 1000 M (08/21/17 12:52) Naloxone Inj (Narcan Inj) (08/21/17 13:00) Norepinephrine-Dextrose Drip (Levophed-D (08/21/17 14:00) Lactic Acid Sepsis Protocol (08/21/17 13:27) Cefepime Inj (Maxipime Inj) (08/21/17 13:30) Vancomycin Inj (Vancomycin Inj) (08/21/17 13:30) Norepinephrine Inj (Levophed Inj) (08/21/17 13:36) Ct Pulmonary Angiogram (08/21/17 13:57) Ct Abd/Pel W Iv Contrast(Rout) (08/21/17 13:57) Ct Brain W/O Iv Contrast(Rout) (08/21/17 13:57) Arterial Blood Gas (Abg) (08/21/17 ) Type And Screen (08/21/17 14:07) Red Blood Cells (Rbc) (08/21/17 14:07) Blood Product Administration (08/21/17 14:07) Sodium Chlor 0.9% 250 Ml Inj (Ns 250 Ml (08/21/17 14:15) Admit Order (Ed Use Only) (08/21/17 ) [employer] Airspace Control Officer / Telemetry [place].[email or web address] (08/21/17 14:10) Vital Signs (Adult) Q4H (08/21/17 14:10) Diet Npo (08/21/17 Dinner) Activity Bed Rest (08/21/17 14:10) Notify Dr: Other (08/21/17 14:10) Labs Laboratory Tests Test 08/21/17 13:05 08/21/17 13:10 White Blood Count 23.7 TH/MM3 Red Blood Count 2.74 MIL/MM3 Hemoglobin 7.4 GM/DL Hematocrit 22.6 % Mean Corpuscular Volume 82.2 FL Mean Corpuscular Hemoglobin 27.0 PG Mean Corpuscular Hemoglobin Concent 32.8 % Red Cell Distribution Width 16.2 % Platelet Count 163 TH/MM3 Mean Platelet Volume 7.4 FL Neutrophils (%) (Auto) 95.5 % Lymphocytes (%) (Auto) 1.2 % Monocytes (%) (Auto) 3.2 % Eosinophils (%) (Auto) 0.0 % Basophils (%) (Auto) 0.1 % Neutrophils # (Auto) 22.6 TH/MM3 Lymphocytes # (Auto) 0.3 TH/MM3 Monocytes # (Auto) 0.8 TH/MM3 Eosinophils # (Auto) 0.0 TH/MM3 Basophils # (Auto) 0.0 TH/MM3 CBC Comment DIFF FINAL Differential Comment Prothrombin Time 11.4 SEC Prothromb Time International Ratio 1.1 RATIO Activated Partial Thromboplast Time 22.8 SEC Blood Urea Nitrogen 25 MG/DL Creatinine 1.18 MG/DL Random Glucose 142 MG/DL Total Protein 4.1 GM/DL Albumin 1.7 GM/DL Calcium Level 7.8 MG/DL Magnesium Level 1.9 MG/DL Alkaline Phosphatase 69 U/L Aspartate Amino Transf (AST/SGOT) 17 U/L Alanine Aminotransferase (ALT/SGPT) 43 U/L Total Bilirubin 0.4 MG/DL Sodium Level 147 MEQ/L Potassium Level 4.6 MEQ/L Chloride Level 114 MEQ/L Carbon Dioxide Level 26.1 MEQ/L Anion Gap 7 MEQ/L Estimat Glomerular Filtration Rate 60 ML/MIN Total Creatine Kinase 45 U/L Troponin I LESS THAN 0.02 NG/ML Lipase 48 U/L Lactic Acid Level 2.3 mmol/L [facility] Medical Decision Making Medical Screen Exam Complete: Yes Emergency Medical Condition: Yes Medical Record Reviewed: Yes Differential Diagnosis pneumonia, pneumothorax, intracranial hemorrhage, ischemic stroke Narrative Course CBC & BMP Diagram 08/21/17 13:05 Total Protein 4.1 #L, Albumin 1.7 L, Calcium Level 7.8 L, Magnesium Level 1.9, Alkaline Phosphatase 69, Aspartate Amino Transf (AST/SGOT) 17, Alanine Aminotransferase (ALT/SGPT) 43, Total Bilirubin 0.4 Lactic acid is 2.3 Lipase 48 Last Impressions Chest X-Ray 08/21/17 1252 Signed Impressions: Service Date/Time: Monday, August 21, 2017 12:59 - CONCLUSION: 1. Right basilar effusion and infiltrate concerning for pneumonia. Aspiration would be a consideration. 2. Endotracheal tube in good position. Jonathon Jenkins MD Cefepime and Vanco started. Levophed started as a blood pressure remained in the 70s after 2 L of IV fluid. Case discussed with family. Case discussed with investment representative service, Dr Frey. Critical Care Narrative Aggregate critical care time was 60 minutes. Time to perform other separately billable procedures was not included in the critical care time. My time did not include minutes spent treating any other patients simultaneously or on activities that did not directly contribute to the patient's treatment. The services I provided to this patient were to treat and/or prevent clinically significant deterioration that could result in: Cardiopulmonary arrest I provided critical care services requiring my management, as noted below: Chart data review, documentation time, medication orders and management, vital sign assessments/reviewing monitor data, ordering and reviewing lab tests, ordering and interpreting/reviewing x-rays and diagnostic studies, care of the patient and discussion of the patient with the admitting physicians. Diagnosis Primary Impression: Respiratory failure Qualified Codes: J96.20 - Acute and chronic respiratory failure, unspecified whether with hypoxia or hypercapnia Additional Impressions: PNA (pneumonia) Qualified Codes: J18.1 - Lobar pneumonia, unspecified organism Hypotension Qualified Codes: I95.9 - Hypotension, unspecified Sepsis Qualified Codes: A41.9 - Sepsis, unspecified organism Admitting Information Admitting Physician Requests: Admit Jonathon Worrell MD Aug 21, 2017 14:10
[2017-08-21] MEDS ORDERED: SODIUM CHLOR 0.9% 250 ML INJ 250 ML IV ONE (14:15)
[2017-08-21] MEDS ORDERED: LACTULOSE SYRUP 20 GM/30 ML CUP PO PRN (14:15)
[2017-08-21] MEDS ORDERED: MISCELLANEOUS NURSING INFORMATION XX SCH (14:15)
[2017-08-21] MEDS ORDERED: MAGNESIUM HYDROXIDE SUSP 30 ML CUP PO PRN (14:15)
[2017-08-21] MEDS ORDERED: SENNOSIDES 8.6 MG TAB PO PRN (14:15)
[2017-08-21] MEDS ORDERED: CHLORHEXIDINE GLUCONATE 2 % 1 PACK (2 CLOTHS) TOP PRN (14:15)
[2017-08-21] MEDS ORDERED: GLUCAGON 1 MG/ML VIAL OTHER PRN (14:30)
[2017-08-21] MEDS ORDERED: DEXTROSE 50% IN WATER 50 ML VIAL(D50) IV PUSH PRN (14:30)
[2017-08-21] MEDS: INSULIN NovoLIN REGULAR SUPPLEMENTAL SCALE SQ SCH ×2 (15:00→20:19)
[2017-08-21] MEDS: HYDROCORTISONE SOD SUCCINATE 100 MG VIAL IV PUSH SCH ×2 (15:18→20:19)
[2017-08-21] MEDS: FAMOTIDINE 20 MG/2 ML VIAL IV PUSH SCH ×2 (15:19→20:19)
[2017-08-21] MEDS: SODIUM CHLOR 0.9% 1000 ML INJ 1,000 ML IV SCH (15:20)
[2017-08-21 15:55] LABS: AMORPHOUS SEDIMENT, URINE RARE; BILIRUBIN, URINE NEG (NEG); BLOOD, URINE TRACE (NEG); GLUCOSE,URINE TRACE mg/dL (NEG); HYALINE CAST, URINE 15 /lpf (RARE); KETONE, URINE NEG (NEG); MUCUS URINE FEW /lpf (OCC); NITRITE,URINE NEG (NEG); PH, URINE 5.5 (5.0-8.5); SQUAMOUS EPITHELIAL CELL URINE <1 /hpf (0-5); URINE COLOR DARK-YELLOW (YELLW/STRAW); URINE LEUKOCYTE ESTERASE LARGE (NEG)
--- NOTE | 2017-08-21 16:17 | RADRPT ---
EXAM DATE/TIME: 08/21/2017 16:05 [facility] COMPARISON: CT BRAIN W/O CONTRAST, August 06, 2017, 10:44. INDICATIONS : Respiratory arrest RADIATION DOSE: 59.37 CTDIvol (mGy) ; Patient motion; Tabletop CT Head MEDICAL HISTORY : Cardiovascular disease. Hypertension. Chronic obstructive pulmonary disease. SURGICAL HISTORY : None. ENCOUNTER: Initial ACUITY: 1 day PAIN SCALE: Non-responsive LOCATION: cranial TECHNIQUE: Multiple contiguous axial images were obtained of the head. Using automated exposure control and adj ustment of the mA and/or kV according to patient size, radiation dose was kept as low as reasonably a chievable to obtain optimal diagnostic quality images. DICOM format image data is available electro nically for review and comparison. FINDINGS: CEREBRUM: The ventricles are normal for age. No evidence of midline shift, mass lesion, hemorrhage or acute in farction. No extra-axial fluid collections are seen. POSTERIOR FOSSA: The cerebellum and brainstem are intact. The 4th ventricle is midline. The cerebellopontine angle i s unremarkable. EXTRACRANIAL: The visualized portion of the orbits is intact. SKULL: The calvaria is intact. No evidence of skull fracture. CONCLUSION: 1. No acute intracranial abnormality. Stable exam compared to previous dated 08/06/17. Jonathon Jenkins MD on August 21, 2017 at 16:14 Board Certified Radiologist. This report was verified electronically.
[2017-08-21] MEDS ORDERED: IOHEXOL 350 MG/ML 10 ML VIAL (for RAD DIAG) IVCONTRAST ONE (16:27)
--- NOTE | 2017-08-21 16:40 | RADRPT ---
EXAM DATE/TIME: 08/21/2017 16:16 [facility] COMPARISON: No previous studies available for comparison. INDICATIONS : Respiratory arrest, evaluate for pulmonary emboli. IV CONTRAST: 80 cc Omnipaque 350 (iohexol) IV ; Cumulative dose for multiple exams. RADIATION DOSE: 17.20 CTDIvol (mGy) ; Combined studies MEDICAL HISTORY : Cardiovascular disease. Hypertension. Chronic obstructive pulmonary disease. SURGICAL HISTORY : None. ENCOUNTER: Initial ACUITY: 1 day PAIN SCALE: Non-responsive LOCATION: chest TECHNIQUE: Volumetric scanning of the chest was performed using a pulmonary embolism protocol MIP images were re constructed. Using automated exposure control and adjustment of the mA and/or kV according to patien t size, radiation dose was kept as low as reasonably achievable to obtain optimal diagnostic quality images. DICOM format image data is available electronically for review and comparison. Follow-up recommendations for detected pulmonary nodules are based at a minimum on nodule size and pa tient risk factors according to Fleischner Society Guidelines. FINDINGS: Moderate emphysematous changes are noted. There are are bilateral pleural effusions identified right greater than left. There is mild consolidation in the lateral right middle lobe, and the consolidatio n and atelectasis of the right lower lobe. Patchy left basilar airspace disease and atelectasis also seen. An endotracheal tube is present and the tip terminates just proximal to the jonah. Subcentimet er mediastinal lymph nodes are noted. There is no evidence for pulmonary embolism. Coronary calcifica tion and atherosclerotic calcification of the aorta identified. CONCLUSION: 1. No evidence for pulmonary embolism. 2. Atherosclerosis. 3. Bilateral pleural effusions are identified right greater than left and patchy pulmonary consolidat ion is seen. Khanh Nina MD on August 21, 2017 at 16:36 Board Certified Radiologist. This report was verified electronically.
--- NOTE | 2017-08-21 16:43 | RADRPT ---
EXAM DATE/TIME: 08/21/2017 16:16 [facility] COMPARISON: CT PULMONARY ANGIOGRAM, August 21, 2017, 16:16. INDICATIONS : Respiratory arrest. IV CONTRAST: 80 cc Omnipaque 350 (iohexol) IV ; Cumulative dose for multiple exams. ORAL CONTRAST: No oral contrast ingested. RADIATION DOSE: 18.23 CTDIvol (mGy) ; Combined studies MEDICAL HISTORY : Cardiovascular disease. Hypertension. Chronic obstructive pulmonary disease. SURGICAL HISTORY : None. ENCOUNTER: Initial ACUITY: 1 day PAIN SCALE: Non-responsive LOCATION: abdomen/pelvis TECHNIQUE: Volumetric scanning of the abdomen and pelvis was performed. Using automated exposure control and ad justment of the mA and/or kV according to patient size, radiation dose was kept as low as reasonably achievable to obtain optimal diagnostic quality images. DICOM format image data is available electro nically for review and comparison. FINDINGS: Large right effusion and consolidation is seen within the right lower lobe, small left effusion. Live r, gallbladder, spleen, pancreas, adrenals, kidneys unremarkable. Fang catheter is noted within the urinary bladder. There is a fat containing inguinal hernia on the right with a small amount of perine al fluid, as well as a loop of small bowel extending into the hernia defect into the inguinal canal a pproximately 3 cm, best seen on coronal image 37. Also contains a loop of small bowel along its super ior margin. A smaller fat-containing left lumbar hernia is identified. There is a large stool ball in the rectum. Diverticulosis of the sigmoid and descending colon without diverticulitis. Appendix is n ormal. Diffuse atherosclerotic calcification of the aorta and iliac vessels. No adenopathy. There are degenerative changes of the spine. NG tube is present and the tip terminates in the distal stomach. Bilateral L5 spondylolysis. CONCLUSION: 1. Moderate amount of stool noted with a stool ball in the rectum. 2. Bilateral pleural effusions and consolidation greatest in the right lower lobe. 3. Diverticulosis without diverticulitis. 4. Atherosclerosis. 5. Bilateral L5 pars defects. 6. Inguinal hernias. Khanh Nina MD on August 21, 2017 at 16:38 Board Certified Radiologist. This report was verified electronically.
--- NOTE | 2017-08-21 16:56 | MH ---
cc: Henrry Frey MD DATE OF ADMISSION: 08/21/2017 HISTORY OF PRESENT ILLNESS: Patient is a 76-year-old male with multiple comorbidities, which include hypertension, hyperlipidemia, BPH, anemia of chronic disease, coronary artery disease, peripheral vascular disease, COPD on 2.5 L home oxygen, who presented to [facility] ED by EMS for respiratory distress and altered mental status requiring intubation in the field. In addition, patient was hypotensive and hypoxic. He was given 2 L Iv fluids by EVAC and an additional 1 L in the ED. Patient was started on Levophed, which is currently at 6 mcg. His laboratory data is significant for leukocytosis with a WBC of 23.7 and a mild lactic acidosis with lactic acid level of 2.3. Chest x-ray showed right basilar infiltrate concerning for pneumonia and ET tube above the jonah. ABG post intubation showed a pH of 7.39, CO2 of 44, PaO2 of 332, bicarb of 44, saturation 98%. In the ED, he was given cefepime, vancomycin. Patient also noted to have pinpoint pupils and was given Narcan without any significant effect. He was recently discharged from [facility] after he was admitted back on 08/04 for CHF, respiratory failure and acute right-sided stroke. He is scheduled to undergo CT scan of the brain, chest, abdomen and pelvis, which were ordered by ED. On his last admission, he had an echocardiogram on 08/04, which showed an EF of 55-60%. Most of the history was obtained from reviewing the medical records. PAST MEDICAL HISTORY: Significant for COPD, on 2.5 L oxygen continuously, coronary artery disease, peripheral vascular disease, hypertension, hyperlipidemia, BPH, anemia, dementia. PAST SURGICAL HISTORY: Previous cataract surgery. ALLERGIES: LORAZEPAM, PENICILLIN G, HALDOL. FAMILY HISTORY: Not contributing to present illness. SOCIAL HISTORY: Nonsmoker, nondrinker. REPORTED MEDICATIONS: Included donepezil, Atrovent, albuterol, Flomax, Plavix, Toprol XL, Norvasc, Cardizem, aspirin, gabapentin, Pulmicort, Pepcid and Proscar. REVIEW OF SYSTEMS: As per HPI. Rest of review of systems limited as patient is intubated. PHYSICAL EXAMINATION: GENERAL: A 76-year-old male intubated for respiratory failure and altered mental status. VITAL SIGNS: Temperature 99.0, blood pressure 104/52, pulse of 78, respiratory rate 16. Vent setting PRVC rate of 16, tidal volume 500, I-time 1, PEEP 5, 100% FiO2. HEENT: Atraumatic, normocephalic. Midpoint pupil noted, 1 mm in size bilaterally. NECK: Supple. No JVD, adenopathy or thyromegaly. Trachea in the midline. Orally intubated. CARDIOVASCULAR: Regular rate and rhythm. Normal S1, S2. No murmurs, rubs or gallops noted. PULMONARY: Bilateral equal air entry. No rales. A few coarse breath sounds at the bases. ABDOMEN: Soft, obese, nontender, mildly distended. Positive bowel sounds. EXTREMITIES: No cyanosis or clubbing, +1 edema. NEUROLOGIC: Intubated, unresponsive. LABORATORY DATA: Sodium 147, potassium 4.6, chloride 114, CO2 of 26, BUN 25, creatinine 1.18, glucose 142, lactic acid 2.3. Troponin less than 0.02. Albumin 1.7, lipase 48. WBC 23.7, hemoglobin 7.4, hematocrit 22, platelet count 163. INR 1.1, PT 11.4, PTT 22.8. RADIOGRAPHIC STUDIES: Chest x-ray showed right basilar infiltrate concerning for pneumonia. IMPRESSION: 1. Vent-dependent respiratory failure. 2. Right lower lobe pneumonia. 3. Leukocytosis. 4. Anemia. 5. Mild lactic acidosis. 6. Hypernatremia. 7. Recent cerebrovascular accident in July. 8. History of chronic obstructive pulmonary disease. 9. History of coronary artery disease. 10. History of hypertension. 11. History of benign prostatic hypertrophy. 12. History of hyperlipidemia. RECOMMENDATIONS: 1. Monitor neuro status closely. The patient is for CT scan of the brain without contrast. Also order a urine drug screen. Resume Aricept [address] on fentanyl infusion for sedation and vent synchrony. 2. Continue with vent support and maintain sats above 92%. 3. Bronchodilators in the form of DuoNeb q. [address] on stress dose steroid, hydrocortisone 50 mg IV q. 6. 4. Initiate and decrease FiO2 as tolerated. 5. Continue with Levophed. Monitor heart rate, blood pressure and maintain MAP greater than 66 mmHg. Stress dose steroid as stated above. 6. Echocardiogram from 08/04 showed an EF of 55-60%. 7. Serial lactic acid monitoring until clear. 8. Monitor renal function, I's and O's and electrolyte replacement per protocol. He was given 3 L of crystalloids total. Will place on maintenance fluids, NS at 100 mL an hour. 9. Keep n.p.o. for now. Place on Pepcid for GI prophylaxis and follow up on CT abdomen and pelvis, which was ordered by ED. 10. Continue with broad-spectrum antibiotics. Will place on vancomycin, aztreonam and azithromycin. Monitor for signs of infections, which include fever and WBC. OF NOTE, PATIENT IS ALLERGIC TO PENICILLIN G. Nasal aspirate for influenza is negative in the ED. Follow up on blood cultures. In addition, we will obtain a sputum culture and we will check Strep pneumoniae and legionella urinary antigen. 11. Monitor CBC. Will guaiac stool for heme. Hold aspirin and Plavix for now. 12. Sliding scale insulin with Accu-Cheks for glycemic control as patient will be on stress dose steroids. 13. GI prophylaxis with Pepcid and DVT prophylaxis with SCDs. Will start chemical anticoagulation prophylaxis if CT scan of the brain negative for a bleed and Hemoccult stool is negative for blood. 14. Patient is critically ill with respiratory failure, septic shock, on pressors and with altered mental status. Further recommendations will be based on hospital course. Critical care time 40 minutes excluding procedures. MD SÁNCHEZ Tinajero/JEFF , 04:13 PM , 04:55 PM
[2017-08-21] MEDS: AZITHROMYCIN INJ 500 MG in SODIUM CHLOR 0.9% 250 ML INJ 250 ML IV SCH (17:01)
[2017-08-21] MEDS: AZTREONAM INJ 1,000 MG in SODIUM CHLORIDE 0.9% INJ 100 ML IV SCH (17:03)
[2017-08-21] MEDS: DOCUSATE SODIUM 50 MG/SENNA 8.6 MG TAB PO SCH (20:19)
[2017-08-21] MEDS: DONEPEZIL HCL 5 MG TAB PO SCH (20:19)
[2017-08-21] MEDS: RESP: ALBUTEROL 2.5 MG/IPRATROPIUM 0.5 MG NEB (SCH) INH (20:37)
[2017-08-21] MEDS: fentaNYL DRIP 250 ML IV PRN (21:02)
[2017-08-21] MEDS ORDERED: GADODIAMIDE PF 287 MG/ML 5 ML VIAL (for RAD MRI) IVCONTRAST ONE (22:55)
--- NOTE | 2017-08-21 23:10 | RADRPT ---
EXAM DATE/TIME: 08/21/2017 22:20 [facility] COMPARISON: CT BRAIN W/O CONTRAST, August 21, 2017, 16:05. INDICATIONS : Altered mental status. CONTRAST: 25 cc Omniscan (gadodiamide) IV MEDICAL HISTORY : Dementia. Chronic obstructive pulmonary disease. Cardiovascular disease. HTN, Hyperlipidemia. SURGICAL HISTORY : Vented, EG tube ENCOUNTER: Initial ACUITY: 1 day PAIN SCORE: Nonresponsive. LOCATION: Bilateral chest TECHNIQUE: Multiplanar, multisequence MRI of the brain was performed both prior to and following the administrat ion of paramagnetic contrast. FINDINGS: CEREBRUM: Atrophy. The ventricles are normal for age. No evidence of midline shift, mass lesion, hemorrhage or acute infarction. No extraaxial fluid collections are seen. The pituitary gland and suprasellar ci garay are normal in configuration. WHITE MATTER: Scattered foci of high flair signal involving the periventricular and subcortical white matter of bot h cerebral hemispheres. POSTERIOR FOSSA: The cerebellum and brainstem are intact. The 4th ventricle is midline. The cerebellopontine angle is unremarkable. The cerebellar tonsils are normal in position. DIFFUSION IMAGING: No focal areas of restricted diffusion are seen. No evidence of acute infarction. EXTRACRANIAL: The visualized portions of the orbits and paranasal sinuses are unremarkable. POST-CONTRAST: No abnormal areas of parenchymal or dural enhancement. No evidence of blood-brain barrier breakdown. CONCLUSION: 1. No acute intracranial abnormality. 2. Atrophy and chronic small vessel ischemic change. Chris Zuñiga Jr., MD on August 21, 2017 at 23:03 Board Certified Radiologist. This report was verified electronically.
[2017-08-22] VITALS (26 sets, daily range): BP systolic 87–127; BP diastolic 48–67; PULSE 71–118; RESP 14–21; TEMP 98.6–99.7; O2SAT 91–96
[2017-08-22] MEDS: AZTREONAM INJ 1,000 MG in SODIUM CHLORIDE 0.9% INJ 100 ML IV SCH ×4 (00:39→23:42)
[2017-08-22] MEDS: INSULIN NovoLIN REGULAR SUPPLEMENTAL SCALE SQ SCH ×4 (03:00→20:11)
[2017-08-22] MEDS: RESP: ALBUTEROL 2.5 MG/IPRATROPIUM 0.5 MG NEB (SCH) INH ×4 (03:26→19:33)
[2017-08-22] MEDS: CHLORHEXIDINE GLUCONATE 2 % 1 PACK (2 CLOTHS) TOP SCH (04:00)
[2017-08-22] MEDS: VANCOMYCIN INJ 1,250 MG in SODIUM CHLOR 0.9% 250 ML INJ 250 ML IV SCH ×2 (04:13→14:47)
[2017-08-22] MEDS: HYDROCORTISONE SOD SUCCINATE 100 MG VIAL IV PUSH SCH ×3 (04:14→19:53)
[2017-08-22] MEDS: fentaNYL DRIP 250 ML IV PRN (06:27)
[2017-08-22] MEDS: SODIUM CHLOR 0.9% 1000 ML INJ 1,000 ML IV SCH ×2 (06:28→10:40)
[2017-08-22 07:01] LABS: AUTOMATED NEUTROPHIL # 24.9 TH/MM3 (1.8-7.7); HEMATOCRIT 29.3 % (39.0-51.0); HEMOGLOBIN 9.9 GM/DL (13.0-17.0); LYMPH % 1.4 % (9.0-44.0); LYMPHOCYTE # 0.4 TH/MM3 (1.0-4.8); MEAN CELL VOLUME 83.3 FL (80.0-100.0); MEAN CORPUSCULAR HEMOGLOBIN 28.1 PG (27.0-34.0); MEAN CORPUSCULAR HGB CONC 33.8 % (32.0-36.0); MEAN PLATELET VOLUME 7.7 FL (7.0-11.0); MONO % 2.6 % (0.0-8.0); MONOCYTE # 0.7 TH/MM3 (0-0.9); PLATELET COUNT 160 TH/MM3 (150-450); RED BLOOD COUNT 3.52 MIL/MM3 (4.50-5.90); RED CELL DISTRIBUTION WIDTH 16.1 % (11.6-17.2)
[2017-08-22 07:33] LABS: ALBUMIN 1.7 GM/DL (3.4-5.0); BICARBONATE 25.2 MEQ/L (21.0-32.0); CALCIUM 7.3 MG/DL (8.5-10.1); CALCIUM-PROTEIN CORRECTED 8.7 MG/DL (8.5-10.1); CREATININE 1.08 MG/DL (0.60-1.30); MAGNESIUM 2.1 MG/DL (1.5-2.5); PHOSPHORUS 4.2 MG/DL (2.5-4.9); TOTAL BILIRUBIN ADULT 0.6 MG/DL (0.2-1.0); TOTAL PROTEIN 4.7 GM/DL (6.4-8.2)
[2017-08-22] MEDS: TAMSULOSIN HCL 0.4 MG CAP PO SCH (07:59)
[2017-08-22] MEDS: FAMOTIDINE 20 MG/2 ML VIAL IV PUSH SCH ×2 (07:59→19:54)
[2017-08-22] MEDS: FINASTERIDE 5 MG TAB PO SCH (08:00)
[2017-08-22] MEDS: DOCUSATE SODIUM 50 MG/SENNA 8.6 MG TAB PO SCH ×2 (08:00→19:54)
--- NOTE | 2017-08-22 09:41 | HHI.CCPN ---
Subjective Remarks/Hospital Course Patient is a 76-year-old male with multiple comorbidities, which include hypertension, hyperlipidemia, BPH, anemia of chronic disease, coronary artery disease, peripheral vascular disease, COPD on 2.5 L home oxygen, who presented to [facility] ED by EMS for respiratory distress and altered mental status requiring intubation in the field. In addition, patient was hypotensive and hypoxic. He was given 2 L Iv fluids by EVAC and an additional 1 L in the ED. Patient was started on Levophed, which is currently at 6 mcg. His laboratory data is significant for leukocytosis with a WBC of 23.7 and a mild lactic acidosis with lactic acid level of 2.3. Chest x-ray showed right basilar infiltrate concerning for pneumonia and ET tube above the jonah. ABG post intubation showed a pH of 7.39, CO2 of 44, PaO2 of 332, bicarb of 44, saturation 98%. In the ED, he was given cefepime, vancomycin. Patient also noted to have pinpoint pupils and was given Narcan without any significant effect. He was recently discharged from [facility] after he was admitted back on 08/04 for CHF, respiratory failure and acute right-sided stroke. He is scheduled to undergo CT scan of the brain, chest, abdomen and pelvis, which were ordered by ED. On his last admission, he had an echocardiogram on 08/04, which showed an EF of 55-60%. 08/22 Patient is sedated with Fentanyl drip and intubated. Afebrile. Off Levophed. Objective Vital Signs Date Time Temp Pulse Resp B/P (MAP) Pulse Ox O2 Delivery O2 Flow Rate FiO2 08/22/17 09:15 50 08/22/17 09:15 95 08/22/17 06:00 73 08/22/17 06:00 124/59 08/22/17 01:00 98.9 16 08/21/17 15:46 Ventilator Intake and Output 08/22/17 08/22/17 08/23/17 08:00 16:00 00:00 Intake Total 2237.5 ml Output Total 550 ml Balance 1687.5 ml Result Diagram: 08/22/17 0550 08/22/17 0550 Other Results Laboratory Tests Test 08/21/17 13:05 08/21/17 13:10 08/21/17 14:25 08/21/17 15:29 White Blood Count 23.7 TH/MM3 Red Blood Count 2.74 MIL/MM3 Hemoglobin 7.4 GM/DL Hematocrit 22.6 % Mean Corpuscular Volume 82.2 FL Mean Corpuscular Hemoglobin 27.0 PG Mean Corpuscular Hemoglobin Concent 32.8 % Red Cell Distribution Width 16.2 % Platelet Count 163 TH/MM3 Mean Platelet Volume 7.4 FL Neutrophils (%) (Auto) 95.5 % Lymphocytes (%) (Auto) 1.2 % Monocytes (%) (Auto) 3.2 % Eosinophils (%) (Auto) 0.0 % Basophils (%) (Auto) 0.1 % Neutrophils # (Auto) 22.6 TH/MM3 Lymphocytes # (Auto) 0.3 TH/MM3 Monocytes # (Auto) 0.8 TH/MM3 Eosinophils # (Auto) 0.0 TH/MM3 Basophils # (Auto) 0.0 TH/MM3 CBC Comment DIFF FINAL Differential Comment Prothrombin Time 11.4 SEC Prothromb Time International Ratio 1.1 RATIO Activated Partial Thromboplast Time 22.8 SEC Blood Urea Nitrogen 25 MG/DL Creatinine 1.18 MG/DL Random Glucose 142 MG/DL Total Protein 4.1 GM/DL Albumin 1.7 GM/DL Calcium Level 7.8 MG/DL Magnesium Level 1.9 MG/DL Alkaline Phosphatase 69 U/L Aspartate Amino Transf (AST/SGOT) 17 U/L Alanine Aminotransferase (ALT/SGPT) 43 U/L Total Bilirubin 0.4 MG/DL Sodium Level 147 MEQ/L Potassium Level 4.6 MEQ/L Chloride Level 114 MEQ/L Carbon Dioxide Level 26.1 MEQ/L Anion Gap 7 MEQ/L Estimat Glomerular Filtration Rate 60 ML/MIN Total Creatine Kinase 45 U/L Troponin I LESS THAN 0.02 NG/ML Lipase 48 U/L Lactic Acid Level 2.3 mmol/L Urine Color DARK-YELLOW Urine Turbidity HAZY Urine pH 5.5 Urine Specific Sisters 1.019 Urine Protein 100 mg/dL Urine Glucose (UA) TRACE mg/dL Urine Ketones NEG mg/dL Urine Occult Blood TRACE Urine Nitrite NEG Urine Bilirubin NEG Urine Urobilinogen LESS THAN 2.0 MG/DL Urine Leukocyte Esterase LARGE Urine RBC /hpf Urine WBC 8 /hpf Urine Squamous Epithelial Cells <1 /hpf Urine Amorphous Sediment RARE Urine Hyaline Casts 15 /lpf Urine Granular Casts 7 /lpf Urine Mucus FEW /lpf Microscopic Urinalysis Comment CATH-CULTURE IND Urine Opiates Screen NEG Urine Barbiturates Screen NEG Urine Amphetamines Screen NEG Urine Benzodiazepines Screen POS Urine Cocaine Screen NEG Urine Cannabinoids Screen NEG Blood Gas Puncture Site RT RADIAL Blood Gas Patient Temperature 98.6 Blood Gas HCO3 26 mmol/L Blood Gas Base Excess 1.5 mmol/L Blood Gas Oxygen Saturation 98 % Arterial Blood pH 7.39 Arterial Blood Partial Pressure CO2 44 mmHg Arterial Blood Partial Pressure O2 332 mmHG Arterial Blood Oxygen Content 11.6 Vol % Arterial Blood Carboxyhemoglobin 1.2 % Arterial Blood Methemoglobin 0.6 % Blood Gas Hemoglobin 7.8 G/DL Oxygen Delivery Device VENTILATOR Blood Gas Ventilator Setting 500/16/+5/1.0 Blood Gas Inspired Oxygen 100 % Test 08/21/17 16:45 08/21/17 17:15 08/22/17 05:50 Lactic Acid Level 1.1 mmol/L B-Type Natriuretic Peptide 154 PG/ML Nasal Screen MRSA (PCR) MRSA NOT DETECTED White Blood Count 26.0 TH/MM3 Red Blood Count 3.52 MIL/MM3 Hemoglobin 9.9 GM/DL Hematocrit 29.3 % Mean Corpuscular Volume 83.3 FL Mean Corpuscular Hemoglobin 28.1 PG Mean Corpuscular Hemoglobin Concent 33.8 % Red Cell Distribution Width 16.1 % Platelet Count 160 TH/MM3 Mean Platelet Volume 7.7 FL Neutrophils (%) (Auto) 96.0 % Lymphocytes (%) (Auto) 1.4 % Monocytes (%) (Auto) 2.6 % Eosinophils (%) (Auto) 0.0 % Basophils (%) (Auto) 0.0 % Neutrophils # (Auto) 24.9 TH/MM3 Lymphocytes # (Auto) 0.4 TH/MM3 Monocytes # (Auto) 0.7 TH/MM3 Eosinophils # (Auto) 0.0 TH/MM3 Basophils # (Auto) 0.0 TH/MM3 CBC Comment DIFF FINAL Differential Comment Blood Urea Nitrogen 27 MG/DL Creatinine 1.08 MG/DL Random Glucose 143 MG/DL Total Protein 4.7 GM/DL Albumin 1.7 GM/DL Calcium Level 7.3 MG/DL Phosphorus Level 4.2 MG/DL Magnesium Level 2.1 MG/DL Alkaline Phosphatase 82 U/L Aspartate Amino Transf (AST/SGOT) 14 U/L Alanine Aminotransferase (ALT/SGPT) 40 U/L Total Bilirubin 0.6 MG/DL Sodium Level 146 MEQ/L Potassium Level 5.0 MEQ/L Chloride Level 113 MEQ/L Carbon Dioxide Level 25.2 MEQ/L Anion Gap 8 MEQ/L Estimat Glomerular Filtration Rate 66 ML/MIN Protein Corrected Calcium 8.7 MG/DL Imaging Last Impressions Head CT 08/21/17 [id number] Signed Impressions: Service Date/Time: Monday, August 21, 2017 16:05 - CONCLUSION: 1. No acute intracranial abnormality. Stable exam compared to previous dated 08/06/17. Jonathon Jenkins MD CT Angiography 08/21/17 [id number] Signed Impressions: Service Date/Time: Monday, August 21, 2017 16:16 - CONCLUSION: 1. No evidence for pulmonary embolism. 2. Atherosclerosis. 3. Bilateral pleural effusions are identified right greater than left and patchy pulmonary consolidation is seen. Khanh Nina MD Abdomen/Pelvis CT 08/21/17 [id number] Signed Impressions: Service Date/Time: Monday, August 21, 2017 16:16 - CONCLUSION: 1. Moderate amount of stool noted with a stool ball in the rectum. 2. Bilateral pleural effusions and consolidation greatest in the right lower lobe. 3. Diverticulosis without diverticulitis. 4. Atherosclerosis. 5. Bilateral L5 pars defects. 6. Inguinal hernias. Khanh Nina MD Chest X-Ray 08/21/17 1252 Signed Impressions: Service Date/Time: Monday, August 21, 2017 12:59 - CONCLUSION: 1. Right basilar effusion and infiltrate concerning for pneumonia. Aspiration would be a consideration. 2. Endotracheal tube in good position. Jonathon Jenkins MD Brain MRI 08/21/17 0000 Signed Impressions: Service Date/Time: Monday, August 21, 2017 22:20 - CONCLUSION: 1. No acute intracranial abnormality. 2. Atrophy and chronic small vessel ischemic change. Chris Zuñiga Jr., MD Objective Remarks GENERAL: Patient is 76 yo intubated and sedated SKIN: Warm and dry. HEAD: Normocephalic. EYES: No scleral icterus. No injection or drainage. Pupils 1-2 mm NECK: Supple, trachea midline. No JVD or lymphadenopathy. CARDIOVASCULAR: Regular rate and rhythm without murmurs, gallops, or rubs. RESPIRATORY: Breath sounds equal bilaterally. No accessory muscle use. GASTROINTESTINAL: Abdomen soft, non-tender, nondistended. MUSCULOSKELETAL: No cyanosis, or edema. Neuro: Sedated, intubated A/P Assessment and Plan 1. VDRF 2. Right lower lobe pneumonia. 3. Leukocytosis. 4. Anemia. 5. Mild lactic acidosis. 6. Hypernatremia. 7. Recent CVA in July. 8. COPD 9. CAD 10. HTN 11. BPH 12.Hyperlipidemia. Plan Neuro: On Fentanyl infusion for sedation. Monitor neuro status closely. Place on Precedex drip to facilitate with weaning trials CT and MRI brain : No acute process UDS: + Benzos On Aricept 10mg qhs for Dementia Pulm: Continue with vent support and maintain sats > 92%. Bronchodilators, decrease hydrocortisone 50 mg IV q. 12. ICU vent bundle, SBT daily as chi CT chest: No evidence for PE, small to mod pleural effusions R>L and patchy pulmonary consolidation is seen. Will check US chest CV: Off Levophed. Monitor HR and BP MAP>65 mmHg. Taper Stress dose steroids. Hold ASA and Plavix in case patient needs any procedures Echo from 08/04 showed an EF of 55-60%. lactic acid cleared 1.1 : Monitor renal function, I's and O's and electrolyte replacement per protocol. Given 3L crystalloids total, decrease NS 75ml/hr GI: On Pepcid for GI prophylaxis. Start tube feeds today if remains intubated. ID: Continue abx (vanco, aztreonam and azithromycin).ID eval Nasal aspirate is negative influenza BC 08/21 1 bottles: GPC, check BC x 2 sets today Check sputum culture, Strep pneumoniae and legionella urinary antigen are pending Heme: Monitor CBC. Endo: SSI with Accu-Cheks for glycemic contro GI prophylaxis with Pepcid and DVT prophylaxis with SCDs/heparin Sq Palliative care eval per 's request Level 3 Henrry Frey MD Aug 22, 2017 09:41
[2017-08-22] MEDS ORDERED: CLOPIDOGREL 75 MG TAB PO SCH (11:00)
[2017-08-22] MEDS ORDERED: DEXMEDETOMIDINE INJ 200 MCG in SODIUM CHLORIDE 0.9% INJ 50 ML IV PRN (11:00)
[2017-08-22] MEDS ORDERED: ASPIRIN 81 MG CHEW TAB CHEW SCH (11:00)
--- NOTE | 2017-08-22 12:38 | RADRPT ---
EXAM DATE/TIME: 08/22/2017 12:08 [facility] COMPARISON: No previous studies available for comparison. INDICATIONS : Right pleural effusion. MEDICAL HISTORY : Myocardial infarction. Hypercholesterolemia. Chronic obstructive pulmonary disease. Hypertension. Ast hma. PVD. Sciatica. ETOH use daily. MRSA. SURGICAL HISTORY : Hand surgery. ENCOUNTER: Initial ACUITY: 1 day PAIN SCORE: Nonresponsive. LOCATION: Right chest MEASUREMENTS: SKIN TO PARIETAL PLEURA: 2.5 cm SKIN TO MAX SAFE DEPTH: 3.8 cm ESTIMATED FLUID VOLUME: 273 cc FLUID COMPOSITION: simple FINDINGS: Pleural effusion as above. CONCLUSION: Right-sided pleural effusion. Mj Sanchez MD on August 22, 2017 at 12:36 Board Certified Radiologist. This report was verified electronically.
--- NOTE | 2017-08-22 12:45 | RADRPT ---
EXAM DATE/TIME: 08/22/2017 12:08 [place] COMPARISON: No previous studies available for comparison. INDICATIONS : Left pleural effusion. MEDICAL HISTORY : Myocardial infarction. Hypercholesterolemia. Chronic obstructive pulmonary disease. Hypertension. Ast hma. PVD. Sciatica. ETOH use daily. MRSA. SURGICAL HISTORY : Hand surgery. ENCOUNTER: Initial ACUITY: 1 day PAIN SCORE: Nonresponsive. LOCATION: Left chest MEASUREMENTS: SKIN TO PARIETAL PLEURA: Inadequate fluid SKIN TO MAX SAFE DEPTH: Inadequate fluid ESTIMATED FLUID VOLUME: 113 cc FLUID COMPOSITION: simple FINDINGS: No marking was performed. CONCLUSION: Small left pleural effusion. No marking performed. Mj Sanchez MD on August 22, 2017 at 12:43 Board Certified Radiologist. This report was verified electronically.
--- NOTE | 2017-08-22 13:55 | PD.ID.CON ---
History of Present Illness Service ID Consult Requested By Reason for Consult Evaluation and Mment of Sepsis and MRSA bacteremia. Primary Care Physician Pedro White MD Diagnoses: History of Present Illness Most of the history was obtained from review of medical records, dw RN and patients at bedside. is a 76 y/o CM with PMHx of multiple comorbidities, such as HTN, hyperlipidemia, BPH, anemia of chronic disease, CAD with EF 55-60%, peripheral vascular disease, COPD on 2.5 L home oxygen, who presented to [facility] ED by EMS for respiratory distress and altered mental status requiring intubation in the field. In addition, patient was found to be hypotensive and hypoxic.Patient received 3 L IVF by [facility] and ED. Patient needed to be on Vasopressors for a while. His WBC was 23.7 on admission, mild elevation in lactic acid to 2.3. Chest x-ray showed right basilar infiltrate concerning for pneumonia. ABG post intubation showed a pH of 7.39, CO2 of 44, PaO2 of 332, bicarb of 44, saturation 98%. In the ED, he was given cefepime, vancomycin. He was recently discharged from [facility] after he was admitted back on 08/04 for CHF, respiratory failure and acute right-sided stroke. Blood cultures drawn on admission positive for MRSA. ID consulted for evaluation and Mment of Septic Shock and MRSA bacteremia. 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 Past Surgical History Previous cataract surgery. Reported Medications Reported Meds & Active Scripts Active Oxygen (O2) Device Liter SINTIA.CANULA CONTINUOUS Oxygen Concentrator Portable Gaseous 2 L/min via Nasal Canula Continuous For 99 months Atrovent HFA 12.9 GM Inh (Ipratropium [place]) 17 Mcg/Actuation Aer 2 Puff INH Q6HR PRN Ventolin Hfa 18 GM Inh (Albuterol Sulfate) 90 Mcg/Act Aer 2 Puff INH Q4-6H PRN Famotidine 20 Mg Tab 20 Mg PO BID Pulmicort Respules (Budesonide) 0.5 Mg/2 Ml Neb 0.5 Mg NEB Q12HR NEB 30 Days Quetiapine (Quetiapine Fumarate) 100 Mg Tab 100 Mg PO BID Aspirin DR (Aspirin) 81 Mg Tabdr 81 Mg PO DAILY Cardizem (Diltiazem HCl) 30 Mg Tab 60 Mg PO QID Norvasc (Amlodipine Besylate) 10 Mg Tab 10 Mg PO DAILY Hydralazine HCl 50 Mg Tablet 50 Mg PO Q8H Reported Flomax (Tamsulosin HCl) 0.4 Mg Cap 0.4 Mg PO DAILY Plavix (Clopidogrel Bisulfate) 75 Mg Tab 75 Mg PO DAILY Toprol XL (Metoprolol Succinate) 25 Mg Tab 25 Mg PO DAILY Gabapentin 300 Mg Cap 300 Mg PO HS Donepezil 10 Mg Tab 10 Mg PO HS Proscar (Finasteride) 5 Mg Tab 5 Mg PO DAILY Do not crush. Active Ordered Medications Current Medications Medications (Trade) Dose Ordered Sig/Veronica Route Start Time Stop Time Status Last Admin Norepinephrine Bitartrate 250 ml @ 7.5 mls/hr TITRATE PRN IV 08/21/17 14:00 08/21/17 13:42 (Pepcid Inj) 20 mg Q12HR IV PUSH 08/21/17 14:15 08/22/17 07:59 (Duoneb Neb) 1 ampule Q6HR NEB INH 08/21/17 16:00 08/22/17 15:13 Miscellaneous Information 1 Q361D XX 08/21/17 14:15 (Chlorhexidine 2% Cloth) 3 pack Taper DAILY@04 TOP 08/22/17 04:00 08/18/18 03:59 08/22/17 04:00 (Chlorhexidine 2% Cloth) 3 pack UNSCH PRN TOP 08/21/17 14:15 (Adri-Colace) 1 tab BID PO 08/21/17 21:00 08/22/17 08:00 (Milk Of Magnesia Liq) 30 ml Q12H PRN PO 08/21/17 14:15 (Senokot) 17.2 mg Q12H PRN PO 08/21/17 14:15 (Dulcolax Supp) 10 mg DAILY PRN RECTAL 08/21/17 14:15 (Lactulose Liq) 30 ml DAILY PRN PO 08/21/17 14:15 Vancomycin HCl 1250 mg/Sodium Chloride 262.5 ml @ 262.5 mls/ hr Q12H IV 08/22/17 03:00 08/22/17 14:47 Aztreonam 1000 mg/ Sodium Chloride 100 ml @ 200 mls/hr Q8H IV 08/21/17 16:00 08/22/17 16:30 Azithromycin 500 mg/Sodium Chloride 250 ml @ 250 mls/hr Q24H IV 08/21/17 16:00 08/22/17 16:29 (D50w (Vial) Inj) 50 ml UNSCH PRN IV PUSH 08/21/17 14:30 (Glucagon Inj) 1 mg UNSCH PRN OTHER 08/21/17 14:30 (NovoLIN R SUPPLEMENTAL SCALE) 1 Q6H SQ 08/21/17 15:00 Sodium Chloride 1,000 ml @ 75 mls/hr [id number] IV 08/21/17 14:30 08/22/17 10:40 Fentanyl Citrate 250 ml @ 5 mls/hr TITRATE PRN IV 08/21/17 15:30 08/22/17 06:27 (Aricept) 10 mg HS PO 08/21/17 21:00 08/21/17 20:19 (Proscar) 5 mg DAILY PO 08/22/17 09:00 08/22/17 08:00 (Flomax) 0.4 mg DAILY PO 08/22/17 09:00 08/22/17 07:59 (SoluCORTEF INJ) 50 mg Q12H IV PUSH 08/22/17 21:00 (Aspirin Chew) 81 mg DAILY CHEW 08/22/17 11:00 Future Hold (Plavix) 75 mg DAILY PO 08/22/17 11:00 Future Hold Dexmedetomidine HCl 200 mcg/ Sodium Chloride 52 ml @ 6.5 mls/hr TITRATE PRN IV 08/22/17 11:00 (Senna Liq) 8.8 mg DAILY PO 08/22/17 11:00 08/22/17 14:47 (Heparin Inj) 5,000 units Q12HR SQ 3/13/18 21:00 Family History could not be obtained Social History Per records no alcohol, no smoking. at bedside has twin grown up children. Physical Exam Vital Signs Vital Signs Date Time Temp Pulse Resp B/P (MAP) Pulse Ox O2 Delivery O2 Flow Rate FiO2 08/22/17 12:00 50 08/22/17 10:00 88 08/22/17 09:30 50 08/22/17 09:15 50 08/22/17 09:15 95 50 08/22/17 08:32 93 50 08/22/17 08:00 80 08/22/17 08:00 50 08/22/17 06:00 73 08/22/17 06:00 73 124/59 08/22/17 04:34 93 50 08/22/17 04:13 75 84/51 08/22/17 04:00 77 08/22/17 04:00 50 08/22/17 02:28 85 144/70 08/22/17 02:00 72 08/22/17 02:00 72 98/54 08/22/17 01:35 94 50 08/22/17 01:15 73 83/50 08/22/17 01:00 98.9 71 16 87/48 96 08/22/17 00:45 98.9 73 16 88/57 93 08/22/17 00:00 50 08/22/17 00:00 71 08/21/17 23:40 93 50 08/21/17 22:00 71 08/21/17 22:00 96 60 08/21/17 21:30 77 100/55 08/21/17 20:30 93 50 08/21/17 20:00 50 08/21/17 20:00 67 08/21/17 19:25 98.7 69 17 98/54 93 08/21/17 19:00 71 95/50 08/21/17 18:47 98.7 68 18 89/55 93 08/21/17 18:00 69 08/21/17 17:43 45 08/21/17 16:58 100 100 08/21/17 16:58 100 100 08/21/17 16:12 94/57 (69) 08/21/17 16:01 08/21/17 15:46 76 16 86/50 (62) 100 Ventilator 100 08/21/17 15:30 77 16 81/53 (62) 100 Ventilator 100 08/21/17 15:15 77 16 83/53 (63) 100 Ventilator 100 08/21/17 14:57 76 16 91/51 (64) 100 Ventilator 100 08/21/17 14:49 79 16 95/50 (65) 100 Ventilator 100 08/21/17 14:30 78 16 104/62 (76) 100 Ventilator 100 08/21/17 14:10 79 16 153/107 (122) 100 Ventilator 100 08/21/17 14:00 82 16 101/78 (86) 100 Ventilator 100 Physical Exam GENERAL: This is a well-nourished, well-developed patient, in no apparent distress. SKIN: No rashes, ecchymoses or lesions. Cool and dry. HEAD: Atraumatic. Normocephalic. No temporal or scalp tenderness. EYES: Pupils equal round and reactive. Extraocular motions intact. No scleral icterus. No injection or drainage. ENT: Intubated NECK: Trachea midline. Supple, nontender, no meningeal signs. CARDIOVASCULAR: HS audible. RESPIRATORY: Clear to auscultation. Breath sounds equal bilaterally. No wheezes , rales, or rhonchi. GASTROINTESTINAL: Abdomen soft, non-tender, nondistended. MUSCULOSKELETAL: Extremities without clubbing, cyanosis, or edema. No joint tenderness, effusion, or edema noted. No calf tenderness. Negative Homans sign bilaterally. NEUROLOGICAL: Awake and opens eyes spontaneously. Gags at tube. Follows simple commands. Psych anxious IV line sites with no e.o infection Laboratory Laboratory Tests Test 08/21/17 14:25 08/21/17 15:29 08/21/17 16:45 08/21/17 17:15 Urine Color DARK-YELLOW Urine Turbidity HAZY Urine pH 5.5 Urine Specific Pyote 1.019 Urine Protein 100 Urine Glucose (UA) TRACE Urine Ketones NEG Urine Occult Blood TRACE Urine Nitrite NEG Urine Bilirubin NEG Urine Urobilinogen LESS THAN 2.0 Urine Leukocyte Esterase LARGE Urine RBC Urine WBC 8 Urine Squamous Epithelial Cells <1 Urine Amorphous Sediment RARE Urine Hyaline Casts 15 Urine Granular Casts 7 Urine Mucus FEW Microscopic Urinalysis Comment CATH-CULTURE IND Urine Opiates Screen NEG Urine Barbiturates Screen NEG Urine Amphetamines Screen NEG Urine Benzodiazepines Screen POS Urine Cocaine Screen NEG Urine Cannabinoids Screen NEG Blood Gas Puncture Site RT RADIAL Blood Gas Patient Temperature 98.6 Blood Gas HCO3 26 Blood Gas Base Excess 1.5 Blood Gas Oxygen Saturation 98 Arterial Blood pH 7.39 Arterial Blood Partial Pressure CO2 44 Arterial Blood Partial Pressure O2 332 Arterial Blood Oxygen Content 11.6 Arterial Blood Carboxyhemoglobin 1.2 Arterial Blood Methemoglobin 0.6 Blood Gas Hemoglobin 7.8 Oxygen Delivery Device VENTILATOR Blood Gas Ventilator Setting 500/16/+5/1.0 Blood Gas Inspired Oxygen 100 Lactic Acid Level 1.1 B-Type Natriuretic Peptide 154 Nasal Screen MRSA (PCR) MRSA NOT DETECTED Test 08/22/17 05:50 White Blood Count 26.0 Red Blood Count 3.52 Hemoglobin 9.9 Hematocrit 29.3 Mean Corpuscular Volume 83.3 Mean Corpuscular Hemoglobin 28.1 Mean Corpuscular Hemoglobin Concent 33.8 Red Cell Distribution Width 16.1 Platelet Count 160 Mean Platelet Volume 7.7 Neutrophils (%) (Auto) 96.0 Lymphocytes (%) (Auto) 1.4 Monocytes (%) (Auto) 2.6 Eosinophils (%) (Auto) 0.0 Basophils (%) (Auto) 0.0 Neutrophils # (Auto) 24.9 Lymphocytes # (Auto) 0.4 Monocytes # (Auto) 0.7 Eosinophils # (Auto) 0.0 Basophils # (Auto) 0.0 CBC Comment DIFF FINAL Differential Comment Blood Urea Nitrogen 27 Creatinine 1.08 Random Glucose 143 Total Protein 4.7 Albumin 1.7 Calcium Level 7.3 Phosphorus Level 4.2 Magnesium Level 2.1 Alkaline Phosphatase 82 Aspartate Amino Transf (AST/SGOT) 14 Alanine Aminotransferase (ALT/SGPT) 40 Total Bilirubin 0.6 Sodium Level 146 Potassium Level 5.0 Chloride Level 113 Carbon Dioxide Level 25.2 Anion Gap 8 Estimat Glomerular Filtration Rate 66 Protein Corrected Calcium 8.7 Date/Time Source Procedure Growth Status 08/22/17 11:07 Blood Peripheral Aerobic Blood Culture Pending Received 08/22/17 11:07 Blood Peripheral Anaerobic Blood Culture Pending Received 08/21/17 13:05 Nasal Aspirate Influenza Types A,B Antigen (VALERIANO) - Final NEGATIVE FOR FLU A AND B ANTIGEN.... Complete 08/21/17 14:25 Urine Clean Catch Urine Culture - Preliminary NO GROWTH IN 24 HOURS. Resulted Result Diagram: 08/22/17 0550 08/22/17 0550 Imaging Last Impressions Consultation 08/22/17 0000 Signed Impressions: Service Date/Time: Tuesday, August 22, 2017 00:00 - CONCLUSION: Volume of the right pleural effusion is not amenable to safe thoracentesis at this time. Marvin Presley MD Chest Ultrasound 08/22/17 0000 Signed Impressions: Service Date/Time: Tuesday, August 22, 2017 12:08 - CONCLUSION: Small left pleural effusion. No marking performed. Mj Sanchez MD Head CT 08/21/17 1357 Signed Impressions: Service Date/Time: Monday, August 21, 2017 16:05 - CONCLUSION: 1. No acute intracranial abnormality. Stable exam compared to previous dated 08/06/17. Jonathon Jenkins MD CT Angiography 08/21/17 1357 Signed Impressions: Service Date/Time: Monday, August 21, 2017 16:16 - CONCLUSION: 1. No evidence for pulmonary embolism. 2. Atherosclerosis. 3. Bilateral pleural effusions are identified right greater than left and patchy pulmonary consolidation is seen. Khanh Nina MD Abdomen/Pelvis CT 08/21/17 1357 Signed Impressions: Service Date/Time: Monday, August 21, 2017 16:16 - CONCLUSION: 1. Moderate amount of stool noted with a stool ball in the rectum. 2. Bilateral pleural effusions and consolidation greatest in the right lower lobe. 3. Diverticulosis without diverticulitis. 4. Atherosclerosis. 5. Bilateral L5 pars defects. 6. Inguinal hernias. Khanh Nina MD Chest X-Ray 08/21/17 1252 Signed Impressions: Service Date/Time: Monday, August 21, 2017 12:59 - CONCLUSION: 1. Right basilar effusion and infiltrate concerning for pneumonia. Aspiration would be a consideration. 2. Endotracheal tube in good position. Jonathon Jenkins MD Brain MRI 08/21/17 0000 Signed Impressions: Service Date/Time: Monday, August 21, 2017 22:20 - CONCLUSION: 1. No acute intracranial abnormality. 2. Atrophy and chronic small vessel ischemic change. Chris Zuñiga Jr., MD Assessment and Plan Assessment and Plan Severe Sepsis (with Septic Shock on admission), now off pressors. Pneumonia present on admission.? HCAP vs Aspiration or both. MRSA bacteremia Recent stroke. Acute respiratory failure on vent Recs: Continue Aztreonam IV Continue Vanco IV (target 15-20) Continue Azithro Follow cultures Follow clinically. If bacteremia persistent will need repeat limited 2D ECHO to look for vegetations. Also will need Doppler UE if persistent bacteremia to r/o septic thrombophlebitis as patient had lines in neck in prior admissions. fernanda Patients : showed her images from last admission and this admission and that this appears to be a new pneumonia. Explained MRSA bacteremia and workup needed. Thankful of care provided. fernanda [facility] [employer] DES[employer] Christa Solano: Full code. India Ross RN, MD Aug 22, 2017 13:54
[2017-08-22] MEDS: SENNOSIDES SYRUP 8.8 MG/5 ML CUP PO SCH (14:47)
--- NOTE | 2017-08-22 14:48 | PD.CONS ---
Consult Service Palliative Care Consult Requested By Dr. Frey. Primary Care Physician Pedro White MD Reason for Consultation a. To assist with evaluation and management of symptoms including: Shortness of breath, anxiety/agitation, debility. b. To assist medical decision maker(s) with: better understanding of current medical conditions; weighing benefits/burdens of medical treatment options; making medical treatment decisions. . HPI History of Present Illness Mr. Benjamín cornell is a 76-year-old male with a medical history significant for dementia, CHF, COPD, CAD, PVD, hypertension, hyperlipidemia, BPH. Patient presented to ED via EMS on 08/21/17 secondary to respiratory failure. As per patient's and EMS report, patient was found short of breath at home prompting his to call 911. Upon EMS arrival, patient was found with oxygen saturation in the low 80s and SBP in the 50s. Patient was intubated prior to arrival to ED. chest x-ray revealing right basilar effusion and infiltrate concerning for pneumonia. Brain CT and MRI negative for acute process. CTA negative for PE. Abdomen/pelvis CT negative for acute processes to the abdomen. Laboratory workup revealing leukocytosis with WBC 23.7, Hgb 7.4 , platelet count 163. Sodium 147, BUN/creatinine 25/1.18. Troponin less than 0.02. Patient was placed on Levophed drip and admitted for further management. Palliative care consulted for further clarifications of goals of care. Patient with recent acute hospitalization and ED visits. Acute hospitalization from 08/04/17 to 08/14/17 secondary to CHF, respiratory failure. Patient was also found by paramedics on respiratory distress, O2 in the 60s. Patient was intubated and placed on mechanical ventilation. 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 Patient was medically extubated on 08/05/17. 2D echo revealing EF of 55-60%. Infectious disease consulted for management of multilobar pneumonia, sepsis. PT recommended PT at rehab, however, patient's elected home health. Patient was discharged home on 08/14/17. Follow-up ED 08/18/17 secondary to weakness, edema and urinary retention. Urinary catheter was placed, 2 L of urine drained from patient's bladder. UA negative. Patient was discharged home with instructions to follow-up with urology. Patient seen in medical ICU. Remains endotracheally intubated on mechanical ventilation. Currently tolerating CPAP trials since 9 AM this morning. Stable hemodynamically, Levophed has been discontinued. Patient awake, not following commands or attempting to communicate. Leatha at bedside. In this first visit, reviewed the role of palliative care in advanced illness in regards to symptom management as well as support surrounding goals of care and advance care planning. receptive to visit. Obtained patient's past medical history and psychosocial history. Reviewed events leading to this hospitalization, clinical course and current medical management. Patient's tearful, verbalizing frustration with patient's worsening clinical condition. feels that patient was not ready for discharge at the beginning of August when he was sent home with home health. Shared concerns of patient's continued decline and recurrent infections requiring acute hospitalizations. Goal of therapy at this time is to continue aggressive management to include full code. requesting information about acute rehabilitation, may consider [facility] upon discharge. Hospice philosophy and benefits introduced. Reviewed the role of hospice should patient's clinical condition continues to worsen, increased symptom burden or patient/ family elects comfort-directed care. verbalized appreciation for my visit today. Ongoing emotional support and active listening provided. Case discussed in great detail with Dr. Ball and Dr. Dora Pritchett. . Function/Cognitive Trajectory Patient with baseline dementia. reports some cognitive decline, however, patient independent with most ADLs. Riding his bike and ambulating without assistive device up until June 2017. . Review of Systems ROS Limitations: Clinical Condition, Intubated Constitutional: COMPLAINS OF: Pain, Generalized weakness, DENIES: Diaphoretic episodes, Fever Endocrine: DENIES: Heat/cold intolerance Eyes: DENIES: Eye inflammation Ears, nose, mouth, throat: DENIES: Nasal discharge, Oral lesions, Running Nose , Epistaxis Respiratory: COMPLAINS OF: Wheezing, Sputum production, Shortness of breath Cardiovascular: COMPLAINS OF: Dyspnea on Exertion, Lower Extremity Edema Gastrointestinal: DENIES: Black stools, Bloody stools, Nausea, Vomiting Musculoskeletal: DENIES: Muscle aches Integumentary: DENIES: Abnormal pigmentation Hematologic/Lymphatics: COMPLAINS OF: Bruising Immunologic/Allergic: DENIES: Eczema Neurologic: DENIES: Headache, Seizures, Tremor Psychiatric: COMPLAINS OF: Anxiety, Confusion, Depression, Agitation Past Family Social History Coded Allergies: penicillin G (Unverified Allergy, Severe, Anaphylaxis, 08/04/17) haloperidol (Unverified Adverse Reaction, Intermediate, 08/04/17) lorazepam (Unverified Adverse Reaction, Intermediate, 08/04/17) *MDRO Multi-Drug Resistant Organism (Verified Adverse Reaction, Unknown, ) 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 Past Surgical History Cataract surgery . Reported Medications Oxygen (O2) Device Liter SINTIA.CANULA CONTINUOUS Atrovent HFA 12.9 GM Inh (Ipratropium [place]) 17 Mcg/Actuation Aer 2 Puff INH Q6HR PRN Ventolin Hfa 18 GM Inh (Albuterol Sulfate) 90 Mcg/Act Aer 2 Puff INH Q4-6H PRN Famotidine 20 Mg Tab 20 Mg PO BID Pulmicort Respules (Budesonide) 0.5 Mg/2 Ml Neb 0.5 Mg NEB Q12HR NEB 30 Days Quetiapine (Quetiapine Fumarate) 100 Mg Tab 100 Mg PO BID Aspirin DR (Aspirin) 81 Mg Tabdr 81 Mg PO DAILY Cardizem (Diltiazem HCl) 30 Mg Tab 60 Mg PO QID Norvasc (Amlodipine Besylate) 10 Mg Tab 10 Mg PO DAILY Hydralazine HCl 50 Mg Tablet 50 Mg PO Q8H Flomax (Tamsulosin HCl) 0.4 Mg Cap 0.4 Mg PO DAILY Plavix (Clopidogrel Bisulfate) 75 Mg Tab 75 Mg PO DAILY Toprol XL (Metoprolol Succinate) 25 Mg Tab 25 Mg PO DAILY Gabapentin 300 Mg Cap 300 Mg PO HS Donepezil 10 Mg Tab 10 Mg PO HS Proscar (Finasteride) 5 Mg Tab 5 Mg PO DAILY . Current Medications Medications (Trade) Dose Ordered Sig/Veronica Route Start Time Stop Time Status Last Admin Norepinephrine Bitartrate 250 ml @ 7.5 mls/hr TITRATE PRN IV 08/21/17 14:00 08/21/17 13:42 (Pepcid Inj) 20 mg Q12HR IV PUSH 08/21/17 14:15 08/22/17 07:59 (Duoneb Neb) 1 ampule Q6HR NEB INH 08/21/17 16:00 08/22/17 08:39 Miscellaneous Information 1 Q361D XX 08/21/17 14:15 (Chlorhexidine 2% Cloth) 3 pack Taper DAILY@04 TOP 08/22/17 04:00 08/18/18 03:59 08/22/17 04:00 (Chlorhexidine 2% Cloth) 3 pack UNSCH PRN TOP 08/21/17 14:15 (Adri-Colace) 1 tab BID PO 08/21/17 21:00 08/22/17 08:00 (Milk Of Magnesia Liq) 30 ml Q12H PRN PO 08/21/17 14:15 (Senokot) 17.2 mg Q12H PRN PO 08/21/17 14:15 (Dulcolax Supp) 10 mg DAILY PRN RECTAL 08/21/17 14:15 (Lactulose Liq) 30 ml DAILY PRN PO 08/21/17 14:15 Vancomycin HCl 1250 mg/Sodium Chloride 262.5 ml @ 262.5 mls/ hr Q12H IV 08/22/17 03:00 08/22/17 04:13 Aztreonam 1000 mg/ Sodium Chloride 100 ml @ 200 mls/hr Q8H IV 08/21/17 16:00 08/22/17 07:59 Azithromycin 500 mg/Sodium Chloride 250 ml @ 250 mls/hr Q24H IV 08/21/17 16:00 08/21/17 17:01 (D50w (Vial) Inj) 50 ml UNSCH PRN IV PUSH 08/21/17 14:30 (Glucagon Inj) 1 mg UNSCH PRN OTHER 08/21/17 14:30 (NovoLIN R SUPPLEMENTAL SCALE) 1 Q6H SQ 08/21/17 15:00 Sodium Chloride 1,000 ml @ 75 mls/hr [id number] IV 08/21/17 14:30 08/22/17 06:28 Fentanyl Citrate 250 ml @ 5 mls/hr TITRATE PRN IV 08/21/17 15:30 08/22/17 06:27 (Aricept) 10 mg HS PO 08/21/17 21:00 08/21/17 20:19 (Proscar) 5 mg DAILY PO 08/22/17 09:00 08/22/17 08:00 (Flomax) 0.4 mg DAILY PO 08/22/17 09:00 08/22/17 07:59 (SoluCORTEF INJ) 50 mg Q12H IV PUSH 08/22/17 21:00 (Aspirin Chew) 81 mg DAILY CHEW 08/22/17 11:00 (Plavix) 75 mg DAILY PO 08/22/17 11:00 Dexmedetomidine HCl 200 mcg/ Sodium Chloride 52 ml @ 6.5 mls/hr TITRATE PRN IV 08/22/17 11:00 (Senna Liq) 8.8 mg DAILY PO 08/22/17 11:00 (Heparin Inj) 5,000 units Q12HR SQ 08/22/17 21:00 Family History Father from myocardial infarction Sister with bladder cancer -alive Sister from breast cancer and COPD . Substance Use Tobacco: Former smoker. Quit in 2008. Alcohol: Drinks beer occasionally, average 1 per day. Prescription med abuse: None reported. Illicits: None reported. . Psychosocial History Patient born and raised in [place]. Lived in [place] for a few years. for the past 60 years, they have 3 children together. Patient is a [place] . . Spiritual/Cultural Factors No gnosticism affiliation. . Living Will: Never completed Health Care Surrogate: Never completed Durable Power of [employer]: Never completed Health Care Surrogate(s): No advance directives completed. As per [place] statute, healthcare proxy decision making falls to patient's Leatha Butts. . Family/friends goals: Full code. Family electing full aggressive management. . Ethical and Legal Issues No ethical legal issues identified. . Physical Exam Vital Signs Date Time Temp Pulse Resp B/P (MAP) Pulse Ox O2 Delivery O2 Flow Rate FiO2 08/22/17 12:00 50 08/22/17 10:00 88 08/22/17 09:30 50 08/22/17 09:15 50 08/22/17 09:15 95 50 08/22/17 08:32 93 50 08/22/17 08:00 80 08/22/17 08:00 50 08/22/17 06:00 73 08/22/17 06:00 73 124/59 08/22/17 04:34 93 50 08/22/17 04:13 75 84/51 08/22/17 04:00 77 08/22/17 04:00 50 08/22/17 02:28 85 144/70 08/22/17 02:00 72 08/22/17 02:00 72 98/54 08/22/17 01:35 94 50 08/22/17 01:15 73 83/50 08/22/17 01:00 98.9 71 16 87/48 96 08/22/17 00:45 98.9 73 16 88/57 93 08/22/17 00:00 50 08/22/17 00:00 71 08/21/17 23:40 93 50 08/21/17 22:00 71 08/21/17 22:00 96 60 08/21/17 21:30 77 100/55 08/21/17 20:30 93 50 08/21/17 20:00 50 08/21/17 20:00 67 08/21/17 19:25 98.7 69 17 98/54 93 08/21/17 19:00 71 95/50 08/21/17 18:47 98.7 68 18 89/55 93 08/21/17 18:00 69 08/21/17 17:43 45 08/21/17 16:58 100 100 08/21/17 16:58 100 100 08/21/17 16:12 94/57 (69) 08/21/17 16:01 08/21/17 15:46 76 16 86/50 (62) 100 Ventilator 100 08/21/17 15:30 77 16 81/53 (62) 100 Ventilator 100 08/21/17 15:15 77 16 83/53 (63) 100 Ventilator 100 08/21/17 14:57 76 16 91/51 (64) 100 Ventilator 100 08/21/17 14:49 79 16 95/50 (65) 100 Ventilator 100 08/21/17 14:30 78 16 104/62 (76) 100 Ventilator 100 08/21/17 14:10 79 16 153/107 (122) 100 Ventilator 100 08/21/17 14:00 82 16 101/78 (86) 100 Ventilator 100 08/21/17 13:53 74 75/51 08/21/17 13:45 74 16 67/51 (56) 100 Ventilator 100 08/21/17 13:42 78 72/51 08/21/17 13:35 72 16 72/51 (58) 100 Ventilator 100 Exam CONSTITUTIONAL/GENERAL: This is an adequately nourished patient, in no apparent distress. Endotracheally intubated on mechanical ventilation. TUBES/LINES/DRAINS: ETT, OG, Fang catheter, bilateral soft wrist restraints, PIV's. SKIN: No jaundice, rashes, or lesions. Ecchymoses on upper extremities. No wounds seen anteriorly. Skin temperature appropriate. Not diaphoretic. HEAD: Atraumatic. Normocephalic. EYES: Pupils equal and round and reactive. Extraocular motions intact. No scleral icterus. No injection or drainage. ENT: Hearing grossly normal. Nose without bleeding or purulent drainage. Moist oral mucosa. Missing multiple teeth. NECK: Trachea midline. Supple, nontender. CARDIOVASCULAR: Regular rate and rhythm without murmurs. Peripheral pulses symmetric. Pitting edema to all 4 extremities. RESPIRATORY/CHEST: Symmetric, unlabored respirations. Scattered rhonchi bilaterally. Endotracheally intubated on mechanical ventilation. GASTROINTESTINAL: Abdomen soft, large, round. No guarding. Bowel sounds present. GENITOURINARY: Without palpable bladder distension. Fang catheter in place. MUSCULOSKELETAL: Extremities without clubbing, cyanosis. No mottling or clubbing. NEUROLOGICAL: Awake. Moves all extremities. PSYCHIATRIC: Intermittent anxiety/agitation. . Diagnostic Tests Laboratory Laboratory Tests Test 08/21/17 13:05 08/21/17 13:10 08/21/17 14:25 08/21/17 15:29 White Blood Count 23.7 TH/MM3 (4.0-11.0) Red Blood Count 2.74 MIL/MM3 (4.50-5.90) Hemoglobin 7.4 GM/DL (13.0-17.0) Hematocrit 22.6 % (39.0-51.0) Mean Corpuscular Volume 82.2 FL (80.0-100.0) Mean Corpuscular Hemoglobin 27.0 PG (27.0-34.0) Mean Corpuscular Hemoglobin Concent 32.8 % (32.0-36.0) Red Cell Distribution Width 16.2 % (11.6-17.2) Platelet Count 163 TH/MM3 (150-450) Mean Platelet Volume 7.4 FL (7.0-11.0) Neutrophils (%) (Auto) 95.5 % (16.0-70.0) Lymphocytes (%) (Auto) 1.2 % (9.0-44.0) Monocytes (%) (Auto) 3.2 % (0.0-8.0) Eosinophils (%) (Auto) 0.0 % (0.0-4.0) Basophils (%) (Auto) 0.1 % (0.0-2.0) Neutrophils # (Auto) 22.6 TH/MM3 (1.8-7.7) Lymphocytes # (Auto) 0.3 TH/MM3 (1.0-4.8) Monocytes # (Auto) 0.8 TH/MM3 (0-0.9) Eosinophils # (Auto) 0.0 TH/MM3 (0-0.4) Basophils # (Auto) 0.0 TH/MM3 (0-0.2) CBC Comment DIFF FINAL Differential Comment Prothrombin Time 11.4 SEC (9.8-11.6) Prothromb Time International Ratio 1.1 RATIO Activated Partial Thromboplast Time 22.8 SEC (24.3-30.1) Blood Urea Nitrogen 25 MG/DL (7-18) Creatinine 1.18 MG/DL (0.60-1.30) Random Glucose 142 MG/DL (74-106) Total Protein 4.1 GM/DL (6.4-8.2) Albumin 1.7 GM/DL (3.4-5.0) Calcium Level 7.8 MG/DL (8.5-10.1) Magnesium Level 1.9 MG/DL (1.5-2.5) Alkaline Phosphatase 69 U/L (45-117) Aspartate Amino Transf (AST/SGOT) 17 U/L (15-37) Alanine Aminotransferase (ALT/SGPT) 43 U/L (12-78) Total Bilirubin 0.4 MG/DL (0.2-1.0) Sodium Level 147 MEQ/L (136-145) Potassium Level 4.6 MEQ/L (3.5-5.1) Chloride Level 114 MEQ/L (98-107) Carbon Dioxide Level 26.1 MEQ/L (21.0-32.0) Anion Gap 7 MEQ/L (5-15) Estimat Glomerular Filtration Rate 60 ML/MIN (>89) Total Creatine Kinase 45 U/L (39-308) Troponin I LESS THAN 0.02 NG/ML Lipase 48 U/L (73-393) Lactic Acid Level 2.3 mmol/L (0.4-2.0) Urine Color DARK-YELLOW (YELLW/STRAW) Urine Turbidity HAZY (CLEAR) Urine pH 5.5 (5.0-8.5) Urine Specific [employer] 1.019 (1.002-1.035) Urine Protein 100 mg/dL (NEG-TRACE) Urine Glucose (UA) TRACE mg/dL (NEG) Urine Ketones NEG mg/dL (NEG) Urine Occult Blood TRACE (NEG) Urine Nitrite NEG (NEG) Urine Bilirubin NEG (NEG) Urine Urobilinogen LESS THAN 2.0 MG/DL (LESS Urine Leukocyte Esterase LARGE (NEG) Urine RBC /hpf (0-3) Urine WBC 8 /hpf (0-5) Urine Squamous Epithelial Cells <1 /hpf (0-5) Urine Amorphous Sediment RARE Urine Hyaline Casts 15 /lpf (RARE) Urine Granular Casts 7 /lpf (NONE) Urine Mucus FEW /lpf (OCC) Microscopic Urinalysis Comment CATH-CULTURE IND Urine Opiates Screen NEG (NEG) Urine Barbiturates Screen NEG (NEG) Urine Amphetamines Screen NEG (NEG) Urine Benzodiazepines Screen POS (NEG) Urine Cocaine Screen NEG (NEG) Urine Cannabinoids Screen NEG (NEG) Blood Gas Puncture Site RT RADIAL Blood Gas Patient Temperature 98.6 Blood Gas HCO3 26 mmol/L (22-26) Blood Gas Base Excess 1.5 mmol/L (-2-2) Blood Gas Oxygen Saturation 98 % (90-100) Arterial Blood pH 7.39 (7.380-7.420) Arterial Blood Partial Pressure CO2 44 mmHg (38-42) Arterial Blood Partial Pressure O2 332 mmHG (61-120) Arterial Blood Oxygen Content 11.6 Vol % (12.0-20.0) Arterial Blood Carboxyhemoglobin 1.2 % (0-4) Arterial Blood Methemoglobin 0.6 % (0-2) Blood Gas Hemoglobin 7.8 G/DL (12.0-16.0) Oxygen Delivery Device VENTILATOR Blood Gas Ventilator Setting 500/16/+5/1.0 Blood Gas Inspired Oxygen 100 % Test 08/21/17 16:45 08/21/17 17:15 08/22/17 05:50 Lactic Acid Level 1.1 mmol/L (0.4-2.0) B-Type Natriuretic Peptide 154 PG/ML (0-100) Nasal Screen MRSA (PCR) MRSA NOT DETECTED (NOT White Blood Count 26.0 TH/MM3 (4.0-11.0) Red Blood Count 3.52 MIL/MM3 (4.50-5.90) Hemoglobin 9.9 GM/DL (13.0-17.0) Hematocrit 29.3 % (39.0-51.0) Mean Corpuscular Volume 83.3 FL (80.0-100.0) Mean Corpuscular Hemoglobin 28.1 PG (27.0-34.0) Mean Corpuscular Hemoglobin Concent 33.8 % (32.0-36.0) Red Cell Distribution Width 16.1 % (11.6-17.2) Platelet Count 160 TH/MM3 (150-450) Mean Platelet Volume 7.7 FL (7.0-11.0) Neutrophils (%) (Auto) 96.0 % (16.0-70.0) Lymphocytes (%) (Auto) 1.4 % (9.0-44.0) Monocytes (%) (Auto) 2.6 % (0.0-8.0) Eosinophils (%) (Auto) 0.0 % (0.0-4.0) Basophils (%) (Auto) 0.0 % (0.0-2.0) Neutrophils # (Auto) 24.9 TH/MM3 (1.8-7.7) Lymphocytes # (Auto) 0.4 TH/MM3 (1.0-4.8) Monocytes # (Auto) 0.7 TH/MM3 (0-0.9) Eosinophils # (Auto) 0.0 TH/MM3 (0-0.4) Basophils # (Auto) 0.0 TH/MM3 (0-0.2) CBC Comment DIFF FINAL Differential Comment Blood Urea Nitrogen 27 MG/DL (7-18) Creatinine 1.08 MG/DL (0.60-1.30) Random Glucose 143 MG/DL (74-106) Total Protein 4.7 GM/DL (6.4-8.2) Albumin 1.7 GM/DL (3.4-5.0) Calcium Level 7.3 MG/DL (8.5-10.1) Phosphorus Level 4.2 MG/DL (2.5-4.9) Magnesium Level 2.1 MG/DL (1.5-2.5) Alkaline Phosphatase 82 U/L (45-117) Aspartate Amino Transf (AST/SGOT) 14 U/L (15-37) Alanine Aminotransferase (ALT/SGPT) 40 U/L (12-78) Total Bilirubin 0.6 MG/DL (0.2-1.0) Sodium Level 146 MEQ/L (136-145) Potassium Level 5.0 MEQ/L (3.5-5.1) Chloride Level 113 MEQ/L (98-107) Carbon Dioxide Level 25.2 MEQ/L (21.0-32.0) Anion Gap 8 MEQ/L (5-15) Estimat Glomerular Filtration Rate 66 ML/MIN (>89) Protein Corrected Calcium 8.7 MG/DL (8.5-10.1) Result Diagram: 08/22/17 0550 08/22/17 0550 Microbiology Microbiology Date/Time Source Procedure Growth Status 08/22/17 11:07 Blood Peripheral Aerobic Blood Culture Pending Received 08/22/17 11:07 Blood Peripheral Anaerobic Blood Culture Pending Received 08/22/17 10:30 Blood Peripheral Aerobic Blood Culture Pending Received 08/22/17 10:30 Blood Peripheral Anaerobic Blood Culture Pending Received 08/21/17 13:10 Blood Peripheral Aerobic Blood Culture - Preliminary NO GROWTH IN 1 DAY Resulted 08/21/17 13:10 Anaerobic Blood Culture - Preliminary S. Aureus Mrsa Resulted 08/21/17 13:05 Blood Peripheral Aerobic Blood Culture - Preliminary NO GROWTH IN 1 DAY Resulted 08/21/17 13:05 Blood Peripheral Anaerobic Blood Culture - Preliminary NO GROWTH IN 1 DAY Resulted 08/21/17 13:05 Nasal Aspirate Influenza Types A,B Antigen (VALERIANO) - Final NEGATIVE FOR FLU A AND B ANTIGEN.... Complete 08/21/17 14:25 Urine Clean Catch Urine Culture - Preliminary NO GROWTH IN 24 HOURS. Resulted 08/21/17 14:25 Urine Catheterized Urine Legionella Antigen - Final PRESUMPTIVE NEGATIVE FOR LEGIONELLA P... Complete 08/21/17 14:25 Urine Catheterized Urine Streptococcus pneumoniae Antigen (M - Final PRESUMPTIVE NEGATIVE FOR STREPTOCOCCU... Complete Imaging Last Impressions Chest Ultrasound 08/22/17 0000 Signed Impressions: Service Date/Time: Tuesday, August 22, 2017 12:08 - CONCLUSION: Small left pleural effusion. No marking performed. Mj Sanchez MD Head CT 08/21/17 1357 Signed Impressions: Service Date/Time: Monday, August 21, 2017 16:05 - CONCLUSION: 1. No acute intracranial abnormality. Stable exam compared to previous dated 08/06/17. Jonathon Jenkins MD CT Angiography 08/21/17 1357 Signed Impressions: Service Date/Time: Monday, August 21, 2017 16:16 - CONCLUSION: 1. No evidence for pulmonary embolism. 2. Atherosclerosis. 3. Bilateral pleural effusions are identified right greater than left and patchy pulmonary consolidation is seen. Khanh Nina MD Abdomen/Pelvis CT 08/21/17 1357 Signed Impressions: Service Date/Time: Monday, August 21, 2017 16:16 - CONCLUSION: 1. Moderate amount of stool noted with a stool ball in the rectum. 2. Bilateral pleural effusions and consolidation greatest in the right lower lobe. 3. Diverticulosis without diverticulitis. 4. Atherosclerosis. 5. Bilateral L5 pars defects. 6. Inguinal hernias. Khanh Nina MD Chest X-Ray 08/21/17 1252 Signed Impressions: Service Date/Time: Monday, August 21, 2017 12:59 - CONCLUSION: 1. Right basilar effusion and infiltrate concerning for pneumonia. Aspiration would be a consideration. 2. Endotracheal tube in good position. Jonathon Jenkins MD Brain MRI 08/21/17 0000 Signed Impressions: Service Date/Time: Monday, August 21, 2017 22:20 - CONCLUSION: 1. No acute intracranial abnormality. 2. Atrophy and chronic small vessel ischemic change. Chris Zuñiga Jr., MD Procedures * 08/21/17 -endotracheal intubation . Patient/Family Conference Present at Family Conference: Leatha. Family Conference Time (mins): 41 Family Conference Location: Bedside Issues Discussed: * Palliative care role, purpose, approach * Additional medical, psychosocial, and spiritual history * Patients general health, functional status, and cognitive changes in the months leading up to the current hospitalization * Patient/family understanding of the current medical problems * Patient/family understanding of prognosis * Patients goals of care as best understood from advance directives and/or conversations and/or values * Current medical treatment options and benefits/burdens of those options * Questions answered to the best of my ability * Palliative care contact information provided * Hospice philosophy and benefits * Risks, benefits and limitations of CPR, intubation and mechanical ventilation . Assessment and Plan Disease Oriented Problem List: (1) Respiratory failure (2) Sepsis (3) PNA (pneumonia) (4) COPD with exacerbation (5) Dementia Symptom Scale: (1) Shortness of breath 0-10 Scale: Unable to quantify (2) Anxiety 0-10 Scale: 10 (3) Debility 0-10 Scale: Unable to quantify Pertinent Non-Medical Issues Psychosocial: Patient born and raised in [place]. Lived in [place] for a few years. for the past 60 years, they have 3 children together. Patient is a [place] . Spiritual: No gnosticism affiliation. Legal: No advance directives completed. Ethical issues impacting care: No ethical issues identified. . Important Contacts Leatha Butts , . . Prognosis Mr. Butts it is a 76-year-old male with a medical history significant for dementia, CHF, COPD, CAD, PVD, hypertension, hyperlipidemia, BPH. Patient with recurrent infections and recent acute hospitalizations. Admitted for respiratory failure, sepsis, pneumonia requiring intubation and mechanical ventilation. Patient with progressive clinical decline. Overall prognosis is guarded, patient high risk for further complications, continued decline and . . Code Status: Full Code Plan * CODE STATUS: Full code. Risks benefits and limitations of CPR, reintubation and mechanical ventilation were discussed at length with patient's . * HEALTHCARE DECISION-MAKING: Patient unable to participate in medical decision making secondary to clinical condition, baseline dementia. No advance directives completed. As per [place] statue, healthcare proxy decision making falls to patient's Leatha Butts. has accepted this role and is fully supported by all of their 3 children. * GOALS OF CARE: Patient's acting as healthcare surrogate decision maker is electing to continue aggressive management to include full code. Shared concerns of patient's continued decline and recurrent infections requiring acute hospitalizations. requesting information about acute rehabilitation, may consider [facility] upon discharge. Reviewed the patient remains at high risk for further complications, continued decline and . Hospice philosophy and benefits introduced. Reviewed the role of hospice should patient's clinical condition continues to worsen, increased symptom burden or family elects comfort -directed care. receptive to this. * SYMPTOMS: = Dyspnea, secondary to respiratory failure, pneumonia, CHF. Currently endotracheally intubated on mechanical ventilation. Tolerating CPAP trials, goal to medically extubate. = Anxiety/agitation: Exacerbated by dyspnea. Patient with dementia baseline with behavioral disturbances. Home regimen of Seroquel 100 mg twice daily. = Debility: Acute on chronic. Progressive since June secondary to acute illness and recurrent infections. PT recommended PT at rehab during recent prior hospitalization, patient's inquiring regarding acute rehab. * Case discussed with Dr. Frey and Dr. Dora Pritchett. * Palliative care contact information has been provided to patient and family. * Palliative care will continue to follow up for further clarification of goals of care as patient's clinical course continues to evolve. . Time Spent Total Floor Time (mins): 74 (Total time to include reviewing summarization of available medical records to include multiple prior acute hospitalizations and ED visits, physical exam, goals of care conversation with patient's , case discussion with attending and ID.) >50% Counseling/Coord of Care: Yes Thank you for the opportunity to participate in the care of Mr. Butts. Attestation To help prompt me to consider important information that might be impacting today's encounter and assessment, information from prior notes written by myself or my colleagues may have been "brought forward" into today's note. My signature on this note, however, is an attestation that I personally performed the exam, history, and/or decision-making noted today, and, unless otherwise indicated, the interactions with patient, family, and staff as well as the review of records all occurred today. I also attest that the listed assessment and stated plan reflect my best clinical judgment today based on the combination of historical information, prior notes, and today's exam/ interactions. When time spent is documented, it refers only to time spent today by the signer, or if indicated, combined time spent today by collaborating physician/nurse practitioner. Christa Solano Aug 22, 2017 14:35
--- NOTE | 2017-08-22 15:39 | RADRPT ---
EXAM DATE/TIME: 08/22/2017 00:00 [facility] COMPARISON: No previous studies available for comparison. INDICATIONS : Right thoracentesis TECHNIQUE: Using automated exposure control and adjustment of the mA and/or kV according to patient size, radiat ion dose was kept as low as reasonably achievable to obtain optimal diagnostic quality images. DICO M format image data is available electronically for review and comparison. FINDINGS: The recent CT pulmonary angiogram as well as ultrasounds of the right and left hemithorax were review ed for possible thoracentesis. There is a small right pleural effusion and tiny left pleural effusion noted on the studies. The volume of these collections is not amenable to safe thoracentesis at this time. CONCLUSION: Volume of the right pleural effusion is not amenable to safe thoracentesis at this time. Marvin Presley MD on August 22, 2017 at 15:33 Board Certified Radiologist. This report was verified electronically.
[2017-08-22] MEDS: AZITHROMYCIN INJ 500 MG in SODIUM CHLOR 0.9% 250 ML INJ 250 ML IV SCH (16:29)
[2017-08-22] MEDS: HEPARIN SODIUM - SQ 10,000 UNITS/ML VIAL SQ SCH (19:53)
[2017-08-22] MEDS: DONEPEZIL HCL 5 MG TAB PO SCH (19:54)
--- NOTE | 2017-08-22 20:25 | EKG ---
Date Performed: 08/21/2017 Time Performed: 12:43:13 PTAGE: 76 years EKG: Sinus rhythm WITH OCCASIONAL SUPRAVENTRICULAR PREMATURE COMPLEXES MARKED LEFT AXIS DEVIATION LOW QRS VOLTAGE IN E XTREMITY LEADS ABNORMAL ECG Since the PREVIOUS TRACING , no significant change noted DOCTOR: Earl Smith Interpretating Date/Time 08/22/2017 20:24:48
[2017-08-22] MEDS ORDERED: DILTIAZEM HCL 25 MG/5 ML VIAL IV PUSH ONE (22:15)
[2017-08-22] MEDS: DILTIAZEM INJ 125 MG in SODIUM CHLORIDE 0.9% INJ 100 ML IV PRN (23:03)
[2017-08-23] VITALS (19 sets, daily range): BP systolic 98–140; BP diastolic 56–69; PULSE 74–123; RESP 15–17; TEMP 98.1–99; O2SAT 92–97
[2017-08-23] MEDS: CHLORHEXIDINE GLUCONATE 2 % 1 PACK (2 CLOTHS) TOP SCH (02:07)
[2017-08-23] MEDS: INSULIN NovoLIN REGULAR SUPPLEMENTAL SCALE SQ SCH ×4 (02:07→20:04)
[2017-08-23] MEDS: VANCOMYCIN INJ 1,250 MG in SODIUM CHLOR 0.9% 250 ML INJ 250 ML IV SCH ×2 (02:07→18:10)
[2017-08-23] MEDS: RESP: ALBUTEROL 2.5 MG/IPRATROPIUM 0.5 MG NEB (SCH) INH ×4 (03:19→20:25)
[2017-08-23] MEDS: SODIUM CHLOR 0.9% 1000 ML INJ 1,000 ML IV SCH ×2 (03:35→18:10)
[2017-08-23] MEDS: fentaNYL DRIP 250 ML IV PRN ×2 (03:35→17:47)
--- NOTE | 2017-08-23 05:27 | RADRPT ---
EXAM DATE/TIME: 08/23/2017 04:09 [facility] COMPARISON: CHEST SINGLE AP, August 21, 2017, 12:59. INDICATIONS : Short of breath. MEDICAL HISTORY : Hypercholesterolemia. Hypertension Myocardial infarction. COPD PVD SURGICAL HISTORY : Esophageal dilation. ENCOUNTER: Subsequent ACUITY: 1 week PAIN SCORE: 0/10 LOCATION: Bilateral chest FINDINGS: A single portable frontal view of the chest shows an increase in size of the right pleural effusion a nd associated right lung consolidation most pronounced within the base. Left medial basilar consolida tion is new. No left effusion. Heart is normal in size. Tip of endotracheal tube 2 cm proximal to the jonah. Nasogastric tube courses off the inferior margin of the film. CONCLUSION: Enlarging right effusion and right lung consolidation. New left basilar consolidation. Chris Zuñiga Jr., MD on August 23, 2017 at 5:25 Board Certified Radiologist. This report was verified electronically.
[2017-08-23] MEDS ORDERED: Vancomycin Consult Pharmacy 1 EA OTHER SCH (06:30)
[2017-08-23] MEDS: SENNOSIDES SYRUP 8.8 MG/5 ML CUP PO SCH (08:26)
[2017-08-23] MEDS: AZTREONAM INJ 1,000 MG in SODIUM CHLORIDE 0.9% INJ 100 ML IV SCH ×2 (08:26→17:45)
[2017-08-23] MEDS: TAMSULOSIN HCL 0.4 MG CAP PO SCH (08:27)
[2017-08-23] MEDS: FAMOTIDINE 20 MG/2 ML VIAL IV PUSH SCH ×2 (08:27→20:04)
[2017-08-23] MEDS: DOCUSATE SODIUM 50 MG/SENNA 8.6 MG TAB PO SCH ×2 (08:27→20:03)
[2017-08-23] MEDS: FINASTERIDE 5 MG TAB PO SCH (08:27)
[2017-08-23] MEDS: HYDROCORTISONE SOD SUCCINATE 100 MG VIAL IV PUSH SCH ×2 (08:27→20:03)
[2017-08-23] MEDS: BISACODYL 10 MG SUPP RECTAL PRN (08:29)
[2017-08-23] MEDS: HEPARIN SODIUM - SQ 10,000 UNITS/ML VIAL SQ SCH ×2 (09:00→20:04)
[2017-08-23 09:08] LABS: AUTOMATED NEUTROPHIL # 21.2 TH/MM3 (1.8-7.7); BASOPHIL % 0.1 % (0.0-2.0); HEMATOCRIT 32.6 % (39.0-51.0); HEMOGLOBIN 10.6 GM/DL (13.0-17.0); LYMPH % 1.9 % (9.0-44.0); LYMPHOCYTE # 0.4 TH/MM3 (1.0-4.8); MEAN CELL VOLUME 84.5 FL (80.0-100.0); MEAN CORPUSCULAR HEMOGLOBIN 27.4 PG (27.0-34.0); MEAN CORPUSCULAR HGB CONC 32.5 % (32.0-36.0); MEAN PLATELET VOLUME 7.4 FL (7.0-11.0); MONO % 3.1 % (0.0-8.0); MONOCYTE # 0.7 TH/MM3 (0-0.9); NEUT % 94.9 % (16.0-70.0); PLATELET COUNT 174 TH/MM3 (150-450); RED BLOOD COUNT 3.86 MIL/MM3 (4.50-5.90); RED CELL DISTRIBUTION WIDTH 16.4 % (11.6-17.2); WHITE BLOOD COUNT 22.4 TH/MM3 (4.0-11.0)
[2017-08-23] MEDS ORDERED: MIDAZOLAM HCL 5 MG/ML VIAL (1 ML) ONE ×2 (09:10→09:11)
[2017-08-23] MEDS ORDERED: ROCURONIUM INJ 50 MG/5 ML VIAL ONE (09:14)
[2017-08-23 09:22] LABS: BICARBONATE 24.3 MEQ/L (21.0-32.0); CREATININE 1.12 MG/DL (0.60-1.30)
--- NOTE | 2017-08-23 09:51 | PD.PROCEDR ---
Procedure Note Procedure Procedure: US guided Right 10 F pigtail chest tube placement Indication: Right pleural effusion. Complicated effusion vs empyema Details of procedure: Informed consent was obtained from the patient's after discussion of risks , benefits, alternatives. The patient was positioned. US was sued to naty the site. He was given total Versed 5 mg IV for anxiolysis, already on Fentanyl gtt. The lateral chest wall was cleaned with ChloraPrep x2. E. 1% lidocaine 4cc , was used for local anesthesia and injected into the subcutaneous and deep muscle tissues. 0.25 cm skin incision was made a scalpel blade. Introducer needle 18-gauge was placed into the pleural space and yellow cloudy pleural fluid was aspirated. Guidewire was placed and the needle was removed. After serial dilation a 10 Martiniquais pigtail chest tube was placed using Seldinger technique and the wire and internal stiffener was removed. 2-0 silk was used to secure the chest tube along with stay fix dressing. Initial output was about 70 mL of blood-tinged cloudy pleural fluid, there was also 1+ air leak. A sterile dressing was applied. The chest tube was connected to a Pleur-evac drainage system -40 cm. Estimated blood loss: <1 mL Complications: None. Stat chest x-ray is pending Jeyson Hancock MD Aug 23, 2017 09:51
--- NOTE | 2017-08-23 09:58 | HHI.CCPN ---
Subjective Remarks/Hospital Course Patient is a 76-year-old male with multiple comorbidities, which include hypertension, hyperlipidemia, BPH, anemia of chronic disease, coronary artery disease, peripheral vascular disease, COPD on 2.5 L home oxygen, who presented to [facility] ED by EMS for respiratory distress and altered mental status requiring intubation in the field. In addition, patient was hypotensive and hypoxic. He was given 2 L Iv fluids by [facility] and an additional 1 L in the ED. Patient was started on Levophed, which is currently at 6 mcg. His laboratory data is significant for leukocytosis with a WBC of 23.7 and a mild lactic acidosis with lactic acid level of 2.3. Chest x-ray showed right basilar infiltrate concerning for pneumonia and ET tube above the jonah. ABG post intubation showed a pH of 7.39, CO2 of 44, PaO2 of 332, bicarb of 44, saturation 98%. In the ED, he was given cefepime, vancomycin. Patient also noted to have pinpoint pupils and was given Narcan without any significant effect. He was recently discharged from [facility] after he was admitted back on 08/04 for CHF, respiratory failure and acute right-sided stroke. He is scheduled to undergo CT scan of the brain, chest, abdomen and pelvis, which were ordered by ED. On his last admission, he had an echocardiogram on 08/04, which showed an EF of 55-60%. 08/22 Patient is sedated with Fentanyl drip and intubated. Afebrile. Off Levophed. 08/23: Patient remains profoundly septic. Encephalopathic white count is 22.4 which is slightly improved. His pleural effusion has increased in size and concerning for parapneumonic effusion/developing empyema. His chest x-ray shows bilateral infiltrates which are worsening. MRSA pneumonia is a concern. I will proceed with pigtail chest tube placement on the right side and send fluid for further studies Objective Vital Signs Date Time Temp Pulse Resp B/P (MAP) Pulse Ox O2 Delivery O2 Flow Rate FiO2 08/23/17 07:57 93 45 08/23/17 06:00 123 08/23/17 04:00 98.9 15 125/65 (85) 08/21/17 15:46 Ventilator Intake and Output 08/23/17 08/23/17 08/24/17 08:00 16:00 00:00 Intake Total 1998.5 ml Output Total 550 ml Balance 1448.5 ml Result Diagram: 08/23/17 0800 08/23/17 0800 Other Results Microbiology Date/Time Source Procedure Growth Status 08/21/17 13:05 Nasal Aspirate Influenza Types A,B Antigen (VALERIANO) - Final NEGATIVE FOR FLU A AND B ANTIGEN.... Complete 08/21/17 14:25 Urine Catheterized Urine Legionella Antigen - Final PRESUMPTIVE NEGATIVE FOR LEGIONELLA P... Complete 08/21/17 14:25 Urine Catheterized Urine Streptococcus pneumoniae Antigen (M - Final PRESUMPTIVE NEGATIVE FOR STREPTOCOCCU... Complete Imaging Last Impressions Head CT 08/21/17 1357 Signed Impressions: Service Date/Time: Monday, August 21, 2017 16:05 - CONCLUSION: 1. No acute intracranial abnormality. Stable exam compared to previous dated 08/06/17. Jonathon Jenkins MD CT Angiography 08/21/17 1357 Signed Impressions: Service Date/Time: Monday, August 21, 2017 16:16 - CONCLUSION: 1. No evidence for pulmonary embolism. 2. Atherosclerosis. 3. Bilateral pleural effusions are identified right greater than left and patchy pulmonary consolidation is seen. Khanh Nina MD Abdomen/Pelvis CT 08/21/17 1357 Signed Impressions: Service Date/Time: Monday, August 21, 2017 16:16 - CONCLUSION: 1. Moderate amount of stool noted with a stool ball in the rectum. 2. Bilateral pleural effusions and consolidation greatest in the right lower lobe. 3. Diverticulosis without diverticulitis. 4. Atherosclerosis. 5. Bilateral L5 pars defects. 6. Inguinal hernias. Khanh Nina MD Chest X-Ray 08/21/17 1252 Signed Impressions: Service Date/Time: Monday, August 21, 2017 12:59 - CONCLUSION: 1. Right basilar effusion and infiltrate concerning for pneumonia. Aspiration would be a consideration. 2. Endotracheal tube in good position. Jonathon Jenkins MD Brain MRI 08/21/17 0000 Signed Impressions: Service Date/Time: Monday, August 21, 2017 22:20 - CONCLUSION: 1. No acute intracranial abnormality. 2. Atrophy and chronic small vessel ischemic change. Chris Zuñiga Jr., MD Objective Remarks GENERAL: Patient is 76 yo intubated and sedated SKIN: Warm and dry. HEAD: Normocephalic. EYES: No scleral icterus. No injection or drainage. Pupils 1-2 mm NECK: Supple, trachea midline. No JVD or lymphadenopathy. CARDIOVASCULAR: Regular rate and rhythm without murmurs, gallops, or rubs. RESPIRATORY: Breath sounds equal bilaterally. Bilateral coarse breath sounds. Bedside ultrasound shows mild to moderate right-sided effusion GASTROINTESTINAL: Abdomen soft, non-tender, nondistended. MUSCULOSKELETAL: No cyanosis, or edema. Neuro: Sedated, intubated. Wakes up easily encephalopathy moves all 4 extremities no focal deficits A/P Assessment and Plan ASSESSMENT Acute hypoxemic respiratory failure Right lower lobe pneumonia. Right-sided effusion concerning for parapneumonic effusion/empyema Acute metabolic encephalopathy Leukocytosis. Anemia. Mild lactic acidosis. Hypernatremia. Recent CVA in July. COPD CAD HTN BPH Hyperlipidemia. Plan Neuro: On Fentanyl infusion for sedation. Monitor neuro status closely. Versed PRN to facilitate procedures CT and MRI brain : No acute process UDS: + Benzos On Aricept 10mg qhs for Dementia Pulm: Continue with vent support and maintain sats > 92%. Bronchodilators, hydrocortisone 50 mg IV q. 12. ICU vent bundle, SBT daily as chi CT chest: No evidence for PE, small to mod pleural effusions R>L and patchy pulmonary consolidation is seen. Plan for pigtail chest tube placement and fluid studies CV: Off Levophed. Monitor HR and BP MAP>65 mmHg. Taper Stress dose steroids. Holding ASA and Plavix for pigtail chest tube placement Echo from 08/04 showed an EF of 55-60%. lactic acid cleared 1.1 : Monitor renal function, I's and O's and electrolyte replacement per protocol. Given 3L crystalloids total, on NS 75ml/hr. change to half-normal saline due to hypernatremia GI: On Pepcid for GI prophylaxis. Start tube feeds with Jevity ID: Continue abx (vanco, aztreonam and azithromycin).ID Dr. Pritchett Nasal aspirate is negative influenza BC 08/21 06/15 bottles: MRSA, F/U sputum culture, Strep pneumoniae and legionella urinary antigen are pending Heme: Monitor CBC. Endo: SSI with Accu-Cheks for glycemic contro GI prophylaxis with Pepcid and DVT prophylaxis with SCDs/heparin Sq Palliative care eval per 's request CCT 35 Patient is critically ill with profound sepsis, now with worsening pleural effusion and bilateral infiltrates. Patient most likely has severe MRSA pneumonia. His condition is critical we will place a right-sided chest tube to drain the effusion. If he has empyema given the comorbidities he may not be at candidate for decortication Jeyson Hancock MD Aug 23, 2017 09:58
--- NOTE | 2017-08-23 11:07 | RADRPT ---
EXAM DATE/TIME: 08/23/2017 10:03 [facility] COMPARISON: CHEST SINGLE AP, August 23, 2017, 4:09. INDICATIONS : Right chest tube placement. MEDICAL HISTORY : Myocardial infarction. Hypercholesterolemia. Chronic obstructive pulmonary disease. Hypertension. Ast hma. PVD. Sciatica. ETOH use daily. MRSA. SURGICAL HISTORY : Hand surgery. ENCOUNTER: Subsequent ACUITY: 1 day PAIN SCORE: Non-responsive. LOCATION: Bilateral chest FINDINGS: Endotracheal tube in good position. Nasogastric tube enters stomach pain small caliber right chest tu be with tiny apical pneumothorax. Basal airspace disease and pleural effusions CONCLUSION: 1. Small caliber right chest tube with decrease in right pleural effusion. Small residual effusions a nd basilar airspace disease remain. Small right pneumothorax. Gallo Caal MD on August 23, 2017 at 11:04 Board Certified Radiologist. This report was verified electronically.
--- NOTE | 2017-08-23 12:01 | HHI.IDPN ---
Subjective Subjective Remarks is a 76 y/o CM with PMHx of multiple comorbidities, such as HTN, hyperlipidemia, BPH, anemia of chronic disease, CAD with EF 55-60%, peripheral vascular disease, COPD on 2.5 L home oxygen, who presented to [facility] ED by EMS for respiratory distress and altered mental status requiring intubation in the field. In addition, patient was found to be hypotensive and hypoxic.Patient received 3 L IVF by [facility] and ED. Patient needed to be on Vasopressors for a while. His WBC was 23.7 on admission, mild elevation in lactic acid to 2.3. Chest x-ray showed right basilar infiltrate concerning for pneumonia. ABG post intubation showed a pH of 7.39, CO2 of 44, PaO2 of 332, bicarb of 44, saturation 98%. In the ED, he was given cefepime, vancomycin. He was recently discharged from [facility] after he was admitted back on 08/04 for CHF, respiratory failure and acute right-sided stroke. Blood cultures drawn on admission positive for MRSA. ID consulted for evaluation and Mment of Septic Shock and MRSA bacteremia. Overnight events reviewed Right-sided pleural effusion was tapped, pigtail catheter in place Pleural fluid studies sent No rash No diarrhea No fever not on any pressors Remains intubated Received Versed appears calmer today Antibiotics Aztreonam IV Azithromycin IV Vancomycin IV Lines Line sites with no evidence of infection. Past Medical History Past Medical History COPD, on 2.5 L oxygen continuously, coronary artery disease, peripheral vascular disease, hypertension, hyperlipidemia, BPH, anemia, dementia. Past Surgical History Previous cataract surgery. 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 Vital Signs Date Time Temp Pulse Resp B/P (MAP) Pulse Ox O2 Delivery O2 Flow Rate FiO2 08/23/17 11:42 92 40 08/23/17 10:00 90 08/23/17 08:00 98.1 115 17 125/69 (87) 94 08/23/17 08:00 115 08/23/17 08:00 45 08/23/17 07:57 93 45 08/23/17 06:00 123 08/23/17 04:06 92 45 08/23/17 04:00 45 08/23/17 04:00 98.9 110 15 125/65 (85) 92 08/23/17 04:00 110 08/23/17 03:00 91 16 98/61 (73) 94 08/23/17 02:00 99 08/23/17 00:57 94 45 08/23/17 00:00 100 08/23/17 00:00 45 08/23/17 00:00 99.0 100 16 102/56 (71) 94 08/22/17 23:30 100 16 104/57 (73) 93 08/22/17 23:15 112 18 107/62 (77) 92 08/22/17 23:03 110 117/55 08/22/17 23:00 109 16 117/58 (77) 92 08/22/17 22:46 118 16 123/67 (85) 91 08/22/17 22:31 109 16 100/56 (71) 93 08/22/17 22:16 117 16 115/62 (79) 93 08/22/17 22:00 114 08/22/17 20:44 92 45 08/22/17 20:00 99.2 109 18 119/64 (82) 93 08/22/17 20:00 109 08/22/17 20:00 45 08/22/17 18:00 91 08/22/17 17:55 93 45 08/22/17 16:00 50 08/22/17 16:00 87 08/22/17 16:00 99.7 87 15 127/61 (83) 95 08/22/17 14:00 85 . Laboratory Tests Test 08/21/17 13:05 08/22/17 05:50 08/23/17 08:00 White Blood Count 23.7 TH/MM3 26.0 TH/MM3 22.4 TH/MM3 Red Blood Count 2.74 MIL/MM3 3.52 MIL/MM3 3.86 MIL/MM3 Hemoglobin 7.4 GM/DL 9.9 GM/DL 10.6 GM/DL Hematocrit 22.6 % 29.3 % 32.6 % Mean Corpuscular Volume 82.2 FL 83.3 FL 84.5 FL Mean Corpuscular Hemoglobin 27.0 PG 28.1 PG 27.4 PG Mean Corpuscular Hemoglobin Concent 32.8 % 33.8 % 32.5 % Red Cell Distribution Width 16.2 % 16.1 % 16.4 % Platelet Count 163 TH/MM3 160 TH/MM3 174 TH/MM3 Mean Platelet Volume 7.4 FL 7.7 FL 7.4 FL Neutrophils (%) (Auto) 95.5 % 96.0 % 94.9 % Lymphocytes (%) (Auto) 1.2 % 1.4 % 1.9 % Monocytes (%) (Auto) 3.2 % 2.6 % 3.1 % Eosinophils (%) (Auto) 0.0 % 0.0 % 0.0 % Basophils (%) (Auto) 0.1 % 0.0 % 0.1 % Neutrophils # (Auto) 22.6 TH/MM3 24.9 TH/MM3 21.2 TH/MM3 Lymphocytes # (Auto) 0.3 TH/MM3 0.4 TH/MM3 0.4 TH/MM3 Monocytes # (Auto) 0.8 TH/MM3 0.7 TH/MM3 0.7 TH/MM3 Eosinophils # (Auto) 0.0 TH/MM3 0.0 TH/MM3 0.0 TH/MM3 Basophils # (Auto) 0.0 TH/MM3 0.0 TH/MM3 0.0 TH/MM3 CBC Comment DIFF FINAL DIFF FINAL DIFF FINAL Differential Comment Laboratory Tests Test 08/21/17 13:05 08/21/17 13:10 08/21/17 16:45 08/22/17 05:50 Blood Urea Nitrogen 25 MG/DL 27 MG/DL Creatinine 1.18 MG/DL 1.08 MG/DL Random Glucose 142 MG/DL 143 MG/DL Total Protein 4.1 GM/DL 4.7 GM/DL Albumin 1.7 GM/DL 1.7 GM/DL Calcium Level 7.8 MG/DL 7.3 MG/DL Magnesium Level 1.9 MG/DL 2.1 MG/DL Alkaline Phosphatase 69 U/L 82 U/L Aspartate Amino Transf (AST/SGOT) 17 U/L 14 U/L Alanine Aminotransferase (ALT/SGPT) 43 U/L 40 U/L Total Bilirubin 0.4 MG/DL 0.6 MG/DL Sodium Level 147 MEQ/L 146 MEQ/L Potassium Level 4.6 MEQ/L 5.0 MEQ/L Chloride Level 114 MEQ/L 113 MEQ/L Carbon Dioxide Level 26.1 MEQ/L 25.2 MEQ/L Anion Gap 7 MEQ/L 8 MEQ/L Estimat Glomerular Filtration Rate 60 ML/MIN 66 ML/MIN Total Creatine Kinase 45 U/L Troponin I LESS THAN 0.02 NG/ML Lipase 48 U/L Lactic Acid Level 2.3 mmol/L 1.1 mmol/L B-Type Natriuretic Peptide 154 PG/ML Phosphorus Level 4.2 MG/DL Protein Corrected Calcium 8.7 MG/DL Test 08/23/17 08:00 Blood Urea Nitrogen 29 MG/DL Creatinine 1.12 MG/DL Random Glucose 115 MG/DL Calcium Level 8.0 MG/DL Sodium Level 148 MEQ/L Potassium Level 4.5 MEQ/L Chloride Level 115 MEQ/L Carbon Dioxide Level 24.3 MEQ/L Anion Gap 9 MEQ/L Estimat Glomerular Filtration Rate 63 ML/MIN Microbiology Date/Time Source Procedure Growth Status 08/22/17 11:07 Blood Peripheral Aerobic Blood Culture - Preliminary NO GROWTH IN 1 DAY Resulted 08/22/17 11:07 Blood Peripheral Anaerobic Blood Culture - Final QNS - SEE AEROBE REPORT Resulted 08/22/17 10:30 Blood Peripheral Aerobic Blood Culture - Preliminary NO GROWTH IN 1 DAY Resulted 08/22/17 10:30 Blood Peripheral Anaerobic Blood Culture - Preliminary NO GROWTH IN 1 DAY Resulted 08/21/17 13:10 Blood Peripheral Aerobic Blood Culture - Preliminary NO GROWTH IN 2 DAYS Resulted 08/21/17 13:10 Anaerobic Blood Culture - Preliminary S. Aureus Mrsa Resulted 08/21/17 13:05 Blood Peripheral Aerobic Blood Culture - Preliminary NO GROWTH IN 2 DAYS Resulted 08/21/17 13:05 Blood Peripheral Anaerobic Blood Culture - Preliminary NO GROWTH IN 2 DAYS Resulted 08/23/17 09:30 Fluid Pleural Fluid Fungal Smear Pending Received 08/23/17 09:30 Fluid Pleural Fluid Fungal Culture Pending Received 08/23/17 09:30 Fluid Pleural Fluid Acid Fast Stain Pending Received 08/23/17 09:30 Fluid Pleural Fluid Mycobacterial Culture Pending Received 08/23/17 09:30 Fluid Pleural Fluid Gram Stain Pending Received 08/23/17 09:30 Fluid Pleural Fluid Body Fluid Culture Pending Received 08/22/17 14:55 Sputum Endotracheal Gram Stain - Final Resulted 08/22/17 14:55 Sputum Culture - Preliminary S. Aureus Mrsa Resulted 08/21/17 13:05 Nasal Aspirate Influenza Types A,B Antigen (VALERIANO) - Final NEGATIVE FOR FLU A AND B ANTIGEN.... Complete 08/21/17 14:25 Urine Clean Catch Urine Culture - Final NO GROWTH IN 48 HOURS. Complete 08/21/17 14:25 Urine Catheterized Urine Legionella Antigen - Final PRESUMPTIVE NEGATIVE FOR LEGIONELLA P... Complete 08/21/17 14:25 Urine Catheterized Urine Streptococcus pneumoniae Antigen (M - Final PRESUMPTIVE NEGATIVE FOR STREPTOCOCCU... Complete Imaging Last Impressions Chest X-Ray 08/23/17 0600 Signed Impressions: Service Date/Time: Wednesday, August 23, 2017 04:09 - CONCLUSION: Enlarging right effusion and right lung consolidation. New left basilar consolidation. Chris Zuñiga Jr., MD Consultation 08/22/17 0000 Signed Impressions: Service Date/Time: Tuesday, August 22, 2017 00:00 - CONCLUSION: Volume of the right pleural effusion is not amenable to safe thoracentesis at this time. Marvin Presley MD Chest Ultrasound 08/22/17 0000 Signed Impressions: Service Date/Time: Tuesday, August 22, 2017 12:08 - CONCLUSION: Small left pleural effusion. No marking performed. Mj Sanchez MD Head CT 08/21/17 1357 Signed Impressions: Service Date/Time: Monday, August 21, 2017 16:05 - CONCLUSION: 1. No acute intracranial abnormality. Stable exam compared to previous dated 08/06/17. Jonathon Jenkins MD CT Angiography [id number]/[id number] Signed Impressions: Service Date/Time: Monday, August 21, 2017 16:16 - CONCLUSION: 1. No evidence for pulmonary embolism. 2. Atherosclerosis. 3. Bilateral pleural effusions are identified right greater than left and patchy pulmonary consolidation is seen. Khanh Nina MD Abdomen/Pelvis CT 08/21/17 1132 Signed Impressions: Service Date/Time: Monday, August 21, 2017 16:16 - CONCLUSION: 1. Moderate amount of stool noted with a stool ball in the rectum. 2. Bilateral pleural effusions and consolidation greatest in the right lower lobe. 3. Diverticulosis without diverticulitis. 4. Atherosclerosis. 5. Bilateral L5 pars defects. 6. Inguinal hernias. Khanh Nina MD Brain MRI 08/21/17 0000 Signed Impressions: Service Date/Time: Monday, August 21, 2017 22:20 - CONCLUSION: 1. No acute intracranial abnormality. 2. Atrophy and chronic small vessel ischemic change. Chris Zuñiga Jr., MD Physical Exam GENERAL: This is a well-nourished, well-developed patient, in no apparent distress. SKIN: No rashes, ecchymoses or lesions. Cool and dry. HEAD: Atraumatic. Normocephalic. No temporal or scalp tenderness. EYES: Pupils equal round and reactive. Extraocular motions intact. No scleral icterus. No injection or drainage. ENT: Intubated NECK: Trachea midline. Supple, nontender, no meningeal signs. CARDIOVASCULAR: HS audible. RESPIRATORY: Clear to auscultation. Breath sounds equal bilaterally. No wheezes , rales, or rhonchi. GASTROINTESTINAL: Abdomen soft, non-tender, nondistended. MUSCULOSKELETAL: Extremities without clubbing, cyanosis. Noted Pedal edema. No joint tenderness, effusion, or edema noted. No calf tenderness. Negative Homans sign bilaterally. NEUROLOGICAL: Awake and opens eyes spontaneously. Gags at tube. Follows simple commands. Psych anxious IV line sites with no e.o infection Assessment & Plan Remarks Severe Sepsis (with Septic Shock on admission), now off pressors. Pneumonia present on admission.? HCAP vs Aspiration or both. MRSA pneumonia ? source of bacteremia. Possible MRSA related empyema. MRSA bacteremia Right side pleural effusion Recent stroke. Acute respiratory failure on vent Recs: Continue Aztreonam IV Continue Vanco IV (target 15-20) Continue Azithro (addendum at 7:34 pm : DC Azithro) Follow cultures to adjust antibiotics follow pleural fluid cultures Follow clinically. If bacteremia persistent will need repeat limited 2D ECHO to look for vegetations. Also will need Doppler UE if persistent bacteremia to r/o septic thrombophlebitis as patient had lines in neck in prior admissions. fernanda HANSEN and India Casey MD Aug 23, 2017 12:01
[2017-08-23 14:24] LABS: PLEURAL FLUID HISTIOCYTES 1 %; PLEURAL FLUID MONOS 1 %; PLEURAL FLUID POLYS (SEGS) 98 %
[2017-08-23 14:26] LABS: TOTAL PROTEIN,PLEURAL FLUID 1.7 GM/DL
[2017-08-23 14:27] LABS: PLEURAL FLUID WBC 7088 /MM3 (0-10)
[2017-08-23 14:28] LABS: PLEURAL FLUID RBC 17033 /MM3 (0-0)
--- NOTE | 2017-08-23 15:35 | HHI.HCPN ---
Reason for visit a. To assist with evaluation and management of symptoms including: Shortness of breath, anxiety/agitation, debility. b. To assist medical decision maker(s) with: better understanding of current medical conditions; weighing benefits/burdens of medical treatment options; making medical treatment decisions. . Subjective/Interval History Pt seen to follow up on comfort, goals. He is on mechanical vent. CXR with worsening infiltrate, increased pleural effusion-- just replaced by critical care, and output 1 L at time of insertion. Chest tube remains in place to Pleur-evac. Sputum 08/22 positive MRSA, blood culture 08/22 no growth 1 day. On fentanyl for sedation. Patient seen in room present at bedside as well as friend who is there to support her. Updated on current day's events/procedures, assessment, recent diagnostics, pending diagnostics. Gently explore condition, possible trajectory. is tearful at times. All questions answered to the best of my ability, provided with my contact information. Goals remain aggressive at this time she hopes the patient can improve, she is open to ongoing conversations as clinical course evolves. Advance Directives Living Will: Never completed Health Care Surrogate: Never completed Durable Power of Facilities Administrator: Never completed Advance Directive Specifics Health Care Surrogate(s): No advance directives completed. As per [place] statute, healthcare proxy decision making falls to patient's Leatha Butts. . Objective Vital Signs Date Time Temp Pulse Resp B/P (MAP) Pulse Ox O2 Delivery O2 Flow Rate FiO2 08/23/17 14:00 84 08/23/17 12:00 89 08/23/17 12:00 40 08/23/17 12:00 98.6 89 16 107/57 (74) 93 08/23/17 11:42 92 40 08/23/17 10:00 90 08/23/17 08:00 98.1 115 17 125/69 (87) 94 08/23/17 08:00 115 08/23/17 08:00 45 08/23/17 07:57 93 45 08/23/17 06:00 123 08/23/17 04:06 92 45 08/23/17 04:00 45 08/23/17 04:00 98.9 110 15 125/65 (85) 92 08/23/17 04:00 110 08/23/17 03:00 91 16 98/61 (73) 94 08/23/17 02:00 99 08/23/17 00:57 94 45 08/23/17 00:00 100 08/23/17 00:00 45 08/23/17 00:00 99.0 100 16 102/56 (71) 94 08/22/17 23:30 100 16 104/57 (73) 93 08/22/17 23:15 112 18 107/62 (77) 92 08/22/17 23:03 110 117/55 08/22/17 23:00 109 16 117/58 (77) 92 08/22/17 22:46 118 16 123/67 (85) 91 08/22/17 22:31 109 16 100/56 (71) 93 08/22/17 22:16 117 16 115/62 (79) 93 08/22/17 22:00 114 08/22/17 20:44 92 45 08/22/17 20:00 99.2 109 18 119/64 (82) 93 08/22/17 20:00 109 08/22/17 20:00 45 08/22/17 18:00 91 08/22/17 17:55 93 45 08/22/17 16:00 50 08/22/17 16:00 87 08/22/17 16:00 99.7 87 15 127/61 (83) 95 Intake & Output 08/23/17 08/23/17 07:00 19:00 Intake Total 1998.5 ml Output Total 550 ml Balance 1448.5 ml IV Total 1848.5 ml Tube Irrigant 150 ml Output Urine Total 550 ml Physical Exam CONSTITUTIONAL/GENERAL: This is an adequately nourished patient, in no apparent distress. Endotracheally intubated on mechanical ventilation. TUBES/LINES/DRAINS: ETT, OG, Fang catheter, bilateral soft wrist restraints, PIV's. SKIN: No jaundice, rashes, or lesions. Ecchymoses on upper extremities. No wounds seen anteriorly. Skin warm dry, generalized edema. NECK: Trachea midline. Supple, nontender. CARDIOVASCULAR: Regular rate and rhythm without murmurs. Peripheral pulses symmetric. Pitting edema to all 4 extremities. RESPIRATORY/CHEST: Symmetric, unlabored respirations via mechanical vent. Scattered rhonchi bilaterally. Endotracheally intubated on mechanical ventilation. Right lateral chest tube to Pleur-evac drainage mod amount serosanguineous fluid GASTROINTESTINAL: Abdomen soft, large, round. No guarding. Bowel sounds present. GENITOURINARY: Without palpable bladder distension. Fang catheter in place. MUSCULOSKELETAL: Extremities without clubbing, cyanosis. No mottling or clubbing. Pitting edema to all 4 extremities. NEUROLOGICAL: Sedated on mechanical vent. Minimally responsive to exam. No eye opening. Withdrawal to pain stimuli on extremities. PSYCHIATRIC: Limited assessment secondary clinical condition no evident anxiety Diagnostic Tests Laboratory Laboratory Tests Test 08/21/17 13:05 08/21/17 13:10 08/21/17 14:25 08/21/17 15:29 White Blood Count 23.7 TH/MM3 (4.0-11.0) Red Blood Count 2.74 MIL/MM3 (4.50-5.90) Hemoglobin 7.4 GM/DL (13.0-17.0) Hematocrit 22.6 % (39.0-51.0) Mean Corpuscular Volume 82.2 FL (80.0-100.0) Mean Corpuscular Hemoglobin 27.0 PG (27.0-34.0) Mean Corpuscular Hemoglobin Concent 32.8 % (32.0-36.0) Red Cell Distribution Width 16.2 % (11.6-17.2) Platelet Count 163 TH/MM3 (150-450) Mean Platelet Volume 7.4 FL (7.0-11.0) Neutrophils (%) (Auto) 95.5 % (16.0-70.0) Lymphocytes (%) (Auto) 1.2 % (9.0-44.0) Monocytes (%) (Auto) 3.2 % (0.0-8.0) Eosinophils (%) (Auto) 0.0 % (0.0-4.0) Basophils (%) (Auto) 0.1 % (0.0-2.0) Neutrophils # (Auto) 22.6 TH/MM3 (1.8-7.7) Lymphocytes # (Auto) 0.3 TH/MM3 (1.0-4.8) Monocytes # (Auto) 0.8 TH/MM3 (0-0.9) Eosinophils # (Auto) 0.0 TH/MM3 (0-0.4) Basophils # (Auto) 0.0 TH/MM3 (0-0.2) CBC Comment DIFF FINAL Differential Comment Prothrombin Time 11.4 SEC (9.8-11.6) Prothromb Time International Ratio 1.1 RATIO Activated Partial Thromboplast Time 22.8 SEC (24.3-30.1) Blood Urea Nitrogen 25 MG/DL (7-18) Creatinine 1.18 MG/DL (0.60-1.30) Random Glucose 142 MG/DL (74-106) Total Protein 4.1 GM/DL (6.4-8.2) Albumin 1.7 GM/DL (3.4-5.0) Calcium Level 7.8 MG/DL (8.5-10.1) Magnesium Level 1.9 MG/DL (1.5-2.5) Alkaline Phosphatase 69 U/L (45-117) Aspartate Amino Transf (AST/SGOT) 17 U/L (15-37) Alanine Aminotransferase (ALT/SGPT) 43 U/L (12-78) Total Bilirubin 0.4 MG/DL (0.2-1.0) Sodium Level 147 MEQ/L (136-145) Potassium Level 4.6 MEQ/L (3.5-5.1) Chloride Level 114 MEQ/L (98-107) Carbon Dioxide Level 26.1 MEQ/L (21.0-32.0) Anion Gap 7 MEQ/L (5-15) Estimat Glomerular Filtration Rate 60 ML/MIN (>89) Total Creatine Kinase 45 U/L (39-308) Troponin I LESS THAN 0.02 NG/ML Lipase 48 U/L (73-393) Lactic Acid Level 2.3 mmol/L (0.4-2.0) Urine Color DARK-YELLOW (YELLW/STRAW) Urine Turbidity HAZY (CLEAR) Urine pH 5.5 (5.0-8.5) Urine Specific [place] 1.019 (1.002-1.035) Urine Protein 100 mg/dL (NEG-TRACE) Urine Glucose (UA) TRACE mg/dL (NEG) Urine Ketones NEG mg/dL (NEG) Urine Occult Blood TRACE (NEG) Urine Nitrite NEG (NEG) Urine Bilirubin NEG (NEG) Urine Urobilinogen LESS THAN 2.0 MG/DL (LESS Urine Leukocyte Esterase LARGE (NEG) Urine RBC /hpf (0-3) Urine WBC 8 /hpf (0-5) Urine Squamous Epithelial Cells <1 /hpf (0-5) Urine Amorphous Sediment RARE Urine Hyaline Casts 15 /lpf (RARE) Urine Granular Casts 7 /lpf (NONE) Urine Mucus FEW /lpf (OCC) Microscopic Urinalysis Comment CATH-CULTURE IND Urine Opiates Screen NEG (NEG) Urine Barbiturates Screen NEG (NEG) Urine Amphetamines Screen NEG (NEG) Urine Benzodiazepines Screen POS (NEG) Urine Cocaine Screen NEG (NEG) Urine Cannabinoids Screen NEG (NEG) Blood Gas Puncture Site RT RADIAL Blood Gas Patient Temperature 98.6 Blood Gas HCO3 26 mmol/L (22-26) Blood Gas Base Excess 1.5 mmol/L (-2-2) Blood Gas Oxygen Saturation 98 % (90-100) Arterial Blood pH 7.39 (7.380-7.420) Arterial Blood Partial Pressure CO2 44 mmHg (38-42) Arterial Blood Partial Pressure O2 332 mmHG (61-120) Arterial Blood Oxygen Content 11.6 Vol % (12.0-20.0) Arterial Blood Carboxyhemoglobin 1.2 % (0-4) Arterial Blood Methemoglobin 0.6 % (0-2) Blood Gas Hemoglobin 7.8 G/DL (12.0-16.0) Oxygen Delivery Device VENTILATOR Blood Gas Ventilator Setting 500/16/+5/1.0 Blood Gas Inspired Oxygen 100 % Test 08/21/17 16:45 08/21/17 17:15 08/22/17 05:50 08/23/17 08:00 Lactic Acid Level 1.1 mmol/L (0.4-2.0) B-Type Natriuretic Peptide 154 PG/ML (0-100) Nasal Screen MRSA (PCR) MRSA NOT DETECTED (NOT White Blood Count 26.0 TH/MM3 (4.0-11.0) 22.4 TH/MM3 (4.0-11.0) Red Blood Count 3.52 MIL/MM3 (4.50-5.90) 3.86 MIL/MM3 (4.50-5.90) Hemoglobin 9.9 GM/DL (13.0-17.0) 10.6 GM/DL (13.0-17.0) Hematocrit 29.3 % (39.0-51.0) 32.6 % (39.0-51.0) Mean Corpuscular Volume 83.3 FL (80.0-100.0) 84.5 FL (80.0-100.0) Mean Corpuscular Hemoglobin 28.1 PG (27.0-34.0) 27.4 PG (27.0-34.0) Mean Corpuscular Hemoglobin Concent 33.8 % (32.0-36.0) 32.5 % (32.0-36.0) Red Cell Distribution Width 16.1 % (11.6-17.2) 16.4 % (11.6-17.2) Platelet Count 160 TH/MM3 (150-450) 174 TH/MM3 (150-450) Mean Platelet Volume 7.7 FL (7.0-11.0) 7.4 FL (7.0-11.0) Neutrophils (%) (Auto) 96.0 % (16.0-70.0) 94.9 % (16.0-70.0) Lymphocytes (%) (Auto) 1.4 % (9.0-44.0) 1.9 % (9.0-44.0) Monocytes (%) (Auto) 2.6 % (0.0-8.0) 3.1 % (0.0-8.0) Eosinophils (%) (Auto) 0.0 % (0.0-4.0) 0.0 % (0.0-4.0) Basophils (%) (Auto) 0.0 % (0.0-2.0) 0.1 % (0.0-2.0) Neutrophils # (Auto) 24.9 TH/MM3 (1.8-7.7) 21.2 TH/MM3 (1.8-7.7) Lymphocytes # (Auto) 0.4 TH/MM3 (1.0-4.8) 0.4 TH/MM3 (1.0-4.8) Monocytes # (Auto) 0.7 TH/MM3 (0-0.9) 0.7 TH/MM3 (0-0.9) Eosinophils # (Auto) 0.0 TH/MM3 (0-0.4) 0.0 TH/MM3 (0-0.4) Basophils # (Auto) 0.0 TH/MM3 (0-0.2) 0.0 TH/MM3 (0-0.2) CBC Comment DIFF FINAL DIFF FINAL Differential Comment Blood Urea Nitrogen 27 MG/DL (7-18) 29 MG/DL (7-18) Creatinine 1.08 MG/DL (0.60-1.30) 1.12 MG/DL (0.60-1.30) Random Glucose 143 MG/DL (74-106) 115 MG/DL (74-106) Total Protein 4.7 GM/DL (6.4-8.2) Albumin 1.7 GM/DL (3.4-5.0) Calcium Level 7.3 MG/DL (8.5-10.1) 8.0 MG/DL (8.5-10.1) Phosphorus Level 4.2 MG/DL (2.5-4.9) Magnesium Level 2.1 MG/DL (1.5-2.5) Alkaline Phosphatase 82 U/L (45-117) Aspartate Amino Transf (AST/SGOT) 14 U/L (15-37) Alanine Aminotransferase (ALT/SGPT) 40 U/L (12-78) Total Bilirubin 0.6 MG/DL (0.2-1.0) Sodium Level 146 MEQ/L (136-145) 148 MEQ/L (136-145) Potassium Level 5.0 MEQ/L (3.5-5.1) 4.5 MEQ/L (3.5-5.1) Chloride Level 113 MEQ/L (98-107) 115 MEQ/L (98-107) Carbon Dioxide Level 25.2 MEQ/L (21.0-32.0) 24.3 MEQ/L (21.0-32.0) Anion Gap 8 MEQ/L (5-15) 9 MEQ/L (5-15) Estimat Glomerular Filtration Rate 66 ML/MIN (>89) 63 ML/MIN (>89) Protein Corrected Calcium 8.7 MG/DL (8.5-10.1) Test 08/23/17 09:30 Pleural Fluid pH 8.0 Pleural Fluid WBC 7088 /MM3 (0-10) Pleural Fluid RBC 14432 /MM3 (0-0) Pleural Fluid Neutrophils 98 % Pleural Fluid Monocytes 1 % Pleural Fluid Histiocytes 1 % Pleural Fluid Total Protein 1.7 GM/DL Pleural Fluid LDH 734 U/L Pleural Fluid Glucose 71 MG/DL Result Diagram: 08/23/17 0800 08/23/17 0800 Microbiology Microbiology Date/Time Source Procedure Growth Status 08/22/17 11:07 Blood Peripheral Aerobic Blood Culture - Preliminary NO GROWTH IN 1 DAY Resulted 08/22/17 11:07 Blood Peripheral Anaerobic Blood Culture - Final QNS - SEE AEROBE REPORT Resulted 08/22/17 10:30 Blood Peripheral Aerobic Blood Culture - Preliminary NO GROWTH IN 1 DAY Resulted 08/22/17 10:30 Blood Peripheral Anaerobic Blood Culture - Preliminary NO GROWTH IN 1 DAY Resulted 08/21/17 13:10 Blood Peripheral Aerobic Blood Culture - Preliminary NO GROWTH IN 2 DAYS Resulted 08/21/17 13:10 Anaerobic Blood Culture - Preliminary S. Aureus Mrsa Resulted 08/21/17 13:05 Blood Peripheral Aerobic Blood Culture - Preliminary NO GROWTH IN 2 DAYS Resulted 08/21/17 13:05 Blood Peripheral Anaerobic Blood Culture - Preliminary NO GROWTH IN 2 DAYS Resulted 08/23/17 09:30 Fluid Pleural Fluid Fungal Smear Pending Received 08/23/17 09:30 Fluid Pleural Fluid Fungal Culture Pending Received 08/23/17 09:30 Fluid Pleural Fluid Acid Fast Stain Pending Received 08/23/17 09:30 Fluid Pleural Fluid Mycobacterial Culture Pending Received 08/23/17 09:30 Fluid Pleural Fluid Gram Stain Pending Received 08/23/17 09:30 Fluid Pleural Fluid Body Fluid Culture Pending Received 08/22/17 14:55 Sputum Endotracheal Gram Stain - Final Resulted 08/22/17 14:55 Sputum Culture - Preliminary S. Aureus Mrsa Resulted 08/21/17 13:05 Nasal Aspirate Influenza Types A,B Antigen (VALERIANO) - Final NEGATIVE FOR FLU A AND B ANTIGEN.... Complete 08/21/17 14:25 Urine Clean Catch Urine Culture - Final NO GROWTH IN 48 HOURS. Complete 08/21/17 14:25 Urine Catheterized Urine Legionella Antigen - Final PRESUMPTIVE NEGATIVE FOR LEGIONELLA P... Complete 08/21/17 14:25 Urine Catheterized Urine Streptococcus pneumoniae Antigen (M - Final PRESUMPTIVE NEGATIVE FOR STREPTOCOCCU... Complete Imaging Last Impressions Chest X-Ray 08/23/17 0600 Signed Impressions: Service Date/Time: Wednesday, August 23, 2017 04:09 - CONCLUSION: Enlarging right effusion and right lung consolidation. New left basilar consolidation. Chris Zuñiga Jr., MD Consultation 08/22/17 0000 Signed Impressions: Service Date/Time: Tuesday, August 22, 2017 00:00 - CONCLUSION: Volume of the right pleural effusion is not amenable to safe thoracentesis at this time. Marvin Presley MD Chest Ultrasound 08/22/17 0000 Signed Impressions: Service Date/Time: Tuesday, August 22, 2017 12:08 - CONCLUSION: Small left pleural effusion. No marking performed. Mj Sanchez MD Head CT 08/21/17 1357 Signed Impressions: Service Date/Time: Monday, August 21, 2017 16:05 - CONCLUSION: 1. No acute intracranial abnormality. Stable exam compared to previous dated 08/06/17. Jonathon Jenkins MD CT Angiography [id number] Signed Impressions: Service Date/Time: Monday, August 21, 2017 16:16 - CONCLUSION: 1. No evidence for pulmonary embolism. 2. Atherosclerosis. 3. Bilateral pleural effusions are identified right greater than left and patchy pulmonary consolidation is seen. Khanh Nina MD Abdomen/Pelvis CT [id number] Signed Impressions: Service Date/Time: Monday, August 21, 2017 16:16 - CONCLUSION: 1. Moderate amount of stool noted with a stool ball in the rectum. 2. Bilateral pleural effusions and consolidation greatest in the right lower lobe. 3. Diverticulosis without diverticulitis. 4. Atherosclerosis. 5. Bilateral L5 pars defects. 6. Inguinal hernias. Khanh Nina MD Brain MRI 08/21/17 0000 Signed Impressions: Service Date/Time: Monday, August 21, 2017 22:20 - CONCLUSION: 1. No acute intracranial abnormality. 2. Atrophy and chronic small vessel ischemic change. Chris Zuñiga Jr., MD Procedures * 08/21/17 -endotracheal intubation * 08/23/17 chest tube placed . Assessment and Plan Disease Oriented Problem List: (1) Respiratory failure (2) Sepsis (3) PNA (pneumonia) (4) COPD with exacerbation (5) Dementia Symptom Scale: (1) Shortness of breath 0-10 Scale: Unable to quantify (2) Anxiety 0-10 Scale: 10 (3) Debility 0-10 Scale: Unable to quantify Pertinent Non-Medical Issues Psychosocial: Patient born and raised in [place]. Lived in [place] for a few years. for the past 60 years, they have 3 children together. Patient is a [place] . Spiritual: No mu-ism affiliation. Legal: No advance directives completed. Ethical issues impacting care: No ethical issues identified. . Important Contacts Leatha Butts , . . Prognosis Mr. Butts it is a 76-year-old male with a medical history significant for dementia, CHF, COPD, CAD, PVD, hypertension, hyperlipidemia, BPH. Patient with recurrent infections and recent acute hospitalizations. Admitted for respiratory failure, sepsis, pneumonia requiring intubation and mechanical ventilation. Patient with progressive clinical decline. Overall prognosis is guarded, patient high risk for further complications, continued decline and . . Code Status: Full Code Plan * CODE STATUS: Full code. * HEALTHCARE DECISION-MAKING: Patient unable to participate in medical decision making secondary to clinical condition, baseline dementia. No advance directives completed. As per [place] statue, healthcare proxy decision making falls to patient's Leatha Butts. has accepted this role and is fully supported by all of their 3 children. * GOALS OF CARE: Goals remain aggressive at this time she hopes the patient can improve, she is open to ongoing conversations as clinical course evolves. * SYMPTOMS: = Dyspnea, secondary to respiratory failure, pneumonia, CHF. Currently endotracheally intubated on mechanical ventilation. Initially tolerating CPAP trials with plans for possible medical extubation; however today patient with worsening CXR and significant effusion requiring chest tube placement and drainage. = Anxiety/agitation: Exacerbated by dyspnea. Patient with dementia baseline with behavioral disturbances. Home regimen of Seroquel 100 mg twice daily. = Debility: Acute on chronic. Progressive since June secondary to acute illness and recurrent infections. PT recommended PT at rehab during recent prior hospitalization, patient's inquiring regarding acute rehab. * Palliative care contact information has been provided to family. * Palliative care will continue to follow up for further clarification of goals of care as patient's clinical course continues to evolve. . Attestation To help prompt me to consider important information that might be impacting today's encounter and assessment, information from prior notes written by myself or my colleagues may have been "brought forward" into today's note. My signature on this note, however, is an attestation that I personally performed the exam, history, and/or decision-making noted today, and, unless otherwise indicated, the interactions with patient, family, and staff as well as the review of records all occurred today. I also attest that the listed assessment and stated plan reflect my best clinical judgment today based on the combination of historical information, prior notes, and today's exam/ interactions. When time spent is documented, it refers only to time spent today by the signer, or if indicated, combined time spent today by collaborating physician/nurse practitioner. Cristy Wolf Aug 23, 2017 15:35
--- NOTE | 2017-08-23 15:53 | RADRPT ---
EXAM DATE/TIME: 08/23/2017 15:15 [facility] COMPARISON: CHEST SINGLE AP, August 23, 2017, 10:03. INDICATIONS : Short of breath. MEDICAL HISTORY : Myocardial infarction. Hypercholesterolemia. Chronic obstructive pulmonary disease. Hypertension. Ast hma. PVD. Sciatica. ETOH use daily. MRSA. SURGICAL HISTORY : Hand surgery. ENCOUNTER: Subsequent ACUITY: 1 week PAIN SCORE: Non-responsive. LOCATION: Bilateral chest FINDINGS: Stable ETT, NGT coursing beyond the GE junction and inferior right chest tube in place. Small right a pical pneumothorax noted on recent radiograph is not well demonstrated and may be due to patient carol ann on. Persistent bilateral lower lobe airspace disease and associated small pleural effusions. Cardiome diastinal contours are stable. Remainder of the exam is unchanged. CONCLUSION: 1. Stable tubes and lines. 2. Small bilateral pleural effusions with residual bibasilar airspace disease. 3. Subtle right pneumothorax not well-demonstrated likely due to patient motion. No significant pneum othorax. Julian Vernon MD on August 23, 2017 at 15:49 Board Certified Radiologist. This report was verified electronically.
[2017-08-23] MEDS: AZITHROMYCIN INJ 500 MG in SODIUM CHLOR 0.9% 250 ML INJ 250 ML IV SCH (17:46)
[2017-08-23] MEDS: DONEPEZIL HCL 5 MG TAB PO SCH (20:04)
[2017-08-24] VITALS (33 sets, daily range): BP systolic 100–157; BP diastolic 50–74; PULSE 64–98; RESP 1–32; TEMP 98.2–98.8; O2SAT 91–100
[2017-08-24] MEDS: AZTREONAM INJ 1,000 MG in SODIUM CHLORIDE 0.9% INJ 100 ML IV SCH ×3 (00:55→16:28)
[2017-08-24] MEDS: DILTIAZEM INJ 125 MG in SODIUM CHLORIDE 0.9% INJ 100 ML IV PRN (01:00)
[2017-08-24] MEDS ORDERED: PHARMACY ORDERED LAB ONE (02:45)
[2017-08-24] MEDS: INSULIN NovoLIN REGULAR SUPPLEMENTAL SCALE SQ SCH ×4 (03:00→21:00)
[2017-08-24] MEDS: SODIUM CHLOR 0.9% 1000 ML INJ 1,000 ML IV SCH (03:33)
[2017-08-24] MEDS: VANCOMYCIN INJ 1,250 MG in SODIUM CHLOR 0.9% 250 ML INJ 250 ML IV SCH (03:35)
[2017-08-24] MEDS: RESP: ALBUTEROL 2.5 MG/IPRATROPIUM 0.5 MG NEB (SCH) INH ×4 (03:51→20:19)
[2017-08-24] MEDS: CHLORHEXIDINE GLUCONATE 2 % 1 PACK (2 CLOTHS) TOP SCH (04:00)
[2017-08-24 04:44] LABS: CREATININE 1.26 MG/DL (0.60-1.30); VANCOMYCIN TROUGH 29.4 MCG/ML (5.0-10.0)
[2017-08-24 07:46] LABS: AUTOMATED NEUTROPHIL # 15.5 TH/MM3 (1.8-7.7); BASOPHIL # 0.1 TH/MM3 (0-0.2); BASOPHIL % 0.3 % (0.0-2.0); EOSINOPHIL % 0.2 % (0.0-4.0); HEMOGLOBIN 9.6 GM/DL (13.0-17.0); LYMPH % 2.5 % (9.0-44.0); LYMPHOCYTE # 0.4 TH/MM3 (1.0-4.8); MEAN CELL VOLUME 84.8 FL (80.0-100.0); MEAN CORPUSCULAR HEMOGLOBIN 27.1 PG (27.0-34.0); MEAN PLATELET VOLUME 7.3 FL (7.0-11.0); MONO % 3.1 % (0.0-8.0); MONOCYTE # 0.5 TH/MM3 (0-0.9); NEUT % 93.9 % (16.0-70.0); PLATELET COUNT 143 TH/MM3 (150-450); RED BLOOD COUNT 3.53 MIL/MM3 (4.50-5.90); RED CELL DISTRIBUTION WIDTH 16.7 % (11.6-17.2); WHITE BLOOD COUNT 16.6 TH/MM3 (4.0-11.0)
--- NOTE | 2017-08-24 07:58 | RADRPT ---
EXAM DATE/TIME: 08/24/2017 07:35 [facility] COMPARISON: CHEST SINGLE AP, August 23, 2017, 15:15. INDICATIONS : Respiratory disease. MEDICAL HISTORY : Myocardial infarction. Hypercholesterolemia. Chronic obstructive pulmonary disease. SURGICAL HISTORY : Hand surgery. ENCOUNTER: Subsequent ACUITY: 3 days PAIN SCORE: Non-responsive. LOCATION: Bilateral chest FINDINGS: Stable ETT and NGT coursing in the GE junction with tip over the image. Stable right inferior chest t ube. Small residual right pleural effusion with associated right lower lung zone airspace disease. Tr justin left pleural effusion and associated airspace disease which appears improved from prior exam. No significant pneumothorax. Cardiomediastinal contours are stable. Exam is unchanged CONCLUSION: 1. Stable right inferior chest tube with stable residual small right pleural effusion and associated right lower lung zone airspace disease. 2. Improved trace left pleural effusion and left lower lung zone airspace disease. 3. No significant pneumothorax. Julian Vernon MD on August 24, 2017 at 7:54 Board Certified Radiologist. This report was verified electronically.
--- NOTE | 2017-08-24 08:11 | HHI.CCPN ---
Subjective Remarks/Hospital Course Patient is a 76-year-old male with multiple comorbidities, which include hypertension, hyperlipidemia, BPH, anemia of chronic disease, coronary artery disease, peripheral vascular disease, COPD on 2.5 L home oxygen, who presented to [facility] ED by EMS for respiratory distress and altered mental status requiring intubation in the field. In addition, patient was hypotensive and hypoxic. He was given 2 L Iv fluids by [facility] and an additional 1 L in the ED. Patient was started on Levophed, which is currently at 6 mcg. His laboratory data is significant for leukocytosis with a WBC of 23.7 and a mild lactic acidosis with lactic acid level of 2.3. Chest x-ray showed right basilar infiltrate concerning for pneumonia and ET tube above the jonah. ABG post intubation showed a pH of 7.39, CO2 of 44, PaO2 of 332, bicarb of 44, saturation 98%. In the ED, he was given cefepime, vancomycin. Patient also noted to have pinpoint pupils and was given Narcan without any significant effect. He was recently discharged from [facility] after he was admitted back on 08/04 for CHF, respiratory failure and acute right-sided stroke. He is scheduled to undergo CT scan of the brain, chest, abdomen and pelvis, which were ordered by ED. On his last admission, he had an echocardiogram on 08/04, which showed an EF of 55-60%. 08/22 Patient is sedated with Fentanyl drip and intubated. Afebrile. Off Levophed. 08/23: Patient remains profoundly septic. Encephalopathic white count is 22.4 which is slightly improved. His pleural effusion has increased in size and concerning for parapneumonic effusion/developing empyema. His chest x-ray shows bilateral infiltrates which are worsening. MRSA pneumonia is a concern. I will proceed with pigtail chest tube placement on the right side and send fluid for further studies 08/24: Remains critically ill but stabilizing. WBC count trending down today at 16.6. Right pigtail chest tube was placed yesterday with 1.1 L cloudy yellow fluid output concerning for parapneumonic effusion/early empyema. Cardiothoracic surgery consulted for recommendation regarding decortication. Chest x-ray today shows no pneumothorax, right lung consolidation with mild effusion. Objective Vital Signs Date Time Temp Pulse Resp B/P (MAP) Pulse Ox O2 Delivery O2 Flow Rate FiO2 08/24/17 07:53 93 45 08/24/17 06:00 69 08/24/17 04:00 98.7 16 132/60 (84) 08/21/17 15:46 Ventilator Intake and Output 08/24/17 08/24/17 08/25/17 08:00 16:00 00:00 Output Total 675 ml Balance -675 ml Result Diagram: 08/24/17 0732 08/24/17 0330 Other Results Microbiology Date/Time Source Procedure Growth Status 08/21/17 13:05 Nasal Aspirate Influenza Types A,B Antigen (VALERIANO) - Final NEGATIVE FOR FLU A AND B ANTIGEN.... Complete 08/21/17 14:25 Urine Clean Catch Urine Culture - Final NO GROWTH IN 48 HOURS. Complete 08/21/17 14:25 Urine Catheterized Urine Legionella Antigen - Final PRESUMPTIVE NEGATIVE FOR LEGIONELLA P... Complete 08/21/17 14:25 Urine Catheterized Urine Streptococcus pneumoniae Antigen (M - Final PRESUMPTIVE NEGATIVE FOR STREPTOCOCCU... Complete Imaging Last Impressions Head CT 08/21/177 Signed Impressions: Service Date/Time: Monday, August 21, 2017 16:05 - CONCLUSION: 1. No acute intracranial abnormality. Stable exam compared to previous dated 08/06/17. Jonathon Jenkins MD CT Angiography [id number]/21/[id number] Signed Impressions: Service Date/Time: Monday, August 21, 2017 16:16 - CONCLUSION: 1. No evidence for pulmonary embolism. 2. Atherosclerosis. 3. Bilateral pleural effusions are identified right greater than left and patchy pulmonary consolidation is seen. Khanh Nina MD Abdomen/Pelvis CT 08/21/17 [id number] Signed Impressions: Service Date/Time: Monday, August 21, 2017 16:16 - CONCLUSION: 1. Moderate amount of stool noted with a stool ball in the rectum. 2. Bilateral pleural effusions and consolidation greatest in the right lower lobe. 3. Diverticulosis without diverticulitis. 4. Atherosclerosis. 5. Bilateral L5 pars defects. 6. Inguinal hernias. Khanh Nina MD Chest X-Ray 08/21/17 1252 Signed Impressions: Service Date/Time: Monday, August 21, 2017 12:59 - CONCLUSION: 1. Right basilar effusion and infiltrate concerning for pneumonia. Aspiration would be a consideration. 2. Endotracheal tube in good position. Jonathon Jenkins MD Brain MRI 08/21/17 0000 Signed Impressions: Service Date/Time: Monday, August 21, 2017 22:20 - CONCLUSION: 1. No acute intracranial abnormality. 2. Atrophy and chronic small vessel ischemic change. Chris Zuñiga Jr., MD Objective Remarks GENERAL: Patient is 76 yo intubated and sedated SKIN: Warm and dry. HEAD: Normocephalic. EYES: No scleral icterus. No injection or drainage. Pupils 2 mm NECK: Supple, trachea midline. No JVD or lymphadenopathy. CARDIOVASCULAR: Regular rate and rhythm without murmurs, gallops, or rubs. RESPIRATORY: Bilateral coarse breath sounds. Right pigtail chest tube with cloudy yellow drainage, 1.1 L in last 24 hours since placement GASTROINTESTINAL: Abdomen soft, non-tender, nondistended. MUSCULOSKELETAL: No cyanosis, or edema. Neuro: Sedated, intubated. Wakes up on lightening sedation encephalopathic moves all 4 extremities no focal deficits A/P Assessment and Plan ASSESSMENT: Acute hypoxemic respiratory failure Right lower lobe pneumonia Right-sided parapneumonic effusion/early empyema Acute metabolic encephalopathy Severe sepsis Anemia Mild lactic acidosis Hypernatremia Recent CVA in July COPD CAD HTN BPH Hyperlipidemia. Plan Neuro: On Fentanyl infusion for sedation. Monitor neuro status closely. Versed PRN to facilitate procedures CT and MRI brain : No acute process UDS: + Benzos On Aricept 10mg qhs for Dementia Pulm: Continue with vent support and maintain sats > 92%. Bronchodilators, hydrocortisone 50 mg IV q. 12. ICU vent bundle, SBT daily as chi CT chest: No evidence for PE, small to mod pleural effusions R>L and patchy pulmonary consolidation is seen. s/p pigtail chest tube placement and fluid studies consistent with early empyema (WBC 7000 with 98% neutrophils, LDH 734) CV: Monitor HR and BP MAP>65 mmHg. Taper Stress dose steroids. Holding ASA and Plavix for pigtail chest tube placement Echo from 08/04 showed an EF of 55-60%. lactic acid cleared 1.1 : Monitor renal function, I's and O's and electrolyte replacement per protocol. s/p 3L crystalloids total on admission, continue half-normal saline, and free water flushes added for Hyper Na GI: On Pepcid for GI prophylaxis. Start tube feeds with Jevity ID: Continue abx (vanco, aztreonam and azithromycin).ID Dr. Pritchett Nasal aspirate is negative influenza BC 08/21 06/15 bottles: MRSA, Sputum culture, MRSA Fluid culture from 08/23/2017 pending at this time Cardiothoracic surgery consult pending at this time Heme: Monitor CBC. Endo: SSI with Accu-Cheks for glycemic contro GI prophylaxis with Pepcid and DVT prophylaxis with SCDs/heparin Sq Palliative care consulted per 's request CCT 35 Patient is critically ill with ongoing sepsis, respiratory failure and MRSA pneumonia associated pleural effusion concerning for empyema. Cardiothoracic surgery consulted continue medical management with antibiotics and pigtail chest tube drainage. Given his age, underlying COPD and comorbidities overall prognosis is guarded Jeyson Hancock MD Aug 24, 2017 08:11
[2017-08-24 08:14] LABS: ALBUMIN 1.4 GM/DL (3.4-5.0); AST (GOT) 24 U/L (15-37); BICARBONATE 23.4 MEQ/L (21.0-32.0); BLOOD UREA NITROGEN 35 MG/DL (7-18); CHLORIDE 120 MEQ/L (98-107); CREATININE 1.31 MG/DL (0.60-1.30); GLOMERULAR FILTRATION RATE 53 ML/MIN (>89); GLUCOSE,RANDOM 82 MG/DL (74-106); SODIUM (NA) 152 MEQ/L (136-145)
[2017-08-24 08:35] LABS: ALKALINE PHOSPHATASE 79 U/L (45-117); ALT (GPT) 31 U/L (12-78); TOTAL BILIRUBIN ADULT 0.3 MG/DL (0.2-1.0); TOTAL PROTEIN 4.9 GM/DL (6.4-8.2)
[2017-08-24] MEDS: FINASTERIDE 5 MG TAB PO SCH (09:00)
[2017-08-24] MEDS: DOCUSATE SODIUM 50 MG/SENNA 8.6 MG TAB PO SCH ×2 (09:17→22:23)
[2017-08-24] MEDS: TAMSULOSIN HCL 0.4 MG CAP PO SCH (09:18)
[2017-08-24] MEDS: FAMOTIDINE 20 MG/2 ML VIAL IV PUSH SCH ×2 (09:18→22:24)
[2017-08-24] MEDS: HEPARIN SODIUM - SQ 10,000 UNITS/ML VIAL SQ SCH ×2 (09:18→22:23)
[2017-08-24] MEDS: HYDROCORTISONE SOD SUCCINATE 100 MG VIAL IV PUSH SCH ×2 (09:18→22:24)
[2017-08-24] MEDS: SENNOSIDES SYRUP 8.8 MG/5 ML CUP PO SCH (09:19)
--- NOTE | 2017-08-24 11:04 | HHI.IDPN ---
Subjective Subjective Remarks is a 76 y/o CM with PMHx of multiple comorbidities, such as HTN, hyperlipidemia, BPH, anemia of chronic disease, CAD with EF 55-60%, peripheral vascular disease, COPD on 2.5 L home oxygen, who presented to [facility] ED by EMS for respiratory distress and altered mental status requiring intubation in the field. In addition, patient was found to be hypotensive and hypoxic.Patient received 3 L IVF by [facility] and ED. Patient needed to be on Vasopressors for a while. His WBC was 23.7 on admission, mild elevation in lactic acid to 2.3. Chest x-ray showed right basilar infiltrate concerning for pneumonia. ABG post intubation showed a pH of 7.39, CO2 of 44, PaO2 of 332, bicarb of 44, saturation 98%. In the ED, he was given cefepime, vancomycin. He was recently discharged from [facility] after he was admitted back on 08/04 for CHF, respiratory failure and acute right-sided stroke. Blood cultures drawn on admission positive for MRSA. ID consulted for evaluation and Mment of Septic Shock and MRSA bacteremia. Overnight events reviewed Right-sided pleural effusion was tapped, pigtail catheter in place Pleural fluid studies sent No rash No diarrhea No fever not on any pressors Remains intubated Antibiotics Aztreonam IV Vancomycin IV Lines Line sites with no evidence of infection. Past Medical History Past Medical History COPD, on 2.5 L oxygen continuously, coronary artery disease, peripheral vascular disease, hypertension, hyperlipidemia, BPH, anemia, dementia. Past Surgical History Previous cataract surgery. 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 Vital Signs Date Time Temp Pulse Resp B/P (MAP) Pulse Ox O2 Delivery O2 Flow Rate FiO2 08/24/17 09:23 94 45 08/24/17 09:23 45 08/24/17 08:00 88 08/24/17 07:53 93 45 08/24/17 06:00 69 08/24/17 04:00 98.7 83 16 132/60 (84) 96 08/24/17 04:00 83 08/24/17 04:00 45 08/24/17 03:51 94 45 08/24/17 02:00 71 08/24/17 01:30 94 50 08/24/17 01:00 78 143/66 08/24/17 00:27 95 40 08/24/17 00:00 98.5 92 13 148/70 (96) 92 08/24/17 00:00 92 08/24/17 00:00 40 08/23/17 22:00 74 08/23/17 20:25 97 40 08/23/17 20:00 90 08/23/17 20:00 45 08/23/17 20:00 98.3 90 17 140/65 (90) 92 08/23/17 18:00 89 08/23/17 16:00 40 08/23/17 16:00 95 08/23/17 16:00 98.9 95 16 122/58 (79) 92 08/23/17 15:59 92 40 08/23/17 14:00 84 08/23/17 12:00 89 08/23/17 12:00 40 08/23/17 12:00 98.6 89 16 107/57 (74) 93 08/23/17 11:42 92 40 . Laboratory Tests Test 08/23/17 08:00 08/24/17 07:32 White Blood Count 22.4 TH/MM3 16.6 TH/MM3 Red Blood Count 3.86 MIL/MM3 3.53 MIL/MM3 Hemoglobin 10.6 GM/DL 9.6 GM/DL Hematocrit 32.6 % 30.0 % Mean Corpuscular Volume 84.5 FL 84.8 FL Mean Corpuscular Hemoglobin 27.4 PG 27.1 PG Mean Corpuscular Hemoglobin Concent 32.5 % 32.0 % Red Cell Distribution Width 16.4 % 16.7 % Platelet Count 174 TH/MM3 143 TH/MM3 Mean Platelet Volume 7.4 FL 7.3 FL Neutrophils (%) (Auto) 94.9 % 93.9 % Lymphocytes (%) (Auto) 1.9 % 2.5 % Monocytes (%) (Auto) 3.1 % 3.1 % Eosinophils (%) (Auto) 0.0 % 0.2 % Basophils (%) (Auto) 0.1 % 0.3 % Neutrophils # (Auto) 21.2 TH/MM3 15.5 TH/MM3 Lymphocytes # (Auto) 0.4 TH/MM3 0.4 TH/MM3 Monocytes # (Auto) 0.7 TH/MM3 0.5 TH/MM3 Eosinophils # (Auto) 0.0 TH/MM3 0.0 TH/MM3 Basophils # (Auto) 0.0 TH/MM3 0.1 TH/MM3 CBC Comment DIFF FINAL DIFF FINAL Differential Comment Laboratory Tests Test 08/23/17 08:00 08/24/17 03:30 08/24/17 07:32 Blood Urea Nitrogen 29 MG/DL 35 MG/DL Creatinine 1.12 MG/DL 1.26 MG/DL 1.31 MG/DL Random Glucose 115 MG/DL 82 MG/DL Calcium Level 8.0 MG/DL 8.0 MG/DL Sodium Level 148 MEQ/L 152 MEQ/L Potassium Level 4.5 MEQ/L 4.6 MEQ/L Chloride Level 115 MEQ/L 120 MEQ/L Carbon Dioxide Level 24.3 MEQ/L 23.4 MEQ/L Anion Gap 9 MEQ/L 9 MEQ/L Estimat Glomerular Filtration Rate 63 ML/MIN 55 ML/MIN 53 ML/MIN Total Protein 4.9 GM/DL Albumin 1.4 GM/DL Alkaline Phosphatase 79 U/L Aspartate Amino Transf (AST/SGOT) 24 U/L Alanine Aminotransferase (ALT/SGPT) 31 U/L Total Bilirubin 0.3 MG/DL Microbiology Date/Time Source Procedure Growth Status 08/22/17 11:07 Blood Peripheral Aerobic Blood Culture - Preliminary NO GROWTH IN 1 DAY Resulted 08/22/17 11:07 Blood Peripheral Anaerobic Blood Culture - Final QNS - SEE AEROBE REPORT Resulted 08/22/17 10:30 Blood Peripheral Aerobic Blood Culture - Preliminary NO GROWTH IN 1 DAY Resulted 08/22/17 10:30 Blood Peripheral Anaerobic Blood Culture - Preliminary NO GROWTH IN 1 DAY Resulted 08/21/17 13:10 Blood Peripheral Aerobic Blood Culture - Preliminary NO GROWTH IN 2 DAYS Resulted 08/21/17 13:10 Anaerobic Blood Culture - Final S. Aureus Mrsa Resulted 08/21/17 13:05 Blood Peripheral Aerobic Blood Culture - Preliminary NO GROWTH IN 2 DAYS Resulted 08/21/17 13:05 Blood Peripheral Anaerobic Blood Culture - Preliminary NO GROWTH IN 2 DAYS Resulted 08/23/17 09:30 Fluid Pleural Fluid Fungal Smear - Final NO FUNGAL ELEMENTS SEEN. Resulted 08/23/17 09:30 Fluid Pleural Fluid Fungal Culture Pending Resulted 08/23/17 09:30 Fluid Pleural Fluid Acid Fast Stain Pending Received 08/23/17 09:30 Fluid Pleural Fluid Mycobacterial Culture Pending Received 08/23/17 09:30 Fluid Pleural Fluid Gram Stain - Final Resulted 08/23/17 09:30 Fluid Pleural Fluid Body Fluid Culture Pending Resulted 08/22/17 14:55 Sputum Endotracheal Gram Stain - Final Complete 08/22/17 14:55 Sputum Culture - Final S. Aureus Mrsa Complete 08/21/17 13:05 Nasal Aspirate Influenza Types A,B Antigen (VALERIANO) - Final NEGATIVE FOR FLU A AND B ANTIGEN.... Complete 08/21/17 14:25 Urine Clean Catch Urine Culture - Final NO GROWTH IN 48 HOURS. Complete 08/21/17 14:25 Urine Catheterized Urine Legionella Antigen - Final PRESUMPTIVE NEGATIVE FOR LEGIONELLA P... Complete 08/21/17 14:25 Urine Catheterized Urine Streptococcus pneumoniae Antigen (M - Final PRESUMPTIVE NEGATIVE FOR STREPTOCOCCU... Complete Imaging Last Impressions Chest X-Ray 08/23/17 0600 Signed Impressions: Service Date/Time: Wednesday, August 23, 2017 04:09 - CONCLUSION: Enlarging right effusion and right lung consolidation. New left basilar consolidation. Chris Zuñiga Jr., MD Consultation 08/22/17 0000 Signed Impressions: Service Date/Time: Tuesday, August 22, 2017 00:00 - CONCLUSION: Volume of the right pleural effusion is not amenable to safe thoracentesis at this time. Marvin Presley MD Chest Ultrasound 08/22/17 0000 Signed Impressions: Service Date/Time: Tuesday, August 22, 2017 12:08 - CONCLUSION: Small left pleural effusion. No marking performed. Mj Sanchez MD Head CT 08/21/17 1357 Signed Impressions: Service Date/Time: Monday, August 21, 2017 16:05 - CONCLUSION: 1. No acute intracranial abnormality. Stable exam compared to previous dated 08/06/17. Jonathon Jenkins MD CT Angiography 08/21/17 1357 Signed Impressions: Service Date/Time: Monday, August 21, 2017 16:16 - CONCLUSION: 1. No evidence for pulmonary embolism. 2. Atherosclerosis. 3. Bilateral pleural effusions are identified right greater than left and patchy pulmonary consolidation is seen. Khanh Nina MD Abdomen/Pelvis CT 08/21/17 1357 Signed Impressions: Service Date/Time: Monday, August 21, 2017 16:16 - CONCLUSION: 1. Moderate amount of stool noted with a stool ball in the rectum. 2. Bilateral pleural effusions and consolidation greatest in the right lower lobe. 3. Diverticulosis without diverticulitis. 4. Atherosclerosis. 5. Bilateral L5 pars defects. 6. Inguinal hernias. Khanh Nina MD Brain MRI 08/21/17 0000 Signed Impressions: Service Date/Time: Monday, August 21, 2017 22:20 - CONCLUSION: 1. No acute intracranial abnormality. 2. Atrophy and chronic small vessel ischemic change. Chris Zuñiga Jr., MD Physical Exam GENERAL: This is a well-nourished, well-developed patient, in no apparent distress. SKIN: No rashes, ecchymoses or lesions. Cool and dry. HEAD: Atraumatic. Normocephalic. No temporal or scalp tenderness. EYES: Pupils equal round and reactive. Extraocular motions intact. No scleral icterus. No injection or drainage. ENT: Intubated NECK: Trachea midline. Supple, nontender, no meningeal signs. CARDIOVASCULAR: HS audible. RESPIRATORY: Clear to auscultation. Breath sounds equal bilaterally. No wheezes , rales, or rhonchi. GASTROINTESTINAL: Abdomen soft, non-tender, nondistended. MUSCULOSKELETAL: Extremities without clubbing, cyanosis. Noted Pedal edema. No joint tenderness, effusion, or edema noted. No calf tenderness. Negative Homans sign bilaterally. NEUROLOGICAL: Awake and opens eyes spontaneously. Gags at tube. Follows simple commands. Psych anxious IV line sites with no e.o infection Assessment & Plan Remarks Severe Sepsis (with Septic Shock on admission), now off pressors. Pneumonia present on admission.? HCAP vs Aspiration or both. MRSA pneumonia ? source of bacteremia. Possible MRSA related empyema. MRSA bacteremia Right side pleural effusion Recent stroke. Acute respiratory failure on vent Recs: Continue Aztreonam IV Continue Vanco IV (target 15-20) Follow cultures to adjust antibiotics follow pleural fluid cultures Follow clinically. dw RN and I will be OOT from 08/25/2017 to 09/03/2017 other ID MDs covering for me. [place] Pritchett MD Aug 24, 2017 11:04
--- NOTE | 2017-08-24 12:00 | HHI.HCPN ---
Reason for visit a. To assist with evaluation and management of symptoms including: Shortness of breath, anxiety/agitation, debility. b. To assist medical decision maker(s) with: better understanding of current medical conditions; weighing benefits/burdens of medical treatment options; making medical treatment decisions. . Subjective/Interval History Pt seen to follow up on comfort, goals. Remains on mechanical vent, CPAP trial and process today. Remains on low-dose sedation for agitation. Fentanyl 50 mics an hour. BUN and creatinine slightly increasing 35/1.31. WBC downtrending 16.6. Afebrile. CT surgery consulted, recommendations pending at time of my exam this morning. CXR= 1 Stable right inferior chest tube with stable residual small right pleural effusion and associated right lower lung zone airspace disease. 2. Improved trace left pleural effusion and left lower lung zone airspace disease. 3. No significant pneumothorax . Right chest tube continues to have moderate output. Patient seen in room at bedside. Updated on current condition, assessment , recent diagnostics. She is tearful at times. She indicates that a few weeks ago he had been doing fine and that he has had significant decline during and since his most recent hospitalization. Gently explore CODE STATUS; she indicates this was brought up with her before and that at that time she wasn't ready to talk about it. Supportive listening provided gently explore that though it is a difficult conversation may warrant further exploration. Review that in patient current condition and w/ multiple medical comorbidities cardiac events requiring resuscitation would significantly worsen overall prognosis and any possibility the patient could return to prior level of function and status. She will consider over the coming days. She verbalizes that she does not want him to suffer or be kept alive artificially if he's "not really living ", however she is not ready to make any decisions are small. For now goals are aggressive she remains hopeful that he may improve and recover to baseline status before most recent hospitalization. She is open to ongoing conversations as clinical course evolves. Family/friend interactions 1600-- call back from pt nurse, at bedside requesting palliative visit. Met w pt , w palliative KEN Zuñiga MSW at bedside. She is tearful. She indicates she has been thinking about code status, and his conditions. She tells me she is not sure he will ever get well enough to get to rehab and then back home. She requests NO cardiac resuscitation--but wants all other aggressive tx available to continue to help him SHORT of cardiac resuscitation. She is open to ongoing discussions as condition evolves. . Advance Directives Living Will: Never completed Health Care Surrogate: Never completed Durable Power of Nurse Transition: Never completed Advance Directive Specifics Health Care Surrogate(s): No advance directives completed. As per [place] statute, healthcare proxy decision making falls to patient's Leatha Butts. . Objective Vital Signs Date Time Temp Pulse Resp B/P (MAP) Pulse Ox O2 Delivery O2 Flow Rate FiO2 08/24/17 09:23 94 45 08/24/17 09:23 45 08/24/17 08:00 88 08/24/17 07:53 93 45 08/24/17 06:00 69 08/24/17 04:00 98.7 83 16 132/60 (84) 96 08/24/17 04:00 83 08/24/17 04:00 45 08/24/17 03:51 94 45 08/24/17 02:00 71 08/24/17 01:30 94 50 08/24/17 01:00 78 143/66 08/24/17 00:27 95 40 08/24/17 00:00 98.5 92 13 148/70 (96) 92 08/24/17 00:00 92 08/24/17 00:00 40 08/23/17 22:00 74 08/23/17 20:25 97 40 08/23/17 20:00 90 08/23/17 20:00 45 08/23/17 20:00 98.3 90 17 140/65 (90) 92 08/23/17 18:00 89 08/23/17 16:00 40 08/23/17 16:00 95 08/23/17 16:00 98.9 95 16 122/58 (79) 92 08/23/17 15:59 92 40 08/23/17 14:00 84 08/23/17 12:00 89 08/23/17 12:00 40 08/23/17 12:00 98.6 89 16 107/57 (74) 93 Intake & Output 08/24/17 08/24/17 07:00 19:00 Output Total 675 ml Balance -675 ml Output Urine Total 675 ml Chest Tube Drainage Total 0 ml # Bowel Movements 0 Physical Exam CONSTITUTIONAL/GENERAL: This is an adequately nourished patient, restlessness at times, on mechanical vent TUBES/LINES/DRAINS: ETT, OG, Fang catheter, bilateral soft wrist restraints, PIV's. SKIN: No jaundice, rashes, or lesions. Ecchymoses on upper extremities. No wounds seen anteriorly. Skin warm dry, generalized edema.+ Serous weeping from right upper extremity NECK: Trachea midline. Supple, nontender. CARDIOVASCULAR: irregular rate and rhythm without murmurs. Peripheral pulses symmetric. Pitting edema to all 4 extremities. RESPIRATORY/CHEST: Symmetric, unlabored respirations via ETT to mechanical vent. On CPAP. Faint Scattered rhonchi . Right lateral chest tube to Pleur- evac drainage mod amount serosanguineous fluid GASTROINTESTINAL: Abdomen soft, large, round. No guarding. Bowel sounds present. GENITOURINARY: Without palpable bladder distension. Fang catheter in place. MUSCULOSKELETAL: Extremities without clubbing, cyanosis. No mottling or clubbing. Pitting edema to all 4 extremities. NEUROLOGICAL: Sedated on mechanical vent. somewhat responsive to exam. Eyes open spontaneously does not consistently track examiner. Seems to look towards his when she speaks. Does not follow commands. Localizes to touch and moves all 4 extremities. PSYCHIATRIC: Limited assessment secondary clinical condition --restless/anxious at times . Diagnostic Tests Laboratory Laboratory Tests Test 08/21/17 13:05 08/21/17 13:10 08/21/17 14:25 08/21/17 15:29 White Blood Count 23.7 TH/MM3 (4.0-11.0) Red Blood Count 2.74 MIL/MM3 (4.50-5.90) Hemoglobin 7.4 GM/DL (13.0-17.0) Hematocrit 22.6 % (39.0-51.0) Mean Corpuscular Volume 82.2 FL (80.0-100.0) Mean Corpuscular Hemoglobin 27.0 PG (27.0-34.0) Mean Corpuscular Hemoglobin Concent 32.8 % (32.0-36.0) Red Cell Distribution Width 16.2 % (11.6-17.2) Platelet Count 163 TH/MM3 (150-450) Mean Platelet Volume 7.4 FL (7.0-11.0) Neutrophils (%) (Auto) 95.5 % (16.0-70.0) Lymphocytes (%) (Auto) 1.2 % (9.0-44.0) Monocytes (%) (Auto) 3.2 % (0.0-8.0) Eosinophils (%) (Auto) 0.0 % (0.0-4.0) Basophils (%) (Auto) 0.1 % (0.0-2.0) Neutrophils # (Auto) 22.6 TH/MM3 (1.8-7.7) Lymphocytes # (Auto) 0.3 TH/MM3 (1.0-4.8) Monocytes # (Auto) 0.8 TH/MM3 (0-0.9) Eosinophils # (Auto) 0.0 TH/MM3 (0-0.4) Basophils # (Auto) 0.0 TH/MM3 (0-0.2) CBC Comment DIFF FINAL Differential Comment Prothrombin Time 11.4 SEC (9.8-11.6) Prothromb Time International Ratio 1.1 RATIO Activated Partial Thromboplast Time 22.8 SEC (24.3-30.1) Blood Urea Nitrogen 25 MG/DL (7-18) Creatinine 1.18 MG/DL (0.60-1.30) Random Glucose 142 MG/DL (74-106) Total Protein 4.1 GM/DL (6.4-8.2) Albumin 1.7 GM/DL (3.4-5.0) Calcium Level 7.8 MG/DL (8.5-10.1) Magnesium Level 1.9 MG/DL (1.5-2.5) Alkaline Phosphatase 69 U/L (45-117) Aspartate Amino Transf (AST/SGOT) 17 U/L (15-37) Alanine Aminotransferase (ALT/SGPT) 43 U/L (12-78) Total Bilirubin 0.4 MG/DL (0.2-1.0) Sodium Level 147 MEQ/L (136-145) Potassium Level 4.6 MEQ/L (3.5-5.1) Chloride Level 114 MEQ/L (98-107) Carbon Dioxide Level 26.1 MEQ/L (21.0-32.0) Anion Gap 7 MEQ/L (5-15) Estimat Glomerular Filtration Rate 60 ML/MIN (>89) Total Creatine Kinase 45 U/L (39-308) Troponin I LESS THAN 0.02 NG/ML Lipase 48 U/L (73-393) Lactic Acid Level 2.3 mmol/L (0.4-2.0) Urine Color DARK-YELLOW (YELLW/STRAW) Urine Turbidity HAZY (CLEAR) Urine pH 5.5 (5.0-8.5) Urine Specific [place] 1.019 (1.002-1.035) Urine Protein 100 mg/dL (NEG-TRACE) Urine Glucose (UA) TRACE mg/dL (NEG) Urine Ketones NEG mg/dL (NEG) Urine Occult Blood TRACE (NEG) Urine Nitrite NEG (NEG) Urine Bilirubin NEG (NEG) Urine Urobilinogen LESS THAN 2.0 MG/DL (LESS Urine Leukocyte Esterase LARGE (NEG) Urine RBC /hpf (0-3) Urine WBC 8 /hpf (0-5) Urine Squamous Epithelial Cells <1 /hpf (0-5) Urine Amorphous Sediment RARE Urine Hyaline Casts 15 /lpf (RARE) Urine Granular Casts 7 /lpf (NONE) Urine Mucus FEW /lpf (OCC) Microscopic Urinalysis Comment CATH-CULTURE IND Urine Opiates Screen NEG (NEG) Urine Barbiturates Screen NEG (NEG) Urine Amphetamines Screen NEG (NEG) Urine Benzodiazepines Screen POS (NEG) Urine Cocaine Screen NEG (NEG) Urine Cannabinoids Screen NEG (NEG) Blood Gas Puncture Site RT RADIAL Blood Gas Patient Temperature 98.6 Blood Gas HCO3 26 mmol/L (22-26) Blood Gas Base Excess 1.5 mmol/L (-2-2) Blood Gas Oxygen Saturation 98 % (90-100) Arterial Blood pH 7.39 (7.380-7.420) Arterial Blood Partial Pressure CO2 44 mmHg (38-42) Arterial Blood Partial Pressure O2 332 mmHG (61-120) Arterial Blood Oxygen Content 11.6 Vol % (12.0-20.0) Arterial Blood Carboxyhemoglobin 1.2 % (0-4) Arterial Blood Methemoglobin 0.6 % (0-2) Blood Gas Hemoglobin 7.8 G/DL (12.0-16.0) Oxygen Delivery Device VENTILATOR Blood Gas Ventilator Setting 500/16/+5/1.0 Blood Gas Inspired Oxygen 100 % Test 08/21/17 16:45 08/21/17 17:15 08/22/17 05:50 08/23/17 08:00 Lactic Acid Level 1.1 mmol/L (0.4-2.0) B-Type Natriuretic Peptide 154 PG/ML (0-100) Nasal Screen MRSA (PCR) MRSA NOT DETECTED (NOT White Blood Count 26.0 TH/MM3 (4.0-11.0) 22.4 TH/MM3 (4.0-11.0) Red Blood Count 3.52 MIL/MM3 (4.50-5.90) 3.86 MIL/MM3 (4.50-5.90) Hemoglobin 9.9 GM/DL (13.0-17.0) 10.6 GM/DL (13.0-17.0) Hematocrit 29.3 % (39.0-51.0) 32.6 % (39.0-51.0) Mean Corpuscular Volume 83.3 FL (80.0-100.0) 84.5 FL (80.0-100.0) Mean Corpuscular Hemoglobin 28.1 PG (27.0-34.0) 27.4 PG (27.0-34.0) Mean Corpuscular Hemoglobin Concent 33.8 % (32.0-36.0) 32.5 % (32.0-36.0) Red Cell Distribution Width 16.1 % (11.6-17.2) 16.4 % (11.6-17.2) Platelet Count 160 TH/MM3 (150-450) 174 TH/MM3 (150-450) Mean Platelet Volume 7.7 FL (7.0-11.0) 7.4 FL (7.0-11.0) Neutrophils (%) (Auto) 96.0 % (16.0-70.0) 94.9 % (16.0-70.0) Lymphocytes (%) (Auto) 1.4 % (9.0-44.0) 1.9 % (9.0-44.0) Monocytes (%) (Auto) 2.6 % (0.0-8.0) 3.1 % (0.0-8.0) Eosinophils (%) (Auto) 0.0 % (0.0-4.0) 0.0 % (0.0-4.0) Basophils (%) (Auto) 0.0 % (0.0-2.0) 0.1 % (0.0-2.0) Neutrophils # (Auto) 24.9 TH/MM3 (1.8-7.7) 21.2 TH/MM3 (1.8-7.7) Lymphocytes # (Auto) 0.4 TH/MM3 (1.0-4.8) 0.4 TH/MM3 (1.0-4.8) Monocytes # (Auto) 0.7 TH/MM3 (0-0.9) 0.7 TH/MM3 (0-0.9) Eosinophils # (Auto) 0.0 TH/MM3 (0-0.4) 0.0 TH/MM3 (0-0.4) Basophils # (Auto) 0.0 TH/MM3 (0-0.2) 0.0 TH/MM3 (0-0.2) CBC Comment DIFF FINAL DIFF FINAL Differential Comment Blood Urea Nitrogen 27 MG/DL (7-18) 29 MG/DL (7-18) Creatinine 1.08 MG/DL (0.60-1.30) 1.12 MG/DL (0.60-1.30) Random Glucose 143 MG/DL (74-106) 115 MG/DL (74-106) Total Protein 4.7 GM/DL (6.4-8.2) Albumin 1.7 GM/DL (3.4-5.0) Calcium Level 7.3 MG/DL (8.5-10.1) 8.0 MG/DL (8.5-10.1) Phosphorus Level 4.2 MG/DL (2.5-4.9) Magnesium Level 2.1 MG/DL (1.5-2.5) Alkaline Phosphatase 82 U/L (45-117) Aspartate Amino Transf (AST/SGOT) 14 U/L (15-37) Alanine Aminotransferase (ALT/SGPT) 40 U/L (12-78) Total Bilirubin 0.6 MG/DL (0.2-1.0) Sodium Level 146 MEQ/L (136-145) 148 MEQ/L (136-145) Potassium Level 5.0 MEQ/L (3.5-5.1) 4.5 MEQ/L (3.5-5.1) Chloride Level 113 MEQ/L (98-107) 115 MEQ/L (98-107) Carbon Dioxide Level 25.2 MEQ/L (21.0-32.0) 24.3 MEQ/L (21.0-32.0) Anion Gap 8 MEQ/L (5-15) 9 MEQ/L (5-15) Estimat Glomerular Filtration Rate 66 ML/MIN (>89) 63 ML/MIN (>89) Protein Corrected Calcium 8.7 MG/DL (8.5-10.1) Test 08/23/17 09:30 08/24/17 03:30 08/24/17 07:32 Pleural Fluid pH 8.0 Pleural Fluid WBC 7088 /MM3 (0-10) Pleural Fluid RBC 73591 /MM3 (0-0) Pleural Fluid Neutrophils 98 % Pleural Fluid Monocytes 1 % Pleural Fluid Histiocytes 1 % Pleural Fluid Total Protein 1.7 GM/DL Pleural Fluid LDH 734 U/L Pleural Fluid Glucose 71 MG/DL Creatinine 1.26 MG/DL (0.60-1.30) 1.31 MG/DL (0.60-1.30) Estimat Glomerular Filtration Rate 55 ML/MIN (>89) 53 ML/MIN (>89) Vancomycin Level Trough 29.4 MCG/ML (5.0-10.0) White Blood Count 16.6 TH/MM3 (4.0-11.0) Red Blood Count 3.53 MIL/MM3 (4.50-5.90) Hemoglobin 9.6 GM/DL (13.0-17.0) Hematocrit 30.0 % (39.0-51.0) Mean Corpuscular Volume 84.8 FL (80.0-100.0) Mean Corpuscular Hemoglobin 27.1 PG (27.0-34.0) Mean Corpuscular Hemoglobin Concent 32.0 % (32.0-36.0) Red Cell Distribution Width 16.7 % (11.6-17.2) Platelet Count 143 TH/MM3 (150-450) Mean Platelet Volume 7.3 FL (7.0-11.0) Neutrophils (%) (Auto) 93.9 % (16.0-70.0) Lymphocytes (%) (Auto) 2.5 % (9.0-44.0) Monocytes (%) (Auto) 3.1 % (0.0-8.0) Eosinophils (%) (Auto) 0.2 % (0.0-4.0) Basophils (%) (Auto) 0.3 % (0.0-2.0) Neutrophils # (Auto) 15.5 TH/MM3 (1.8-7.7) Lymphocytes # (Auto) 0.4 TH/MM3 (1.0-4.8) Monocytes # (Auto) 0.5 TH/MM3 (0-0.9) Eosinophils # (Auto) 0.0 TH/MM3 (0-0.4) Basophils # (Auto) 0.1 TH/MM3 (0-0.2) CBC Comment DIFF FINAL Differential Comment Blood Urea Nitrogen 35 MG/DL (7-18) Random Glucose 82 MG/DL (74-106) Total Protein 4.9 GM/DL (6.4-8.2) Albumin 1.4 GM/DL (3.4-5.0) Calcium Level 8.0 MG/DL (8.5-10.1) Alkaline Phosphatase 79 U/L (45-117) Aspartate Amino Transf (AST/SGOT) 24 U/L (15-37) Alanine Aminotransferase (ALT/SGPT) 31 U/L (12-78) Total Bilirubin 0.3 MG/DL (0.2-1.0) Sodium Level 152 MEQ/L (136-145) Potassium Level 4.6 MEQ/L (3.5-5.1) Chloride Level 120 MEQ/L (98-107) Carbon Dioxide Level 23.4 MEQ/L (21.0-32.0) Anion Gap 9 MEQ/L (5-15) Result Diagram: 08/24/17 0732 08/24/17 0732 Microbiology Microbiology Date/Time Source Procedure Growth Status 08/22/17 11:07 Blood Peripheral Aerobic Blood Culture - Preliminary NO GROWTH IN 2 DAYS Resulted 08/22/17 11:07 Blood Peripheral Anaerobic Blood Culture - Final QNS - SEE AEROBE REPORT Resulted 08/22/17 10:30 Blood Peripheral Aerobic Blood Culture - Preliminary NO GROWTH IN 2 DAYS Resulted 08/22/17 10:30 Blood Peripheral Anaerobic Blood Culture - Preliminary NO GROWTH IN 2 DAYS Resulted 08/21/17 13:10 Blood Peripheral Aerobic Blood Culture - Preliminary NO GROWTH IN 3 DAYS Resulted 08/21/17 13:10 Anaerobic Blood Culture - Final S. Aureus Mrsa Resulted 08/21/17 13:05 Blood Peripheral Aerobic Blood Culture - Preliminary NO GROWTH IN 3 DAYS Resulted 08/21/17 13:05 Blood Peripheral Anaerobic Blood Culture - Preliminary NO GROWTH IN 3 DAYS Resulted 08/23/17 09:30 Fluid Pleural Fluid Fungal Smear - Final NO FUNGAL ELEMENTS SEEN. Resulted 08/23/17 09:30 Fluid Pleural Fluid Fungal Culture Pending Resulted 08/23/17 09:30 Fluid Pleural Fluid Acid Fast Stain Pending Received 08/23/17 09:30 Fluid Pleural Fluid Mycobacterial Culture Pending Received 08/23/17 09:30 Fluid Pleural Fluid Gram Stain - Final Resulted 08/23/17 09:30 Fluid Pleural Fluid Body Fluid Culture Pending Resulted 08/22/17 14:55 Sputum Endotracheal Gram Stain - Final Complete 08/22/17 14:55 Sputum Culture - Final S. Aureus Mrsa Complete 08/21/17 13:05 Nasal Aspirate Influenza Types A,B Antigen (VALERIANO) - Final NEGATIVE FOR FLU A AND B ANTIGEN.... Complete 08/21/17 14:25 Urine Clean Catch Urine Culture - Final NO GROWTH IN 48 HOURS. Complete 08/21/17 14:25 Urine Catheterized Urine Legionella Antigen - Final PRESUMPTIVE NEGATIVE FOR LEGIONELLA P... Complete 08/21/17 14:25 Urine Catheterized Urine Streptococcus pneumoniae Antigen (M - Final PRESUMPTIVE NEGATIVE FOR STREPTOCOCCU... Complete Imaging Last Impressions Chest X-Ray 08/24/17 0000 Signed Impressions: Service Date/Time: August 07:35 - CONCLUSION: 1. Stable right inferior chest tube with stable residual small right pleural effusion and associated right lower lung zone airspace disease. 2. Improved trace left pleural effusion and left lower lung zone airspace disease. 3. No significant pneumothorax. Julian Vernon MD Consultation 08/22/17 0000 Signed Impressions: Service Date/Time: Tuesday, August 22, 2017 00:00 - CONCLUSION: Volume of the right pleural effusion is not amenable to safe thoracentesis at this time. Marvin Presley MD Chest Ultrasound 08/22/17 0000 Signed Impressions: Service Date/Time: Tuesday, August 22, 2017 12:08 - CONCLUSION: Small left pleural effusion. No marking performed. Mj Sanchez MD Head CT 08/21/17 2103 Signed Impressions: Service Date/Time: Monday, August 21, 2017 16:05 - CONCLUSION: 1. No acute intracranial abnormality. Stable exam compared to previous dated 08/06/17. Jonathon Jenkins MD CT Angiography 3/12/18 1357 Signed Impressions: Service Date/Time: Monday, August 21, 2017 16:16 - CONCLUSION: 1. No evidence for pulmonary embolism. 2. Atherosclerosis. 3. Bilateral pleural effusions are identified right greater than left and patchy pulmonary consolidation is seen. Khanh Nina MD Abdomen/Pelvis CT 08/21/17 1357 Signed Impressions: Service Date/Time: Monday, August 21, 2017 16:16 - CONCLUSION: 1. Moderate amount of stool noted with a stool ball in the rectum. 2. Bilateral pleural effusions and consolidation greatest in the right lower lobe. 3. Diverticulosis without diverticulitis. 4. Atherosclerosis. 5. Bilateral L5 pars defects. 6. Inguinal hernias. Khanh Nina MD Brain MRI 08/21/17 0000 Signed Impressions: Service Date/Time: Monday, August 21, 2017 22:20 - CONCLUSION: 1. No acute intracranial abnormality. 2. Atrophy and chronic small vessel ischemic change. Chris Zuñiga Jr., MD Procedures * 08/21/17 -endotracheal intubation * 08/23/17 chest tube placed . Assessment and Plan Disease Oriented Problem List: (1) Respiratory failure (2) Sepsis (3) PNA (pneumonia) (4) COPD with exacerbation (5) Dementia Symptom Scale: (1) Shortness of breath 0-10 Scale: Unable to quantify (2) Anxiety 0-10 Scale: 10 (3) Debility 0-10 Scale: Unable to quantify Pertinent Non-Medical Issues Psychosocial: Patient born and raised in [place]. Lived in [place] for a few years. for the past 60 years, they have 3 children together. Patient is a [employer] . Spiritual: No taoist affiliation. Legal: No advance directives completed. Ethical issues impacting care: No ethical issues identified. . Important Contacts Leatha Butts , . . Prognosis Mr. Butts it is a 76-year-old male with a medical history significant for dementia, CHF, COPD, CAD, PVD, hypertension, hyperlipidemia, BPH. Patient with recurrent infections and recent acute hospitalizations. Admitted for respiratory failure, sepsis, pneumonia requiring intubation and mechanical ventilation. Patient with progressive clinical decline. Overall prognosis is guarded, patient high risk for further complications, continued decline and . . Code Status: Alternative Code Plan * CODE STATUS: Full code. 1600-- changed to ALT CODE- intubation only per request. NO CARDIAC resuscitation. * HEALTHCARE DECISION-MAKING: Patient unable to participate in medical decision making secondary to clinical condition, baseline dementia. No advance directives completed. As per [place] statue, healthcare proxy decision making falls to patient's Leatha Butts. has accepted this role and is fully supported by all of their 3 children. * GOALS OF CARE: Goals remain aggressive at this time, cont available aggressive tx, hopes the patient can improve, she is open to ongoing conversations as clinical course evolves. will consider CODE STATUS in the coming days. * SYMPTOMS: = Dyspnea, secondary to respiratory failure, pneumonia, CHF. Currently endotracheally intubated on mechanical ventilation. Initially tolerating CPAP trials with plans for possible medical extubation; however yesterday patient with worsening CXR and significant effusion requiring chest tube placement and drainage. CPAP trials again today, tolerating w low dose fentanyl for agitation. = Anxiety/agitation: Exacerbated by dyspnea. Patient with dementia baseline with behavioral disturbances. Home regimen of Seroquel 100 mg twice daily. some episodes of restlessness, currently on fentanyl 50mcgs/ hr for. = Debility: Acute on chronic. Progressive since June secondary to acute illness and recurrent infections. PT recommended PT at rehab during recent prior hospitalization, patient's inquiring regarding acute rehab. * Palliative care contact information has been provided to family. * Palliative care will continue to follow up for further clarification of goals of care as patient's clinical course continues to evolve. . Attestation To help prompt me to consider important information that might be impacting today's encounter and assessment, information from prior notes written by myself or my colleagues may have been "brought forward" into today's note. My signature on this note, however, is an attestation that I personally performed the exam, history, and/or decision-making noted today, and, unless otherwise indicated, the interactions with patient, family, and staff as well as the review of records all occurred today. I also attest that the listed assessment and stated plan reflect my best clinical judgment today based on the combination of historical information, prior notes, and today's exam/ interactions. When time spent is documented, it refers only to time spent today by the signer, or if indicated, combined time spent today by collaborating physician/nurse practitioner. Cristy Wolf Aug 24, 2017 12:00
--- NOTE | 2017-08-24 17:02 | MB ---
cc: Fifi Gambino DATE OF CONSULT: 08/24/2017 HISTORY OF PRESENT ILLNESS: A 76-year-old male admitted on the for respiratory distress, brought in by EMS, altered mental status, requiring intubation in the field. He is chronically on home O2 at 2.5 liters with his history of COPD. He was also found to be hypotensive and hypoxic. He received some IV fluids by EV[facility]. Also, in the Emergency Department, he was started on vasopressin. He was found to have sepsis with septic shock. WBC count was 23,000 on admission with a lactic acid of 2.3. Chest x-ray showed a right basilar infiltrate concerning for pneumonia. He was given prophylactic antibiotics. He was admitted to the Intensive Care Unit also for an acute right-sided stroke. His MRI of the brain showed some atrophy, chronic small vessel ischemic changes. He was also recently discharged from the hospital after he was admitted back on 08/04 for CHF, respiratory failure and acute right-sided stroke. We were consulted due to concern after patient had a CT chest. There was concern for possible empyema. He has since had a chest tube placed, a 10-Macedonian, on the right for a complicated effusion versus empyema. The pleural fluid has now grown Staph aureus MRSA. His sputum was found to have Staph aureus MRSA. Also, blood cultures on the showed positive Staph aureus MRSA and we were consulted for empyema. Fluid studies also showed white cell count of 7000 in the fluid; the glucose was 71, however. PAST MEDICAL HISTORY: COPD, chronically on 2.5 liters at home; coronary artery disease; peripheral vascular disease; hypertension; hyperlipidemia; anemia; benign prostatic hypertrophy; dementia. The patient's said the patient normally just has some short-term memory problem, but is fully functional. PAST SURGICAL HISTORY: Previous cataract surgery. ALLERGIES: INCLUDE HALDOL, LORAZEPAM, PENICILLIN G. MEDICATIONS: Include Aricept, Atrovent, Ventolin, Flomax, Plavix, Hydralazine, Toprol-XL, amlodipine, diltiazem, aspirin, gabapentin, Pulmicort, quetiapine, Proscar. FAMILY HISTORY: Noncontributory. SOCIAL HISTORY: The patient . No alcohol, no tobacco. Lives with his , has 2 children. REVIEW OF SYSTEMS: Unobtainable. PHYSICAL EXAMINATION: VITAL SIGNS: Blood pressure 130/60, heart rate of 88, afebrile. O2 saturation 94%, 45% FiO2. The patient is currently on CPAP mode. GENERAL: The patient is orally intubated, somewhat agitated. The is at the bedside. HEENT: Head is normocephalic, atraumatic. Pupils are equal, reactive. He is not following commands for me. He is very agitated, gags at the tube. NECK: Supple. Orally intubated. Trach midline. CARDIOVASCULAR: Heart sounds S1, S2. Regular rate and rhythm. LUNGS: Coarse bilateral breath sounds,the right worse than the left. He has a chest tube on the right to 40 cm suction. He has drained 1075 mL total in 24 hours. ABDOMEN: Soft, nontender. No masses, organomegaly. EXTREMITIES: No cyanosis. He does have some mild pedal edema. LABORATORY DATA: Shows hemoglobin 9.6, hematocrit of 30, white cell count of 16, platelet count of 143,000. Sodium 152, potassium 4.6, BUN of 35, creatinine 1.31, albumin 1.4. INR of 1.1. Urinalysis on the showed large leukocyte esterase. His chest x-ray this morning shows stable right inferior chest tube, small right effusion associated with right lower lung zone disease, improved left effusion, no pneumothorax. ASSESSMENT AND PLAN: This is a 76-year-old male who we were consulted for right effusion complex versus empyema. His pleural fluid did show methicillin-resistant Staphylococcus aureus positive. The patient is also being followed by Palliative Care. The patient is very high risk for any surgical procedures due to his chronic severe chronic obstructive pulmonary disease, recent respiratory failure; however, he still remains FULL CODE today. The patient is currently very agitated. Request per Dr. Burr is for repeat CT chest and if he has no residual fluid or peel on the CT, he is not recommended for surgery secondary to his multiple comorbidities and his high acuity level with multiple risk factors. MERARI Herrera/Rashida , 03:29 PM , 04:18 PM
--- NOTE | 2017-08-24 18:17 | RADRPT ---
EXAM DATE/TIME: 08/24/2017 17:38 [facility] COMPARISON: No previous studies available for comparison. INDICATIONS : Right pleural effusion RADIATION DOSE: 9.6 CTDIvol (mGy) MEDICAL HISTORY : Hypertension. Cardiovascular disease Chronic obstructive pulmonary disease. SURGICAL HISTORY : Leg stents ENCOUNTER: Initial ACUITY: 1 day PAIN SCALE: 0/10 LOCATION: chest TECHNIQUE: Volumetric scanning of the chest was performed. Using automated exposure control and adjustment of t he mA and/or kV according to patient size, radiation dose was kept as low as reasonably achievable to obtain optimal diagnostic quality images. DICOM format image data is available electronically for r eview and comparison. Follow-up recommendations for detected pulmonary nodules are based at a minimum on nodule size and pa tient risk factors according to Fleischner Society Guidelines. FINDINGS: Comparison is August 21. Endotracheal tube is in good position. Since August 21 the left pleural effusi on has increased in size. Right pleural effusion has developed a loculated component superiorly and t he remainder is relatively stable in size. There is increasing consolidation in the right lung especially in the right right middle lobe. There is a small caliber right chest tube present. Moderate coronary calcifications. NG tip in the stomach. Mild anasarca. CONCLUSION: 1. Increase in size of left pleural effusion and dependent consolidation in the left lung since August 21. 2. Worsening consolidation in the right middle lobe and at the right lung base. Also increase in righ t apical consolidation with new loculated pleural effusion at the right lung apex. There is placement of a small caliber right chest tube, but drainage is probably limited due to increasing loculation o f right effusion. 3. Mild anasarca. 4. No significant pericardial effusion. Gallo Caal MD on August 24, 2017 at 18:10 Board Certified Radiologist. This report was verified electronically.
[2017-08-24] MEDS: PROPOFOL 1000 MG/100 ML INJ 100 ML IV PRN (20:33)
[2017-08-24] MEDS: DONEPEZIL HCL 5 MG TAB PO SCH (22:23)
[2017-08-25] VITALS (33 sets, daily range): BP systolic 96–151; BP diastolic 51–70; PULSE 56–106; RESP 4–21; TEMP 97.6–98.7; O2SAT 91–100
[2017-08-25] MEDS: AZTREONAM INJ 1,000 MG in SODIUM CHLORIDE 0.9% INJ 100 ML IV SCH ×2 (01:21→09:31)
[2017-08-25] MEDS: INSULIN NovoLIN REGULAR SUPPLEMENTAL SCALE SQ SCH ×4 (03:00→20:00)
[2017-08-25] MEDS: RESP: ALBUTEROL 2.5 MG/IPRATROPIUM 0.5 MG NEB (SCH) INH ×4 (03:36→19:34)
[2017-08-25] MEDS: CHLORHEXIDINE GLUCONATE 2 % 1 PACK (2 CLOTHS) TOP SCH (04:00)
[2017-08-25] MEDS: fentaNYL DRIP 250 ML IV PRN ×2 (04:20→20:01)
[2017-08-25] MEDS: PROPOFOL 1000 MG/100 ML INJ 100 ML IV PRN ×4 (04:21→23:42)
--- NOTE | 2017-08-25 05:12 | RADRPT ---
EXAM DATE/TIME: 08/25/2017 03:56 [facility] COMPARISON: CHEST SINGLE AP, August 24, 2017, 7:35. INDICATIONS : Evaluate for respiratory disease. MEDICAL HISTORY : Myocardial infarction. Hypercholesterolemia. Chronic obstructive pulmonary disease. SURGICAL HISTORY : None. ENCOUNTER: Subsequent ACUITY: 3 weeks PAIN SCORE: Non-responsive. LOCATION: chest FINDINGS: A single view of the chest demonstrates persistent bibasilar airspace disease with some interval wors ening, particularly on the right. Right-sided [place] loop thoracostomy tube in the right base is unchan ged. Endotracheal and nasogastric tubes are stable in position as well. Heart size is normal. Osseous structures are intact. CONCLUSION: 1. Worsening bilateral airspace disease/effusions particularly on the right. 2. Stable position of life support tubes including a right sided [place] loop thoracostomy tube projecti ng over the lower right hemithorax. Casey Márquez MD on August 25, 2017 at 5:09 Board Certified Radiologist. This report was verified electronically.
[2017-08-25] MEDS: [UNRECOGNIZED DRUG - REMARK] OG-TUBE SCH ×5 (06:00→23:42)
[2017-08-25 07:17] LABS: ALBUMIN 1.2 GM/DL (3.4-5.0); ALKALINE PHOSPHATASE 91 U/L (45-117); ALT (GPT) 32 U/L (12-78); BICARBONATE 21.5 MEQ/L (21.0-32.0); BLOOD UREA NITROGEN 36 MG/DL (7-18); CALCIUM 7.9 MG/DL (8.5-10.1); CHLORIDE 122 MEQ/L (98-107); CREATININE 1.18 MG/DL (0.60-1.30); GLOMERULAR FILTRATION RATE 60 ML/MIN (>89); GLUCOSE,RANDOM 134 MG/DL (74-106); SODIUM (NA) 151 MEQ/L (136-145); TOTAL BILIRUBIN ADULT 0.4 MG/DL (0.2-1.0); TOTAL PROTEIN 4.8 GM/DL (6.4-8.2)
[2017-08-25 07:18] LABS: AST (GOT) 55 U/L (15-37)
[2017-08-25] MEDS ORDERED: DEXTROSE 50% IN WATER 50 ML VIAL(D50) IV PUSH ONE (08:30)
[2017-08-25] MEDS ORDERED: CALCIUM GLUCONATE 10% 1 GM/10 ML VIAL SLOW IVP ONE (08:30)
[2017-08-25] MEDS ORDERED: SODIUM POLYSTYRENE SULFONATE SUSP 15 GM/60 ML CUP PO ONE (08:30)
[2017-08-25] MEDS ORDERED: SODIUM BICARBONATE 8.4% SOLN 50 MEQ/50 ML VIAL SLOW IVP ONE (08:30)
[2017-08-25] MEDS ORDERED: INSULIN HUMAN REGULAR 1,000 UNITS/10 ML VIAL IV PUSH ONE (08:45)
[2017-08-25] MEDS: FAMOTIDINE 20 MG/2 ML VIAL IV PUSH SCH ×2 (09:00→19:58)
[2017-08-25] MEDS: HYDROCORTISONE SOD SUCCINATE 100 MG VIAL IV PUSH SCH ×2 (09:29→19:58)
[2017-08-25] MEDS: HEPARIN SODIUM - SQ 10,000 UNITS/ML VIAL SQ SCH ×2 (09:30→19:59)
[2017-08-25] MEDS: DOCUSATE SODIUM 50 MG/SENNA 8.6 MG TAB PO SCH (09:31)
[2017-08-25] MEDS: SENNOSIDES SYRUP 8.8 MG/5 ML CUP PO SCH ×2 (09:31→19:59)
[2017-08-25] MEDS: TAMSULOSIN HCL 0.4 MG CAP PO SCH (09:31)
[2017-08-25] MEDS: FINASTERIDE 5 MG TAB PO SCH (09:31)
[2017-08-25] MEDS: DILTIAZEM HCL 60 MG TAB PO SCH ×2 (09:42→13:00)
--- NOTE | 2017-08-25 10:20 | HHI.CCPN ---
Subjective Remarks/Hospital Course Patient is a 76-year-old male with multiple comorbidities, which include hypertension, hyperlipidemia, BPH, anemia of chronic disease, coronary artery disease, peripheral vascular disease, COPD on 2.5 L home oxygen, who presented to [facility] ED by EMS for respiratory distress and altered mental status requiring intubation in the field. In addition, patient was hypotensive and hypoxic. He was given 2 L Iv fluids by EV[facility] and an additional 1 L in the ED. Patient was started on Levophed, which is currently at 6 mcg. His laboratory data is significant for leukocytosis with a WBC of 23.7 and a mild lactic acidosis with lactic acid level of 2.3. Chest x-ray showed right basilar infiltrate concerning for pneumonia and ET tube above the jonah. ABG post intubation showed a pH of 7.39, CO2 of 44, PaO2 of 332, bicarb of 44, saturation 98%. In the ED, he was given cefepime, vancomycin. Patient also noted to have pinpoint pupils and was given Narcan without any significant effect. He was recently discharged from [facility] after he was admitted back on 08/04 for CHF, respiratory failure and acute right-sided stroke. He is scheduled to undergo CT scan of the brain, chest, abdomen and pelvis, which were ordered by ED. On his last admission, he had an echocardiogram on 08/04, which showed an EF of 55-60%. 08/22 Patient is sedated with Fentanyl drip and intubated. Afebrile. Off Levophed. 08/23: Patient remains profoundly septic. Encephalopathic white count is 22.4 which is slightly improved. His pleural effusion has increased in size and concerning for parapneumonic effusion/developing empyema. His chest x-ray shows bilateral infiltrates which are worsening. MRSA pneumonia is a concern. I will proceed with pigtail chest tube placement on the right side and send fluid for further studies 08/24: Remains critically ill but stabilizing. WBC count trending down today at 16.6. Right pigtail chest tube was placed yesterday with 1.1 L cloudy yellow fluid output concerning for parapneumonic effusion/early empyema. Cardiothoracic surgery consulted for recommendation regarding decortication. Chest x-ray today shows no pneumothorax, right lung consolidation with mild effusion. Subjective 08/25: Afebrile. Currently arousable on the ventilator but extremely encephalopathic. Tolerating tube feeds at goal. No bowel movement since admission. Objective Vital Signs Date Time Temp Pulse Resp B/P (MAP) Pulse Ox O2 Delivery O2 Flow Rate FiO2 08/25/17 07:27 98 55 08/25/17 04:00 90 08/25/17 04:00 98.4 16 111/69 (83) 08/21/17 15:46 Ventilator Result Diagram: 08/24/17 0732 08/25/17 0610 Other Results Microbiology Date/Time Source Procedure Growth Status 08/22/17 11:07 Blood Peripheral Aerobic Blood Culture - Preliminary NO GROWTH IN 2 DAYS Resulted 08/22/17 11:07 Blood Peripheral Anaerobic Blood Culture - Final QNS - SEE AEROBE REPORT Resulted 08/23/17 09:30 Fluid Pleural Fluid Fungal Smear - Final NO FUNGAL ELEMENTS SEEN. Resulted 08/23/17 09:30 Fluid Pleural Fluid Fungal Culture Pending Resulted 08/22/17 14:55 Sputum Endotracheal Gram Stain - Final Complete 08/22/17 14:55 Sputum Culture - Final S. Aureus Mrsa Complete 08/21/17 14:25 Urine Clean Catch Urine Culture - Final NO GROWTH IN 48 HOURS. Complete Imaging Last Impressions Chest X-Ray 08/25/17 0600 Signed Impressions: Service Date/Time: Friday, August 25, 2017 03:56 - CONCLUSION: 1. Worsening bilateral airspace disease/effusions particularly on the right. 2. Stable position of life support tubes including a right sided [place] loop thoracostomy tube projecting over the lower right hemithorax. Casey Márquez MD Chest CT 08/24/17 0000 Signed Impressions: Service Date/Time: August 17:38 - CONCLUSION: 1. Increase in size of left pleural effusion and dependent consolidation in the left lung since August 21. 2. Worsening consolidation in the right middle lobe and at the right lung base. Also increase in right apical consolidation with new loculated pleural effusion at the right lung apex. There is placement of a small caliber right chest tube, but drainage is probably limited due to increasing loculation of right effusion. 3. Mild anasarca. 4. No significant pericardial effusion. Gallo Caal MD Consultation 08/22/17 0000 Signed Impressions: Service Date/Time: Tuesday, August 22, 2017 00:00 - CONCLUSION: Volume of the right pleural effusion is not amenable to safe thoracentesis at this time. Marvin Presley MD Chest Ultrasound 08/22/17 0000 Signed Impressions: Service Date/Time: Tuesday, August 22, 2017 12:08 - CONCLUSION: Small left pleural effusion. No marking performed. Mj Sanchez MD Head CT 08/21/17 1357 Signed Impressions: Service Date/Time: Monday, August 21, 2017 16:05 - CONCLUSION: 1. No acute intracranial abnormality. Stable exam compared to previous dated 08/06/17. Jonathon Jenkins MD CT Angiography 08/21/17 [id number] Signed Impressions: Service Date/Time: Monday, August 21, 2017 16:16 - CONCLUSION: 1. No evidence for pulmonary embolism. 2. Atherosclerosis. 3. Bilateral pleural effusions are identified right greater than left and patchy pulmonary consolidation is seen. Khanh Nina MD Abdomen/Pelvis CT 08/21/17 [id number] Signed Impressions: Service Date/Time: Monday, August 21, 2017 16:16 - CONCLUSION: 1. Moderate amount of stool noted with a stool ball in the rectum. 2. Bilateral pleural effusions and consolidation greatest in the right lower lobe. 3. Diverticulosis without diverticulitis. 4. Atherosclerosis. 5. Bilateral L5 pars defects. 6. Inguinal hernias. Khanh Nina MD Brain MRI 08/21/17 0000 Signed Impressions: Service Date/Time: Monday, August 21, 2017 22:20 - CONCLUSION: 1. No acute intracranial abnormality. 2. Atrophy and chronic small vessel ischemic change. Chris Zuñiga Jr., MD Objective Remarks GENERAL: Patient is 76 yo male currently resting in bed in mild distress secondary to agitation SKIN: Warm and dry. HEAD: Normocephalic. EYES: No scleral icterus. No injection or drainage. Pupils 2 mm NECK: Supple, trachea midline. No JVD or lymphadenopathy. CARDIOVASCULAR: Regular rate and rhythm without murmurs, gallops, or rubs. RESPIRATORY: Bilateral coarse breath sounds. Right pigtail chest tube with cloudy yellow drainage, at -40 cm H2O -200 cc with no air leak GASTROINTESTINAL: Abdomen soft, non-tender, nondistended. Hypoactive bowel sounds are appreciated MUSCULOSKELETAL: Trace bilateral upper and lower extremity edema. Neuro: Sedated, intubated. Wakes up on lightening sedation encephalopathic moves all 4 extremities no focal deficits Assessment to: Continue Fang insert reason: Prolonged Immobilization Vascular Central Line Catheter: No Assessment to: Continue A/P Assessment and Plan Neuro/Psych: Dementia disorder NOS Toxic metabolic encephalopathy secondary to MRSA sepsis History of CVA 2018 right occipital lobe UDS: + Benzos Bilateral pars L5 defect On propofol 25 mcg/kg/min and fentanyl drip at 100 mcg an hour for sedation. Monitor neuro status closely. CT and MRI brain : No acute process On donepezil 10 mg daily for dementia Holding gabapentin 100 mg twice daily for neuropathy Holding quetiapine 100 mg twice daily for dementia Acetaminophen 650 mg by tube every 6 hours as needed fever Pulm: Acute hypoxemic respiratory failure Right lower lobe pneumonia Right-sided parapneumonic effusion/early empyema COPD ACV // Ventilator bundle Albuterol/ipratropium aerosols every 6 hours with albuterol aerosols every 2 hours. Dyspnea hydrocortisone 50 mg IV q. 12. SBT daily as chi CT thorax: No evidence for PE, small to mod pleural effusions R>L and patchy pulmonary consolidation is seen. 08/23 s/p pigtail chest tube placement and fluid studies consistent with early empyema (WBC 7000 with 98% neutrophils, LDH 734) Consult Dr. Maloney/pulmonology CT thorax 08/24 revealed worsening left-sided pleural effusion with loculated right pleural effusion/worsening at the apex. CV: CAD HTN Severe sepsis Hyperlipidemia ASVD Monitor HR and BP MAP>65 mmHg. Taper Stress dose steroids. Holding ASA 81 mg daily and clopidogrel 75 mg daily for pigtail chest tube placement and possible surgical intervention 2D echo from 08/04 showed an EF of 55-60%. Currently on diltiazem 60 mg every 6 hours. Home medications include amlodipine 10 mg daily and metoprolol succinate 25 mg daily and hydralazine 50 mg every 8 hours. Renal/FEN/: Hypernatremia Hyperkalemia BPH Monitor renal function, I's and O's and electrolyte replacement per protocol. s/p 3L crystalloids total on admission, continue half-normal saline, and free water flushes added for Hyper Na Free water flushes 200 cc every 6 hours Continue finasteride 5 mg daily and tamsulosin 0.4 mg daily when able for BPH GI: Hypoalbuminemia Diverticulosis Currently on Jevity 1.5 at goal 60 cc an hour Famotidine 20 mg twice daily for GI prophylaxis Docusate sodium, senna, polyethylene glycol twice daily. Lactulose 30 cc 4 times daily until BM. At mineral oil from above and from below. Check KUB Methylnaltrexone 12 mg subcu 1 On Pepcid for GI prophylaxis. Start tube feeds with Jevity ID: MRSA empyema/bacteremia Continue abx (vancomycin, aztreonam ).ID Dr. Pritchett Nasal aspirate is negative influenza BC 08/21 06/15 bottles: MRSA, Sputum culture 08/22, MRSA Fluid culture from 08/23/2017 p MRSA Cardiothoracic surgery consult high risk for surgical intervention. Heme: Leukocytosis Normocytic anemia Thrombocytopenia Monitor CBC. No indication for transfusion of blood products at this time Endo: SSI with nonrevealing R with Accu-Cheks every 6 hours to maintain euglycemia/ low regimen 0 units sliding scale past 24 hours GI prophylaxis with famotidine and DVT prophylaxis with SCDs/heparin Sq Level 3 follow-up Oscar Louis MD Aug 25, 2017 10:20
--- NOTE | 2017-08-25 10:46 | HHI.IDPN ---
Subjective Subjective Remarks ID COVERAGE is a 76 y/o CM with PMHx of multiple comorbidities, such as HTN, hyperlipidemia, BPH, anemia of chronic disease, CAD with EF 55-60%, peripheral vascular disease, COPD on 2.5 L home oxygen, who presented to [facility] ED by EMS for respiratory distress and altered mental status requiring intubation in the field. In addition, patient was found to be hypotensive and hypoxic.Patient received 3 L IVF by EVAC and ED. Patient needed to be on Vasopressors for a while. His WBC was 23.7 on admission, mild elevation in lactic acid to 2.3. Chest x-ray showed right basilar infiltrate concerning for pneumonia. ABG post intubation showed a pH of 7.39, CO2 of 44, PaO2 of 332, bicarb of 44, saturation 98%. In the ED, he was given cefepime, vancomycin. He was recently discharged from [facility] after he was admitted back on 08/04 for CHF, respiratory failure and acute right-sided stroke. Blood cultures drawn on admission positive for MRSA. ID consulted for evaluation and Mment of Septic Shock and MRSA bacteremia. Notes reviewed Temps ok Has a lot of ET secretions, beige color CT R with serous fluid, with some sediment Repeat CT noted - increased L effusion; loculated on R Cultures reviewed Has one (+) BC with MRSA on admission Pleural fluid and sputum C/S with MRSA No rash No diarrhea No fever not on any pressors Remains intubated Antibiotics Aztreonam IV Vancomycin IV Current Medications Medications (Trade) Dose Ordered Sig/Veronica Route Start Time Stop Time Status Last Admin Norepinephrine Bitartrate 250 ml @ 7.5 mls/hr TITRATE PRN IV 08/21/17 14:00 08/21/17 13:42 (Pepcid Inj) 20 mg Q12HR IV PUSH 08/21/17 14:15 08/25/17 09:00 Miscellaneous Information 1 Q361D XX 08/21/17 14:15 (Chlorhexidine 2% Cloth) 3 pack Taper DAILY@04 TOP 08/22/17 04:00 08/18/18 03:59 08/25/17 04:00 (Chlorhexidine 2% Cloth) 3 pack UNSCH PRN TOP 08/21/17 14:15 (Milk Of Magnesia Liq) 30 ml Q12H PRN PO 08/21/17 14:15 (Senokot) 17.2 mg Q12H PRN PO 08/21/17 14:15 (Dulcolax Supp) 10 mg DAILY PRN RECTAL 08/21/17 14:15 08/23/17 08:29 (Lactulose Liq) 30 ml DAILY PRN PO 08/21/17 14:15 Vancomycin HCl 1250 mg/Sodium Chloride 262.5 ml @ 262.5 mls/ hr Q12H IV 08/22/17 03:00 Future Hold 08/24/17 03:35 Aztreonam 1000 mg/ Sodium Chloride 100 ml @ 200 mls/hr Q8H IV 08/21/17 16:00 08/25/17 09:31 (D50w (Vial) Inj) 50 ml UNSCH PRN IV PUSH 08/21/17 14:30 (Glucagon Inj) 1 mg UNSCH PRN OTHER 08/21/17 14:30 (NovoLIN R SUPPLEMENTAL SCALE) 1 Q6H SQ 08/21/17 15:00 08/25/17 09:00 Fentanyl Citrate 250 ml @ 5 mls/hr TITRATE PRN IV 08/21/17 15:30 08/25/17 04:20 (Aricept) 10 mg HS PO 08/21/17 21:00 08/24/17 22:23 (Proscar) 5 mg DAILY PO 08/22/17 09:00 08/25/17 09:31 (Flomax) 0.4 mg DAILY PO 08/22/17 09:00 08/25/17 09:31 (SoluCORTEF INJ) 50 mg Q12H IV PUSH 08/22/17 21:00 08/25/17 09:29 (Aspirin Chew) 81 mg DAILY CHEW 08/22/17 11:00 Future Hold (Plavix) 75 mg DAILY PO 08/22/17 11:00 Future Hold (Heparin Inj) 5,000 units Q12HR SQ 08/22/17 21:00 08/25/17 09:30 Diltiazem HCl 125 mg/Sodium Chloride 125 ml @ 5 mls/hr TITRATE PRN IV 08/22/17 22:15 08/24/17 01:00 Pharmacy Profile Note 0 ml @ 0 mls/hr UNSCH OTHER 08/23/17 06:30 (Free Water) 200 ml Q6HR OG-TUBE 08/24/17 18:00 08/25/17 06:00 Propofol 100 ml @ 0 mls/hr TITRATE PRN IV 08/24/17 15:45 08/25/17 04:21 (Cardizem) 60 mg Q6HR PO 08/25/17 07:00 08/25/17 09:42 (Duoneb Neb) 1 ampule Q6HR NEB INH 08/25/17 10:00 UNV (Tears Naturale Opth Soln) 1 drop Q8HR EACH EYE 08/25/17 14:00 UNV (Colace) 100 mg BID PO 08/25/17 21:00 UNV (Senna Liq) 8.8 mg BID PO 08/25/17 21:00 UNV (Miralax) 17 gm BID PO 08/25/17 21:00 UNV (Lactulose Liq) 30 ml QID PO 08/25/17 13:00 UNV (Fleet Mineral Oil Enema) 118 ml ONCE ONCE RECTAL 08/25/17 10:00 08/25/17 10:01 UNV (Mineral Oil Liq) 15 ml ONCE ONCE PO 08/25/17 10:00 08/25/17 10:01 UNV (Relistor Inj) 12 mg ONCE ONCE SQ 08/25/17 10:00 08/25/17 10:01 UNV (Tylenol 650 Mg/ 20 ml Liq) 650 mg Q6H PRN PO 08/25/17 10:30 UNV Lines Line sites with no evidence of infection. Past Medical History Past Medical History COPD, on 2.5 L oxygen continuously, coronary artery disease, peripheral vascular disease, hypertension, hyperlipidemia, BPH, anemia, dementia. Past Surgical History Previous cataract surgery. 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 Vital Signs Date Time Temp Pulse Resp B/P (MAP) Pulse Ox O2 Delivery O2 Flow Rate FiO2 08/25/17 07:27 98 55 08/25/17 04:00 90 08/25/17 04:00 98.4 90 16 111/69 (83) 97 08/25/17 04:00 55 08/25/17 03:36 98 55 08/25/17 02:00 72 08/25/17 01:10 98 60 08/25/17 00:00 98.7 100 18 117/63 (81) 92 08/25/17 00:00 60 08/25/17 00:00 100 08/24/17 22:56 100 45 08/24/17 22:00 98 08/24/17 20:19 93 45 08/24/17 20:00 45 08/24/17 20:00 92 08/24/17 20:00 98.5 92 27 157/74 (101) 93 08/24/17 17:25 92 45 08/24/17 16:30 91 16 151/70 (97) 96 08/24/17 16:10 98 45 08/24/17 16:00 98.8 89 12 148/70 (96) 96 08/24/17 16:00 45 08/24/17 15:30 78 1 145/65 (91) 97 08/24/17 15:00 89 17 150/70 (96) 94 08/24/17 14:30 64 16 102/53 (69) 95 08/24/17 14:00 68 16 100/50 (67) 94 08/24/17 13:30 90 20 125/59 (81) 93 08/24/17 13:00 97 25 141/65 (90) 91 08/24/17 13:00 91 45 08/24/17 12:30 98 32 150/70 (96) 92 08/24/17 12:00 45 08/24/17 12:00 98.6 88 16 148/67 (94) 95 08/24/17 11:30 86 10 139/69 (92) 94 08/24/17 11:00 94 19 153/71 (98) 94 . Laboratory Tests Test 08/24/17 07:32 White Blood Count 16.6 TH/MM3 Red Blood Count 3.53 MIL/MM3 Hemoglobin 9.6 GM/DL Hematocrit 30.0 % Mean Corpuscular Volume 84.8 FL Mean Corpuscular Hemoglobin 27.1 PG Mean Corpuscular Hemoglobin Concent 32.0 % Red Cell Distribution Width 16.7 % Platelet Count 143 TH/MM3 Mean Platelet Volume 7.3 FL Neutrophils (%) (Auto) 93.9 % Lymphocytes (%) (Auto) 2.5 % Monocytes (%) (Auto) 3.1 % Eosinophils (%) (Auto) 0.2 % Basophils (%) (Auto) 0.3 % Neutrophils # (Auto) 15.5 TH/MM3 Lymphocytes # (Auto) 0.4 TH/MM3 Monocytes # (Auto) 0.5 TH/MM3 Eosinophils # (Auto) 0.0 TH/MM3 Basophils # (Auto) 0.1 TH/MM3 CBC Comment DIFF FINAL Differential Comment Laboratory Tests Test 08/24/17 03:30 08/24/17 07:32 08/25/17 06:10 Creatinine 1.26 MG/DL 1.31 MG/DL 1.18 MG/DL Estimat Glomerular Filtration Rate 55 ML/MIN 53 ML/MIN 60 ML/MIN Blood Urea Nitrogen 35 MG/DL 36 MG/DL Random Glucose 82 MG/DL 134 MG/DL Total Protein 4.9 GM/DL 4.8 GM/DL Albumin 1.4 GM/DL 1.2 GM/DL Calcium Level 8.0 MG/DL 7.9 MG/DL Alkaline Phosphatase 79 U/L 91 U/L Aspartate Amino Transf (AST/SGOT) 24 U/L 55 U/L Alanine Aminotransferase (ALT/SGPT) 31 U/L 32 U/L Total Bilirubin 0.3 MG/DL 0.4 MG/DL Sodium Level 152 MEQ/L 151 MEQ/L Potassium Level 4.6 MEQ/L 5.9 MEQ/L Chloride Level 120 MEQ/L 122 MEQ/L Carbon Dioxide Level 23.4 MEQ/L 21.5 MEQ/L Anion Gap 9 MEQ/L 8 MEQ/L Microbiology Date/Time Source Procedure Growth Status 08/22/17 11:07 Blood Peripheral Aerobic Blood Culture - Preliminary NO GROWTH IN 2 DAYS Resulted 08/22/17 11:07 Blood Peripheral Anaerobic Blood Culture - Final QNS - SEE AEROBE REPORT Resulted 08/23/17 09:30 Fluid Pleural Fluid Fungal Smear - Final NO FUNGAL ELEMENTS SEEN. Resulted 08/23/17 09:30 Fluid Pleural Fluid Fungal Culture Pending Resulted 08/23/17 09:30 Fluid Pleural Fluid Acid Fast Stain - Final NO ACID FAST BACILLI SEEN Resulted 08/23/17 09:30 Fluid Pleural Fluid Mycobacterial Culture Pending Resulted 08/23/17 09:30 Fluid Pleural Fluid Gram Stain - Final Complete 08/23/17 09:30 Body Fluid Culture - Final S. Aureus Mrsa Complete 08/22/17 14:55 Sputum Endotracheal Gram Stain - Final Complete 08/22/17 14:55 Sputum Culture - Final S. Aureus Mrsa Complete Imaging Chest X-Ray 08/25/17 0600 Signed Impressions: Service Date/Time: Friday, August 25, 2017 03:56 - CONCLUSION: 1. Worsening bilateral airspace disease/effusions particularly on the right. 2. Stable position of life support tubes including a right sided Cassel[place] loop thoracostomy tube projecting over the lower right hemithorax. Casey Márquez MD Chest X-Ray 08/24/17 0000 Signed Impressions: Service Date/Time: August 07:35 - CONCLUSION: 1. Stable right inferior chest tube with stable residual small right pleural effusion and associated right lower lung zone airspace disease. 2. Improved trace left pleural effusion and left lower lung zone airspace disease. 3. No significant pneumothorax. Julian Vernon MD Chest CT 08/24/17 0000 Signed Impressions: Service Date/Time: August 17:38 - CONCLUSION: 1. Increase in size of left pleural effusion and dependent consolidation in the left lung since August 21. 2. Worsening consolidation in the right middle lobe and at the right lung base. Also increase in right apical consolidation with new loculated pleural effusion at the right lung apex. There is placement of a small caliber right chest tube, but drainage is probably limited due to increasing loculation of right effusion. 3. Mild anasarca. 4. No significant pericardial effusion. Gallo Caal MD Chest X-Ray 08/23/17 0600 Signed Impressions: Service Date/Time: Wednesday, August 23, 2017 04:09 - CONCLUSION: Enlarging right effusion and right lung consolidation. New left basilar consolidation. Chris Zuñiga Jr., MD Consultation 08/22/17 0000 Signed Impressions: Service Date/Time: Tuesday, August 22, 2017 00:00 - CONCLUSION: Volume of the right pleural effusion is not amenable to safe thoracentesis at this time. Marvin Presley MD Chest Ultrasound 08/22/17 0000 Signed Impressions: Service Date/Time: Tuesday, August 22, 2017 12:08 - CONCLUSION: Small left pleural effusion. No marking performed. Mj Sanchez MD Head CT 08/21/17 1357 Signed Impressions: Service Date/Time: Monday, August 21, 2017 16:05 - CONCLUSION: 1. No acute intracranial abnormality. Stable exam compared to previous dated 08/06/17. Jonathon Jenkins MD CT Angiography 08/21/17 1357 Signed Impressions: Service Date/Time: Monday, August 21, 2017 16:16 - CONCLUSION: 1. No evidence for pulmonary embolism. 2. Atherosclerosis. 3. Bilateral pleural effusions are identified right greater than left and patchy pulmonary consolidation is seen. Khanh Nina MD Abdomen/Pelvis CT 08/21/17 135 Signed Impressions: Service Date/Time: Monday, August 21, 2017 16:16 - CONCLUSION: 1. Moderate amount of stool noted with a stool ball in the rectum. 2. Bilateral pleural effusions and consolidation greatest in the right lower lobe. 3. Diverticulosis without diverticulitis. 4. Atherosclerosis. 5. Bilateral L5 pars defects. 6. Inguinal hernias. Khanh Nina MD Brain MRI 08/21/17 0000 Signed Impressions: Service Date/Time: Monday, August 21, 2017 22:20 - CONCLUSION: 1. No acute intracranial abnormality. 2. Atrophy and chronic small vessel ischemic change. Chris Zuñiga Jr., MD Physical Exam GENERAL: This is a well-nourished, well-developed patient, in no apparent distress. SKIN: No rashes, ecchymoses or lesions. Cool and dry. HEAD: Atraumatic. Normocephalic. No temporal or scalp tenderness. EYES: Pupils equal round and reactive. Extraocular motions intact. No scleral icterus. No injection or drainage. ENT: Intubated NECK: Trachea midline. Supple, nontender, no meningeal signs. CARDIOVASCULAR: HS audible. RESPIRATORY: Decreased BS both bases, CT on R GASTROINTESTINAL: Abdomen soft, non-tender, nondistended. MUSCULOSKELETAL: Extremities without clubbing, cyanosis. Has bilateral pitting pedal edema. Negative Homans sign bilaterally. NEUROLOGICAL: Awake and opens eyes spontaneously. Gags at tube. Follows simple commands. Psych anxious IV line sites with no e.o infection Assessment & Plan Remarks Severe Sepsis (with Septic Shock on admission), now off pressors. Pneumonia present on admission.? HCAP vs Aspiration or both. - with empyema - MRSA pneumonia ? source of bacteremia. Possible MRSA related empyema. MRSA bacteremia Bilateral pleural effusion - loculated on R - increased on L Recent stroke. Acute respiratory failure on vent Recs: Stop Aztreonam IV Continue Vanco IV (target 15-20) Add Zyvox - follow CBC CTS evaluating petient for his empyema - may need decortication - effusion on R loculated Follow cultures to adjust antibiotics Monitor progress Dr Oliver this weekend Xochilt Flannery MD Aug 25, 2017 10:46
[2017-08-25] MEDS ORDERED: MINERAL OIL LIQUID 30 ML CUP PO ONE (11:00)
[2017-08-25] MEDS ORDERED: METHYLNALTREXONE BROMIDE 12 MG/0.6 ML VIAL SQ ONE (11:00)
[2017-08-25] MEDS ORDERED: ACETAMINOPHEN 650 MG/20.3 ML UDC PO PRN (11:00)
[2017-08-25] MEDS ORDERED: MINERAL OIL ENEMA 118 ML BTL RECTAL ONE (11:00)
[2017-08-25] MEDS: LINEZOLID 600 MG PREMIX 300 ML IV SCH ×2 (11:08→23:42)
--- NOTE | 2017-08-25 11:36 | RADRPT ---
EXAM DATE/TIME: 08/25/2017 10:06 [place] COMPARISON: No previous studies available for comparison. INDICATIONS : Constipation MEDICAL HISTORY : Myocardial infarction. Cardiovascular disease. Chronic obstructive pulmonary disease. PVD, leukoc ytosis SURGICAL HISTORY : None. ENCOUNTER: Subsequent ACUITY: 3 weeks PAIN SCORE: Non-responsive. LOCATION: Bilateral abdomen FINDINGS: Supine view of the abdomen was performed. The abdominal bowel gas pattern is normal. No abnormal ma sses, calcifications, or organomegaly is seen. Degenerative changes are noted within the lumbar and l ower thoracic spine. Nasogastric tube has its tip in the distal stomach. Small right chest tube noted at the right lung base. CONCLUSION: 1. No evidence of bowel obstruction, ileus or perforation. 2. Degenerative changes are noted throughout the lumbar and lower thoracic spine. Marvin Presley MD on August 25, 2017 at 11:32 Board Certified Radiologist. This report was verified electronically.
[2017-08-25 12:03] LABS: AUTOMATED NEUTROPHIL # 13.8 TH/MM3 (1.8-7.7); BASOPHIL % 0.2 % (0.0-2.0); EOSINOPHIL % 0.1 % (0.0-4.0); HEMATOCRIT 32.5 % (39.0-51.0); HEMOGLOBIN 10.6 GM/DL (13.0-17.0); LYMPH % 2.4 % (9.0-44.0); LYMPHOCYTE # 0.3 TH/MM3 (1.0-4.8); MEAN CELL VOLUME 84.3 FL (80.0-100.0); MEAN CORPUSCULAR HEMOGLOBIN 27.3 PG (27.0-34.0); MEAN CORPUSCULAR HGB CONC 32.4 % (32.0-36.0); MEAN PLATELET VOLUME 7.6 FL (7.0-11.0); MONO % 2.1 % (0.0-8.0); MONOCYTE # 0.3 TH/MM3 (0-0.9); NEUT % 95.2 % (16.0-70.0); PLATELET COUNT 141 TH/MM3 (150-450); RED BLOOD COUNT 3.86 MIL/MM3 (4.50-5.90); RED CELL DISTRIBUTION WIDTH 17.2 % (11.6-17.2); WHITE BLOOD COUNT 14.5 TH/MM3 (4.0-11.0)
[2017-08-25] MEDS: LACTULOSE SYRUP 20 GM/30 ML CUP PO SCH ×3 (13:00→21:33)
[2017-08-25] MEDS: ARTIFICIAL TEARS OPTH SOLN 15 ML BTL EACH EYE SCH ×2 (14:12→21:34)
[2017-08-25] MEDS: VANCOMYCIN INJ 1,500 MG in SODIUM CHLORID 0.9% 500 ML INJ 500 ML IV SCH (14:14)
--- NOTE | 2017-08-25 14:39 | HHI.HCPN ---
Reason for visit a. To assist with evaluation and management of symptoms including: Shortness of breath, anxiety/agitation, debility. b. To assist medical decision maker(s) with: better understanding of current medical conditions; weighing benefits/burdens of medical treatment options; making medical treatment decisions. . Subjective/Interval History Pt seen to follow up on comfort, goals. Called by nursing this am prior to my arrival on pt unit that at bedside requesting palliative follow up. Nursing informs that patient has asked questions about continuation of aggressive interventions versus removal of ventilator and transition to comfort focus. [Seen at 1000] Remains on mechanical vent, CXR today= Worsening bilateral airspace disease/ effusions particularly on the right . RN, RT report increased secretions, thick beige today. BUN and creatinine remain elevated 36/1.18. Na 151, K+ 5.9, a axillary per medical attending. Status post CT surgery evaluation, no interventions planned at this time, consider repeat chest imaging=CT chest and if he has no residual fluid or peel on the CT, he is not recommended for surgery secondary to his multiple comorbidities and his high acuity level with multiple risk factors. Seen in room, at bedside. Eyes open at times. Does not follow commands. Moving extremities spontaneously. Restless during suctioning. When not stimulated appears restful, quiet. Thick dark beige secretions visible in ETT when RT suctions pt during my exam. Patient seen in room at bedside. Dual visit with Chase Zuñiga ELEVATED WORK PLATFORM OPERATOR palliative social worker psychiatric. is tearful, she indicates that she cannot need to watch the patient suffered and that she is worried he will not survive or recover current acute illness. She is called additional family to come in and support her and help with decision-making. Explore what decision she plans to make she indicates she feels the patient is suffering from breathing tube and he appears uncomfortable and he wouldn't want to live in this fashion she is considering removal of artificial measures. . Family/friend interactions Additional family arrived (3 sons, [id number] , grandchild ) met with them at length review of patient recent history, Hospital course, current conditions and assessments. Review of possible trajectories going forward including possibility for prolonged hospitalization high risk for complications and setbacks versus possible slow improvement and possible rehabilitation placement though not clear if patient would be able to return back to baseline status at home several weeks ago. Gently explore the alternative that if patient would not want to continue invasive or artificial interventions then the options would be to de-escalate may remove artificial measures and transition to comfort focus. Family has indicated they will monitor patient through the weekend in hopes that he may show signs of improvement however on Monday 08/28 they will want to revisit goals of treatment pending his clinical status at that time. . Advance Directives Living Will: Never completed Health Care Surrogate: Never completed Durable Power of General Car Yard Supervisor: Never completed Advance Directive Specifics Health Care Surrogate(s): No advance directives completed. As per [place] statute, healthcare proxy decision making falls to patient's Leatha Butts. . Objective Vital Signs Date Time Temp Pulse Resp B/P (MAP) Pulse Ox O2 Delivery O2 Flow Rate FiO2 08/25/17 12:51 100 55 08/25/17 10:37 97 55 08/25/17 07:27 98 55 08/25/17 04:00 90 08/25/17 04:00 98.4 90 16 111/69 (83) 97 08/25/17 04:00 55 08/25/17 03:36 98 55 08/25/17 02:00 72 08/25/17 01:10 98 60 08/25/17 00:00 98.7 100 18 117/63 (81) 92 08/25/17 00:00 60 08/25/17 00:00 100 08/24/17 22:56 100 45 08/24/17 22:00 98 08/24/17 20:19 93 45 08/24/17 20:00 45 08/24/17 20:00 92 08/24/17 20:00 98.5 92 27 157/74 (101) 93 08/24/17 17:25 92 45 08/24/17 16:30 91 16 151/70 (97) 96 08/24/17 16:10 98 45 08/24/17 16:00 98.8 89 12 148/70 (96) 96 08/24/17 16:00 45 08/24/17 15:30 78 1 145/65 (91) 97 08/24/17 15:00 89 17 150/70 (96) 94 08/24/17 14:30 64 16 102/53 (69) 95 Physical Exam CONSTITUTIONAL/GENERAL: This is an adequately nourished patient, restlessness at times, on mechanical vent TUBES/LINES/DRAINS: ETT, OG, Fang catheter, bilateral soft wrist restraints, PIV's. SKIN: No jaundice, rashes, or lesions. Ecchymoses on upper extremities. No wounds seen anteriorly. Skin warm dry, generalized edema.+ Serous weeping from right upper extremity NECK: Trachea midline. Supple, nontender. CARDIOVASCULAR: irregular rate and rhythm without murmurs. Peripheral pulses symmetric. Pitting edema to all 4 extremities. RESPIRATORY/CHEST: Symmetric, unlabored respirations via ETT to mechanical vent. +coughing at times. Faint Scattered rhonchi .+beige secretions in ETT. Right lateral chest tube to Pleur-evac drainage mod amount serosanguineous fluid GASTROINTESTINAL: Abdomen soft, large, round. No guarding. Bowel sounds present. GENITOURINARY: Without palpable bladder distension. Fang catheter in place. MUSCULOSKELETAL: Extremities without clubbing, cyanosis. No mottling or clubbing. Pitting edema to all 4 extremities. weeping from RUE NEUROLOGICAL: Sedated on mechanical vent. Eyes open spontaneously does not consistently track examiner. Does not follow commands. Localizes to touch and moves all 4 extremities. PSYCHIATRIC: Limited assessment secondary clinical condition --restless/anxious at times juan pablo w suctioning . Diagnostic Tests Laboratory Laboratory Tests Test 08/23/17 08:00 08/23/17 09:30 08/24/17 03:30 08/24/17 07:32 White Blood Count 22.4 TH/MM3 (4.0-11.0) 16.6 TH/MM3 (4.0-11.0) Red Blood Count 3.86 MIL/MM3 (4.50-5.90) 3.53 MIL/MM3 (4.50-5.90) Hemoglobin 10.6 GM/DL (13.0-17.0) 9.6 GM/DL (13.0-17.0) Hematocrit 32.6 % (39.0-51.0) 30.0 % (39.0-51.0) Mean Corpuscular Volume 84.5 FL (80.0-100.0) 84.8 FL (80.0-100.0) Mean Corpuscular Hemoglobin 27.4 PG (27.0-34.0) 27.1 PG (27.0-34.0) Mean Corpuscular Hemoglobin Concent 32.5 % (32.0-36.0) 32.0 % (32.0-36.0) Red Cell Distribution Width 16.4 % (11.6-17.2) 16.7 % (11.6-17.2) Platelet Count 174 TH/MM3 (150-450) 143 TH/MM3 (150-450) Mean Platelet Volume 7.4 FL (7.0-11.0) 7.3 FL (7.0-11.0) Neutrophils (%) (Auto) 94.9 % (16.0-70.0) 93.9 % (16.0-70.0) Lymphocytes (%) (Auto) 1.9 % (9.0-44.0) 2.5 % (9.0-44.0) Monocytes (%) (Auto) 3.1 % (0.0-8.0) 3.1 % (0.0-8.0) Eosinophils (%) (Auto) 0.0 % (0.0-4.0) 0.2 % (0.0-4.0) Basophils (%) (Auto) 0.1 % (0.0-2.0) 0.3 % (0.0-2.0) Neutrophils # (Auto) 21.2 TH/MM3 (1.8-7.7) 15.5 TH/MM3 (1.8-7.7) Lymphocytes # (Auto) 0.4 TH/MM3 (1.0-4.8) 0.4 TH/MM3 (1.0-4.8) Monocytes # (Auto) 0.7 TH/MM3 (0-0.9) 0.5 TH/MM3 (0-0.9) Eosinophils # (Auto) 0.0 TH/MM3 (0-0.4) 0.0 TH/MM3 (0-0.4) Basophils # (Auto) 0.0 TH/MM3 (0-0.2) 0.1 TH/MM3 (0-0.2) CBC Comment DIFF FINAL DIFF FINAL Differential Comment Blood Urea Nitrogen 29 MG/DL (7-18) 35 MG/DL (7-18) Creatinine 1.12 MG/DL (0.60-1.30) 1.26 MG/DL (0.60-1.30) 1.31 MG/DL (0.60-1.30) Random Glucose 115 MG/DL (74-106) 82 MG/DL (74-106) Calcium Level 8.0 MG/DL (8.5-10.1) 8.0 MG/DL (8.5-10.1) Sodium Level 148 MEQ/L (136-145) 152 MEQ/L (136-145) Potassium Level 4.5 MEQ/L (3.5-5.1) 4.6 MEQ/L (3.5-5.1) Chloride Level 115 MEQ/L (98-107) 120 MEQ/L (98-107) Carbon Dioxide Level 24.3 MEQ/L (21.0-32.0) 23.4 MEQ/L (21.0-32.0) Anion Gap 9 MEQ/L (5-15) 9 MEQ/L (5-15) Estimat Glomerular Filtration Rate 63 ML/MIN (>89) 55 ML/MIN (>89) 53 ML/MIN (>89) Pleural Fluid pH 8.0 Pleural Fluid WBC 7088 /MM3 (0-10) Pleural Fluid RBC 84898 /MM3 (0-0) Pleural Fluid Neutrophils 98 % Pleural Fluid Monocytes 1 % Pleural Fluid Histiocytes 1 % Pleural Fluid Total Protein 1.7 GM/DL Pleural Fluid LDH 734 U/L Pleural Fluid Glucose 71 MG/DL Vancomycin Level Trough 29.4 MCG/ML (5.0-10.0) Total Protein 4.9 GM/DL (6.4-8.2) Albumin 1.4 GM/DL (3.4-5.0) Alkaline Phosphatase 79 U/L (45-117) Aspartate Amino Transf (AST/SGOT) 24 U/L (15-37) Alanine Aminotransferase (ALT/SGPT) 31 U/L (12-78) Total Bilirubin 0.3 MG/DL (0.2-1.0) Test 08/25/17 06:10 08/25/17 11:10 08/25/17 12:07 Blood Urea Nitrogen 36 MG/DL (7-18) Creatinine 1.18 MG/DL (0.60-1.30) Random Glucose 134 MG/DL (74-106) Total Protein 4.8 GM/DL (6.4-8.2) Albumin 1.2 GM/DL (3.4-5.0) Calcium Level 7.9 MG/DL (8.5-10.1) Alkaline Phosphatase 91 U/L (45-117) Aspartate Amino Transf (AST/SGOT) 55 U/L (15-37) Alanine Aminotransferase (ALT/SGPT) 32 U/L (12-78) Total Bilirubin 0.4 MG/DL (0.2-1.0) Sodium Level 151 MEQ/L (136-145) Potassium Level 5.9 MEQ/L (3.5-5.1) 4.1 MEQ/L (3.5-5.1) Chloride Level 122 MEQ/L (98-107) Carbon Dioxide Level 21.5 MEQ/L (21.0-32.0) Anion Gap 8 MEQ/L (5-15) Estimat Glomerular Filtration Rate 60 ML/MIN (>89) Random Vancomycin Level 18.0 COMMENT White Blood Count 14.5 TH/MM3 (4.0-11.0) Red Blood Count 3.86 MIL/MM3 (4.50-5.90) Hemoglobin 10.6 GM/DL (13.0-17.0) Hematocrit 32.5 % (39.0-51.0) Mean Corpuscular Volume 84.3 FL (80.0-100.0) Mean Corpuscular Hemoglobin 27.3 PG (27.0-34.0) Mean Corpuscular Hemoglobin Concent 32.4 % (32.0-36.0) Red Cell Distribution Width 17.2 % (11.6-17.2) Platelet Count 141 TH/MM3 (150-450) Mean Platelet Volume 7.6 FL (7.0-11.0) Neutrophils (%) (Auto) 95.2 % (16.0-70.0) Lymphocytes (%) (Auto) 2.4 % (9.0-44.0) Monocytes (%) (Auto) 2.1 % (0.0-8.0) Eosinophils (%) (Auto) 0.1 % (0.0-4.0) Basophils (%) (Auto) 0.2 % (0.0-2.0) Neutrophils # (Auto) 13.8 TH/MM3 (1.8-7.7) Lymphocytes # (Auto) 0.3 TH/MM3 (1.0-4.8) Monocytes # (Auto) 0.3 TH/MM3 (0-0.9) Eosinophils # (Auto) 0.0 TH/MM3 (0-0.4) Basophils # (Auto) 0.0 TH/MM3 (0-0.2) CBC Comment DIFF FINAL Differential Comment Result Diagram: 08/25/17 1110 08/25/17 1207 Microbiology Microbiology Date/Time Source Procedure Growth Status 08/23/17 09:30 Fluid Pleural Fluid Fungal Smear - Final NO FUNGAL ELEMENTS SEEN. Resulted 08/23/17 09:30 Fluid Pleural Fluid Fungal Culture Pending Resulted 08/23/17 09:30 Fluid Pleural Fluid Acid Fast Stain - Final NO ACID FAST BACILLI SEEN Resulted 08/23/17 09:30 Fluid Pleural Fluid Mycobacterial Culture Pending Resulted 08/23/17 09:30 Fluid Pleural Fluid Gram Stain - Final Complete 08/23/17 09:30 Body Fluid Culture - Final S. Aureus Mrsa Complete 08/22/17 14:55 Sputum Endotracheal Gram Stain - Final Complete 08/22/17 14:55 Sputum Culture - Final S. Aureus Mrsa Complete Imaging Last Impressions Chest X-Ray 08/25/17 0600 Signed Impressions: Service Date/Time: Friday, August 25, 2017 03:56 - CONCLUSION: 1. Worsening bilateral airspace disease/effusions particularly on the right. 2. Stable position of life support tubes including a right sided [place] loop thoracostomy tube projecting over the lower right hemithorax. Casey Márquez MD Abdomen X-Ray 08/25/17 0000 Signed Impressions: Service Date/Time: Friday, August 25, 2017 10:06 - CONCLUSION: 1. No evidence of bowel obstruction, ileus or perforation. 2. Degenerative changes are noted throughout the lumbar and lower thoracic spine. Marvin Presley MD Chest CT 08/24/17 0000 Signed Impressions: Service Date/Time: August 17:38 - CONCLUSION: 1. Increase in size of left pleural effusion and dependent consolidation in the left lung since August 21. 2. Worsening consolidation in the right middle lobe and at the right lung base. Also increase in right apical consolidation with new loculated pleural effusion at the right lung apex. There is placement of a small caliber right chest tube, but drainage is probably limited due to increasing loculation of right effusion. 3. Mild anasarca. 4. No significant pericardial effusion. Gallo Caal MD Consultation 08/22/17 0000 Signed Impressions: Service Date/Time: Tuesday, August 22, 2017 00:00 - CONCLUSION: Volume of the right pleural effusion is not amenable to safe thoracentesis at this time. Marvin Presley MD Chest Ultrasound 08/22/17 0000 Signed Impressions: Service Date/Time: Tuesday, August 22, 2017 12:08 - CONCLUSION: Small left pleural effusion. No marking performed. Mj Sanchez MD Head CT [id number] Signed Impressions: Service Date/Time: Monday, August 21, 2017 16:05 - CONCLUSION: 1. No acute intracranial abnormality. Stable exam compared to previous dated 08/06/17. Jonathon Jenkins MD CT Angiography [id number] Signed Impressions: Service Date/Time: Monday, August 21, 2017 16:16 - CONCLUSION: 1. No evidence for pulmonary embolism. 2. Atherosclerosis. 3. Bilateral pleural effusions are identified right greater than left and patchy pulmonary consolidation is seen. Khanh Nina MD Abdomen/Pelvis CT [id number] Signed Impressions: Service Date/Time: Monday, August 21, 2017 16:16 - CONCLUSION: 1. Moderate amount of stool noted with a stool ball in the rectum. 2. Bilateral pleural effusions and consolidation greatest in the right lower lobe. 3. Diverticulosis without diverticulitis. 4. Atherosclerosis. 5. Bilateral L5 pars defects. 6. Inguinal hernias. Khanh Nina MD Brain MRI 08/21/17 0000 Signed Impressions: Service Date/Time: Monday, August 21, 2017 22:20 - CONCLUSION: 1. No acute intracranial abnormality. 2. Atrophy and chronic small vessel ischemic change. Chris Zuñiga Jr., MD Procedures * 08/21/17 -endotracheal intubation * 08/23/17 chest tube placed . Assessment and Plan Disease Oriented Problem List: (1) Respiratory failure (2) Sepsis (3) PNA (pneumonia) (4) COPD with exacerbation (5) Dementia Symptom Scale: (1) Shortness of breath 0-10 Scale: Unable to quantify (2) Anxiety 0-10 Scale: 10 (3) Debility 0-10 Scale: Unable to quantify Pertinent Non-Medical Issues Psychosocial: Patient born and raised in [place]. Lived in [place] for a few years. for the past 60 years, they have 3 children together. Patient is a [place] . Spiritual: No spiritism affiliation. Legal: No advance directives completed. Ethical issues impacting care: No ethical issues identified. . Important Contacts Leatha Butts , . . Prognosis Mr. Butts it is a 76-year-old male with a medical history significant for dementia, CHF, COPD, CAD, PVD, hypertension, hyperlipidemia, BPH. Patient with recurrent infections and recent acute hospitalizations. Admitted for respiratory failure, sepsis, pneumonia requiring intubation and mechanical ventilation. Patient with progressive clinical decline. Overall prognosis is guarded, patient high risk for further complications, continued decline and . . Code Status: Alternative Code Plan * CODE STATUS: Full code. 08/24/17 ALT CODE- intubation only per request. NO CARDIAC resuscitation. * HEALTHCARE DECISION-MAKING: Patient unable to participate in medical decision making secondary to clinical condition, baseline dementia. No advance directives completed. As per [place] statue, healthcare proxy decision making falls to patient's Leatha Butts. has accepted this role and is fully supported by all of their 3 children. * GOALS OF CARE: Family has indicated they will monitor patient through the weekend, continue aggressive treatments short of resuscitation, in hopes that he may show signs of improvement; however on Monday 08/28 they will want to revisit goals of treatment pending his clinical status at that time. They may consider transition to comfort and withdrawal of artificial measures if the patient does not have significant improvement or has significant deterioration. * SYMPTOMS: = Dyspnea, secondary to respiratory failure, pneumonia, CHF. Currently endotracheally intubated on mechanical ventilation. Initially tolerating CPAP trials with plans for possible medical extubation; however patient with worsening CXR and significant effusion requiring chest tube placement and drainage. CXR worsening today, requiring frequent sx for large amt thick secretions. = Anxiety/agitation: Exacerbated by dyspnea. Patient with dementia baseline with behavioral disturbances. Home regimen of Seroquel 100 mg twice daily. some episodes of restlessness, currently on fentanyl for. = Debility: Acute on chronic. Progressive since June secondary to acute illness and recurrent infections. PT recommended PT at rehab during recent prior hospitalization, patient's inquiring regarding acute rehab. * Palliative care contact information has been provided to family. * Palliative care will continue to follow up for further clarification of goals of care as patient's clinical course continues to evolve. . Attestation To help prompt me to consider important information that might be impacting today's encounter and assessment, information from prior notes written by myself or my colleagues may have been "brought forward" into today's note. My signature on this note, however, is an attestation that I personally performed the exam, history, and/or decision-making noted today, and, unless otherwise indicated, the interactions with patient, family, and staff as well as the review of records all occurred today. I also attest that the listed assessment and stated plan reflect my best clinical judgment today based on the combination of historical information, prior notes, and today's exam/ interactions. When time spent is documented, it refers only to time spent today by the signer, or if indicated, combined time spent today by collaborating physician/nurse practitioner. Cristy Wolf Aug 25, 2017 14:39
--- NOTE | 2017-08-25 16:01 | PD.PROCEDR ---
Central Line Procedure REASON FOR PROCEDURE Central venous access PROCEDURE PERFORMED Central line placement: Left IJ CVL CONSENT Informed consent for procedure was obtained. The risks and benefits of the procedure were discussed to include but limited to bleeding, clot formation, infection, and even . ANESTHESIA Local injection of 1% Lidocaine DESCRIPTION OF THE PROCEDURE The patient was placed in supine, mild Trendelenburg position. The area was exposed and cleansed with ChloraPrep, times two. Large sterile drape was used to cover the patient, with the site exposed, under sterile conditions including cap, face mask, sterile gown, and sterile gloves. On single attempt, the introducer needle was inserted with negative pressure in syringe and venous flash was obtained. The guide wire was then advanced without any restriction and the needle was removed. The dilator was used without any complications. Using Seldinger technique the antibiotic coated triple lumen catheter was advanced over the guide wire to a depth of 20 centimeters. The guide wire was removed. All ports were aspirated with dark venous blood return and flushed easily with sterile saline. All ports were capped. Antibiotic disc was placed around central line at puncture site. The central line was secured to the skin with two interrupted 2.0 silk sutures. The area was bandaged with sterile see- through central line bandage. RADIOLOGICAL DATA Ultrasound guidance was used to locate left internal jugular vein. Doppler/ color flow was used to confirm venous flow. COMPLICATIONS: No apparent complications ESTIMATED BLOOD LOSS: Less than 1 cc. Oscar Louis MD Aug 25, 2017 16:01
[2017-08-25] MEDS ORDERED: SODIUM CHLORIDE 0.9% FLUSH 10 ML FLUSH IV FLUSH PRN (16:15)
--- NOTE | 2017-08-25 16:30 | RADRPT ---
EXAM DATE/TIME: 08/25/2017 16:06 [facility] COMPARISON: CHEST SINGLE AP, August 25, 2017, 3:56. ABDOMEN KUB ONLY, August 25, 2017, 10:06. INDICATIONS : Central line placement. MEDICAL HISTORY : Myocardial infarction. Cardiovascular disease. Chronic obstructive pulmonary disease. pvd, leukoc ytosis SURGICAL HISTORY : None. ENCOUNTER: Initial ACUITY: 3 weeks PAIN SCORE: Non-responsive. LOCATION: Bilateral chest FINDINGS: Single view chest demonstrates bilateral pleural effusions and interstitial edema. Findings would be consistent with CHF. There is a small bore tube in place on the right. The ET tube and central line are in good position. There has been interval reduction in the right-sandeep ed effusion when compared to previous exam dated 08/25/17. The visualized bony structures are grossly intact CONCLUSION: 1. Support equipment in satisfactory position. 2. Cardiomegaly with bilateral effusions and atelectasis. Exam would suggest CHF. Jonathon Jenkins MD on August 25, 2017 at 16:26 Board Certified Radiologist. This report was verified electronically.
[2017-08-25] MEDS: SODIUM CHLORIDE 0.9% FLUSH 10 ML FLUSH IV FLUSH SCH (16:57)
[2017-08-25] MEDS: DILTIAZEM HCL 30 MG TAB PO SCH ×2 (18:00→23:42)
[2017-08-25] MEDS: DOCUSATE SODIUM 100 MG CAP PO SCH (19:59)
[2017-08-25] MEDS: DONEPEZIL HCL 5 MG TAB PO SCH (19:59)
[2017-08-25] MEDS: POLYETHYLENE GLYCOL 17 GM PKG PO SCH (19:59)
[2017-08-26] VITALS (19 sets, daily range): BP systolic 109–174; BP diastolic 56–95; PULSE 56–105; RESP 14–24; TEMP 97–98.6; O2SAT 95–100
[2017-08-26] MEDS: CHLORHEXIDINE GLUCONATE 2 % 1 PACK (2 CLOTHS) TOP SCH (03:39)
[2017-08-26] MEDS: INSULIN NovoLIN REGULAR SUPPLEMENTAL SCALE SQ SCH ×4 (03:39→21:00)
[2017-08-26 04:43] LABS: AUTOMATED NEUTROPHIL # 12.7 TH/MM3 (1.8-7.7); BASOPHIL % 0.2 % (0.0-2.0); HEMATOCRIT 26.4 % (39.0-51.0); HEMOGLOBIN 8.6 GM/DL (13.0-17.0); LYMPH % 2.3 % (9.0-44.0); LYMPHOCYTE # 0.3 TH/MM3 (1.0-4.8); MEAN CELL VOLUME 84.2 FL (80.0-100.0); MEAN CORPUSCULAR HEMOGLOBIN 27.3 PG (27.0-34.0); MEAN CORPUSCULAR HGB CONC 32.5 % (32.0-36.0); MONO % 1.8 % (0.0-8.0); MONOCYTE # 0.2 TH/MM3 (0-0.9); NEUT % 95.7 % (16.0-70.0); PLATELET COUNT 135 TH/MM3 (150-450); RED BLOOD COUNT 3.14 MIL/MM3 (4.50-5.90); RED CELL DISTRIBUTION WIDTH 17.4 % (11.6-17.2); WHITE BLOOD COUNT 13.3 TH/MM3 (4.0-11.0)
[2017-08-26] MEDS: [UNRECOGNIZED DRUG - REMARK] OG-TUBE SCH ×3 (05:11→18:00)
[2017-08-26] MEDS: DILTIAZEM HCL 30 MG TAB PO SCH ×4 (05:11→18:39)
[2017-08-26] MEDS: ARTIFICIAL TEARS OPTH SOLN 15 ML BTL EACH EYE SCH ×3 (05:11→22:04)
[2017-08-26] MEDS: PROPOFOL 1000 MG/100 ML INJ 100 ML IV PRN ×2 (05:12→21:04)
[2017-08-26 05:28] LABS: ALBUMIN 1.4 GM/DL (3.4-5.0); ALKALINE PHOSPHATASE 149 U/L (45-117); ALT (GPT) 48 U/L (12-78); AST (GOT) 38 U/L (15-37); BICARBONATE 27.7 MEQ/L (21.0-32.0); BLOOD UREA NITROGEN 37 MG/DL (7-18); CALCIUM 7.7 MG/DL (8.5-10.1); CHLORIDE 120 MEQ/L (98-107); CREATININE 1.27 MG/DL (0.60-1.30); GLOMERULAR FILTRATION RATE 55 ML/MIN (>89); GLUCOSE,RANDOM 194 MG/DL (74-106); MAGNESIUM 2.8 MG/DL (1.5-2.5); PHOSPHORUS 2.7 MG/DL (2.5-4.9); SODIUM (NA) 154 MEQ/L (136-145); TOTAL BILIRUBIN ADULT 0.3 MG/DL (0.2-1.0); TOTAL PROTEIN 4.5 GM/DL (6.4-8.2)
[2017-08-26] MEDS: RESP: ALBUTEROL 2.5 MG/IPRATROPIUM 0.5 MG NEB (SCH) INH ×4 (06:02→20:31)
--- NOTE | 2017-08-26 06:36 | RADRPT ---
EXAM DATE/TIME: 08/26/2017 04:23 [facility] COMPARISON: CHEST SINGLE AP, August 25, 2017, 16:06. INDICATIONS : Shortness of breath, possible pulmonary disease. MEDICAL HISTORY : Myocardial infarction. Cardiovascular disease. Chronic obstructive pulmonary disease. PVD SURGICAL HISTORY : None. ENCOUNTER: Subsequent ACUITY: 3 weeks PAIN SCORE: Non-responsive. LOCATION: Bilateral chest FINDINGS: A single view of the chest demonstrates the lungs to be symmetrically aerated with persistent bibasil ar airspace disease/effusions. Right thoracostomy tube projects more lateral when compared to the fernandez or. Heart size is upper limits of normal. Life support tubes are stable in position CONCLUSION: Bibasilar airspace disease with probable associated effusions, unchanged. Casey Márquez MD on August 26, 2017 at 6:34 Board Certified Radiologist. This report was verified electronically.
[2017-08-26] MEDS: SODIUM CHLORIDE 0.9% FLUSH 10 ML FLUSH IV FLUSH SCH (09:00)
[2017-08-26] MEDS: VANCOMYCIN INJ 1,500 MG in SODIUM CHLORID 0.9% 500 ML INJ 500 ML IV SCH (09:27)
[2017-08-26] MEDS: DOCUSATE SODIUM 100 MG CAP PO SCH (09:30)
[2017-08-26] MEDS: LACTULOSE SYRUP 20 GM/30 ML CUP PO SCH ×4 (09:30→22:02)
[2017-08-26] MEDS: SENNOSIDES SYRUP 8.8 MG/5 ML CUP PO SCH ×2 (09:31→22:02)
[2017-08-26] MEDS: FINASTERIDE 5 MG TAB PO SCH (09:31)
[2017-08-26] MEDS: HYDROCORTISONE SOD SUCCINATE 100 MG VIAL IV PUSH SCH (09:31)
[2017-08-26] MEDS: POLYETHYLENE GLYCOL 17 GM PKG PO SCH ×2 (09:32→22:04)
[2017-08-26] MEDS: FAMOTIDINE 20 MG/2 ML VIAL IV PUSH SCH ×2 (09:32→22:03)
[2017-08-26] MEDS: HEPARIN SODIUM - SQ 10,000 UNITS/ML VIAL SQ SCH ×2 (09:34→22:03)
[2017-08-26] MEDS: TAMSULOSIN HCL 0.4 MG CAP PO SCH (09:41)
[2017-08-26] MEDS ORDERED: METHYLNALTREXONE BROMIDE 12 MG/0.6 ML VIAL SQ ONE (10:00)
[2017-08-26] MEDS ORDERED: MINERAL OIL EMULSION 55% PO ONE (10:00)
[2017-08-26] MEDS ORDERED: RESP: ALBUTEROL 2.5 MG/3 ML NEB (PRN) NEB (10:00)
--- NOTE | 2017-08-26 10:08 | HHI.CCPN ---
Subjective Remarks/Hospital Course Patient is a 76-year-old male with multiple comorbidities, which include hypertension, hyperlipidemia, BPH, anemia of chronic disease, coronary artery disease, peripheral vascular disease, COPD on 2.5 L home oxygen, who presented to [facility] ED by EMS for respiratory distress and altered mental status requiring intubation in the field. In addition, patient was hypotensive and hypoxic. He was given 2 L Iv fluids by [facility] and an additional 1 L in the ED. Patient was started on Levophed, which is currently at 6 mcg. His laboratory data is significant for leukocytosis with a WBC of 23.7 and a mild lactic acidosis with lactic acid level of 2.3. Chest x-ray showed right basilar infiltrate concerning for pneumonia and ET tube above the jonah. ABG post intubation showed a pH of 7.39, CO2 of 44, PaO2 of 332, bicarb of 44, saturation 98%. In the ED, he was given cefepime, vancomycin. Patient also noted to have pinpoint pupils and was given Narcan without any significant effect. He was recently discharged from [facility] after he was admitted back on 08/04 for CHF, respiratory failure and acute right-sided stroke. He is scheduled to undergo CT scan of the brain, chest, abdomen and pelvis, which were ordered by ED. On his last admission, he had an echocardiogram on 08/04, which showed an EF of 55-60%. 08/22 Patient is sedated with Fentanyl drip and intubated. Afebrile. Off Levophed. 08/23: Patient remains profoundly septic. Encephalopathic white count is 22.4 which is slightly improved. His pleural effusion has increased in size and concerning for parapneumonic effusion/developing empyema. His chest x-ray shows bilateral infiltrates which are worsening. MRSA pneumonia is a concern. I will proceed with pigtail chest tube placement on the right side and send fluid for further studies 08/24: Remains critically ill but stabilizing. WBC count trending down today at 16.6. Right pigtail chest tube was placed yesterday with 1.1 L cloudy yellow fluid output concerning for parapneumonic effusion/early empyema. Cardiothoracic surgery consulted for recommendation regarding decortication. Chest x-ray today shows no pneumothorax, right lung consolidation with mild effusion. 08/25: Afebrile. Currently arousable on the ventilator but extremely encephalopathic. Tolerating tube feeds at goal. No bowel movement since admission. Subjective 08/26: Afebrile. Central line placed yesterday left IJ for IV access. No bowel movement. Aggressive enema today. Objective Vital Signs Date Time Temp Pulse Resp B/P (MAP) Pulse Ox O2 Delivery O2 Flow Rate FiO2 08/26/17 08:44 98 55 08/26/17 06:00 73 08/26/17 04:00 98.2 16 127/95 (106) Intake and Output 08/26/17 08/26/17 08/27/17 08:00 16:00 00:00 Intake Total 1385 ml Output Total 698 ml Balance 687 ml Result Diagram: 08/26/17 0345 08/26/17 0345 Other Results Microbiology Date/Time Source Procedure Growth Status 08/22/17 11:07 Blood Peripheral Aerobic Blood Culture - Preliminary NO GROWTH IN 3 DAYS Resulted 08/22/17 11:07 Blood Peripheral Anaerobic Blood Culture - Final QNS - SEE AEROBE REPORT Resulted 08/23/17 09:30 Fluid Pleural Fluid Fungal Smear - Final NO FUNGAL ELEMENTS SEEN. Resulted 08/23/17 09:30 Fluid Pleural Fluid Fungal Culture Pending Resulted 08/22/17 14:55 Sputum Endotracheal Gram Stain - Final Complete 08/22/17 14:55 Sputum Culture - Final S. Aureus Mrsa Complete 08/21/17 14:25 Urine Clean Catch Urine Culture - Final NO GROWTH IN 48 HOURS. Complete Imaging Last Impressions Chest X-Ray 08/26/17 0600 Signed Impressions: Service Date/Time: Saturday, August 26, 2017 04:23 - CONCLUSION: Bibasilar airspace disease with probable associated effusions, unchanged. Casey Márquez MD Abdomen X-Ray 08/25/17 0000 Signed Impressions: Service Date/Time: Friday, August 25, 2017 10:06 - CONCLUSION: 1. No evidence of bowel obstruction, ileus or perforation. 2. Degenerative changes are noted throughout the lumbar and lower thoracic spine. Marvin Presley MD Chest CT 08/24/17 0000 Signed Impressions: Service Date/Time: August 17:38 - CONCLUSION: 1. Increase in size of left pleural effusion and dependent consolidation in the left lung since August 21. 2. Worsening consolidation in the right middle lobe and at the right lung base. Also increase in right apical consolidation with new loculated pleural effusion at the right lung apex. There is placement of a small caliber right chest tube, but drainage is probably limited due to increasing loculation of right effusion. 3. Mild anasarca. 4. No significant pericardial effusion. Gallo Caal MD Consultation 08/22/17 0000 Signed Impressions: Service Date/Time: Tuesday, August 22, 2017 00:00 - CONCLUSION: Volume of the right pleural effusion is not amenable to safe thoracentesis at this time. Marvin Presley MD Chest Ultrasound 08/22/17 0000 Signed Impressions: Service Date/Time: Tuesday, August 22, 2017 12:08 - CONCLUSION: Small left pleural effusion. No marking performed. Mj Sanchez MD Head CT [id number] Signed Impressions: Service Date/Time: Monday, August 21, 2017 16:05 - CONCLUSION: 1. No acute intracranial abnormality. Stable exam compared to previous dated 08/06/17. Jonathon Jenkins MD CT Angiography [id number] Signed Impressions: Service Date/Time: Monday, August 21, 2017 16:16 - CONCLUSION: 1. No evidence for pulmonary embolism. 2. Atherosclerosis. 3. Bilateral pleural effusions are identified right greater than left and patchy pulmonary consolidation is seen. Khanh Nina MD Abdomen/Pelvis CT 08/21/177 Signed Impressions: Service Date/Time: Monday, August 21, 2017 16:16 - CONCLUSION: 1. Moderate amount of stool noted with a stool ball in the rectum. 2. Bilateral pleural effusions and consolidation greatest in the right lower lobe. 3. Diverticulosis without diverticulitis. 4. Atherosclerosis. 5. Bilateral L5 pars defects. 6. Inguinal hernias. Khanh Nina MD Brain MRI 08/21/17 0000 Signed Impressions: Service Date/Time: Monday, August 21, 2017 22:20 - CONCLUSION: 1. No acute intracranial abnormality. 2. Atrophy and chronic small vessel ischemic change. Chris Zuñiga Jr., MD Objective Remarks GENERAL: Patient is 76 yo male currently resting in bed in mild distress secondary to agitation SKIN: Warm and dry. HEAD: Normocephalic. EYES: No scleral icterus. No injection or drainage. Pupils 2 mm NECK: Supple, trachea midline. No JVD or lymphadenopathy. CARDIOVASCULAR: Regular rate and rhythm without murmurs, gallops, or rubs. RESPIRATORY: Bilateral coarse breath sounds. Right pigtail chest tube with cloudy yellow drainage, at -40 cm H2O -200 cc with no air leak GASTROINTESTINAL: Abdomen soft, non-tender, nondistended. Hypoactive bowel sounds are appreciated MUSCULOSKELETAL: Trace bilateral upper and lower extremity edema. Neuro: Sedated, intubated. 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 Monitor neuro status closely. CT and MRI brain : No acute process On donepezil 10 mg daily for dementia Holding gabapentin 100 mg twice daily for neuropathy Holding quetiapine 100 mg twice daily for dementia Acetaminophen 650 mg by tube every 6 hours as needed fever Pulm: Acute hypoxemic respiratory failure Right lower lobe pneumonia Right-sided parapneumonic effusion/early empyema COPD ACV // Ventilator bundle Albuterol/ipratropium aerosols every 6 hours with albuterol aerosols every 2 hours as needed dyspnea hydrocortisone 50 mg IV q. 12. SBT daily as chi CT thorax: No evidence for PE, small to mod pleural effusions R>L and patchy pulmonary consolidation is seen. 08/23 s/p pigtail chest tube placement and fluid studies consistent with early empyema (WBC 7000 with 98% neutrophils, LDH 734) Consult Dr. Maloney/pulmonology CT thorax 08/24 revealed worsening left-sided pleural effusion with loculated right pleural effusion/worsening at the apex. CV: CAD HTN Severe sepsis Hyperlipidemia ASVD Monitor HR and BP MAP>65 mmHg. Taper Stress dose steroids. Holding ASA 81 mg daily and clopidogrel 75 mg daily for pigtail chest tube placement and possible surgical intervention 2D echo from 08/04 showed an EF of 55-60%. Currently on diltiazem 60 mg every 6 hours. Home medications include amlodipine 10 mg daily and metoprolol succinate 25 mg daily and hydralazine 50 mg every 8 hours. Renal/FEN/: Hypernatremia BPH Monitor renal function, I's and O's and electrolyte replacement per protocol. s/p 3L crystalloids total on admission, continue half-normal saline, and free water flushes added for Hyper Na Free water flushes 200 cc every 6 hours Continue finasteride 5 mg daily and tamsulosin 0.4 mg daily when able for BPH GI: Hypoalbuminemia Diverticulosis Currently on Jevity 1.5 at goal 60 cc an hour Famotidine 20 mg twice daily for GI prophylaxis Docusate sodium, senna, polyethylene glycol twice daily. Lactulose 30 cc 4 times daily until BM. At t mineral oil from above 30 mL with methylnaltrexone 12 mg subcu 1 and soaps enema and from below. Check KUB Methylnaltrexone 12 mg subcu 1 On Pepcid for GI prophylaxis. ID: MRSA empyema/bacteremia Continue abx (vancomycin, linezolid).ID Dr. Pritchett Nasal aspirate is negative influenza BC 08/21 06/15 bottles: MRSA, Sputum culture 08/22, MRSA Fluid culture from 08/23/2017 p MRSA Cardiothoracic surgery consult high risk for surgical intervention. Heme: Leukocytosis Normocytic anemia Thrombocytopenia Monitor CBC. No indication for transfusion of blood products at this time Endo: SSI with nonrevealing R with Accu-Cheks every 6 hours to maintain euglycemia/ low regimen 0 units sliding scale past 24 hours GI prophylaxis with famotidine and DVT prophylaxis with SCDs/heparin Sq Level 3 follow-up. Discussed with at bedside Oscar Louis MD Aug 26, 2017 10:08
[2017-08-26] MEDS: LINEZOLID 600 MG PREMIX 300 ML IV SCH (11:34)
[2017-08-26] MEDS: FREE WATER G-TUBE SCH ×4 (12:00→18:00)
--- NOTE | 2017-08-26 12:07 | MB ---
cc: Jayme Mahmood MD,Haider Muller MD DATE OF CONSULT: 08/26/2017 HISTORY OF PRESENT ILLNESS: Mr. Butts is a 76-year-old white male with a longstanding history of COPD, but in talking to his , he has never been on chronic oxygen therapy. He has also had mild dementia, but was very functional up to the time of a recent admission in July for pneumonia and congestive heart failure. He was discharged home in early August, on oxygen, but returned to the hospital on 08/21/2017 with MRSA septicemia and empyema. He was seen and admitted by critical care medicine on 08/21/2017, left chest was drained and is growing MRSA, as is his sputum. Blood cultures were also positive for MRSA. CT chest reveals fluid on the left and a complex fluid on the right with consolidation in the right lung as well. Fluid on the right may be loculated. Infectious Disease has been consulted and he is currently on vancomycin. Critical care medicine has also been following and attempts to wean to date have not been successful. Last arterial blood gas on 08/21/2017 on mechanical ventilatory support, pO2 was 300 with a pH 7.4 and a pCO2 of 44. Spontaneous breathing trials have been instituted daily. Drainage from the right chest tube has been minimal. I spoke to his today who related some of the history prior to admission. He has been followed by Dr. Maloney for about 10 years, has had stable COPD as an outpatient, not on chronic oxygen therapy, not on chronic steroid therapy. He has recently developed memory loss with some dementia, but again had been fairly functional prior to the admission in July for pneumonia and CHF. PAST MEDICAL HISTORY: Peripheral arterial disease, coronary artery disease, dementia and hypertension. He has had cataracts removed. No previous history, according to his , of respiratory failure. ALLERGIES: HALDOL, ATIVAN AND PENICILLIN G. SOCIAL HISTORY: , living with his , who is at the bedside. He was a former smoker. No significant alcohol intake. MEDICATIONS: Prior to admission included Albuterol, amlodipine, aspirin, Pulmicort in a nebulizer, diltiazem, Pepcid, Proscar, gabapentin, metoprolol and he had been placed on oxygen after the last admission. Current medications are reviewed in the EMR. PHYSICAL EXAMINATION: GENERAL: The patient is an elderly white male, intubated, sedated, comfortable. VITAL SIGNS: Afebrile, pulse is 75, respirations are 16-18, pulse is 70, O2 saturation 98% on 55 FIO2. HEENT: Sclerae pale, anicteric. NECK: Neck veins are not distended. CHEST: Somewhat diminished. No significant congestion or wheezing. HEART: Regular rhythm. No harsh murmur. ABDOMEN: Soft. EXTREMITIES: He has 2+ peripheral edema. No cyanosis of the nailbeds. IMAGING STUDIES: Chest x-ray: Bibasilar infiltrates with small effusions. Right tube in place in the pleural space. DISCUSSION: Mr. Butts presents with methicillin-resistant Staphylococcus aureus septicemia, pneumonia and empyema. Appropriate therapy has already been instituted. The right chest has been drained. No increasing effusion on the left at this point. He does have underlying chronic obstructive pulmonary disease but was apparently doing reasonably well with that prior to this admission and will continue daily spontaneous breathing trials to see if he can be weaned. Continue aerosolized bronchodilators, antibiotics as per infectious disease and I would suggest the addition of Solu-Medrol for severe septicemia with an acute exacerbation of his chronic obstructive pulmonary disease. Further diagnostic and/or therapeutic intervention will depend on his ongoing clinical course. R. MD MIGUEL Back/DAVIS , 11:36 AM , 12:06 PM
--- NOTE | 2017-08-26 12:14 | HHI.IDPN ---
Note Infectious Disease Note ID coverage. Notes reviewed. Discussed with TYRONE. 76 y/o ERASMO with PMHx of multiple comorbidities, such as HTN, hyperlipidemia, BPH , anemia of chronic disease, CAD with EF 55-60%, peripheral vascular disease, COPD on 2.5 L home oxygen, who presented to [facility] ED by EMS for respiratory distress and altered mental status requiring intubation in the field. In addition, patient was found to be hypotensive and hypoxic.Patient received 3 L IVF by [facility] and ED. Patient needed to be on Vasopressors for a while. His WBC was 23.7 on admission, mild elevation in lactic acid to 2.3. Chest x-ray showed right basilar infiltrate concerning for pneumonia. ABG post intubation showed a pH of 7.39, CO2 of 44, PaO2 of 332, bicarb of 44, saturation 98%. In the ED, he was given cefepime, vancomycin. He was recently discharged from [facility] after he was admitted back on 08/04 for CHF, respiratory failure and acute right-sided stroke. Blood cultures drawn on admission positive for MRSA. ID consulted for evaluation and Mment of Septic Shock and MRSA bacteremia. Patient is on CPAP. Appears agitated. Thrashing the head from side to side. at bedside. Repeat CT noted - increased L effusion; loculated on R Cultures reviewed Has one (+) BC with MRSA on admission Pleural fluid and sputum C/S with MRSA No rash No diarrhea No fever Antibiotics Aztreonam IV Vancomycin IV Current Medications Medications (Trade) Dose Ordered Sig/Veronica Route PRN Reason Start Time Stop Time Status Last Admin Dose Admin Norepinephrine Bitartrate 250 ml @ 7.5 mls/hr TITRATE PRN IV Maintain MAP > 65 08/21/17 14:00 08/21/17 13:42 Famotidine (Pepcid Inj) 20 mg Q12HR IV PUSH 08/21/17 14:15 08/26/17 09:32 Miscellaneous Information 1 Q361D XX 08/21/17 14:15 Chlorhexidine Gluconate (Chlorhexidine 2% Cloth) 3 pack Taper DAILY@04 TOP 08/22/17 04:00 08/18/18 03:59 08/26/17 03:39 Chlorhexidine Gluconate (Chlorhexidine 2% Cloth) 3 pack UNSCH PRN TOP HYGIENIC CARE 08/21/17 14:15 Magnesium Hydroxide (Milk Of Magnesia Liq) 30 ml Q12H PRN PO Mild constipation 08/21/17 14:15 Bisacodyl (Dulcolax Supp) 10 mg DAILY PRN RECTAL SEVERE CONSITIPATION 08/21/17 14:15 08/23/17 08:29 Lactulose (Lactulose Liq) 30 ml DAILY PRN PO SEVERE CONSITIPATION 08/21/17 14:15 Dextrose (D50w (Vial) Inj) 50 ml UNSCH PRN IV PUSH HYPOGLYCEMIA-SEE COMMENTS 08/21/17 14:30 Glucagon (Glucagon Inj) 1 mg UNSCH PRN OTHER HYPOGLYCEMIA-SEE COMMENTS 08/21/17 14:30 Insulin Human Regular (NovoLIN R SUPPLEMENTAL SCALE) 1 Q6H SQ 08/21/17 15:00 08/26/17 03:39 Fentanyl Citrate 250 ml @ 5 mls/hr TITRATE PRN IV SEDATION 08/21/17 15:30 08/25/17 20:01 Donepezil HCl (Aricept) 10 mg HS PO 08/21/17 21:00 08/25/17 19:59 Finasteride (Proscar) 5 mg DAILY PO 08/22/17 09:00 08/26/17 09:31 Tamsulosin HCl (Flomax) 0.4 mg DAILY PO 08/22/17 09:00 08/26/17 09:41 Aspirin (Aspirin Chew) 81 mg DAILY CHEW 08/22/17 11:00 Future Hold Clopidogrel Bisulfate (Plavix) 75 mg DAILY PO 08/22/17 11:00 Future Hold Heparin Sodium (Porcine) (Heparin Inj) 5,000 units Q12HR SQ 08/22/17 21:00 08/26/17 09:34 Pharmacy Profile Note 0 ml @ 0 mls/hr UNSCH OTHER 08/23/17 06:30 Water (Free Water) 200 ml Q6HR OG-TUBE 08/24/17 18:00 08/26/17 11:35 Propofol 100 ml @ 0 mls/hr TITRATE PRN IV SEDATION 08/24/17 15:45 08/26/17 05:12 Albuterol/ Ipratropium (Duoneb Neb) 1 ampule Q6HR NEB INH 08/25/17 10:00 08/26/17 08:45 Artificial Tears (Tears Naturale Opth Soln) 1 drop Q8HR EACH EYE 08/25/17 14:00 08/26/17 05:11 Sennosides (Senna Liq) 8.8 mg BID PO 08/25/17 21:00 08/26/17 09:31 Polyethylene Glycol (Miralax) 17 gm BID PO 08/25/17 21:00 08/26/17 09:32 Lactulose (Lactulose Liq) 30 ml QID PO 08/25/17 13:00 08/26/17 11:33 Acetaminophen (Tylenol 650 Mg/ 20 ml Liq) 650 mg Q6H PRN PO fever 08/25/17 11:00 Linezolid 300 ml @ 300 mls/hr Q12H IV 08/25/17 12:00 08/26/17 11:34 Vancomycin HCl 1500 mg/Sodium Chloride 515 ml @ 250 mls/hr Q18H IV 08/25/17 14:00 08/26/17 09:27 Miscellaneous Information SPECIFIC LAB TO BE DRAWN:VANCOMYCIN TROUGH DATE TO... ONCE ONCE .XX 08/27/17 19:45 08/27/17 19:46 Diltiazem HCl (Cardizem) 30 mg Q6HR PO 08/25/17 18:00 08/26/17 11:33 Sodium Chloride (NS Flush) DAILY IV FLUSH 08/25/17 16:15 08/26/17 09:00 Sodium Chloride (NS Flush) UNSCH PRN IV FLUSH SEE PROTOCOL 08/25/17 16:15 Water (Free Water) VOLUME: 200 ML Q6HR G-TUBE 08/26/17 12:00 Albuterol Sulfate (Albuterol Neb) 2.5 mg Q2HR NEB PRN NEB dyspnea 08/26/17 10:00 Docusate Sodium (Colace Liq) 100 mg Q12HR PO 08/26/17 21:00 Methylprednisolone Sodium Succinate (SoluMEDROL INJ) 40 mg Q8HR IV PUSH 08/26/17 14:00 Water (Free Water) 100 ml Q6HR G-TUBE 08/26/17 12:00 Lines Line sites with no evidence of infection. Past Medical History COPD, on 2.5 L oxygen continuously, coronary artery disease, peripheral vascular disease, hypertension, hyperlipidemia, BPH, anemia, dementia. Past Surgical History Previous cataract surgery. 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) Objective Laboratory Tests Test 08/25/17 11:10 08/26/17 03:45 White Blood Count 14.5 TH/MM3 13.3 TH/MM3 Red Blood Count 3.86 MIL/MM3 3.14 MIL/MM3 Hemoglobin 10.6 GM/DL 8.6 GM/DL Hematocrit 32.5 % 26.4 % Mean Corpuscular Volume 84.3 FL 84.2 FL Mean Corpuscular Hemoglobin 27.3 PG 27.3 PG Mean Corpuscular Hemoglobin Concent 32.4 % 32.5 % Red Cell Distribution Width 17.2 % 17.4 % Platelet Count 141 TH/MM3 135 TH/MM3 Mean Platelet Volume 7.6 FL 8.0 FL Neutrophils (%) (Auto) 95.2 % 95.7 % Lymphocytes (%) (Auto) 2.4 % 2.3 % Monocytes (%) (Auto) 2.1 % 1.8 % Eosinophils (%) (Auto) 0.1 % 0.0 % Basophils (%) (Auto) 0.2 % 0.2 % Neutrophils # (Auto) 13.8 TH/MM3 12.7 TH/MM3 Lymphocytes # (Auto) 0.3 TH/MM3 0.3 TH/MM3 Monocytes # (Auto) 0.3 TH/MM3 0.2 TH/MM3 Eosinophils # (Auto) 0.0 TH/MM3 0.0 TH/MM3 Basophils # (Auto) 0.0 TH/MM3 0.0 TH/MM3 CBC Comment DIFF FINAL DIFF FINAL Differential Comment Laboratory Tests Test 08/25/17 06:10 08/25/17 12:07 08/26/17 03:45 Blood Urea Nitrogen 36 MG/DL 37 MG/DL Creatinine 1.18 MG/DL 1.27 MG/DL Random Glucose 134 MG/DL 194 MG/DL Total Protein 4.8 GM/DL 4.5 GM/DL Albumin 1.2 GM/DL 1.4 GM/DL Calcium Level 7.9 MG/DL 7.7 MG/DL Alkaline Phosphatase 91 U/L 149 U/L Aspartate Amino Transf (AST/SGOT) 55 U/L 38 U/L Alanine Aminotransferase (ALT/SGPT) 32 U/L 48 U/L Total Bilirubin 0.4 MG/DL 0.3 MG/DL Sodium Level 151 MEQ/L 154 MEQ/L Potassium Level 5.9 MEQ/L 4.1 MEQ/L 3.5 MEQ/L Chloride Level 122 MEQ/L 120 MEQ/L Carbon Dioxide Level 21.5 MEQ/L 27.7 MEQ/L Anion Gap 8 MEQ/L 6 MEQ/L Estimat Glomerular Filtration Rate 60 ML/MIN 55 ML/MIN Phosphorus Level 2.7 MG/DL Magnesium Level 2.8 MG/DL Imaging Chest X-Ray 08/26/17 0600 Signed Impressions: Service Date/Time: Saturday, August 26, 2017 04:23 - CONCLUSION: Bibasilar airspace disease with probable associated effusions, unchanged. Casey Márquez MD Chest X-Ray 08/25/17 1601 Signed Impressions: Service Date/Time: Friday, August 25, 2017 16:06 - CONCLUSION: 1. Support equipment in satisfactory position. 2. Cardiomegaly with bilateral effusions and atelectasis. Exam would suggest CHF. Jonathon Jenkins MD Chest X-Ray 08/25/17 0600 Signed Impressions: Service Date/Time: Friday, August 25, 2017 03:56 - CONCLUSION: 1. Worsening bilateral airspace disease/effusions particularly on the right. 2. Stable position of life support tubes including a right sided [place] loop thoracostomy tube projecting over the lower right hemithorax. Casey Márquez MD Chest X-Ray 08/24/17 0000 Signed Impressions: Service Date/Time: August 07:35 - CONCLUSION: 1. Stable right inferior chest tube with stable residual small right pleural effusion and associated right lower lung zone airspace disease. 2. Improved trace left pleural effusion and left lower lung zone airspace disease. 3. No significant pneumothorax. Julian Vernon MD Chest CT 08/24/17 0000 Signed Impressions: Service Date/Time: August 17:38 - CONCLUSION: 1. Increase in size of left pleural effusion and dependent consolidation in the left lung since August 21. 2. Worsening consolidation in the right middle lobe and at the right lung base. Also increase in right apical consolidation with new loculated pleural effusion at the right lung apex. There is placement of a small caliber right chest tube, but drainage is probably limited due to increasing loculation of right effusion. 3. Mild anasarca. 4. No significant pericardial effusion. Gallo Caal MD Chest X-Ray 08/23/17 0600 Signed Impressions: Service Date/Time: Wednesday, August 23, 2017 04:09 - CONCLUSION: Enlarging right effusion and right lung consolidation. New left basilar consolidation. Chris Zuñiga Jr., MD Consultation 08/22/17 0000 Signed Impressions: Service Date/Time: Tuesday, August 22, 2017 00:00 - CONCLUSION: Volume of the right pleural effusion is not amenable to safe thoracentesis at this time. Marvin Presley MD Chest Ultrasound 08/22/17 0000 Signed Impressions: Service Date/Time: Tuesday, August 22, 2017 12:08 - CONCLUSION: Small left pleural effusion. No marking performed. Mj Sanchez MD Head CT 08/21/177 Signed Impressions: Service Date/Time: Monday, August 21, 2017 16:05 - CONCLUSION: 1. No acute intracranial abnormality. Stable exam compared to previous dated 08/06/17. Jonathon Jenkins MD CT Angiography [id number] Signed Impressions: Service Date/Time: Monday, August 21, 2017 16:16 - CONCLUSION: 1. No evidence for pulmonary embolism. 2. Atherosclerosis. 3. Bilateral pleural effusions are identified right greater than left and patchy pulmonary consolidation is seen. Khanh Nina MD Abdomen/Pelvis CT [id number] Signed Impressions: Service Date/Time: Monday, August 21, 2017 16:16 - CONCLUSION: 1. Moderate amount of stool noted with a stool ball in the rectum. 2. Bilateral pleural effusions and consolidation greatest in the right lower lobe. 3. Diverticulosis without diverticulitis. 4. Atherosclerosis. 5. Bilateral L5 pars defects. 6. Inguinal hernias. Khanh Nina MD Brain MRI 08/21/17 0000 Signed Impressions: Service Date/Time: Monday, August 21, 2017 22:20 - CONCLUSION: 1. No acute intracranial abnormality. 2. Atrophy and chronic small vessel ischemic change. Chris Zuñiga Jr., MD Physical Exam GENERAL: Intubated. Sedated. HEENT: Pupils reactive to light. Extraocular movements intact. No icterus. NECK: Supple without adenopathy. No swelling. LUNGS: Coarse breath sounds bilaterally. HEART: Regular S1 and S2. No audible murmur. ABDOMEN: Crease bowel sounds, soft, nontender. No masses palpable. EXTREMITIES: No clubbing, cyanosis or edema. SKIN: No rash. NEUROLOGIC: Unable to assess. Patient on ventilator. PSYCH: Unable to assess. Patient on ventilator. IV line sites with no e.o infection Assessment Severe Sepsis (with Septic Shock on admission), now off pressors. Pneumonia present on admission.? HCAP vs Aspiration or both. - with empyema - MRSA pneumonia ? source of bacteremia. Possible MRSA related empyema. MRSA bacteremia Bilateral pleural effusion - loculated on R - increased on L Recent stroke. Acute respiratory failure on ventilator Recs: Continue Vanco IV (target 15-20) Continue Zyvox. - follow CBC CTS evaluating patient for his empyema - may need decortication - effusion on R loculated Follow cultures. Monitor progress Raymond Oliver MD Aug 26, 2017 12:14
[2017-08-26] MEDS: methylPREDNISolone SOD SUCC 40 MG/1 ML VIAL IV PUSH SCH ×2 (14:20→22:06)
--- NOTE | 2017-08-26 18:49 | ECHRPT ---
Indication: POSS SEPSIS, ?ENDOCARDITIS CONCLUSIONS Normal left ventricular size and wall thickness. The left ventricular systolic function is normal wi th an estimated ejection fraction in the range of 60-65%. No definite regional wall motion abnormalities. Trace mitral valve regurgitation. Structurally normal mitral valve. The aortic valve is not well visualized. No aortic valve stenosis or regurgitation. There is trace tricuspid valve regurgitation. Structurally normal tricuspid valve. BP: 111 / 69 HR: 90 Rhythm: Atrial fibrillation MEASUREMENTS (Male / Female) Normal Values Technical Quality:Very technically difficult study 2D ECHO LVOT Diameter 1.5 cm M-MODE LV Diastolic Diameter MM 3.9 cm 4.2 - 5.9 / 3.9 - 5.3 cm LV Systolic Diameter MM 2.4 cm LV Ejection Fraction MM Teich 70.0 % IVS Diastolic Thickness MM 1.3 cm 0.6 - 1.0 / 0.6 - 0.9 cm LVPW Diastolic Thickness MM 1.3 cm 0.6 - 1.0 / 0.6 - 0.9 cm LV Relative Wall Thickness MM 0.7 0.24 - 0.42 / 0.22 - 0.42 RV Diastolic Diameter MM 1.3 cm DOPPLER AV Peak Velocity 153.0 cm/s AV Peak Gradient 9.4 mmHg AV Mean Gradient 5.0 mmHg AV Velocity Time Integral 22.4 cm LVOT Peak Velocity 103.4 cm/s LVOT Peak Gradient 4.3 mmHg LVOT Velocity Time Integral 15.7 cm AV Area Cont Eq vti 1.2 cm AV Area Cont Eq pk 1.2 cm Mitral E Point Velocity 142.0 cm/s LV E' Lateral Velocity 12.6 cm/s Mitral E to LV E' Lateral Ratio 11.3 LV E' Septal Velocity 11.1 cm/s Mitral E to LV E' Septal Ratio 12.8 TV Peak Velocity 292.0 cm/s TR Peak Velocity 288.0 cm/s TR Peak Gradient 33.2 mmHg Right Atrial Pressure 10.0 mmHg Pulmonary Artery Systolic Pressu 43.2 mmHg Right Ventricular Systolic Press 43.2 mmHg FINDINGS LEFT VENTRICLE Normal left ventricular size and wall thickness. The left ventricular systolic function is normal wi th an estimated ejection fraction in the range of 60-65%. No definite regional wall motion abnormalities. RIGHT VENTRICLE Normal right ventricular size and systolic function. ATRIAL SEPTUM The interatrial septum not well visualized. AORTA The aortic root and proximal ascending aorta are not well visualized. MITRAL VALVE Structurally normal mitral valve. Trace mitral valve regurgitation. AORTIC VALVE The aortic valve is not well visualized. No aortic valve stenosis or regurgitation. TRICUSPID VALVE There is trace tricuspid valve regurgitation. Structurally normal tricuspid valve. PULMONARY VALVE The pulmonary valve is not well visualized. VESSELS The inferior vena cava was not well visualized. PERICARDIUM No pericardial effusion. Sebas Monteiro MD (Electronically Signed) Final Date:26 August 2017 18:48
[2017-08-26] MEDS: DOCUSATE SODIUM 100 MG/10 ML UDC PO SCH (22:02)
[2017-08-26] MEDS: DONEPEZIL HCL 5 MG TAB PO SCH (22:03)
[2017-08-27] VITALS (18 sets, daily range): BP systolic 105–133; BP diastolic 53–65; PULSE 54–69; RESP 16–19; TEMP 97.7–98.4; O2SAT 96–100
[2017-08-27] MEDS: fentaNYL DRIP 250 ML IV PRN ×2 (00:34→12:48)
[2017-08-27] MEDS: LINEZOLID 600 MG PREMIX 300 ML IV SCH ×2 (00:37→12:44)
[2017-08-27] MEDS: DILTIAZEM HCL 30 MG TAB PO SCH ×5 (00:37→17:14)
[2017-08-27] MEDS: PROPOFOL 1000 MG/100 ML INJ 100 ML IV PRN ×6 (02:29→23:05)
[2017-08-27] MEDS: INSULIN NovoLIN REGULAR SUPPLEMENTAL SCALE SQ SCH ×4 (03:00→21:00)
[2017-08-27] MEDS: VANCOMYCIN INJ 1,500 MG in SODIUM CHLORID 0.9% 500 ML INJ 500 ML IV SCH ×2 (03:27→20:12)
[2017-08-27] MEDS: CHLORHEXIDINE GLUCONATE 2 % 1 PACK (2 CLOTHS) TOP SCH (04:00)
[2017-08-27] MEDS: RESP: ALBUTEROL 2.5 MG/IPRATROPIUM 0.5 MG NEB (SCH) INH ×4 (04:05→20:17)
[2017-08-27] MEDS: FREE WATER G-TUBE SCH ×7 (06:00→17:05)
[2017-08-27] MEDS: [UNRECOGNIZED DRUG - REMARK] OG-TUBE SCH ×4 (06:00→17:05)
[2017-08-27 06:08] LABS: BICARBONATE 28.3 MEQ/L (21.0-32.0); CALCIUM 7.9 MG/DL (8.5-10.1); CREATININE 1.13 MG/DL (0.60-1.30)
[2017-08-27 06:10] LABS: AUTOMATED NEUTROPHIL # 14.4 TH/MM3 (1.8-7.7); BASOPHIL % 0.2 % (0.0-2.0); HEMATOCRIT 31.5 % (39.0-51.0); HEMOGLOBIN 10.1 GM/DL (13.0-17.0); LYMPH % 2.2 % (9.0-44.0); LYMPHOCYTE # 0.3 TH/MM3 (1.0-4.8); MEAN CELL VOLUME 84.2 FL (80.0-100.0); MEAN CORPUSCULAR HEMOGLOBIN 26.9 PG (27.0-34.0); MEAN CORPUSCULAR HGB CONC 31.9 % (32.0-36.0); MEAN PLATELET VOLUME 8.3 FL (7.0-11.0); MONO % 1.1 % (0.0-8.0); MONOCYTE # 0.2 TH/MM3 (0-0.9); NEUT % 96.5 % (16.0-70.0); PLATELET COUNT 175 TH/MM3 (150-450); RED BLOOD COUNT 3.74 MIL/MM3 (4.50-5.90); RED CELL DISTRIBUTION WIDTH 17.5 % (11.6-17.2); WHITE BLOOD COUNT 14.9 TH/MM3 (4.0-11.0)
[2017-08-27] MEDS: ARTIFICIAL TEARS OPTH SOLN 15 ML BTL EACH EYE SCH ×3 (06:30→21:19)
[2017-08-27] MEDS: methylPREDNISolone SOD SUCC 40 MG/1 ML VIAL IV PUSH SCH ×3 (06:31→21:20)
[2017-08-27] MEDS: LACTULOSE SYRUP 20 GM/30 ML CUP PO SCH ×5 (08:09→21:00)
[2017-08-27] MEDS: SENNOSIDES SYRUP 8.8 MG/5 ML CUP PO SCH ×2 (08:10→21:00)
[2017-08-27] MEDS: FAMOTIDINE 20 MG/2 ML VIAL IV PUSH SCH ×2 (08:10→20:12)
[2017-08-27] MEDS: HEPARIN SODIUM - SQ 10,000 UNITS/ML VIAL SQ SCH ×2 (08:10→20:13)
[2017-08-27] MEDS: POLYETHYLENE GLYCOL 17 GM PKG PO SCH ×2 (08:10→21:00)
[2017-08-27] MEDS: DOCUSATE SODIUM 100 MG/10 ML UDC PO SCH ×2 (08:10→21:00)
[2017-08-27] MEDS: TAMSULOSIN HCL 0.4 MG CAP PO SCH (08:11)
[2017-08-27] MEDS: SODIUM CHLORIDE 0.9% FLUSH 10 ML FLUSH IV FLUSH SCH (08:11)
[2017-08-27] MEDS: FINASTERIDE 5 MG TAB PO SCH (08:11)
--- NOTE | 2017-08-27 11:54 | HHI.IDPN ---
Note Infectious Disease Note ID coverage. Notes reviewed. 76 y/o CM with PMHx of multiple comorbidities, such as HTN, hyperlipidemia, BPH , anemia of chronic disease, CAD with EF 55-60%, peripheral vascular disease, COPD on 2.5 L home oxygen, who presented to [facility] ED by EMS for respiratory distress and altered mental status requiring intubation in the field. In addition, patient was found to be hypotensive and hypoxic.Patient received 3 L IVF by EVAC and ED. Patient needed to be on Vasopressors for a while. His WBC was 23.7 on admission, mild elevation in lactic acid to 2.3. Chest x-ray showed right basilar infiltrate concerning for pneumonia. ABG post intubation showed a pH of 7.39, CO2 of 44, PaO2 of 332, bicarb of 44, saturation 98%. In the ED, he was given cefepime, vancomycin. He was recently discharged from [facility] after he was admitted back on 08/04 for CHF, respiratory failure and acute right-sided stroke. Blood cultures drawn on admission positive for MRSA. ID consulted for evaluation and management of Septic Shock and MRSA bacteremia. Patient is on CPAP. Sedated. at bedside. Afebrile. Has one (+) BC with MRSA on admission Pleural fluid and sputum C/S with MRSA No rash No diarrhea Antibiotics Aztreonam IV Vancomycin IV Current Medications Medications (Trade) Dose Ordered Sig/Veronica Route PRN Reason Start Time Stop Time Status Last Admin Dose Admin Norepinephrine Bitartrate 250 ml @ 7.5 mls/hr TITRATE PRN IV Maintain MAP > 65 08/21/17 14:00 08/21/17 13:42 Famotidine (Pepcid Inj) 20 mg Q12HR IV PUSH 08/21/17 14:15 08/27/17 08:10 Miscellaneous Information 1 [id number] XX 08/21/17 14:15 Chlorhexidine Gluconate (Chlorhexidine 2% Cloth) Taper DAILY@04 TOP 08/22/17 04:00 08/18/18 03:59 08/26/17 03:39 Chlorhexidine Gluconate (Chlorhexidine 2% Cloth) 3 pack UNSCH PRN TOP HYGIENIC CARE 08/21/17 14:15 Magnesium Hydroxide (Milk Of Magnesia Liq) 30 ml Q12H PRN PO Mild constipation 08/21/17 14:15 Bisacodyl (Dulcolax Supp) 10 mg DAILY PRN RECTAL SEVERE CONSITIPATION 08/21/17 14:15 08/23/17 08:29 Lactulose (Lactulose Liq) 30 ml DAILY PRN PO SEVERE CONSITIPATION 08/21/17 14:15 Dextrose (D50w (Vial) Inj) 50 ml UNSCH PRN IV PUSH HYPOGLYCEMIA-SEE COMMENTS 08/21/17 14:30 Glucagon (Glucagon Inj) 1 mg UNSCH PRN OTHER HYPOGLYCEMIA-SEE COMMENTS 08/21/17 14:30 Insulin Human Regular (NovoLIN R SUPPLEMENTAL SCALE) 1 Q6H SQ 08/21/17 15:00 08/27/17 08:30 Fentanyl Citrate 250 ml @ 5 mls/hr TITRATE PRN IV SEDATION 08/21/17 15:30 08/27/17 00:34 Donepezil HCl (Aricept) 10 mg HS PO 08/21/17 21:00 08/26/17 22:03 Finasteride (Proscar) 5 mg DAILY PO 08/22/17 09:00 08/27/17 08:11 Tamsulosin HCl (Flomax) 0.4 mg DAILY PO 08/22/17 09:00 08/27/17 08:11 Aspirin (Aspirin Chew) 81 mg DAILY CHEW 08/22/17 11:00 Future Hold Clopidogrel Bisulfate (Plavix) 75 mg DAILY PO 08/22/17 11:00 Future Hold Heparin Sodium (Porcine) (Heparin Inj) 5,000 units Q12HR SQ 08/22/17 21:00 08/27/17 08:10 Pharmacy Profile Note 0 ml @ 0 mls/hr UNSCH OTHER 08/23/17 06:30 Water (Free Water) 200 ml Q6HR OG-TUBE 08/24/17 18:00 08/26/17 18:00 Propofol 100 ml @ 0 mls/hr TITRATE PRN IV SEDATION 08/24/17 15:45 08/27/17 08:09 Albuterol/ Ipratropium (Duoneb Neb) 1 ampule Q6HR NEB INH 08/25/17 10:00 08/27/17 08:32 Artificial Tears (Tears Naturale Opth Soln) 1 drop Q8HR EACH EYE 08/25/17 14:00 08/27/17 06:30 Sennosides (Senna Liq) 8.8 mg BID PO 08/25/17 21:00 08/27/17 08:10 Polyethylene Glycol (Miralax) 17 gm BID PO 08/25/17 21:00 08/27/17 08:10 Lactulose (Lactulose Liq) 30 ml QID PO 08/25/17 13:00 08/27/17 08:09 Acetaminophen (Tylenol 650 Mg/ 20 ml Liq) 650 mg Q6H PRN PO fever 08/25/17 11:00 Linezolid 300 ml @ 300 mls/hr Q12H IV 08/25/17 12:00 08/27/17 00:37 Vancomycin HCl 1500 mg/Sodium Chloride 515 ml @ 250 mls/hr Q18H IV 08/25/17 14:00 08/27/17 03:27 Miscellaneous Information SPECIFIC LAB TO BE DRAWN:VANCOMYCIN TROUGH DATE TO... ONCE ONCE .XX 08/27/17 19:45 08/27/17 19:46 Diltiazem HCl (Cardizem) 30 mg Q6HR PO 08/25/17 18:00 08/27/17 06:31 Sodium Chloride (NS Flush) DAILY IV FLUSH 08/25/17 16:15 08/27/17 08:11 Sodium Chloride (NS Flush) UNSCH PRN IV FLUSH SEE PROTOCOL 08/25/17 16:15 Water (Free Water) VOLUME: 200 ML Q6HR G-TUBE 08/26/17 12:00 08/27/17 06:00 Albuterol Sulfate (Albuterol Neb) 2.5 mg Q2HR NEB PRN NEB dyspnea 08/26/17 10:00 Docusate Sodium (Colace Liq) 100 mg Q12HR PO 08/26/17 21:00 08/27/17 08:10 Methylprednisolone Sodium Succinate (SoluMEDROL INJ) 40 mg Q8HR IV PUSH 08/26/17 14:00 08/27/17 06:31 Water (Free Water) 100 ml Q6HR G-TUBE 08/26/17 12:00 08/26/17 18:00 Lines Line sites with no evidence of infection. Past Medical History COPD, on 2.5 L oxygen continuously, coronary artery disease, peripheral vascular disease, hypertension, hyperlipidemia, BPH, anemia, dementia. Past Surgical History Previous cataract surgery. 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) Objective Vital Signs Date Time Temp Pulse Resp B/P (MAP) Pulse Ox O2 Delivery O2 Flow Rate FiO2 08/27/17 08:33 99 45 08/27/17 04:04 100 45 08/27/17 04:00 98.4 61 17 125/65 (85) 99 08/27/17 03:00 64 16 133/64 (87) 99 08/27/17 02:00 61 16 118/59 (78) 97 08/27/17 02:00 61 08/27/17 01:00 61 17 118/59 (78) 96 08/27/17 00:00 55 08/27/17 00:00 61 08/27/17 00:00 98.1 61 19 112/55 (74) 97 08/26/17 23:40 97 45 08/26/17 22:00 83 08/26/17 20:29 95 45 08/26/17 20:00 55 08/26/17 20:00 82 08/26/17 18:00 105 08/26/17 16:00 97.0 98 24 174/81 (112) 95 08/26/17 16:00 45 08/26/17 16:00 98 08/26/17 14:16 95 45 08/26/17 14:00 97 08/26/17 12:11 95 45 08/26/17 12:00 45 08/26/17 12:00 98.6 82 19 149/67 (94) 97 08/26/17 12:00 82 Laboratory Tests Test 08/26/17 03:45 08/27/17 05:00 White Blood Count 13.3 TH/MM3 14.9 TH/MM3 Red Blood Count 3.14 MIL/MM3 3.74 MIL/MM3 Hemoglobin 8.6 GM/DL 10.1 GM/DL Hematocrit 26.4 % 31.5 % Mean Corpuscular Volume 84.2 FL 84.2 FL Mean Corpuscular Hemoglobin 27.3 PG 26.9 PG Mean Corpuscular Hemoglobin Concent 32.5 % 31.9 % Red Cell Distribution Width 17.4 % 17.5 % Platelet Count 135 TH/MM3 175 TH/MM3 Mean Platelet Volume 8.0 FL 8.3 FL Neutrophils (%) (Auto) 95.7 % 96.5 % Lymphocytes (%) (Auto) 2.3 % 2.2 % Monocytes (%) (Auto) 1.8 % 1.1 % Eosinophils (%) (Auto) 0.0 % 0.0 % Basophils (%) (Auto) 0.2 % 0.2 % Neutrophils # (Auto) 12.7 TH/MM3 14.4 TH/MM3 Lymphocytes # (Auto) 0.3 TH/MM3 0.3 TH/MM3 Monocytes # (Auto) 0.2 TH/MM3 0.2 TH/MM3 Eosinophils # (Auto) 0.0 TH/MM3 0.0 TH/MM3 Basophils # (Auto) 0.0 TH/MM3 0.0 TH/MM3 CBC Comment DIFF FINAL DIFF FINAL Differential Comment Laboratory Tests Test 08/25/17 12:07 08/26/17 03:45 08/27/17 05:00 Potassium Level 4.1 MEQ/L 3.5 MEQ/L 4.3 MEQ/L Blood Urea Nitrogen 37 MG/DL 33 MG/DL Creatinine 1.27 MG/DL 1.13 MG/DL Random Glucose 194 MG/DL 141 MG/DL Total Protein 4.5 GM/DL Albumin 1.4 GM/DL Calcium Level 7.7 MG/DL 7.9 MG/DL Phosphorus Level 2.7 MG/DL Magnesium Level 2.8 MG/DL Alkaline Phosphatase 149 U/L Aspartate Amino Transf (AST/SGOT) 38 U/L Alanine Aminotransferase (ALT/SGPT) 48 U/L Total Bilirubin 0.3 MG/DL Sodium Level 154 MEQ/L 153 MEQ/L Chloride Level 120 MEQ/L 118 MEQ/L Carbon Dioxide Level 27.7 MEQ/L 28.3 MEQ/L Anion Gap 6 MEQ/L 7 MEQ/L Estimat Glomerular Filtration Rate 55 ML/MIN 63 ML/MIN Imaging Chest X-Ray 08/26/17 0600 Signed Impressions: Service Date/Time: Saturday, August 26, 2017 04:23 - CONCLUSION: Bibasilar airspace disease with probable associated effusions, unchanged. Casey Márquez MD Chest X-Ray 08/25/17 1601 Signed Impressions: Service Date/Time: Friday, August 25, 2017 16:06 - CONCLUSION: 1. Support equipment in satisfactory position. 2. Cardiomegaly with bilateral effusions and atelectasis. Exam would suggest CHF. Jonathon Jenkins MD Chest X-Ray 08/25/17 0600 Signed Impressions: Service Date/Time: Friday, August 25, 2017 03:56 - CONCLUSION: 1. Worsening bilateral airspace disease/effusions particularly on the right. 2. Stable position of life support tubes including a right sided [place] loop thoracostomy tube projecting over the lower right hemithorax. Casey Márquez MD Chest X-Ray 08/24/17 0000 Signed Impressions: Service Date/Time: August 07:35 - CONCLUSION: 1. Stable right inferior chest tube with stable residual small right pleural effusion and associated right lower lung zone airspace disease. 2. Improved trace left pleural effusion and left lower lung zone airspace disease. 3. No significant pneumothorax. Julian Vernon MD Chest CT 08/24/17 0000 Signed Impressions: Service Date/Time: August 17:38 - CONCLUSION: 1. Increase in size of left pleural effusion and dependent consolidation in the left lung since August 21. 2. Worsening consolidation in the right middle lobe and at the right lung base. Also increase in right apical consolidation with new loculated pleural effusion at the right lung apex. There is placement of a small caliber right chest tube, but drainage is probably limited due to increasing loculation of right effusion. 3. Mild anasarca. 4. No significant pericardial effusion. Gallo Caal MD Chest X-Ray 08/23/17 0600 Signed Impressions: Service Date/Time: Wednesday, August 23, 2017 04:09 - CONCLUSION: Enlarging right effusion and right lung consolidation. New left basilar consolidation. Chris Zuñiga Jr., MD Consultation 08/22/17 0000 Signed Impressions: Service Date/Time: Tuesday, August 22, 2017 00:00 - CONCLUSION: Volume of the right pleural effusion is not amenable to safe thoracentesis at this time. Marvin Presley MD Chest Ultrasound 08/22/17 0000 Signed Impressions: Service Date/Time: Tuesday, August 22, 2017 12:08 - CONCLUSION: Small left pleural effusion. No marking performed. Mj Sanchez MD Head CT 08/21/17 1357 Signed Impressions: Service Date/Time: Monday, August 21, 2017 16:05 - CONCLUSION: 1. No acute intracranial abnormality. Stable exam compared to previous dated 08/06/17. Jonathon Jenkins MD CT Angiography 08/21/17 1357 Signed Impressions: Service Date/Time: Monday, August 21, 2017 16:16 - CONCLUSION: 1. No evidence for pulmonary embolism. 2. Atherosclerosis. 3. Bilateral pleural effusions are identified right greater than left and patchy pulmonary consolidation is seen. Khanh Nina MD Abdomen/Pelvis CT 08/21/17 1357 Signed Impressions: Service Date/Time: Monday, August 21, 2017 16:16 - CONCLUSION: 1. Moderate amount of stool noted with a stool ball in the rectum. 2. Bilateral pleural effusions and consolidation greatest in the right lower lobe. 3. Diverticulosis without diverticulitis. 4. Atherosclerosis. 5. Bilateral L5 pars defects. 6. Inguinal hernias. Khanh Nina MD Brain MRI 08/21/17 0000 Signed Impressions: Service Date/Time: Monday, August 21, 2017 22:20 - CONCLUSION: 1. No acute intracranial abnormality. 2. Atrophy and chronic small vessel ischemic change. Chris Zuñiga Jr., MD Physical Exam GENERAL: Intubated. Sedated. HEENT: Pupils reactive to light. Extraocular movements intact. No icterus. NECK: No swelling or adenopathy. LUNGS: Breath sounds are clear. Decreased breath sounds on the left side. HEART: Regular S1 and S2. No audible murmur. ABDOMEN: Decreased bowel sounds, markedly distended. No masses palpable. EXTREMITIES: No clubbing, cyanosis or edema. SKIN: No rash. NEUROLOGIC: Unable to assess. Patient on ventilator. PSYCH: Unable to assess. Patient on ventilator. Assessment Severe Sepsis (with Septic Shock on admission), now off pressors. Pneumonia present on admission.? HCAP vs Aspiration or both. - with empyema - MRSA pneumonia ? source of bacteremia. Possible MRSA related empyema. MRSA bacteremia Bilateral pleural effusion - loculated on R Recent stroke. Acute respiratory failure on ventilator Recs: Continue Vanco IV (target 15-20) Continue Zyvox. - follow CBC CTS evaluating patient for his empyema - may need decortication - effusion on R loculated Follow cultures. Monitor progress. Raymond Oliver MD Aug 27, 2017 11:54
[2017-08-27] MEDS: NEOSTIGMINE METHYLSULFATE 10 MG/10 ML VIAL IV PUSH ONE ×2 (13:00→13:29)
[2017-08-27] MEDS: ATROPINE SULFATE 1 MG/10 ML SYRINGE IV PUSH ONE ×2 (13:00→13:29)
--- NOTE | 2017-08-27 13:05 | HHI.CCPN ---
Subjective Remarks/Hospital Course Patient is a 76-year-old male with multiple comorbidities, which include hypertension, hyperlipidemia, BPH, anemia of chronic disease, coronary artery disease, peripheral vascular disease, COPD on 2.5 L home oxygen, who presented to [facility] ED by EMS for respiratory distress and altered mental status requiring intubation in the field. In addition, patient was hypotensive and hypoxic. He was given 2 L Iv fluids by EVAC and an additional 1 L in the ED. Patient was started on Levophed, which is currently at 6 mcg. His laboratory data is significant for leukocytosis with a WBC of 23.7 and a mild lactic acidosis with lactic acid level of 2.3. Chest x-ray showed right basilar infiltrate concerning for pneumonia and ET tube above the jonah. ABG post intubation showed a pH of 7.39, CO2 of 44, PaO2 of 332, bicarb of 44, saturation 98%. In the ED, he was given cefepime, vancomycin. Patient also noted to have pinpoint pupils and was given Narcan without any significant effect. He was recently discharged from [facility] after he was admitted back on 08/04 for CHF, respiratory failure and acute right-sided stroke. He is scheduled to undergo CT scan of the brain, chest, abdomen and pelvis, which were ordered by ED. On his last admission, he had an echocardiogram on 08/04, which showed an EF of 55-60%. 08/22 Patient is sedated with Fentanyl drip and intubated. Afebrile. Off Levophed. 08/23: Patient remains profoundly septic. Encephalopathic white count is 22.4 which is slightly improved. His pleural effusion has increased in size and concerning for parapneumonic effusion/developing empyema. His chest x-ray shows bilateral infiltrates which are worsening. MRSA pneumonia is a concern. I will proceed with pigtail chest tube placement on the right side and send fluid for further studies 08/24: Remains critically ill but stabilizing. WBC count trending down today at 16.6. Right pigtail chest tube was placed yesterday with 1.1 L cloudy yellow fluid output concerning for parapneumonic effusion/early empyema. Cardiothoracic surgery consulted for recommendation regarding decortication. Chest x-ray today shows no pneumothorax, right lung consolidation with mild effusion. 08/25: Afebrile. Currently arousable on the ventilator but extremely encephalopathic. Tolerating tube feeds at goal. No bowel movement since admission. 08/26: Afebrile. Central line placed yesterday left IJ for IV access. No bowel movement. Aggressive enema today. Subjective 08/27: Afebrile. Very small bowel movement yesterday. KUB revealed no obstructive process. We will give 2 mg needs to be 1020 with atropine at bedside. Plan for CT thorax in a.m. to evaluate bilateral effusions. Might need another chest tube in the left side Objective Vital Signs Date Time Temp Pulse Resp B/P (MAP) Pulse Ox O2 Delivery O2 Flow Rate FiO2 08/27/17 08:33 99 45 08/27/17 04:00 98.4 61 17 125/65 (85) Intake and Output 08/27/17 08/27/17 08/28/17 08:00 16:00 00:00 Intake Total 2222 ml Output Total 1000 ml Balance 1222 ml Result Diagram: 08/27/17 0500 08/27/17 0500 Other Results Microbiology Date/Time Source Procedure Growth Status 08/22/17 11:07 Blood Peripheral Aerobic Blood Culture - Final NO GROWTH IN 5 DAYS Complete 08/22/17 11:07 Blood Peripheral Anaerobic Blood Culture - Final QNS - SEE AEROBE REPORT Complete 08/23/17 09:30 Fluid Pleural Fluid Fungal Smear - Final NO FUNGAL ELEMENTS SEEN. Resulted 08/23/17 09:30 Fluid Pleural Fluid Fungal Culture Pending Resulted 08/22/17 14:55 Sputum Endotracheal Gram Stain - Final Complete 08/22/17 14:55 Sputum Culture - Final S. Aureus Mrsa Complete 08/21/17 14:25 Urine Clean Catch Urine Culture - Final NO GROWTH IN 48 HOURS. Complete Imaging Last Impressions Chest X-Ray 08/26/17 0600 Signed Impressions: Service Date/Time: Saturday, August 26, 2017 04:23 - CONCLUSION: Bibasilar airspace disease with probable associated effusions, unchanged. Casey Márquez MD Abdomen X-Ray 08/25/17 0000 Signed Impressions: Service Date/Time: Friday, August 25, 2017 10:06 - CONCLUSION: 1. No evidence of bowel obstruction, ileus or perforation. 2. Degenerative changes are noted throughout the lumbar and lower thoracic spine. Marvin Presley MD Chest CT 08/24/17 0000 Signed Impressions: Service Date/Time: August 17:38 - CONCLUSION: 1. Increase in size of left pleural effusion and dependent consolidation in the left lung since August 21. 2. Worsening consolidation in the right middle lobe and at the right lung base. Also increase in right apical consolidation with new loculated pleural effusion at the right lung apex. There is placement of a small caliber right chest tube, but drainage is probably limited due to increasing loculation of right effusion. 3. Mild anasarca. 4. No significant pericardial effusion. Gallo Caal MD Consultation 08/22/17 0000 Signed Impressions: Service Date/Time: Tuesday, August 22, 2017 00:00 - CONCLUSION: Volume of the right pleural effusion is not amenable to safe thoracentesis at this time. Marvin Presley MD Chest Ultrasound 08/22/17 0000 Signed Impressions: Service Date/Time: Tuesday, August 22, 2017 12:08 - CONCLUSION: Small left pleural effusion. No marking performed. Mj Sanchez MD Head CT [id number] Signed Impressions: Service Date/Time: Monday, August 21, 2017 16:05 - CONCLUSION: 1. No acute intracranial abnormality. Stable exam compared to previous dated 08/06/17. Jonathon Jenkins MD CT Angiography [id number] Signed Impressions: Service Date/Time: Monday, August 21, 2017 16:16 - CONCLUSION: 1. No evidence for pulmonary embolism. 2. Atherosclerosis. 3. Bilateral pleural effusions are identified right greater than left and patchy pulmonary consolidation is seen. Khanh Nina MD Abdomen/Pelvis CT [id number] Signed Impressions: Service Date/Time: Monday, August 21, 2017 16:16 - CONCLUSION: 1. Moderate amount of stool noted with a stool ball in the rectum. 2. Bilateral pleural effusions and consolidation greatest in the right lower lobe. 3. Diverticulosis without diverticulitis. 4. Atherosclerosis. 5. Bilateral L5 pars defects. 6. Inguinal hernias. Khanh Nina MD Brain MRI 08/21/17 0000 Signed Impressions: Service Date/Time: Monday, August 21, 2017 22:20 - CONCLUSION: 1. No acute intracranial abnormality. 2. Atrophy and chronic small vessel ischemic change. Chris Zuñiga Jr., MD Objective Remarks GENERAL: Patient is 76 yo male currently resting in bed in mild distress secondary to agitation SKIN: Warm and dry. HEAD: Normocephalic. EYES: No scleral icterus. No injection or drainage. Pupils 2 mm NECK: Supple, trachea midline. No JVD or lymphadenopathy. CARDIOVASCULAR: Regular rate and rhythm without murmurs, gallops, or rubs. RESPIRATORY: Bilateral coarse breath sounds. Right pigtail chest tube with cloudy yellow drainage, at -40 cm H2O -200 cc with no air leak GASTROINTESTINAL: Abdomen soft, non-tender, nondistended. Hypoactive bowel sounds are appreciated MUSCULOSKELETAL: Trace bilateral upper and lower extremity edema. Neuro: Sedated, intubated. Wakes up on lightening sedation encephalopathic moves all 4 extremities no focal deficits 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 UDS: + Benzos Bilateral pars L5 defect On propofol 25 mcg/kg/min and fentanyl drip at 250 mcg an hour for sedation. Monitor neuro status closely. CT and MRI brain : No acute process On donepezil 10 mg daily for dementia Holding gabapentin 100 mg twice daily for neuropathy Holding quetiapine 100 mg twice daily for dementia Acetaminophen 650 mg by tube every 6 hours as needed fever Pulm: Acute hypoxemic respiratory failure Right lower lobe pneumonia Right-sided parapneumonic effusion/early empyema COPD ACV //8/45 -PSV trial 05/16 and 45 Ventilator bundle Albuterol/ipratropium aerosols every 6 hours with albuterol aerosols every 2 hours as needed dyspnea hydrocortisone 50 mg IV q. 12. SBT daily as chi CT thorax: No evidence for PE, small to mod pleural effusions R>L and patchy pulmonary consolidation is seen. 08/23 s/p pigtail chest tube placement and fluid studies consistent with early empyema (WBC 7000 with 98% neutrophils, LDH 734) Consult Dr. Maloney/pulmonology. Dr. Mahmood currently seeing CT thorax 08/24 revealed worsening left-sided pleural effusion with loculated right pleural effusion/worsening at the apex. Plan repeat CT thorax in a.m. CV: CAD HTN Severe sepsis Hyperlipidemia ASVD Monitor HR and BP MAP>65 mmHg. Taper Stress dose steroids. Holding ASA 81 mg daily and clopidogrel 75 mg daily for pigtail chest tube placement and possible surgical intervention 2D echo from 08/04 showed an EF of 55-60%. Currently on diltiazem 60 mg every 6 hours. Home medications include amlodipine 10 mg daily and metoprolol succinate 25 mg daily and hydralazine 50 mg every 8 hours. Renal/FEN/: Hypernatremia BPH Monitor renal function, I's and O's and electrolyte replacement per protocol. s/p 3L crystalloids total on admission, continue half-normal saline, and free water flushes added for Hyper Na Free water flushes 200 cc every 6 hours Continue finasteride 5 mg daily and tamsulosin 0.4 mg daily when able for BPH GI: Hypoalbuminemia Diverticulosis Currently on Jevity 1.5 at goal 60 cc an hour Famotidine 20 mg twice daily for GI prophylaxis Docusate sodium, senna, polyethylene glycol twice daily. Lactulose 30 cc 4 times daily until BM. methylnaltrexone 12 mg subcu 1 now 08/26 KUB -no obstructive process Methylnaltrexone 12 mg subcu 1 Neostigmine 2 mg IV times with atropine 1 mg at bedtime ID: MRSA empyema/bacteremia Continue abx (vancomycin, linezolid).ID Dr. Pritchett Nasal aspirate is negative influenza BC 08/21 06/15 bottles: MRSA, Sputum culture 08/22, MRSA Fluid culture from 08/23/2017 p MRSA Cardiothoracic surgery consult high risk for surgical intervention. Heme: Leukocytosis Normocytic anemia Monitor CBC. No indication for transfusion of blood products at this time Endo: SSI with nonrevealing R with Accu-Cheks every 6 hours to maintain euglycemia/ low regimen 0 units sliding scale past 24 hours GI prophylaxis with famotidine and DVT prophylaxis with SCDs/heparin Sq Level 3 follow-up. Discussed with at bedside Oscar Louis MD Aug 27, 2017 13:05
[2017-08-27] MEDS ORDERED: ALBUMIN 25% INJ 100 ML IV ONE (14:45)
[2017-08-27] MEDS ORDERED: FUROSEMIDE 20 MG/2 ML VIAL IV PUSH ONE (14:45)
[2017-08-27] MEDS ORDERED: DIATRIZOATE MEGLUM/DIATRIZOATE SOD 9 ML CUP PO ONE (15:15)
[2017-08-27] MEDS: METOCLOPRAMIDE HCL 10 MG/2 ML VIAL IV PUSH SCH ×2 (17:05→21:19)
[2017-08-27] MEDS: SODIUM CHLORIDE 23.4% INJ 38.5 MEQ in WATER STERILE FOR INJ 1,000 ML IV SCH (17:06)
[2017-08-27] MEDS ORDERED: PHARMACY ORDERED LAB ONE (19:45)
[2017-08-27] MEDS: DONEPEZIL HCL 5 MG TAB PO SCH (21:00)
[2017-08-28] VITALS (22 sets, daily range): BP systolic 109–154; BP diastolic 62–77; PULSE 54–96; RESP 14–24; TEMP 97.7–98.7; O2SAT 93–100
[2017-08-28] MEDS: LINEZOLID 600 MG PREMIX 300 ML IV SCH ×3 (01:07→23:16)
--- NOTE | 2017-08-28 01:30 | RADRPT ---
EXAM DATE/TIME: 08/27/2017 22:24 [facility] COMPARISON: CHEST SINGLE AP, August 13, 2017, 12:28. CT ABDOMEN & PELVIS W/O CONTRAST, August 04, 2017, 22:55. INDICATIONS : Evaluate for obstruction. ORAL CONTRAST: Prescribed oral contrast ingested. RADIATION DOSE: 11.89 CTDIvol (mGy) MEDICAL HISTORY : Cardiovascular disease. Hypertension. SURGICAL HISTORY : None. ENCOUNTER: Initial ACUITY: 1 day PAIN SCALE: Non-responsive LOCATION: abdomen TECHNIQUE: Volumetric scanning of the abdomen and pelvis was performed. Using automated exposure control and ad justment of the mA and/or kV according to patient size, radiation dose was kept as low as reasonably achievable to obtain optimal diagnostic quality images. DICOM format image data is available electro nically for review and comparison. FINDINGS: LOWER LUNGS: Bilateral pleural effusions, left greater than right left lower lobar consolidation and segmental con solidation right lower lung. Right chest drainage catheter at the right base. LIVER: Homogeneous density without lesion for noncontrast technique. There is no dilation of the biliary tr ee. No calcified gallstones. SPLEEN: Normal size without lesion. PANCREAS: Within normal limits. KIDNEYS: Normal in size and shape. There is no mass, stone, or hydronephrosis. ADRENAL GLANDS: Within normal limits. VASCULAR: There is no aortic aneurysm. Diffuse atherosclerotic calcification. BOWEL/MESENTERY: Moderate distention of the right colon. No dilated loops of small bowel. A loop of small bowel does extend into the right inguinal hernia with less bowel herniation than on prior CT 08/04/17. Moderate amount of stool in the rectum, similar to prior. Gastric tube in place. ABDOMINAL WALL: No ventral hernia. Interval development of induration and swelling of the subcutaneous soft tissues of the lateral pelvic region and proximal thighs. RETROPERITONEUM: There is no lymphadenopathy. BLADDER: Fang catheter in nondistended bladder. REPRODUCTIVE: Within normal limits. INGUINAL: There is no lymphadenopathy or hernia. MUSCULOSKELETAL: Bilateral L5 pars defects. CONCLUSION: 1. Right inguinal hernia containing a loop of small bowel less herniation than on prior CT scan . 2. Interval development of subcutaneous soft tissue swelling and induration about the lateral pelvic and proximal thigh soft tissues. 3. Interval development of left pleural effusion and left lower lung consolidation. There is a small right pleural effusion. 4. Right lower chest catheter and gastric tubes in place. Chris Rhoades MD on August 28, 2017 at 1:21 Board Certified Radiologist. This report was verified electronically.
[2017-08-28] MEDS: fentaNYL DRIP 250 ML IV PRN (01:31)
[2017-08-28] MEDS: INSULIN NovoLIN REGULAR SUPPLEMENTAL SCALE SQ SCH ×4 (03:00→20:12)
[2017-08-28] MEDS: CHLORHEXIDINE GLUCONATE 2 % 1 PACK (2 CLOTHS) TOP SCH (04:00)
[2017-08-28] MEDS: RESP: ALBUTEROL 2.5 MG/IPRATROPIUM 0.5 MG NEB (SCH) INH ×3 (04:12→15:03)
[2017-08-28] MEDS: methylPREDNISolone SOD SUCC 40 MG/1 ML VIAL IV PUSH SCH ×2 (05:27→18:31)
[2017-08-28] MEDS: METOCLOPRAMIDE HCL 10 MG/2 ML VIAL IV PUSH SCH ×3 (05:27→20:12)
[2017-08-28] MEDS: [UNRECOGNIZED DRUG - REMARK] OG-TUBE SCH ×2 (05:28)
[2017-08-28] MEDS: DILTIAZEM HCL 30 MG TAB PO SCH ×5 (05:28→23:16)
[2017-08-28] MEDS: FREE WATER G-TUBE SCH ×2 (05:28)
[2017-08-28] MEDS: ARTIFICIAL TEARS OPTH SOLN 15 ML BTL EACH EYE SCH ×3 (05:28→20:13)
[2017-08-28] MEDS: PROPOFOL 1000 MG/100 ML INJ 100 ML IV PRN (05:37)
[2017-08-28 05:53] LABS: AUTOMATED NEUTROPHIL # 10.8 TH/MM3 (1.8-7.7); BASOPHIL % 0.2 % (0.0-2.0); HEMATOCRIT 27.3 % (39.0-51.0); HEMOGLOBIN 8.8 GM/DL (13.0-17.0); LYMPH % 3.2 % (9.0-44.0); LYMPHOCYTE # 0.4 TH/MM3 (1.0-4.8); MEAN CORPUSCULAR HEMOGLOBIN 27.3 PG (27.0-34.0); MEAN CORPUSCULAR HGB CONC 32.1 % (32.0-36.0); MEAN PLATELET VOLUME 8.5 FL (7.0-11.0); MONO % 2.3 % (0.0-8.0); MONOCYTE # 0.3 TH/MM3 (0-0.9); NEUT % 94.3 % (16.0-70.0); PLATELET COUNT 164 TH/MM3 (150-450); RED BLOOD COUNT 3.22 MIL/MM3 (4.50-5.90); RED CELL DISTRIBUTION WIDTH 17.1 % (11.6-17.2); WHITE BLOOD COUNT 11.4 TH/MM3 (4.0-11.0)
--- NOTE | 2017-08-28 08:03 | RADRPT ---
EXAM DATE/TIME: 08/28/2017 07:24 [facility] COMPARISON: CHEST SINGLE AP, August 26, 2017, 4:23. INDICATIONS : Evaluate for respiratory failure. MEDICAL HISTORY : Myocardial infarction. Cardiovascular disease. Chronic obstructive pulmonary disease. PVD, leukocytos is SURGICAL HISTORY : None. ENCOUNTER: Subsequent ACUITY: 1 week PAIN SCORE: Non-responsive. LOCATION: Bilateral chest FINDINGS: Small right-sided chest tube is again noted within the right lung base. No pneumothorax is noted. An endotracheal tube has its tip approximately 2 cm above the jonah. Nasogastric tube is below diaphrag m. Left internal jugular central line has its tip in superior vena cava. Bibasilar patchiness is agai n noted and slightly improved compared to previous examination. Small left pleural effusion is noted. The heart is stable. CONCLUSION: Slight interval improvement of the bibasilar patchiness. Small left pleural effusion. Multiple tubes and lines are stable. Marvin Presley MD on August 28, 2017 at 8:00 Board Certified Radiologist. This report was verified electronically.
[2017-08-28] MEDS: HEPARIN SODIUM - SQ 10,000 UNITS/ML VIAL SQ SCH ×2 (08:40→20:07)
[2017-08-28] MEDS: FAMOTIDINE 20 MG/2 ML VIAL IV PUSH SCH ×2 (08:40→20:05)
[2017-08-28] MEDS: SODIUM CHLORIDE 0.9% FLUSH 10 ML FLUSH IV FLUSH SCH (08:44)
[2017-08-28] MEDS: TAMSULOSIN HCL 0.4 MG CAP PO SCH (09:00)
[2017-08-28 09:20] LABS: ALKALINE PHOSPHATASE 147 U/L (45-117); ALT (GPT) 54 U/L (12-78); AST (GOT) 19 U/L (15-37); BLOOD UREA NITROGEN 38 MG/DL (7-18); CALCIUM 7.6 MG/DL (8.5-10.1); CHLORIDE 114 MEQ/L (98-107); CREATININE 1.25 MG/DL (0.60-1.30); GLOMERULAR FILTRATION RATE 56 ML/MIN (>89); GLUCOSE,RANDOM 110 MG/DL (74-106); MAGNESIUM 2.9 MG/DL (1.5-2.5); SODIUM (NA) 150 MEQ/L (136-145); TOTAL BILIRUBIN ADULT 0.2 MG/DL (0.2-1.0); TOTAL PROTEIN 5.2 GM/DL (6.4-8.2)
--- NOTE | 2017-08-28 10:19 | HHI.CCPN ---
Subjective Remarks/Hospital Course Patient is a 76-year-old male with multiple comorbidities, which include hypertension, hyperlipidemia, BPH, anemia of chronic disease, coronary artery disease, peripheral vascular disease, COPD on 2.5 L home oxygen, who presented to [facility] ED by EMS for respiratory distress and altered mental status requiring intubation in the field. In addition, patient was hypotensive and hypoxic. He was given 2 L Iv fluids by EVAC and an additional 1 L in the ED. Patient was started on Levophed, which is currently at 6 mcg. His laboratory data is significant for leukocytosis with a WBC of 23.7 and a mild lactic acidosis with lactic acid level of 2.3. Chest x-ray showed right basilar infiltrate concerning for pneumonia and ET tube above the jonah. ABG post intubation showed a pH of 7.39, CO2 of 44, PaO2 of 332, bicarb of 44, saturation 98%. In the ED, he was given cefepime, vancomycin. Patient also noted to have pinpoint pupils and was given Narcan without any significant effect. He was recently discharged from [facility] after he was admitted back on 08/04 for CHF, respiratory failure and acute right-sided stroke. He is scheduled to undergo CT scan of the brain, chest, abdomen and pelvis, which were ordered by ED. On his last admission, he had an echocardiogram on 08/04, which showed an EF of 55-60%. 08/22 Patient is sedated with Fentanyl drip and intubated. Afebrile. Off Levophed. 08/23: Patient remains profoundly septic. Encephalopathic white count is 22.4 which is slightly improved. His pleural effusion has increased in size and concerning for parapneumonic effusion/developing empyema. His chest x-ray shows bilateral infiltrates which are worsening. MRSA pneumonia is a concern. I will proceed with pigtail chest tube placement on the right side and send fluid for further studies 08/24: Remains critically ill but stabilizing. WBC count trending down today at 16.6. Right pigtail chest tube was placed yesterday with 1.1 L cloudy yellow fluid output concerning for parapneumonic effusion/early empyema. Cardiothoracic surgery consulted for recommendation regarding decortication. Chest x-ray today shows no pneumothorax, right lung consolidation with mild effusion. 08/25: Afebrile. Currently arousable on the ventilator but extremely encephalopathic. Tolerating tube feeds at goal. No bowel movement since admission. 08/26: Afebrile. Central line placed yesterday left IJ for IV access. No bowel movement. Aggressive enema today. Subjective 08/27: Afebrile. Very small bowel movement yesterday. KUB revealed no obstructive process. We will give 2 mg needs to be 1020 with atropine at bedside. Plan for CT thorax in a.m. to evaluate bilateral effusions. Might need another chest tube in the left side 08/28 Patient remains sedated and intubated. Afebrile. Objective Vital Signs Date Time Temp Pulse Resp B/P (MAP) Pulse Ox O2 Delivery O2 Flow Rate FiO2 08/28/17 09:43 100 40 08/28/17 08:00 98.7 58 144/65 (91) 08/28/17 04:00 16 Intake and Output 08/28/17 08/28/17 08/29/17 08:00 16:00 00:00 Intake Total 650 ml Output Total 1025 ml Balance -375 ml Result Diagram: 08/28/17 0445 08/28/17 0445 Other Results Laboratory Tests Test 08/27/17 20:15 08/28/17 04:45 Vancomycin Level Trough 28.3 MCG/ML White Blood Count 11.4 TH/MM3 Red Blood Count 3.22 MIL/MM3 Hemoglobin 8.8 GM/DL Hematocrit 27.3 % Mean Corpuscular Volume 85.0 FL Mean Corpuscular Hemoglobin 27.3 PG Mean Corpuscular Hemoglobin Concent 32.1 % Red Cell Distribution Width 17.1 % Platelet Count 164 TH/MM3 Mean Platelet Volume 8.5 FL Neutrophils (%) (Auto) 94.3 % Lymphocytes (%) (Auto) 3.2 % Monocytes (%) (Auto) 2.3 % Eosinophils (%) (Auto) 0.0 % Basophils (%) (Auto) 0.2 % Neutrophils # (Auto) 10.8 TH/MM3 Lymphocytes # (Auto) 0.4 TH/MM3 Monocytes # (Auto) 0.3 TH/MM3 Eosinophils # (Auto) 0.0 TH/MM3 Basophils # (Auto) 0.0 TH/MM3 CBC Comment DIFF FINAL Differential Comment Blood Urea Nitrogen 38 MG/DL Creatinine 1.25 MG/DL Random Glucose 110 MG/DL Total Protein 5.2 GM/DL Albumin 2.0 GM/DL Calcium Level 7.6 MG/DL Phosphorus Level 3.0 MG/DL Magnesium Level 2.9 MG/DL Alkaline Phosphatase 147 U/L Aspartate Amino Transf (AST/SGOT) 19 U/L Alanine Aminotransferase (ALT/SGPT) 54 U/L Total Bilirubin 0.2 MG/DL Sodium Level 150 MEQ/L Potassium Level 4.3 MEQ/L Chloride Level 114 MEQ/L Carbon Dioxide Level 29.0 MEQ/L Anion Gap 7 MEQ/L Estimat Glomerular Filtration Rate 56 ML/MIN Imaging Last Impressions Chest X-Ray 08/28/17 0800 Signed Impressions: Service Date/Time: Monday, August 28, 2017 07:24 - CONCLUSION: Slight interval improvement of the bibasilar patchiness. Small left pleural effusion. Multiple tubes and lines are stable. Marvin Presley MD Abdomen/Pelvis CT 08/27/17 0000 Signed Impressions: Service Date/Time: Sunday, August 27, 2017 22:24 - CONCLUSION: 1. Right inguinal hernia containing a loop of small bowel less herniation than on prior CT scan 08/04/17. 2. Interval development of subcutaneous soft tissue swelling and induration about the lateral pelvic and proximal thigh soft tissues. 3. Interval development of left pleural effusion and left lower lung consolidation. There is a small right pleural effusion. 4. Right lower chest catheter and gastric tubes in place. Chris Rhoades MD Abdomen X-Ray 08/25/17 0000 Signed Impressions: Service Date/Time: Friday, August 25, 2017 10:06 - CONCLUSION: 1. No evidence of bowel obstruction, ileus or perforation. 2. Degenerative changes are noted throughout the lumbar and lower thoracic spine. Marvin Presley MD Chest CT 08/24/17 0000 Signed Impressions: Service Date/Time: August 17:38 - CONCLUSION: 1. Increase in size of left pleural effusion and dependent consolidation in the left lung since August 21. 2. Worsening consolidation in the right middle lobe and at the right lung base. Also increase in right apical consolidation with new loculated pleural effusion at the right lung apex. There is placement of a small caliber right chest tube, but drainage is probably limited due to increasing loculation of right effusion. 3. Mild anasarca. 4. No significant pericardial effusion. Gallo Caal MD Consultation 08/22/17 0000 Signed Impressions: Service Date/Time: Tuesday, August 22, 2017 00:00 - CONCLUSION: Volume of the right pleural effusion is not amenable to safe thoracentesis at this time. Marvin Presley MD Chest Ultrasound 08/22/17 0000 Signed Impressions: Service Date/Time: Tuesday, August 22, 2017 12:08 - CONCLUSION: Small left pleural effusion. No marking performed. Mj Sanchez MD Head CT 08/21/17 1357 Signed Impressions: Service Date/Time: Monday, August 21, 2017 16:05 - CONCLUSION: 1. No acute intracranial abnormality. Stable exam compared to previous dated 08/06/17. Jonathon Jenkins MD CT Angiography 08/21/17 1357 Signed Impressions: Service Date/Time: Monday, August 21, 2017 16:16 - CONCLUSION: 1. No evidence for pulmonary embolism. 2. Atherosclerosis. 3. Bilateral pleural effusions are identified right greater than left and patchy pulmonary consolidation is seen. Khanh Nina MD Brain MRI 08/21/17 0000 Signed Impressions: Service Date/Time: Monday, August 21, 2017 22:20 - CONCLUSION: 1. No acute intracranial abnormality. 2. Atrophy and chronic small vessel ischemic change. Chris Zuñiga Jr., MD Objective Remarks GENERAL: Patient is 76 yo male intubated and sedated SKIN: Warm and dry. HEAD: Normocephalic. EYES: No scleral icterus. No injection or drainage. Pupils 2 mm NECK: Supple, trachea midline. No JVD or lymphadenopathy. CARDIOVASCULAR: Regular rate and rhythm without murmurs, gallops, or rubs. RESPIRATORY: Bilateral coarse breath sounds. Right pigtail chest tube with cloudy yellow drainage, at -40 cm H2O -200 cc with no air leak GASTROINTESTINAL: Abdomen soft, non-tender, nondistended. Hypoactive bowel sounds are appreciated MUSCULOSKELETAL: Trace bilateral upper and lower extremity edema. Neuro: Sedated, intubated. 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 Monitor neuro status closely. Daily sedation vacation. CT and MRI brain : No acute process On donepezil 10 mg daily for dementia Holding gabapentin 100 mg twice daily for neuropathy Holding quetiapine 100 mg twice daily for dementia Acetaminophen 650 mg by tube every 6 hours as needed fever Pulm: Acute hypoxemic respiratory failure Right lower lobe pneumonia Right-sided parapneumonic effusion/early empyema COPD [facility] / Ventilator bundle Albuterol/ipratropium aerosols every 6 hours with albuterol aerosols every 2 hours as needed dyspnea Decrease Solumederol 40mg Q12 SBT daily as chi CT thorax: No evidence for PE, small to mod pleural effusions R>L and patchy pulmonary consolidation is seen. 08/23 s/p pigtail chest tube placement and fluid studies consistent with early empyema (WBC 7000 with 98% neutrophils, LDH 734). Monitor CT drainage Pulmonary is following CT thorax 08/24 revealed worsening left-sided pleural effusion with loculated right pleural effusion/worsening at the apex. Plan repeat CT thorax in a.m. For repeat CT chest today CV: CAD HTN Severe sepsis Hyperlipidemia ASVD Monitor HR and BP MAP>65 mmHg. Taper Stress dose steroids. Holding ASA 81 mg daily and clopidogrel 75 mg daily for pigtail chest tube placement and possible surgical intervention 2D echo from 08/04 showed an EF of 55-60%. Currently on diltiazem 60 mg every 6 hours. Home medications include amlodipine 10 mg daily and metoprolol succinate 25 mg daily and hydralazine 50 mg every 8 hours. Renal/FEN/: Hypernatremia BPH Monitor renal function, I's and O's and electrolyte replacement per protocol. s/p 3L crystalloids total on admission, continue half-normal saline, and free water flushes added for Hyper Na Change Free water flushes 250mg Q6, monitor sodium level Diurese with Lasix 40mg x1 Continue finasteride 5 mg daily and tamsulosin 0.4 mg daily when able for BPH GI: Hypoalbuminemia Diverticulosis TF( Jevity 1.5 at goal 60 cc an hour) held overnight for emesis, resume trickle feeds Famotidine 20 mg twice daily for GI prophylaxis Docusate sodium, senna, polyethylene glycol twice daily. Lactulose 30 cc [address] abd/pelvis last night: . Right inguinal hernia containing a loop of small bowel less herniation than on prior CT scan 08/04/17. 2. Interval development of subcutaneous soft tissue swelling and induration about the lateral pelvic and proximal thigh soft tissues. Interval development of left pleural effusion and left lower lung consolidation. There is a small right pleural effusion. 4. Right lower chest catheter and gastric tubes in place. 08/26 KUB -no obstructive process ID: MRSA empyema/bacteremia Continue abx (vancomycin, linezolid).ID Dr. Pritchett Nasal aspirate is negative influenza BC 08/21 06/15 bottles: MRSA, Sputum culture 08/22, MRSA Fluid culture from 08/23/2017 p MRSA Cardiothoracic surgery consult high risk for surgical intervention. Heme: Leukocytosis Normocytic anemia Monitor CBC. No indication for transfusion of blood products at this time Endo: SSI with Accu-Cheks every 6 hours to maintain euglycemia/low regimen GI prophylaxis with famotidine and DVT prophylaxis with SCDs/heparin Sq Level 3 Henrry Frey MD Aug 28, 2017 10:19
[2017-08-28] MEDS ORDERED: FUROSEMIDE 40 MG/4 ML VIAL IV PUSH ONE (10:30)
[2017-08-28] MEDS: SODIUM CHLORIDE 23.4% INJ 38.5 MEQ in WATER STERILE FOR INJ 1,000 ML IV SCH (11:46)
--- NOTE | 2017-08-28 11:49 | RADRPT ---
EXAM DATE/TIME: 08/28/2017 11:05 [facility] COMPARISON: CT THORAX W/O CONTRAST, August 24, 2017, 17:38. INDICATIONS : Bilateral empyema RADIATION DOSE: 13.26 CTDIvol (mGy) MEDICAL HISTORY : Chronic obstructive pulmonary disease. Hypertension. Cardiovascular disease SURGICAL HISTORY : None. ENCOUNTER: Initial ACUITY: 1 day PAIN SCALE: Non-responsive LOCATION: chest TECHNIQUE: Volumetric scanning of the chest was performed. Using automated exposure control and adjustment of t he mA and/or kV according to patient size, radiation dose was kept as low as reasonably achievable to obtain optimal diagnostic quality images. DICOM format image data is available electronically for r eview and comparison. Follow-up recommendations for detected pulmonary nodules are based at a minimum on nodule size and pa tient risk factors according to Fleischner Society Guidelines. FINDINGS: LUNGS: Smallbore chest tube is in place on the right with minimal consolidative changes in the right base. Moderate consolidations are present left base with small left pleural effusion. The fluid does not a ppear to be loculated. MEDIASTINUM: Cardiomegaly is evident without pericardial effusion. Moderate calcifications are noted. There is m axillary mediastinal adenopathy. MUSCULOSKELETAL: Degenerative changes are present in the thoracic spine. MISCELLANEOUS: The visualized upper abdominal organs demonstrate no acute abnormality. Nasogastric tube is in the f undus of the stomach. CONCLUSION: 1. Smallbore chest tube on the right with minimal colonic changes right base 2. Small left pleural effusion the consolidative changes in the left lower lobe. Luis Eduardo Jenkins MD FACR on August 28, 2017 at 11:44 Board Certified Radiologist. This report was verified electronically.
--- NOTE | 2017-08-28 12:02 | HHI.HCPN ---
Reason for visit a. To assist with evaluation and management of symptoms including: Shortness of breath, anxiety/agitation, debility. b. To assist medical decision maker(s) with: better understanding of current medical conditions; weighing benefits/burdens of medical treatment options; making medical treatment decisions. . Subjective/Interval History 1000:" attempted to see patient at 1000 to follow-up on comfort, goals with . Patient reported off unit for imaging. WBC downtrending 11.4. H&H slightly downtrending 8.8/27.3. Patient with no BM , abdominal imaging over the weekend negative for obstruction. Received realistor, neostigmine, Reglan. CXR has been stable however ordered for repeat CT chest to re-evaluate effusions. CT chest 08/27 = Right inguinal hernia containing a loop of small bowel less herniation than on prior CT scan . 2. Interval development of subcutaneous soft tissue swelling and induration about the lateral pelvic and proximal thigh soft tissues. 3. Interval development of left pleural effusion and left lower lung consolidation. There is a small right pleural effusion. On CPAP mechanical vent today, was also on CPAP for much of the day yesterday. Sedatives held for CPAP trials. Palliative met with patient last week on Monday, at that time she indicated she wants to monitor him through the weekend for improvements versus deterioration, and was beginning to consider the possibility of transition to comfort focus. Will attempt to see patient again when he is returned from imaging. 1230- patient seen later once he has returned to room, at bedside. CT pending. Review with her current condition, recent diagnostics, current clinical assessment. Patient currently on CPAP nursing informs possible medical extubation later today or tomorrow depending on how patient does. expresses she is hopeful and optimistic if the patient will be medically extubated then he must be getting better. Gently explore with her that though he may improve enough for medical extubation, his overall conditions remain, his debilitated status remains, and that he would remain high risk for ongoing respiratory complications, possible reintubation, and other complications related to debilitated status. Review that if he is medically extubated she will need to advise of reintubation status, and that alternatively if he would not want to go on mechanical ventilator again then should he experience respiratory decline in compromise he would have the option for comfort measures. She is not ready to make any decisions at this time she indicates she is slightly more hopeful and optimistic today. . Advance Directives Living Will: Never completed Health Care Surrogate: Never completed Durable Power of Licensed Funeral Director: Never completed Advance Directive Specifics Health Care Surrogate(s): No advance directives completed. As per [place] statute, healthcare proxy decision making falls to patient's Leatha Butts. . Objective Vital Signs Date Time Temp Pulse Resp B/P (MAP) Pulse Ox O2 Delivery O2 Flow Rate FiO2 08/28/17 11:32 100 100 08/28/17 09:43 100 40 08/28/17 08:00 98.7 58 144/65 (91) 100 08/28/17 06:00 61 08/28/17 04:12 100 45 08/28/17 04:00 98.6 59 16 109/64 (79) 99 08/28/17 04:00 58 08/28/17 04:00 55 08/28/17 02:00 54 08/28/17 00:00 55 08/28/17 00:00 98.2 55 16 138/62 (87) 99 08/28/17 00:00 55 08/27/17 23:35 100 45 08/27/17 22:00 100 100 08/27/17 22:00 55 08/27/17 22:00 56 08/27/17 20:13 98 45 08/27/17 20:00 54 08/27/17 20:00 45 08/27/17 20:00 97.9 62 16 123/63 (83) 98 08/27/17 18:00 61 08/27/17 16:00 45 08/27/17 16:00 98.1 54 17 105/53 (70) 96 08/27/17 16:00 54 08/27/17 14:50 96 45 08/27/17 14:00 69 08/27/17 12:00 98.0 58 112/55 (74) 100 08/27/17 12:00 45 08/27/17 12:00 58 Intake & Output 08/28/17 08/28/17 07:00 19:00 Intake Total 1615 ml Output Total 1025 ml Balance 590 ml IV Total 1615 ml Tube Feeding 0 ml Output Urine Total 900 ml Gastric Drainage Total 100 ml Chest Tube Drainage Total 25 ml # Bowel Movements 0 Physical Exam CONSTITUTIONAL/GENERAL: This is an adequately nourished patient, restlessness at times, on mechanical vent TUBES/LINES/DRAINS: ETT, OG, Fang catheter, bilateral soft wrist restraints, PIV's. SKIN: No jaundice, rashes, or lesions. Ecchymoses on upper extremities. No wounds seen anteriorly. Skin warm dry, generalized edema.+ Serous weeping from right upper extremity NECK: Trachea midline. Supple, nontender. CARDIOVASCULAR: irregular rate and rhythm without murmurs. Peripheral pulses symmetric. Pitting edema to all 4 extremities. RESPIRATORY/CHEST: Symmetric, unlabored respirations via ETT to mechanical vent. +coughing at times. Faint Scattered rhonchi .+beige secretions in ETT. Right lateral chest tube to Pleur-evac drainage mod amount serosanguineous fluid GASTROINTESTINAL: Abdomen soft, large, round. No guarding. Bowel sounds present. GENITOURINARY: Without palpable bladder distension. Fang catheter in place. MUSCULOSKELETAL: Extremities without clubbing, cyanosis. No mottling or clubbing. Pitting edema to all 4 extremities. weeping from RUE NEUROLOGICAL: Sedated on mechanical vent. Eyes open spontaneously does not consistently track examiner. Does not follow commands. Localizes to touch and moves all 4 extremities. PSYCHIATRIC: Limited assessment secondary clinical condition --restless/anxious at times juan pablo w suctioning . Diagnostic Tests Laboratory Laboratory Tests Test 08/25/17 12:07 08/26/17 03:45 08/27/17 05:00 08/27/17 20:15 Potassium Level 4.1 MEQ/L (3.5-5.1) 3.5 MEQ/L (3.5-5.1) 4.3 MEQ/L (3.5-5.1) White Blood Count 13.3 TH/MM3 (4.0-11.0) 14.9 TH/MM3 (4.0-11.0) Red Blood Count 3.14 MIL/MM3 (4.50-5.90) 3.74 MIL/MM3 (4.50-5.90) Hemoglobin 8.6 GM/DL (13.0-17.0) 10.1 GM/DL (13.0-17.0) Hematocrit 26.4 % (39.0-51.0) 31.5 % (39.0-51.0) Mean Corpuscular Volume 84.2 FL (80.0-100.0) 84.2 FL (80.0-100.0) Mean Corpuscular Hemoglobin 27.3 PG (27.0-34.0) 26.9 PG (27.0-34.0) Mean Corpuscular Hemoglobin Concent 32.5 % (32.0-36.0) 31.9 % (32.0-36.0) Red Cell Distribution Width 17.4 % (11.6-17.2) 17.5 % (11.6-17.2) Platelet Count 135 TH/MM3 (150-450) 175 TH/MM3 (150-450) Mean Platelet Volume 8.0 FL (7.0-11.0) 8.3 FL (7.0-11.0) Neutrophils (%) (Auto) 95.7 % (16.0-70.0) 96.5 % (16.0-70.0) Lymphocytes (%) (Auto) 2.3 % (9.0-44.0) 2.2 % (9.0-44.0) Monocytes (%) (Auto) 1.8 % (0.0-8.0) 1.1 % (0.0-8.0) Eosinophils (%) (Auto) 0.0 % (0.0-4.0) 0.0 % (0.0-4.0) Basophils (%) (Auto) 0.2 % (0.0-2.0) 0.2 % (0.0-2.0) Neutrophils # (Auto) 12.7 TH/MM3 (1.8-7.7) 14.4 TH/MM3 (1.8-7.7) Lymphocytes # (Auto) 0.3 TH/MM3 (1.0-4.8) 0.3 TH/MM3 (1.0-4.8) Monocytes # (Auto) 0.2 TH/MM3 (0-0.9) 0.2 TH/MM3 (0-0.9) Eosinophils # (Auto) 0.0 TH/MM3 (0-0.4) 0.0 TH/MM3 (0-0.4) Basophils # (Auto) 0.0 TH/MM3 (0-0.2) 0.0 TH/MM3 (0-0.2) CBC Comment DIFF FINAL DIFF FINAL Differential Comment Blood Urea Nitrogen 37 MG/DL (7-18) 33 MG/DL (7-18) Creatinine 1.27 MG/DL (0.60-1.30) 1.13 MG/DL (0.60-1.30) Random Glucose 194 MG/DL (74-106) 141 MG/DL (74-106) Total Protein 4.5 GM/DL (6.4-8.2) Albumin 1.4 GM/DL (3.4-5.0) Calcium Level 7.7 MG/DL (8.5-10.1) 7.9 MG/DL (8.5-10.1) Phosphorus Level 2.7 MG/DL (2.5-4.9) Magnesium Level 2.8 MG/DL (1.5-2.5) Alkaline Phosphatase 149 U/L (45-117) Aspartate Amino Transf (AST/SGOT) 38 U/L (15-37) Alanine Aminotransferase (ALT/SGPT) 48 U/L (12-78) Total Bilirubin 0.3 MG/DL (0.2-1.0) Sodium Level 154 MEQ/L (136-145) 153 MEQ/L (136-145) Chloride Level 120 MEQ/L (98-107) 118 MEQ/L (98-107) Carbon Dioxide Level 27.7 MEQ/L (21.0-32.0) 28.3 MEQ/L (21.0-32.0) Anion Gap 6 MEQ/L (5-15) 7 MEQ/L (5-15) Estimat Glomerular Filtration Rate 55 ML/MIN (>89) 63 ML/MIN (>89) Vancomycin Level Trough 28.3 MCG/ML (5.0-10.0) Test 08/28/17 04:45 White Blood Count 11.4 TH/MM3 (4.0-11.0) Red Blood Count 3.22 MIL/MM3 (4.50-5.90) Hemoglobin 8.8 GM/DL (13.0-17.0) Hematocrit 27.3 % (39.0-51.0) Mean Corpuscular Volume 85.0 FL (80.0-100.0) Mean Corpuscular Hemoglobin 27.3 PG (27.0-34.0) Mean Corpuscular Hemoglobin Concent 32.1 % (32.0-36.0) Red Cell Distribution Width 17.1 % (11.6-17.2) Platelet Count 164 TH/MM3 (150-450) Mean Platelet Volume 8.5 FL (7.0-11.0) Neutrophils (%) (Auto) 94.3 % (16.0-70.0) Lymphocytes (%) (Auto) 3.2 % (9.0-44.0) Monocytes (%) (Auto) 2.3 % (0.0-8.0) Eosinophils (%) (Auto) 0.0 % (0.0-4.0) Basophils (%) (Auto) 0.2 % (0.0-2.0) Neutrophils # (Auto) 10.8 TH/MM3 (1.8-7.7) Lymphocytes # (Auto) 0.4 TH/MM3 (1.0-4.8) Monocytes # (Auto) 0.3 TH/MM3 (0-0.9) Eosinophils # (Auto) 0.0 TH/MM3 (0-0.4) Basophils # (Auto) 0.0 TH/MM3 (0-0.2) CBC Comment DIFF FINAL Differential Comment Blood Urea Nitrogen 38 MG/DL (7-18) Creatinine 1.25 MG/DL (0.60-1.30) Random Glucose 110 MG/DL (74-106) Total Protein 5.2 GM/DL (6.4-8.2) Albumin 2.0 GM/DL (3.4-5.0) Calcium Level 7.6 MG/DL (8.5-10.1) Phosphorus Level 3.0 MG/DL (2.5-4.9) Magnesium Level 2.9 MG/DL (1.5-2.5) Alkaline Phosphatase 147 U/L (45-117) Aspartate Amino Transf (AST/SGOT) 19 U/L (15-37) Alanine Aminotransferase (ALT/SGPT) 54 U/L (12-78) Total Bilirubin 0.2 MG/DL (0.2-1.0) Sodium Level 150 MEQ/L (136-145) Potassium Level 4.3 MEQ/L (3.5-5.1) Chloride Level 114 MEQ/L (98-107) Carbon Dioxide Level 29.0 MEQ/L (21.0-32.0) Anion Gap 7 MEQ/L (5-15) Estimat Glomerular Filtration Rate 56 ML/MIN (>89) Result Diagram: 08/28/17 0445 08/28/17 0445 Procedures * 08/21/17 -endotracheal intubation * 08/23/17 chest tube placed . Assessment and Plan Disease Oriented Problem List: (1) Respiratory failure (2) Sepsis (3) PNA (pneumonia) (4) COPD with exacerbation (5) Dementia Symptom Scale: (1) Shortness of breath 0-10 Scale: Unable to quantify (2) Anxiety 0-10 Scale: 10 (3) Debility 0-10 Scale: Unable to quantify Pertinent Non-Medical Issues Psychosocial: Patient born and raised in [place]. Lived in [place] for a few years. for the past 60 years, they have 3 children together. Patient is a [employer] . Spiritual: No congregational affiliation. Legal: No advance directives completed. Ethical issues impacting care: No ethical issues identified. . Important Contacts Leatha Butts , . . Prognosis Mr. Butts it is a 76-year-old male with a medical history significant for dementia, CHF, COPD, CAD, PVD, hypertension, hyperlipidemia, BPH. Patient with recurrent infections and recent acute hospitalizations. Admitted for respiratory failure, sepsis, pneumonia requiring intubation and mechanical ventilation. Patient with progressive clinical decline. Overall prognosis is guarded, patient high risk for further complications, continued decline and . . Code Status: Alternative Code Plan * CODE STATUS: Full code. 08/24/17 ALT CODE- intubation only per request. NO CARDIAC resuscitation. * HEALTHCARE DECISION-MAKING: Patient unable to participate in medical decision making secondary to clinical condition, baseline dementia. No advance directives completed. As per [place] statue, healthcare proxy decision making falls to patient's Leatha Butts. has accepted this role and is fully supported by all of their 3 children. * GOALS OF CARE: 08/25 Family has indicated they will monitor patient through the weekend, continue aggressive treatments short of resuscitation, in hopes that he may show signs of improvement; however on Monday 08/28 they will want to revisit goals of treatment pending his clinical status at that time. They may consider transition to comfort and withdrawal of artificial measures if the patient does not have significant improvement or has significant deterioration. 08/28/17 slightly optimistic and wants to continue available treatments, she is not certain about reintubation status at this time. Would need to repeat visit upon patient's possible medical extubation. * SYMPTOMS: = Dyspnea, secondary to respiratory failure, pneumonia, CHF. Currently endotracheally intubated on mechanical ventilation. Initially tolerating CPAP trials with plans for possible medical extubation; however patient with worsening CXR and significant effusion requiring chest tube placement and drainage. CXR worsening today, requiring frequent sx for large amt thick secretions. = Anxiety/agitation: Exacerbated by dyspnea. Patient with dementia baseline with behavioral disturbances. Home regimen of Seroquel 100 mg twice daily. some episodes of restlessness. Sedatives have been held for CPAP and possible medical extubation. = Debility: Acute on chronic. Progressive since June secondary to acute illness and recurrent infections. PT recommended PT at rehab during recent prior hospitalization, patient's inquiring regarding acute rehab. * Palliative care contact information has been provided to family. * Palliative care will continue to follow up for further clarification of goals of care as patient's clinical course continues to evolve. . Attestation To help prompt me to consider important information that might be impacting today's encounter and assessment, information from prior notes written by myself or my colleagues may have been "brought forward" into today's note. My signature on this note, however, is an attestation that I personally performed the exam, history, and/or decision-making noted today, and, unless otherwise indicated, the interactions with patient, family, and staff as well as the review of records all occurred today. I also attest that the listed assessment and stated plan reflect my best clinical judgment today based on the combination of historical information, prior notes, and today's exam/ interactions. When time spent is documented, it refers only to time spent today by the signer, or if indicated, combined time spent today by collaborating physician/nurse practitioner. Cristy Wolf Aug 28, 2017 12:02
[2017-08-28] MEDS: FINASTERIDE 5 MG TAB PO SCH (12:41)
[2017-08-28] MEDS: FREE WATER OG-TUBE SCH ×3 (12:41→23:16)
[2017-08-28] MEDS: LACTULOSE SYRUP 20 GM/30 ML CUP PO SCH ×3 (12:42→20:05)
[2017-08-28] MEDS: DOCUSATE SODIUM 100 MG/10 ML UDC PO SCH ×2 (12:42→20:05)
[2017-08-28] MEDS: POLYETHYLENE GLYCOL 17 GM PKG PO SCH ×2 (12:42→20:07)
[2017-08-28] MEDS: SENNOSIDES SYRUP 8.8 MG/5 ML CUP PO SCH ×2 (12:43→20:07)
[2017-08-28] MEDS: RESP: ALBUTEROL 2.5 MG/IPRATROPIUM 0.5 MG NEB (SCH) NEB ×3 (15:05→23:40)
[2017-08-28] MEDS ORDERED: RESP: ALBUTEROL 2.5 MG/IPRATROPIUM 0.5 MG NEB (PRN) NEB (15:30)
[2017-08-28] MEDS ORDERED: SOD PHOSPHATE/SOD BIPHOSPHATE (ADULT) ENEMA 133ML RECTAL ONE (17:30)
[2017-08-28] MEDS ORDERED: [UNRECOGNIZED DRUG - OTHER] ONE (18:00)
[2017-08-28] MEDS: DONEPEZIL HCL 5 MG TAB PO SCH (20:05)
[2017-08-28 20:37] LABS: CREATININE 1.3 MG/DL (0.60-1.30)
[2017-08-29] VITALS (24 sets, daily range): BP systolic 139–187; BP diastolic 75–93; PULSE 91–104; RESP 14–20; TEMP 98–99.2; O2SAT 92–98
[2017-08-29] MEDS: INSULIN NovoLIN REGULAR SUPPLEMENTAL SCALE SQ SCH ×4 (03:00→19:47)
[2017-08-29] MEDS: CHLORHEXIDINE GLUCONATE 2 % 1 PACK (2 CLOTHS) TOP SCH ×2 (03:30→19:48)
[2017-08-29] MEDS: RESP: ALBUTEROL 2.5 MG/IPRATROPIUM 0.5 MG NEB (SCH) NEB ×6 (04:03→23:29)
[2017-08-29 04:13] LABS: AUTOMATED NEUTROPHIL # 16.2 TH/MM3 (1.8-7.7); HEMATOCRIT 33.3 % (39.0-51.0); HEMOGLOBIN 10.8 GM/DL (13.0-17.0); LYMPH % 1.9 % (9.0-44.0); LYMPHOCYTE # 0.3 TH/MM3 (1.0-4.8); MEAN CELL VOLUME 83.5 FL (80.0-100.0); MEAN CORPUSCULAR HGB CONC 32.3 % (32.0-36.0); MEAN PLATELET VOLUME 8.7 FL (7.0-11.0); MONO % 1.3 % (0.0-8.0); MONOCYTE # 0.2 TH/MM3 (0-0.9); NEUT % 96.8 % (16.0-70.0); PLATELET COUNT 226 TH/MM3 (150-450); RED BLOOD COUNT 3.99 MIL/MM3 (4.50-5.90); RED CELL DISTRIBUTION WIDTH 17.1 % (11.6-17.2); WHITE BLOOD COUNT 16.7 TH/MM3 (4.0-11.0)
[2017-08-29 04:38] LABS: BICARBONATE 32.5 MEQ/L (21.0-32.0); CREATININE 1.16 MG/DL (0.60-1.30); MAGNESIUM 2.7 MG/DL (1.5-2.5); PHOSPHORUS 2.2 MG/DL (2.5-4.9)
[2017-08-29 04:39] LABS: RANDOM VANCOMYCIN 25.8 COMMENT
[2017-08-29] MEDS: FREE WATER OG-TUBE SCH ×4 (05:50→19:48)
[2017-08-29] MEDS: methylPREDNISolone SOD SUCC 40 MG/1 ML VIAL IV PUSH SCH ×2 (05:50→17:28)
[2017-08-29] MEDS: METOCLOPRAMIDE HCL 10 MG/2 ML VIAL IV PUSH SCH ×3 (05:50→19:48)
[2017-08-29] MEDS: ARTIFICIAL TEARS OPTH SOLN 15 ML BTL EACH EYE SCH ×3 (05:50→19:48)
[2017-08-29] MEDS: DILTIAZEM HCL 30 MG TAB PO SCH (05:51)
--- NOTE | 2017-08-29 08:58 | HHI.CCPN ---
Subjective Remarks/Hospital Course Patient is a 76-year-old male with multiple comorbidities, which include hypertension, hyperlipidemia, BPH, anemia of chronic disease, coronary artery disease, peripheral vascular disease, COPD on 2.5 L home oxygen, who presented to [facility] ED by EMS for respiratory distress and altered mental status requiring intubation in the field. In addition, patient was hypotensive and hypoxic. He was given 2 L Iv fluids by EVAC and an additional 1 L in the ED. Patient was started on Levophed, which is currently at 6 mcg. His laboratory data is significant for leukocytosis with a WBC of 23.7 and a mild lactic acidosis with lactic acid level of 2.3. Chest x-ray showed right basilar infiltrate concerning for pneumonia and ET tube above the jonah. ABG post intubation showed a pH of 7.39, CO2 of 44, PaO2 of 332, bicarb of 44, saturation 98%. In the ED, he was given cefepime, vancomycin. Patient also noted to have pinpoint pupils and was given Narcan without any significant effect. He was recently discharged from [facility] after he was admitted back on 08/04 for CHF, respiratory failure and acute right-sided stroke. He is scheduled to undergo CT scan of the brain, chest, abdomen and pelvis, which were ordered by ED. On his last admission, he had an echocardiogram on 08/04, which showed an EF of 55-60%. 08/22 Patient is sedated with Fentanyl drip and intubated. Afebrile. Off Levophed. 08/23: Patient remains profoundly septic. Encephalopathic white count is 22.4 which is slightly improved. His pleural effusion has increased in size and concerning for parapneumonic effusion/developing empyema. His chest x-ray shows bilateral infiltrates which are worsening. MRSA pneumonia is a concern. I will proceed with pigtail chest tube placement on the right side and send fluid for further studies 08/24: Remains critically ill but stabilizing. WBC count trending down today at 16.6. Right pigtail chest tube was placed yesterday with 1.1 L cloudy yellow fluid output concerning for parapneumonic effusion/early empyema. Cardiothoracic surgery consulted for recommendation regarding decortication. Chest x-ray today shows no pneumothorax, right lung consolidation with mild effusion. 08/25: Afebrile. Currently arousable on the ventilator but extremely encephalopathic. Tolerating tube feeds at goal. No bowel movement since admission. 08/26: Afebrile. Central line placed yesterday left IJ for IV access. No bowel movement. Aggressive enema today. Subjective 08/27: Afebrile. Very small bowel movement yesterday. KUB revealed no obstructive process. We will give 2 mg needs to be 1020 with atropine at bedside. Plan for CT thorax in a.m. to evaluate bilateral effusions. Might need another chest tube in the left side 08/28 Patient remains sedated and intubated. Afebrile. 08/29 Patient s/p extubation yesterday on 4L oxygen, off BIPAP. Afebrile;e Objective Vital Signs Date Time Temp Pulse Resp B/P (MAP) Pulse Ox O2 Delivery O2 Flow Rate FiO2 08/29/17 07:58 93 Nasal Cannula 4.00 08/29/17 07:56 35 08/29/17 06:00 98 08/29/17 04:00 98.0 18 157/91 (113) Intake and Output 08/29/17 08/29/17 08/30/17 08:00 16:00 00:00 Intake Total 300 ml Output Total 1600 ml Balance -1300 ml Result Diagram: 08/29/17 0330 08/29/17 0330 Other Results Laboratory Tests Test 08/28/17 15:15 08/28/17 18:30 08/29/17 03:30 Blood Gas Puncture Site RT RADIAL Blood Gas Patient Temperature 98.6 Blood Gas HCO3 30 mmol/L Blood Gas Base Excess 4.8 mmol/L Blood Gas Oxygen Saturation 93 % Arterial Blood pH 7.38 Arterial Blood Partial Pressure CO2 52 mmHg Arterial Blood Partial Pressure O2 72 mmHg Arterial Blood Oxygen Content 14.3 Vol % Arterial Blood Carboxyhemoglobin 1.1 % Arterial Blood Methemoglobin 1.3 % Blood Gas Hemoglobin 10.9 G/DL Oxygen Delivery Device VENTILATOR Blood Gas Ventilator Setting CPAP/PEEP5/PS8 Blood Gas Inspired Oxygen 35 % Creatinine 1.30 MG/DL 1.16 MG/DL Estimat Glomerular Filtration Rate 53 ML/MIN 61 ML/MIN White Blood Count 16.7 TH/MM3 Red Blood Count 3.99 MIL/MM3 Hemoglobin 10.8 GM/DL Hematocrit 33.3 % Mean Corpuscular Volume 83.5 FL Mean Corpuscular Hemoglobin 27.0 PG Mean Corpuscular Hemoglobin Concent 32.3 % Red Cell Distribution Width 17.1 % Platelet Count 226 TH/MM3 Mean Platelet Volume 8.7 FL Neutrophils (%) (Auto) 96.8 % Lymphocytes (%) (Auto) 1.9 % Monocytes (%) (Auto) 1.3 % Eosinophils (%) (Auto) 0.0 % Basophils (%) (Auto) 0.0 % Neutrophils # (Auto) 16.2 TH/MM3 Lymphocytes # (Auto) 0.3 TH/MM3 Monocytes # (Auto) 0.2 TH/MM3 Eosinophils # (Auto) 0.0 TH/MM3 Basophils # (Auto) 0.0 TH/MM3 CBC Comment DIFF FINAL Differential Comment Blood Urea Nitrogen 35 MG/DL Random Glucose 105 MG/DL Calcium Level 8.0 MG/DL Phosphorus Level 2.2 MG/DL Magnesium Level 2.7 MG/DL Sodium Level 149 MEQ/L Potassium Level 4.1 MEQ/L Chloride Level 110 MEQ/L Carbon Dioxide Level 32.5 MEQ/L Anion Gap 7 MEQ/L Random Vancomycin Level 25.8 COMMENT Imaging Last Impressions Chest X-Ray 08/29/17 0000 Signed Impressions: Service Date/Time: Tuesday, August 29, 2017 09:05 - CONCLUSION: 1. Hypoinflation with probable bibasilar atelectatic changes. 2. [place] loop catheter seen just above the right hemidiaphragm. No significant effusion, however. Casey Márquez MD Abdomen X-Ray 08/29/17 0000 Signed Impressions: Service Date/Time: Tuesday, August 29, 2017 09:12 - CONCLUSION: 1. There is 15 cm of gaseous distention involving the cecum. 2. There is diffuse moderate stool throughout the entire colon with some mild to moderate dilatation of the transverse colon. This suggests a probable ileus of the colon. 3. The small bowel is nondilated. Mark Madden MD Chest CT 08/28/17 0800 Signed Impressions: Service Date/Time: Monday, August 28, 2017 11:05 - CONCLUSION: 1. Smallbore chest tube on the right with minimal colonic changes right base 2. Small left pleural effusion the consolidative changes in the left lower lobe. Luis Eduardo Jenkins MD FACR Abdomen/Pelvis CT 08/27/17 0000 Signed Impressions: Service Date/Time: Sunday, August 27, 2017 22:24 - CONCLUSION: 1. Right inguinal hernia containing a loop of small bowel less herniation than on prior CT scan 08/04/17. 2. Interval development of subcutaneous soft tissue swelling and induration about the lateral pelvic and proximal thigh soft tissues. 3. Interval development of left pleural effusion and left lower lung consolidation. There is a small right pleural effusion. 4. Right lower chest catheter and gastric tubes in place. Chris Rhoades MD Consultation 08/22/17 0000 Signed Impressions: Service Date/Time: Tuesday, August 22, 2017 00:00 - CONCLUSION: Volume of the right pleural effusion is not amenable to safe thoracentesis at this time. Marvin Presley MD Chest Ultrasound 08/22/17 0000 Signed Impressions: Service Date/Time: Tuesday, August 22, 2017 12:08 - CONCLUSION: Small left pleural effusion. No marking performed. Mj Sanchez MD Head CT 08/21/17 1357 Signed Impressions: Service Date/Time: Monday, August 21, 2017 16:05 - CONCLUSION: 1. No acute intracranial abnormality. Stable exam compared to previous dated 08/06/17. Jonathon Jenkins MD CT Angiography 08/21/17 1357 Signed Impressions: Service Date/Time: Monday, August 21, 2017 16:16 - CONCLUSION: 1. No evidence for pulmonary embolism. 2. Atherosclerosis. 3. Bilateral pleural effusions are identified right greater than left and patchy pulmonary consolidation is seen. Khanh Nina MD Brain MRI 08/21/17 0000 Signed Impressions: Service Date/Time: Monday, August 21, 2017 22:20 - CONCLUSION: 1. No acute intracranial abnormality. 2. Atrophy and chronic small vessel ischemic change. Chrsi Zuñiga Jr., MD Objective Remarks GENERAL: Patient is 76 yo male lying in bed in NAD SKIN: Warm and dry. HEAD: Normocephalic. EYES: No scleral icterus. No injection or drainage. Pupils 2 mm NECK: Supple, trachea midline. No JVD or lymphadenopathy. CARDIOVASCULAR: Regular rate and rhythm without murmurs, gallops, or rubs. RESPIRATORY: b/L equal air entry. Right pigtail chest tube in place GASTROINTESTINAL: Firm, distended, hypoactive BS MUSCULOSKELETAL: Trace bilateral upper and lower extremity edema. Neuro: Awake. 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 UDS: + Benzos Bilateral pars L5 defect Monitor neuro status, avoid sedatives CT and MRI brain : No acute process On donepezil 10 mg daily for dementia Holding gabapentin 100 mg twice daily for neuropathy Holding quetiapine 100 mg twice daily for dementia Acetaminophen 650 mg by tube every 6 hours as needed fever Pulm: Acute hypoxemic respiratory failure Right lower lobe pneumonia Right-sided parapneumonic effusion/early empyema COPD Extubated 08/28 Albuterol/ipratropium aerosols every 6 hours with albuterol aerosols every 2 hours as needed dyspnea Solumederol 40mg Q12 NIPPV PRN for resp distress CT thorax: No evidence for PE, small to mod pleural effusions R>L and patchy pulmonary consolidation is seen. 08/23 s/p pigtail chest tube placement and fluid studies consistent with early empyema (WBC 7000 with 98% neutrophils, LDH 734). Monitor CT drainage Pulmonary is following Repeat CT chest 08/28: Small bore chest tube on the right with minimal colonic changes right base 2. Small left pleural effusion the consolidative changes in the left lower lobe Monitor CT drainage: 130ml in 24 hrs, check CXR CT thorax 08/24 revealed worsening left-sided pleural effusion with loculated right pleural effusion/worsening at the apex. Plan repeat CT thorax in a.m. CV: CAD HTN Severe sepsis Hyperlipidemia ASVD Monitor HR and BP MAP>65 mmHg. ASA 81 mg daily and clopidogrel 75 mg daily on hold for now in case of any surgical intervention/procedures needed 2D echo from 08/04 showed an EF of 55-60%. Increase diltiazem 60 mg every 6 hours. Home medications include amlodipine 10 mg daily and metoprolol succinate 25 mg daily and hydralazine 50 mg every 8 hours. Renal/FEN/: Hypernatremia BPH Monitor renal function, I's and O's and electrolyte replacement per protocol. s/p Lasix 40mg x1 yesterday, UOP: 4450ml in 24 hrs Continue finasteride 5 mg daily and tamsulosin 0.4 mg daily when able for BPH GI: Ileus Hypoalbuminemia Diverticulosis KUB today:. There is 15 cm of gaseous distention involving the cecum. 2. There is diffuse moderate stool throughout the entire colon with some mild to moderate dilatation of the transverse colon. This suggests a probable ileus of the colon. 3. The small bowel is nondilated. Seen by GI (Dr. Trinidad) given Relistor x1, Glycerin supp, Palmira lax, NGT and rectal tube will be inserted as well. Repeat KUB in am if no improvements might need colonic decompression. Discussed with GI Continue other bowel regimens as scheduled Famotidine 20 mg twice daily for GI prophylaxis Docusate sodium, senna, polyethylene glycol twice daily. Lactulose 30 cc 4 times daily , s/p enema yesterday CT abd/pelvis last night: . Right inguinal hernia containing a loop of small bowel less herniation than on prior CT scan 08/04/17. 2. Interval development of subcutaneous soft tissue swelling and induration about the lateral pelvic and proximal thigh soft tissues. Interval development of left pleural effusion and left lower lung consolidation. There is a small right pleural effusion. 4. Right lower chest catheter and gastric tubes in place. 08/26 KUB -no obstructive process ID: MRSA empyema/bacteremia Continue abx per ID ( linezolid).ID Dr. Pritchett. Monitor for signs of infections ( Fever, WBC). Recheck sputum cx, UA with cx if indicated. Nasal aspirate is negative influenza BC 08/21 06/15 bottles: MRSA, Sputum culture 08/22, MRSA Fluid culture from 08/23/2017 p MRSA Cardiothoracic surgery consult high risk for surgical intervention. Heme: Leukocytosis Normocytic anemia Monitor CBC. No indication for transfusion of blood products at this time Endo: SSI with Accu-Cheks every 6 hours to maintain euglycemia/low regimen GI prophylaxis with famotidine and DVT prophylaxis with SCDs/heparin Sq Discussed with patient's and updated her on his condition. Level 2 Henrry Frey MD Aug 29, 2017 08:58
[2017-08-29] MEDS: TAMSULOSIN HCL 0.4 MG CAP PO SCH (09:04)
[2017-08-29] MEDS: POLYETHYLENE GLYCOL 17 GM PKG PO SCH ×2 (09:04→19:46)
[2017-08-29] MEDS: HEPARIN SODIUM - SQ 10,000 UNITS/ML VIAL SQ SCH ×2 (09:04→19:47)
[2017-08-29] MEDS: SENNOSIDES SYRUP 8.8 MG/5 ML CUP PO SCH ×2 (09:04→19:47)
[2017-08-29] MEDS: FINASTERIDE 5 MG TAB PO SCH (09:04)
[2017-08-29] MEDS: LACTULOSE SYRUP 20 GM/30 ML CUP PO SCH ×4 (09:04→19:46)
[2017-08-29] MEDS: FAMOTIDINE 20 MG/2 ML VIAL IV PUSH SCH ×2 (09:04→19:47)
[2017-08-29] MEDS: DOCUSATE SODIUM 100 MG/10 ML UDC PO SCH ×2 (09:04→19:46)
[2017-08-29] MEDS: SODIUM CHLORIDE 0.9% FLUSH 10 ML FLUSH IV FLUSH SCH (09:05)
[2017-08-29] MEDS ORDERED: MAGNESIUM SULFATE INJ 4 GM in SODIUM CHLORIDE 0.9% INJ 92 ML IV PRN (09:30)
[2017-08-29] MEDS ORDERED: POTASSIUM CHLOR 20 MEQ PREMIX 100 ML IV PRN ×2 (09:30)
[2017-08-29] MEDS ORDERED: POTASSIUM PHOSPHATE MONOBASIC 500 MG TAB PO/TUBE PRN (09:30)
[2017-08-29] MEDS ORDERED: POTASSIUM CHLORIDE 25 MEQ EFFERVESCENT TAB PO PRN (09:30)
[2017-08-29] MEDS ORDERED: MAGNESIUM OXIDE 400 MG TAB PO PRN (09:30)
[2017-08-29] MEDS ORDERED: POTASSIUM PHOSPHATE INJ 30 MMOL in SODIUM CHLOR 0.9% 250 ML INJ 250 ML IV PRN (09:30)
[2017-08-29] MEDS ORDERED: SODIUM PHOSPHATE INJ 30 MMOL in SODIUM CHLOR 0.9% 250 ML INJ 240 ML IV PRN (09:30)
[2017-08-29] MEDS ORDERED: POTASSIUM CHLOR 40 MEQ PREMIX 100 ML IV PRN ×2 (09:30)
[2017-08-29] MEDS ORDERED: MAGNESIUM SULFATE INJ 2 GM in SODIUM CHLORIDE 0.9% INJ 96 ML IV PRN (09:30)
[2017-08-29] MEDS ORDERED: POTASSIUM PHOSPHATE MONOBASIC 500 MG TAB PO PRN (09:30)
[2017-08-29] MEDS ORDERED: GLYCERIN ADULT 2 GM SUPP RECTAL ONE (10:00)
--- NOTE | 2017-08-29 10:10 | RADRPT ---
EXAM DATE/TIME: 08/29/2017 09:12 [facility] COMPARISON: CT ABDOMEN & PELVIS W/O CONTRAST, August 27, 2017, 22:24. ABDOMEN KUB ONLY, August 25, 2017, 10:06. INDICATIONS : Ileus. MEDICAL HISTORY : Chronic obstructive pulmonary disease. Hypertension Cardiovascular disease. SURGICAL HISTORY : None. ENCOUNTER: Subsequent ACUITY: 4 - 6 days PAIN SCORE: Non-responsive. LOCATION: abdomen, entire FINDINGS: Supine view of the abdomen was performed. There has been an interval change in the appearance of the colon compared to the prior KUB. There appears to be 15 cm of gaseous distention of the cecum. This i s a new finding compared to the prior KUB of 08/25/2017. There is some mild to moderate dilatation inv olving the transverse colon however there is diffuse stool throughout the entire colon. The small bow el does not appear to be dilated. The bony structures are stable. The bowel gas pattern is not signif icant changed from the recent CT scan of the abdomen and pelvis.. CONCLUSION: 1. There is 15 cm of gaseous distention involving the cecum. 2. There is diffuse moderate stool throughout the entire colon with some mild to moderate dilatation of the transverse colon. This suggests a probable ileus of the colon. 3. The small bowel is nondilated. Mark Madden MD on August 29, 2017 at 10:03 Board Certified Radiologist. This report was verified electronically.
--- NOTE | 2017-08-29 10:21 | RADRPT ---
EXAM DATE/TIME: 08/29/2017 09:05 [facility] COMPARISON: CHEST SINGLE AP, August 28, 2017, 7:24. INDICATIONS : Pneumonia. MEDICAL HISTORY : Chronic obstructive pulmonary disease. Hypertension Cardiovascular disease. SURGICAL HISTORY : None. ENCOUNTER: Subsequent ACUITY: 3 weeks PAIN SCORE: Non-responsive. LOCATION: Bilateral chest FINDINGS: A single view of the chest demonstrates hypoinflation with bibasilar probable atelectatic changes. Sm all bore [place] loop catheter seen just above the right hemidiaphragm no significant effusion. Accounti ng for low lung lines normal heart size is normal. Left IJ central venous catheter with the tip proje cting over the central venous system. Osseous structures are intact. CONCLUSION: 1. Hypoinflation with probable bibasilar atelectatic changes. 2. [place] loop catheter seen just above the right hemidiaphragm. No significant effusion, however. Casey Márquez MD on August 29, 2017 at 10:02 Board Certified Radiologist. This report was verified electronically.
[2017-08-29] MEDS ORDERED: METHYLNALTREXONE BROMIDE 12 MG/0.6 ML VIAL SQ ONE (12:00)
[2017-08-29] MEDS: LINEZOLID 600 MG PREMIX 300 ML IV SCH ×2 (12:41→23:32)
[2017-08-29] MEDS: DILTIAZEM HCL 60 MG TAB PO SCH ×3 (12:41→23:32)
--- NOTE | 2017-08-29 13:04 | HHI.HCPN ---
Reason for visit a. To assist with evaluation and management of symptoms including: Shortness of breath, anxiety/agitation, debility. b. To assist medical decision maker(s) with: better understanding of current medical conditions; weighing benefits/burdens of medical treatment options; making medical treatment decisions. . Subjective/Interval History Patient seen today to follow-up on comfort, goals. He was medically extubated yesterday. Tolerating nasal cannula today. Did require BiPAP overnight. WBC is trending 16. Ongoing treatment for ileus per GI--abdomen x-ray today=1. There is 15 cm of gaseous distention involving the cecum. 2. There is diffuse moderate stool throughout the entire colon with some mild to moderate dilatation of the transverse colon. This suggests a probable ileus of the colon. 3. The small bowel is nondilated. Rectal tube has been placed. Reported patient passing flatus. NG tube ordered nursing informs unsuccessful attempt to place earlier today. Patient receiving Relistor, MiraLAX, glycerin suppository. at bedside. is not certain yet if she would proceed with reintubation or comfort measures should the patient experience respiratory deterioration--she will continue to think about this in the coming days though is hopeful he will not require reintubation. At this time she is cautiously hopeful that he might continue to make slow improvement. I did gently explore ongoing risk for respiratory deterioration and other complications related to weakened status in the ICU. . Advance Directives Living Will: Never completed Health Care Surrogate: Never completed Durable Power of Platform Stapler: Never completed Advance Directive Specifics Health Care Surrogate(s): No advance directives completed. As per [place] statute, healthcare proxy decision making falls to patient's Leatha Butts. . Objective Vital Signs Date Time Temp Pulse Resp B/P (MAP) Pulse Ox O2 Delivery O2 Flow Rate FiO2 08/29/17 12:00 99.2 93 14 175/91 (119) 98 08/29/17 08:00 98.8 103 157/91 (113) 97 08/29/17 07:58 93 Nasal Cannula 4.00 08/29/17 07:56 95 35 08/29/17 06:00 98 08/29/17 04:42 94 35 08/29/17 04:00 98.0 98 18 157/91 (113) 95 08/29/17 04:00 98 08/29/17 02:23 94 35 08/29/17 02:00 97 08/29/17 00:00 96 08/29/17 00:00 98.3 96 20 139/75 (96) 94 08/28/17 23:41 98 35 08/28/17 22:00 96 08/28/17 20:30 96 35 08/28/17 20:30 96 BiPAP 35 08/28/17 20:00 88 08/28/17 20:00 98.1 85 24 154/77 (102) 93 08/28/17 18:00 89 08/28/17 16:44 94 35 08/28/17 16:40 94 BiPAP/CPAP 35 08/28/17 16:22 79 08/28/17 16:00 40 08/28/17 16:00 97.8 81 14 147/73 (97) 93 08/28/17 15:03 93 35 08/28/17 14:00 86 Intake & Output 08/29/17 08/29/17 07:00 19:00 Intake Total 300 ml Output Total 1600 ml Balance -1300 ml IV Total 300 ml Output Urine Total 1550 ml Chest Tube Drainage Total 50 ml # Bowel Movements 0 Physical Exam CONSTITUTIONAL/GENERAL: This is an adequately nourished patient, alert, nonverbal TUBES/LINES/DRAINS: Rectal tube, Fang catheter, bilateral soft wrist restraints , PIV's, nasal cannula SKIN: No jaundice, rashes, or lesions. Ecchymoses on upper extremities. No wounds seen anteriorly. Skin warm dry, generalized edema. NECK: Trachea midline. Supple, nontender. CARDIOVASCULAR: irregular rate and rhythm without murmurs. Peripheral pulses symmetric. +edema to all 4 extremities. RESPIRATORY/CHEST: Symmetric, unlabored respirations , on nasal cannula. Rattling upper airway cough, nursing assisting with Yankauer suction at times. + Scattered rhonchi . Right lateral chest tube to Pleur-evac drainage mod amount yellow fluid GASTROINTESTINAL: Abdomen firm, distended, large, round. No guarding. Bowel sounds present. GENITOURINARY: Without palpable bladder distension. Fang catheter in place. MUSCULOSKELETAL: Extremities without clubbing, cyanosis. No mottling or clubbing. +edema to all 4 extremities. weeping from RUE NEUROLOGICAL: awake, tracks examiner. Grasping 's hand. Does not follow commands for me. moving all 4 extremities, localizes to touch PSYCHIATRIC: Limited assessment secondary clinical condition --restless/anxious intermittently . Diagnostic Tests Laboratory Laboratory Tests Test 08/27/17 05:00 08/27/17 20:15 08/28/17 04:45 08/28/17 15:15 White Blood Count 14.9 TH/MM3 (4.0-11.0) 11.4 TH/MM3 (4.0-11.0) Red Blood Count 3.74 MIL/MM3 (4.50-5.90) 3.22 MIL/MM3 (4.50-5.90) Hemoglobin 10.1 GM/DL (13.0-17.0) 8.8 GM/DL (13.0-17.0) Hematocrit 31.5 % (39.0-51.0) 27.3 % (39.0-51.0) Mean Corpuscular Volume 84.2 FL (80.0-100.0) 85.0 FL (80.0-100.0) Mean Corpuscular Hemoglobin 26.9 PG (27.0-34.0) 27.3 PG (27.0-34.0) Mean Corpuscular Hemoglobin Concent 31.9 % (32.0-36.0) 32.1 % (32.0-36.0) Red Cell Distribution Width 17.5 % (11.6-17.2) 17.1 % (11.6-17.2) Platelet Count 175 TH/MM3 (150-450) 164 TH/MM3 (150-450) Mean Platelet Volume 8.3 FL (7.0-11.0) 8.5 FL (7.0-11.0) Neutrophils (%) (Auto) 96.5 % (16.0-70.0) 94.3 % (16.0-70.0) Lymphocytes (%) (Auto) 2.2 % (9.0-44.0) 3.2 % (9.0-44.0) Monocytes (%) (Auto) 1.1 % (0.0-8.0) 2.3 % (0.0-8.0) Eosinophils (%) (Auto) 0.0 % (0.0-4.0) 0.0 % (0.0-4.0) Basophils (%) (Auto) 0.2 % (0.0-2.0) 0.2 % (0.0-2.0) Neutrophils # (Auto) 14.4 TH/MM3 (1.8-7.7) 10.8 TH/MM3 (1.8-7.7) Lymphocytes # (Auto) 0.3 TH/MM3 (1.0-4.8) 0.4 TH/MM3 (1.0-4.8) Monocytes # (Auto) 0.2 TH/MM3 (0-0.9) 0.3 TH/MM3 (0-0.9) Eosinophils # (Auto) 0.0 TH/MM3 (0-0.4) 0.0 TH/MM3 (0-0.4) Basophils # (Auto) 0.0 TH/MM3 (0-0.2) 0.0 TH/MM3 (0-0.2) CBC Comment DIFF FINAL DIFF FINAL Differential Comment Blood Urea Nitrogen 33 MG/DL (7-18) 38 MG/DL (7-18) Creatinine 1.13 MG/DL (0.60-1.30) 1.25 MG/DL (0.60-1.30) Random Glucose 141 MG/DL (74-106) 110 MG/DL (74-106) Calcium Level 7.9 MG/DL (8.5-10.1) 7.6 MG/DL (8.5-10.1) Sodium Level 153 MEQ/L (136-145) 150 MEQ/L (136-145) Potassium Level 4.3 MEQ/L (3.5-5.1) 4.3 MEQ/L (3.5-5.1) Chloride Level 118 MEQ/L (98-107) 114 MEQ/L (98-107) Carbon Dioxide Level 28.3 MEQ/L (21.0-32.0) 29.0 MEQ/L (21.0-32.0) Anion Gap 7 MEQ/L (5-15) 7 MEQ/L (5-15) Estimat Glomerular Filtration Rate 63 ML/MIN (>89) 56 ML/MIN (>89) Vancomycin Level Trough 28.3 MCG/ML (5.0-10.0) Total Protein 5.2 GM/DL (6.4-8.2) Albumin 2.0 GM/DL (3.4-5.0) Phosphorus Level 3.0 MG/DL (2.5-4.9) Magnesium Level 2.9 MG/DL (1.5-2.5) Alkaline Phosphatase 147 U/L (45-117) Aspartate Amino Transf (AST/SGOT) 19 U/L (15-37) Alanine Aminotransferase (ALT/SGPT) 54 U/L (12-78) Total Bilirubin 0.2 MG/DL (0.2-1.0) Blood Gas Puncture Site RT RADIAL Blood Gas Patient Temperature 98.6 Blood Gas HCO3 30 mmol/L (22-26) Blood Gas Base Excess 4.8 mmol/L (-2-2) Blood Gas Oxygen Saturation 93 % (90-100) Arterial Blood pH 7.38 (7.380-7.420) Arterial Blood Partial Pressure CO2 52 mmHg (38-42) Arterial Blood Partial Pressure O2 72 mmHg (61-120) Arterial Blood Oxygen Content 14.3 Vol % (12.0-20.0) Arterial Blood Carboxyhemoglobin 1.1 % (0-4) Arterial Blood Methemoglobin 1.3 % (0-2) Blood Gas Hemoglobin 10.9 G/DL (12.0-16.0) Oxygen Delivery Device VENTILATOR Blood Gas Ventilator Setting CPAP/PEEP5/PS8 Blood Gas Inspired Oxygen 35 % Test 08/28/17 18:30 08/29/17 03:30 08/29/17 10:23 Creatinine 1.30 MG/DL (0.60-1.30) 1.16 MG/DL (0.60-1.30) Estimat Glomerular Filtration Rate 53 ML/MIN (>89) 61 ML/MIN (>89) White Blood Count 16.7 TH/MM3 (4.0-11.0) Red Blood Count 3.99 MIL/MM3 (4.50-5.90) Hemoglobin 10.8 GM/DL (13.0-17.0) Hematocrit 33.3 % (39.0-51.0) Mean Corpuscular Volume 83.5 FL (80.0-100.0) Mean Corpuscular Hemoglobin 27.0 PG (27.0-34.0) Mean Corpuscular Hemoglobin Concent 32.3 % (32.0-36.0) Red Cell Distribution Width 17.1 % (11.6-17.2) Platelet Count 226 TH/MM3 (150-450) Mean Platelet Volume 8.7 FL (7.0-11.0) Neutrophils (%) (Auto) 96.8 % (16.0-70.0) Lymphocytes (%) (Auto) 1.9 % (9.0-44.0) Monocytes (%) (Auto) 1.3 % (0.0-8.0) Eosinophils (%) (Auto) 0.0 % (0.0-4.0) Basophils (%) (Auto) 0.0 % (0.0-2.0) Neutrophils # (Auto) 16.2 TH/MM3 (1.8-7.7) Lymphocytes # (Auto) 0.3 TH/MM3 (1.0-4.8) Monocytes # (Auto) 0.2 TH/MM3 (0-0.9) Eosinophils # (Auto) 0.0 TH/MM3 (0-0.4) Basophils # (Auto) 0.0 TH/MM3 (0-0.2) CBC Comment DIFF FINAL Differential Comment Blood Urea Nitrogen 35 MG/DL (7-18) Random Glucose 105 MG/DL (74-106) Calcium Level 8.0 MG/DL (8.5-10.1) Phosphorus Level 2.2 MG/DL (2.5-4.9) 2.3 MG/DL (2.5-4.9) Magnesium Level 2.7 MG/DL (1.5-2.5) Sodium Level 149 MEQ/L (136-145) Potassium Level 4.1 MEQ/L (3.5-5.1) Chloride Level 110 MEQ/L (98-107) Carbon Dioxide Level 32.5 MEQ/L (21.0-32.0) Anion Gap 7 MEQ/L (5-15) Random Vancomycin Level 25.8 COMMENT Result Diagram: 08/29/17 0330 08/29/17 0330 Imaging Last Impressions Chest X-Ray 08/29/17 Signed Impressions: Service Date/Time: Tuesday, August 29, 2017 09:05 - CONCLUSION: 1. Hypoinflation with probable bibasilar atelectatic changes. 2. Nicholson loop catheter seen just above the right hemidiaphragm. No significant effusion, however. Casey Márquez MD Abdomen X-Ray 08/29/17 0000 Signed Impressions: Service Date/Time: Tuesday, August 29, 2017 09:12 - CONCLUSION: 1. There is 15 cm of gaseous distention involving the cecum. 2. There is diffuse moderate stool throughout the entire colon with some mild to moderate dilatation of the transverse colon. This suggests a probable ileus of the colon. 3. The small bowel is nondilated. Mark Madden MD Chest CT 08/28/17 0800 Signed Impressions: Service Date/Time: Monday, August 28, 2017 11:05 - CONCLUSION: 1. Smallbore chest tube on the right with minimal colonic changes right base 2. Small left pleural effusion the consolidative changes in the left lower lobe. Luis Eduardo Jenkins MD FACR Abdomen/Pelvis CT 08/27/17 0000 Signed Impressions: Service Date/Time: Sunday, August 27, 2017 22:24 - CONCLUSION: 1. Right inguinal hernia containing a loop of small bowel less herniation than on prior CT scan 08/04/17. 2. Interval development of subcutaneous soft tissue swelling and induration about the lateral pelvic and proximal thigh soft tissues. 3. Interval development of left pleural effusion and left lower lung consolidation. There is a small right pleural effusion. 4. Right lower chest catheter and gastric tubes in place. Chris Rhoades MD Consultation 08/22/17 0000 Signed Impressions: Service Date/Time: Tuesday, August 22, 2017 00:00 - CONCLUSION: Volume of the right pleural effusion is not amenable to safe thoracentesis at this time. Marvin Presley MD Chest Ultrasound 08/22/17 0000 Signed Impressions: Service Date/Time: Tuesday, August 22, 2017 12:08 - CONCLUSION: Small left pleural effusion. No marking performed. Mj Sanchez MD Head CT 08/21/17 1357 Signed Impressions: Service Date/Time: Monday, August 21, 2017 16:05 - CONCLUSION: 1. No acute intracranial abnormality. Stable exam compared to previous dated 08/06/17. Jonathon Jenkins MD CT Angiography 08/21/17 1357 Signed Impressions: Service Date/Time: Monday, August 21, 2017 16:16 - CONCLUSION: 1. No evidence for pulmonary embolism. 2. Atherosclerosis. 3. Bilateral pleural effusions are identified right greater than left and patchy pulmonary consolidation is seen. Khanh Nina MD Brain MRI 08/21/17 0000 Signed Impressions: Service Date/Time: Monday, August 21, 2017 22:20 - CONCLUSION: 1. No acute intracranial abnormality. 2. Atrophy and chronic small vessel ischemic change. Chris Zuñiga Jr., MD Procedures * 08/21/17 -endotracheal intubation * 08/23/17 chest tube placed . Assessment and Plan Disease Oriented Problem List: (1) Respiratory failure (2) Sepsis (3) PNA (pneumonia) (4) COPD with exacerbation (5) Dementia Symptom Scale: (1) Shortness of breath 0-10 Scale: Unable to quantify (2) Anxiety 0-10 Scale: 10 (3) Debility 0-10 Scale: Unable to quantify Pertinent Non-Medical Issues Psychosocial: Patient born and raised in [place]. Lived in [place] for a few years. for the past 60 years, they have 3 children together. Patient is a [place] . Spiritual: No adventism affiliation. Legal: No advance directives completed. Ethical issues impacting care: No ethical issues identified. . Important Contacts Leatha Butts , . . Prognosis Mr. Butts it is a 76-year-old male with a medical history significant for dementia, CHF, COPD, CAD, PVD, hypertension, hyperlipidemia, BPH. Patient with recurrent infections and recent acute hospitalizations. Admitted for respiratory failure, sepsis, pneumonia requiring intubation and mechanical ventilation. Patient with progressive clinical decline. Overall prognosis is guarded, patient high risk for further complications, continued decline and . . Code Status: Alternative Code Plan * CODE STATUS:08/24/17 ALT CODE- intubation only per request. NO CARDIAC resuscitation. * HEALTHCARE DECISION-MAKING: Patient unable to participate in medical decision making secondary to clinical condition, baseline dementia. No advance directives completed. As per [place] statue, healthcare proxy decision making falls to patient's Leatha Butts. has accepted this role and is fully supported by all of their 3 children. * GOALS OF CARE: s/p medical extubation. still considering reintubation vs comfort; she is not certain at this time. She is hopeful that he may continue to improve and NOT require reintubation. She wishes to continue with aggressive treatments. * SYMPTOMS: = Dyspnea, secondary to respiratory failure, pneumonia, CHF. s/p medical extubation 08/28, tolerating NC daytime (4L) requiring Bipap at night. = Anxiety/agitation: Exacerbated by dyspnea. Patient with dementia baseline with behavioral disturbances. Home regimen of Seroquel 100 mg twice daily. some episodes of restlessness. Sedatives held yesterday for CPAP/ medical extubation. = Debility: Acute on chronic. Progressive since June secondary to acute illness and recurrent infections. PT recommended PT at rehab during recent prior hospitalization, patient's inquiring regarding acute rehab. * Palliative care contact information has been provided to family. * Palliative care will continue to follow up for further clarification of goals of care as patient's clinical course continues to evolve. . Attestation To help prompt me to consider important information that might be impacting today's encounter and assessment, information from prior notes written by myself or my colleagues may have been "brought forward" into today's note. My signature on this note, however, is an attestation that I personally performed the exam, history, and/or decision-making noted today, and, unless otherwise indicated, the interactions with patient, family, and staff as well as the review of records all occurred today. I also attest that the listed assessment and stated plan reflect my best clinical judgment today based on the combination of historical information, prior notes, and today's exam/ interactions. When time spent is documented, it refers only to time spent today by the signer, or if indicated, combined time spent today by collaborating physician/nurse practitioner. Cristy Wolf Aug 29, 2017 13:04
[2017-08-29 13:49] LABS: BACTERIA, URINE OCC /hpf; BILIRUBIN, URINE NEG (NEG); BLOOD, URINE MOD (NEG); GLUCOSE,URINE NEG (NEG); KETONE, URINE TRACE mg/dL (NEG); MUCUS URINE FEW /lpf (OCC); NITRITE,URINE NEG (NEG); SQUAMOUS EPITHELIAL CELL URINE <1 /hpf (0-5); URINE COLOR YELLOW (YELLW/STRAW); URINE LEUKOCYTE ESTERASE LARGE (NEG); WHITE BLOOD CELL CLUMPS RARE
--- NOTE | 2017-08-29 17:09 | HHI.IDPN ---
Subjective Subjective Remarks ID COVERAGE is a 76 y/o CM with PMHx of multiple comorbidities, such as HTN, hyperlipidemia, BPH, anemia of chronic disease, CAD with EF 55-60%, peripheral vascular disease, COPD on 2.5 L home oxygen, who presented to [facility] ED by EMS for respiratory distress and altered mental status requiring intubation in the field. In addition, patient was found to be hypotensive and hypoxic.Patient received 3 L IVF by EVAC and ED. Patient needed to be on Vasopressors for a while. His WBC was 23.7 on admission, mild elevation in lactic acid to 2.3. Chest x-ray showed right basilar infiltrate concerning for pneumonia. ABG post intubation showed a pH of 7.39, CO2 of 44, PaO2 of 332, bicarb of 44, saturation 98%. In the ED, he was given cefepime, vancomycin. He was recently discharged from [facility] after he was admitted back on 08/04 for CHF, respiratory failure and acute right-sided stroke. Blood cultures drawn on admission positive for MRSA. ID consulted for evaluation and Mment of Septic Shock and MRSA bacteremia. Notes reviewed Patient has been extubated yesterday Required CPAP overnight Has a very moist and weak cough On nasal O2 Sats ok Temps ok BP ok WBC increasing CT R with serous fluid, with some sediment Last CT no loculated fluid Last CXR ok Now problem with ileus, abdominal distension No rash No diarrhea Cultures reviewed Has one (+) BC with MRSA on admission Pleural fluid and sputum C/S with MRSA Antibiotics Vancomycin IV Zyvox Current Medications Medications (Trade) Dose Ordered Sig/Veronica Route Start Time Stop Time Status Last Admin (Pepcid Inj) 20 mg Q12HR IV PUSH 08/21/17 14:15 08/29/17 09:04 Miscellaneous Information 1 Q361D XX 08/21/17 14:15 (Chlorhexidine 2% Cloth) Taper DAILY@04 TOP 08/22/17 04:00 08/18/18 03:59 08/28/17 04:00 (Chlorhexidine 2% Cloth) 3 pack UNSCH PRN TOP 08/21/17 14:15 (Milk Of Magnesia Liq) 30 ml Q12H PRN PO 08/21/17 14:15 (Dulcolax Supp) 10 mg DAILY PRN RECTAL 3/12/18 14:15 08/23/17 08:29 (Lactulose Liq) 30 ml DAILY PRN PO 08/21/17 14:15 (D50w (Vial) Inj) 50 ml UNSCH PRN IV PUSH 08/21/17 14:30 (Glucagon Inj) 1 mg UNSCH PRN OTHER 08/21/17 14:30 (NovoLIN R SUPPLEMENTAL SCALE) 1 Q6H SQ 08/21/17 15:00 08/27/17 08:30 (Aricept) 10 mg HS PO 08/21/17 21:00 08/26/17 22:03 (Proscar) 5 mg DAILY PO 08/22/17 09:00 08/29/17 09:04 (Flomax) 0.4 mg DAILY PO 08/22/17 09:00 08/29/17 09:04 (Aspirin Chew) 81 mg DAILY CHEW 08/22/17 11:00 Future Hold (Plavix) 75 mg DAILY PO 08/22/17 11:00 Future Hold (Heparin Inj) 5,000 units Q12HR SQ 08/22/17 21:00 08/29/17 09:04 Pharmacy Profile Note 0 ml @ 0 mls/hr UNSCH OTHER 08/23/17 06:30 (Tears Naturale Opth Soln) 1 drop Q8HR EACH EYE 08/25/17 14:00 08/29/17 05:50 (Senna Liq) 8.8 mg BID PO 08/25/17 21:00 08/29/17 09:04 (Miralax) 17 gm BID PO 08/25/17 21:00 08/29/17 09:04 (Lactulose Liq) 30 ml QID PO 08/25/17 13:00 08/29/17 09:04 (Tylenol 650 Mg/ 20 ml Liq) 650 mg Q6H PRN PO 08/25/17 11:00 Linezolid 300 ml @ 300 mls/hr Q12H IV 08/25/17 12:00 08/29/17 12:41 Vancomycin HCl 1500 mg/Sodium Chloride 515 ml @ 250 mls/hr Q18H IV 08/25/17 14:00 Future Hold 08/27/17 20:12 (NS Flush) DAILY IV FLUSH 08/25/17 16:15 08/29/17 09:05 (NS Flush) UNSCH PRN IV FLUSH 08/25/17 16:15 (Albuterol Neb) 2.5 mg Q2HR NEB PRN NEB 08/26/17 10:00 (Colace Liq) 100 mg Q12HR PO 08/26/17 21:00 08/29/17 09:04 (Reglan Inj) 5 mg Q8HR IV PUSH 08/27/17 17:00 08/29/17 05:50 (Free Water) VOLUME OF WATER: ( 250 ) ML Q6HR OG-TUBE 08/28/17 12:00 08/28/17 12:41 (SoluMEDROL INJ) 40 mg Q12H IV PUSH 08/28/17 18:00 08/29/17 05:50 (Duoneb Neb) 1 ampule Q4HR NEB NEB 08/28/17 16:00 08/29/17 16:22 (Duoneb Neb) 1 ampule Q2HR NEB PRN NEB 08/28/17 15:30 (Cardizem) 60 mg Q6HR PO 08/29/17 12:00 08/29/17 12:41 Potassium Chloride 100 ml @ 50 mls/hr Q2H PRN IV 08/29/17 09:30 Potassium Chloride 100 ml @ 50 mls/hr Q2H PRN IV 08/29/17 09:30 (K-Lyte Cl Eff) 50 meq UNSCH PRN PO 08/29/17 09:30 Potassium Chloride 100 ml @ 25 mls/hr UNSCH PRN IV 08/29/17 09:30 Potassium Chloride 100 ml @ 50 mls/hr Q2H PRN IV 08/29/17 09:30 Magnesium Sulfate 4 gm/Sodium Chloride 100 ml @ 50 mls/hr UNSCH PRN IV 08/29/17 09:30 (Mag-Ox) 800 mg UNSCH PRN PO 08/29/17 09:30 Magnesium Sulfate 2 gm/Sodium Chloride 100 ml @ 50 mls/hr UNSCH PRN IV 08/29/17 09:30 (K-Phos) 2,000 mg Q4H PRN PO 08/29/17 09:30 Sodium Phosphate 30 mmol/Sodium Chloride 250 ml @ 42 mls/hr UNSCH PRN IV 08/29/17 09:30 08/29/17 13:38 (K-Phos) 2,000 mg UNSCH PRN PO/TUBE 08/29/17 09:30 Potassium Phosphate 30 mmol/ Sodium Chloride 260 ml @ 42 mls/hr UNSCH PRN IV 08/29/17 09:30 (Miralax) 17 gm DAILY PO 08/30/17 09:00 Lines Line sites with no evidence of infection. 08/25 Past Medical History Past Medical History COPD, on 2.5 L oxygen continuously, coronary artery disease, peripheral vascular disease, hypertension, hyperlipidemia, BPH, anemia, dementia. Past Surgical History Previous cataract surgery. 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 Vital Signs Date Time Temp Pulse Resp B/P (MAP) Pulse Ox O2 Delivery O2 Flow Rate FiO2 08/29/17 13:00 101 08/29/17 12:00 93 08/29/17 12:00 99.2 93 14 175/91 (119) 98 08/29/17 11:00 101 08/29/17 10:00 103 08/29/17 09:00 103 08/29/17 08:00 103 08/29/17 08:00 98.8 103 157/91 (113) 97 08/29/17 07:58 93 Nasal Cannula 4.00 08/29/17 07:56 95 35 08/29/17 07:00 104 08/29/17 06:00 98 08/29/17 04:42 94 35 08/29/17 04:00 98.0 98 18 157/91 (113) 95 08/29/17 04:00 98 08/29/17 02:23 94 35 08/29/17 02:00 97 08/29/17 00:00 96 08/29/17 00:00 98.3 96 20 139/75 (96) 94 08/28/17 23:41 98 35 08/28/17 22:00 96 08/28/17 20:30 96 35 08/28/17 20:30 96 BiPAP 35 08/28/17 20:00 88 08/28/17 20:00 98.1 85 24 154/77 (102) 93 08/28/17 18:00 89 . Laboratory Tests Test 08/28/17 04:45 08/29/17 03:30 White Blood Count 11.4 TH/MM3 16.7 TH/MM3 Red Blood Count 3.22 MIL/MM3 3.99 MIL/MM3 Hemoglobin 8.8 GM/DL 10.8 GM/DL Hematocrit 27.3 % 33.3 % Mean Corpuscular Volume 85.0 FL 83.5 FL Mean Corpuscular Hemoglobin 27.3 PG 27.0 PG Mean Corpuscular Hemoglobin Concent 32.1 % 32.3 % Red Cell Distribution Width 17.1 % 17.1 % Platelet Count 164 TH/MM3 226 TH/MM3 Mean Platelet Volume 8.5 FL 8.7 FL Neutrophils (%) (Auto) 94.3 % 96.8 % Lymphocytes (%) (Auto) 3.2 % 1.9 % Monocytes (%) (Auto) 2.3 % 1.3 % Eosinophils (%) (Auto) 0.0 % 0.0 % Basophils (%) (Auto) 0.2 % 0.0 % Neutrophils # (Auto) 10.8 TH/MM3 16.2 TH/MM3 Lymphocytes # (Auto) 0.4 TH/MM3 0.3 TH/MM3 Monocytes # (Auto) 0.3 TH/MM3 0.2 TH/MM3 Eosinophils # (Auto) 0.0 TH/MM3 0.0 TH/MM3 Basophils # (Auto) 0.0 TH/MM3 0.0 TH/MM3 CBC Comment DIFF FINAL DIFF FINAL Differential Comment Laboratory Tests Test 08/28/17 04:45 08/28/17 18:30 08/29/17 03:30 08/29/17 10:23 Blood Urea Nitrogen 38 MG/DL 35 MG/DL Creatinine 1.25 MG/DL 1.30 MG/DL 1.16 MG/DL Random Glucose 110 MG/DL 105 MG/DL Total Protein 5.2 GM/DL Albumin 2.0 GM/DL Calcium Level 7.6 MG/DL 8.0 MG/DL Phosphorus Level 3.0 MG/DL 2.2 MG/DL 2.3 MG/DL Magnesium Level 2.9 MG/DL 2.7 MG/DL Alkaline Phosphatase 147 U/L Aspartate Amino Transf (AST/SGOT) 19 U/L Alanine Aminotransferase (ALT/SGPT) 54 U/L Total Bilirubin 0.2 MG/DL Sodium Level 150 MEQ/L 149 MEQ/L Potassium Level 4.3 MEQ/L 4.1 MEQ/L Chloride Level 114 MEQ/L 110 MEQ/L Carbon Dioxide Level 29.0 MEQ/L 32.5 MEQ/L Anion Gap 7 MEQ/L 7 MEQ/L Estimat Glomerular Filtration Rate 56 ML/MIN 53 ML/MIN 61 ML/MIN Microbiology Date/Time Source Procedure Growth Status 08/29/17 12:45 Urine Catheterized Urine Urine Culture Pending Received Imaging Chest X-Ray 08/25/17 0600 Signed Impressions: Service Date/Time: Friday, August 25, 2017 03:56 - CONCLUSION: 1. Worsening bilateral airspace disease/effusions particularly on the right. 2. Stable position of life support tubes including a right sided Pinch loop thoracostomy tube projecting over the lower right hemithorax. Casey Márquez MD Chest X-Ray 08/24/17 0000 Signed Impressions: Service Date/Time: August 07:35 - CONCLUSION: 1. Stable right inferior chest tube with stable residual small right pleural effusion and associated right lower lung zone airspace disease. 2. Improved trace left pleural effusion and left lower lung zone airspace disease. 3. No significant pneumothorax. Julian Vernon MD Chest CT 08/24/17 0000 Signed Impressions: Service Date/Time: August 17:38 - CONCLUSION: 1. Increase in size of left pleural effusion and dependent consolidation in the left lung since August 21. 2. Worsening consolidation in the right middle lobe and at the right lung base. Also increase in right apical consolidation with new loculated pleural effusion at the right lung apex. There is placement of a small caliber right chest tube, but drainage is probably limited due to increasing loculation of right effusion. 3. Mild anasarca. 4. No significant pericardial effusion. Gallo Caal MD Chest X-Ray 08/23/17 0600 Signed Impressions: Service Date/Time: Wednesday, August 23, 2017 04:09 - CONCLUSION: Enlarging right effusion and right lung consolidation. New left basilar consolidation. Chris Zuñiga Jr., MD Consultation 08/22/17 0000 Signed Impressions: Service Date/Time: Tuesday, August 22, 2017 00:00 - CONCLUSION: Volume of the right pleural effusion is not amenable to safe thoracentesis at this time. Marvin Presley MD Chest Ultrasound 08/22/17 0000 Signed Impressions: Service Date/Time: Tuesday, August 22, 2017 12:08 - CONCLUSION: Small left pleural effusion. No marking performed. Mj Sanchez MD Head CT 08/21/17 1357 Signed Impressions: Service Date/Time: Monday, August 21, 2017 16:05 - CONCLUSION: 1. No acute intracranial abnormality. Stable exam compared to previous dated 08/06/17. Jonathon Jenkins MD CT Angiography 08/21/17 135 Signed Impressions: Service Date/Time: Monday, August 21, 2017 16:16 - CONCLUSION: 1. No evidence for pulmonary embolism. 2. Atherosclerosis. 3. Bilateral pleural effusions are identified right greater than left and patchy pulmonary consolidation is seen. Khanh Nina MD Abdomen/Pelvis CT 08/21/[id number] Signed Impressions: Service Date/Time: Monday, August 21, 2017 16:16 - CONCLUSION: 1. Moderate amount of stool noted with a stool ball in the rectum. 2. Bilateral pleural effusions and consolidation greatest in the right lower lobe. 3. Diverticulosis without diverticulitis. 4. Atherosclerosis. 5. Bilateral L5 pars defects. 6. Inguinal hernias. Khanh Nina MD Brain MRI 08/21/17 0000 Signed Impressions: Service Date/Time: Monday, August 21, 2017 22:20 - CONCLUSION: 1. No acute intracranial abnormality. 2. Atrophy and chronic small vessel ischemic change. Chris Zuñiga Jr., MD Physical Exam GENERAL: Awake, did not follow commands, looks weak, has a very moist cough. SKIN: WArm and dry, no rash. HEAD: Atraumatic. Normocephalic. No temporal or scalp tenderness. EYES: Pupils equal round and reactive. Extraocular motions intact. No scleral icterus. No injection or drainage. ENT: Dry oral mucosa NECK: Trachea midline. Supple, nontender, no meningeal signs. CARDIOVASCULAR: HS audible. RESPIRATORY: Diffuse rhonchi, CT on R GASTROINTESTINAL: Abdomen soft, non-tender, nondistended. MUSCULOSKELETAL: Extremities without clubbing, cyanosis. Has bilateral pitting pedal edema. Negative Homans sign bilaterally. NEUROLOGICAL: Awake, did not follow commands for me. Psych calm IV line sites with no e.o infection Assessment & Plan Remarks Severe Sepsis (with Septic Shock on admission), now off pressors. Pneumonia present on admission.? HCAP vs Aspiration or both. - with empyema - MRSA pneumonia ? source of bacteremia. Possible MRSA related empyema. MRSA bacteremia Bilateral pleural effusion, empyema - last CT did not show loculation Recent stroke. Acute respiratory failure on vent, ectubated 08/28 Leukocytosis, worsening Candiduria Recs: Continue Vanco IV (target 15-20) - Vanco on hold - follow random level and readjust dose - pharm following Continue Zyvox - follow CBC Add Diflucan Follow WBC Monitor respiratroy status Monitor progress Spoke with Alma DeliaXochilt MD Aug 29, 2017 17:09
[2017-08-29] MEDS: DONEPEZIL HCL 5 MG TAB PO SCH (19:46)
[2017-08-29] MEDS: BISACODYL 10 MG SUPP RECTAL PRN (22:28)
[2017-08-30] VITALS (18 sets, daily range): BP systolic 91–143; BP diastolic 56–68; PULSE 73–103; RESP 12; TEMP 98–98.7; O2SAT 93–100
[2017-08-30] MEDS: INSULIN NovoLIN REGULAR SUPPLEMENTAL SCALE SQ SCH ×2 (02:20→09:00)
[2017-08-30] MEDS: ARTIFICIAL TEARS OPTH SOLN 15 ML BTL EACH EYE SCH ×2 (02:20→14:00)
[2017-08-30] MEDS: FREE WATER OG-TUBE SCH ×2 (02:21→12:00)
[2017-08-30] MEDS: RESP: ALBUTEROL 2.5 MG/IPRATROPIUM 0.5 MG NEB (SCH) NEB ×4 (03:37→17:03)
[2017-08-30 04:01] LABS: AUTOMATED NEUTROPHIL # 17.5 TH/MM3 (1.8-7.7); BASOPHIL % 0.3 % (0.0-2.0); HEMATOCRIT 32.4 % (39.0-51.0); HEMOGLOBIN 10.8 GM/DL (13.0-17.0); LYMPH % 1.8 % (9.0-44.0); LYMPHOCYTE # 0.3 TH/MM3 (1.0-4.8); MEAN CELL VOLUME 82.3 FL (80.0-100.0); MEAN CORPUSCULAR HEMOGLOBIN 27.4 PG (27.0-34.0); MEAN CORPUSCULAR HGB CONC 33.3 % (32.0-36.0); MEAN PLATELET VOLUME 8.4 FL (7.0-11.0); MONO % 1.5 % (0.0-8.0); MONOCYTE # 0.3 TH/MM3 (0-0.9); NEUT % 96.4 % (16.0-70.0); PLATELET COUNT 235 TH/MM3 (150-450); RED BLOOD COUNT 3.94 MIL/MM3 (4.50-5.90); RED CELL DISTRIBUTION WIDTH 17.7 % (11.6-17.2); WHITE BLOOD COUNT 18.1 TH/MM3 (4.0-11.0)
[2017-08-30 04:41] LABS: BICARBONATE 33.5 MEQ/L (21.0-32.0); CALCIUM 7.8 MG/DL (8.5-10.1); CREATININE 1.04 MG/DL (0.60-1.30); MAGNESIUM 2.5 MG/DL (1.5-2.5); PHOSPHORUS 3.5 MG/DL (2.5-4.9); RANDOM VANCOMYCIN 15.3 COMMENT
[2017-08-30] MEDS: methylPREDNISolone SOD SUCC 40 MG/1 ML VIAL IV PUSH SCH (04:55)
[2017-08-30] MEDS: DILTIAZEM HCL 60 MG TAB PO SCH ×2 (04:55→12:00)
[2017-08-30] MEDS: METOCLOPRAMIDE HCL 10 MG/2 ML VIAL IV PUSH SCH ×2 (04:55→14:00)
--- NOTE | 2017-08-30 05:11 | RADRPT ---
EXAM DATE/TIME: 08/30/2017 03:08 [facility] COMPARISON: CHEST SINGLE AP, August 29, 2017, 9:05. INDICATIONS : Shortness of breath. MEDICAL HISTORY : Chronic obstructive pulmonary disease. Cardiovascular disease. Hypertension. SURGICAL HISTORY : None. ENCOUNTER: Subsequent ACUITY: 3 weeks PAIN SCORE: Non-responsive. LOCATION: Bilateral chest FINDINGS: Left central line tip projects over the origin of the superior vena cava. Patchy areas of consolidat ion in the medial lower lungs bilaterally stable from prior. right chest drainage catheter remains p rojected in the lower lateral right chest. No evidence of pneumothorax. CONCLUSION: 1. Stable position to the pigtail right lower chest catheter. No evidence pneumothorax. 2. Stable patchy left lower lung consolidation. Chris Rhoades MD on August 30, 2017 at 5:08 Board Certified Radiologist. This report was verified electronically.
--- NOTE | 2017-08-30 05:12 | RADRPT ---
EXAM DATE/TIME: 08/30/2017 03:11 [facility] COMPARISON: ABDOMEN KUB ONLY, August 29, 2017, 9:12. INDICATIONS : Ileus. MEDICAL HISTORY : Chronic obstructive pulmonary disease. Cardiovascular disease. Hypertension. SURGICAL HISTORY : None. ENCOUNTER: Subsequent ACUITY: 4 - 6 days PAIN SCORE: Non-responsive. LOCATION: abdomen, all quadrants. FINDINGS: Persistent gaseous distention of the cecum. No dilated loops of small bowel seen. Degenerative chun ges in the lower lumbar spine. The overall appearance is very similar to yesterday's KUB. CONCLUSION: Stable cecal distention. No dilated loops of small bowel. Chris Rhoades MD on August 30, 2017 at 5:10 Board Certified Radiologist. This report was verified electronically.
[2017-08-30] MEDS ORDERED: PROPOFOL 200 MG/20 ML AMP ONE (07:52)
[2017-08-30] MEDS ORDERED: POLYETHYLENE GLYCOL 17 GM PKG PO SCH (09:00)
[2017-08-30] MEDS: DOCUSATE SODIUM 100 MG/10 ML UDC PO SCH (09:00)
[2017-08-30] MEDS: HEPARIN SODIUM - SQ 10,000 UNITS/ML VIAL SQ SCH (09:00)
[2017-08-30] MEDS: LACTULOSE SYRUP 20 GM/30 ML CUP PO SCH (09:00)
[2017-08-30] MEDS: FINASTERIDE 5 MG TAB PO SCH (09:00)
[2017-08-30] MEDS: FAMOTIDINE 20 MG/2 ML VIAL IV PUSH SCH (09:00)
[2017-08-30] MEDS: POLYETHYLENE GLYCOL 17 GM PKG PO SCH (09:00)
[2017-08-30] MEDS: TAMSULOSIN HCL 0.4 MG CAP PO SCH (09:00)
[2017-08-30] MEDS: SENNOSIDES SYRUP 8.8 MG/5 ML CUP PO SCH (09:00)
--- NOTE | 2017-08-30 10:21 | MB ---
cc: Kim Trinidad MD DATE: 08/29/2017 REFERRING PHYSICIAN: Dr. Frey HISTORY OF PRESENT ILLNESS: Mr. Butts is a 76-year-old gentleman with multiple comorbidities, high blood pressure, hyperlipidemia, COPD,MRSA sepsis, CHF, CVA,dementia , admitted to the hospital with respiratory distress, altered mental status, status post intubation. He was extubated yesterday. Currently doing well on nasal canula. The patient was admitted on 08/04 with CHF, respiratory failure, acute right-sided stroke, discharged , than readmitted . The patient had developed empyema status post chest tube on 08/24. He continues to have some abdominal distention for the last couple of days, constipation, was given multiple laxatives, enemas with no improvement. No BM since 08/21 other than a small bowel movement yesterday . CT -see report . The patient is currently sitting in bed in no acute distress. at bedside. As per her, there is no previous history of bowel problems, constipation or diarrhea. Last colonoscopy was a long time ago. He was evaluated by Infectious Disease and Pulmonology. PAST MEDICAL HISTORY: Peripheral artery disease, coronary artery disease, dementia, hypertension, cataract removal. ALLERGIES: HALDOL, ATIVAN, PENICILLIN. SOCIAL HISTORY: . Former smoker. MEDICATIONS IN THE HOSPITAL: He is on MiraLax, Cardizem, glycerin suppository, potassium chloride, magnesium sulfate, Solu-Medrol, DuoNeb, Reglan, albuterol, Senokot, lactulose, Plavix, Proscar, Aricept, bisacodyl,lactulose-see complete list REVIEW OF SYSTEMS: Unfortunately, cannot be performed, the patient unable to cooperate. PHYSICAL EXAMINATION: VITAL SIGNS: Temperature 98.1, respiratory rate 20, blood pressure 170/93, pulse oximetry 94%. HEENT: PERRLA. NECK: No JVD. No lymphadenopathy. CHEST: Clear on auscultation other than Some crepitation on bilateral sides. He has right chest tube, decreased air entry bilateral ABDOMEN: Distended, soft. Decreased bowel sounds. CENTRAL NERVOUS SYSTEM: Awake, alert, confused. LABORATORY DATA: His hemoglobin at 10.8, white count 16.7, platelets 226. Chemistry suggestive of a sodium of 150, potassium 4.1, chloride 110, BUN 35, creatinine 1.16, alkaline phosphatase 147. IMAGING: The patient had a CT chest done yesterday, on 08/28, small bore chest tube on the right side. Small left pleural effusion. The patient had also a CT abdomen and pelvis done on the , which showed right inguinal hernia containing a loop of small bowel. Less herniation than on prior CT. Subcutaneous soft tissue swelling and induration about the lateral pelvic and proximal thighs, soft tissue. Left pleural effusion. NG tube in place. IMPRESSION: Colonic ileus nonresponsive to medical treatment so far constipation Deconditioning-evaluated by palliative care , pt is alternative code for now, concerned about reintubation . RECOMMENDATIONS: NG tube, rectal tube. A trial of Relistor. If no improvement, consider colonoscopy for decompression or Gastrografin enema -high risk for invasive procedure due to clinical status Discussed with risks, benefits including risk of anesthesia for colonoscopy, the patient will need to be sedated, possibly reintubated. She is quite concerned about this. Further recommendation will depend on the patient's clinical status and the above results. Discussed with Dr. Frey. Again, the patient was seen earlier in the morning-late entry due to dictation issues earlier in the day Kim Trinidad MD BSB/MARTIN , 09:57 PM , 11:09 PM YESSENIA
--- NOTE | 2017-08-30 10:35 | GIPROC ---
[facility] [address] [facility]. [facility] [address], [address] COLONOSCOPY PROCEDURE REPORT EXAM DATE: 08/30/2017 PATIENT NAME: Steven Butts MR #: [id number] BIRTHDATE: 1940 ENDOSCOPIST: Kim Trinidad MD ORDER #: [id number] SHEET TAILER: Benito Sahni and Ashwini Dunn STATUS: inpatient INDICATIONS: The patient is a 76 yr old male here for a colonoscopy due to fecal impaction, anormal ct PROCEDURE PERFORMED: colonoscopy disimpaction MEDICATIONS: None and Per Anesthesia. PREP QUALITY: poor PREP TYPE:Other: ESTIMATED BLOOD LOSS: None CONSENT: The patient understands the risks and benefits of the procedure and understands that these risks include, but are not limited to: sedation, allergic reaction, infection, perforation and/or bleeding. Alternative means of evaluation and treatment include, among others: physical exam, x-rays, and/or surgical intervention. The patient elects to proceed with this endoscopic procedure. medical equipment was checked for proper function. Hand hygiene and appropriate measures for infection prevention was taken. After the risks, benefits and alternatives of the procedure were thoroughly explained, Informed consent was verified, confirmed and timeout was successfully executed by the treatment team. A digital exam revealed decreased sphincter tone The Pentax [id number] endoscope was introduced through the anus and advanced to the proximal transverse colon. The instrument was then slowly withdrawn as the colon was fully examined. COLON FINDINGS: Diverticulosis, large amount of stool up to transverse -manual disimpaction could not reach cecum -large amount of stool. Abdomen more distended postptrocedure -r/o perforation. Retroflexion was not performed The scope was then completely withdrawn from the patient and the procedure terminated. ADVERSE EVENTS: worsening distension postop-r/o perforation IMPRESSIONS: 1. Diverticulosis, large amount of stool up to transverse -manual disimpaction could not reach cecum -large amount of stool 2. Retroflexion was not performed 3. Revealed decreased sphincter tone RECOMMENDATIONS: Keep intubated ngt inserted rectal tube stat abd x ray consult colorectal-dr gonsalves -spoke with him RECALL: NONE Kim Trinidad MD eSigned: Kim Trinidad MD 08/30/2017 10:34 AM cc:
[2017-08-30] MEDS ORDERED: DO NOT ADM ANY ANTICOAGULANT DRUGS PRN (10:39)
[2017-08-30] MEDS ORDERED: PROPOFOL 1000 MG/100 ML INJ 100 ML ONE (10:44)
[2017-08-30] MEDS: PROPOFOL 1000 MG/100 ML IV PRN ×2 (11:00→11:30)
[2017-08-30] MEDS: SODIUM CHLORIDE 0.9% FLUSH 10 ML FLUSH IV FLUSH SCH (11:00)
[2017-08-30] MEDS ORDERED: ONDANSETRON HCL 4 MG/2 ML VIAL IV ONE (12:00)
[2017-08-30] MEDS ORDERED: SUCCINYLCHOLINE CHLORIDE 100 MG/5 ML SYRINGE IV PUSH ONE (12:00)
[2017-08-30] MEDS ORDERED: LIDOCAINE HCL 1% PF 5 ML SYRINGE OTHER ONE (12:00)
[2017-08-30] MEDS ORDERED: PROPOFOL 200 MG/20 ML AMP IV ONE (12:00)
[2017-08-30] MEDS ORDERED: DEXAMETHASONE SOD PHOS 4 MG/ML VIAL IV ONE (12:00)
[2017-08-30] MEDS ORDERED: PHENYLEPH/NS 1000 MCG/10 ML SYR IV ONE (12:00)
--- NOTE | 2017-08-30 12:07 | RADRPT ---
EXAM DATE/TIME: 08/30/2017 11:28 [place] Corrected on: August 30, 2017; [facility] COMPARISON: ABDOMEN KUB ONLY, August 30, 2017, 3:11. INDICATIONS : Ileus, fecal impaction MEDICAL HISTORY : Chronic obstructive pulmonary disease. Cardiovascular disease. Hypertension. SURGICAL HISTORY : None. ENCOUNTER: Subsequent ACUITY: 4 - 6 days PAIN SCORE: Non-responsive. LOCATION: Abdomen FINDINGS: Free intraperitoneal air. Smallbore chest tube in place on the right. CONCLUSION: Intraperitoneal air. Findings called to Dr. Amos Jenkins MD FACR on August 30, 2017 at 12:03 Board Certified Radiologist. This report was verified electronically. Luis Eduardo Jenkins MD FACR on August 30, 2017 at 15:57 Board Certified Radiologist. This report was verified electronically.
[2017-08-30] MEDS ORDERED: VANCOMYCIN INJ 1,000 MG in SODIUM CHLOR 0.9% 250 ML INJ 250 ML IV ONE (12:15)
--- NOTE | 2017-08-30 12:15 | HHI.CCPN ---
Subjective Remarks/Hospital Course Patient is a 76-year-old male with multiple comorbidities, which include hypertension, hyperlipidemia, BPH, anemia of chronic disease, coronary artery disease, peripheral vascular disease, COPD on 2.5 L home oxygen, who presented to [facility] ED by EMS for respiratory distress and altered mental status requiring intubation in the field. In addition, patient was hypotensive and hypoxic. He was given 2 L Iv fluids by [facility] and an additional 1 L in the ED. Patient was started on Levophed, which is currently at 6 mcg. His laboratory data is significant for leukocytosis with a WBC of 23.7 and a mild lactic acidosis with lactic acid level of 2.3. Chest x-ray showed right basilar infiltrate concerning for pneumonia and ET tube above the jonah. ABG post intubation showed a pH of 7.39, CO2 of 44, PaO2 of 332, bicarb of 44, saturation 98%. In the ED, he was given cefepime, vancomycin. Patient also noted to have pinpoint pupils and was given Narcan without any significant effect. He was recently discharged from [facility] after he was admitted back on 08/04 for CHF, respiratory failure and acute right-sided stroke. He is scheduled to undergo CT scan of the brain, chest, abdomen and pelvis, which were ordered by ED. On his last admission, he had an echocardiogram on 08/04, which showed an EF of 55-60%. 08/22 Patient is sedated with Fentanyl drip and intubated. Afebrile. Off Levophed. 08/23: Patient remains profoundly septic. Encephalopathic white count is 22.4 which is slightly improved. His pleural effusion has increased in size and concerning for parapneumonic effusion/developing empyema. His chest x-ray shows bilateral infiltrates which are worsening. MRSA pneumonia is a concern. I will proceed with pigtail chest tube placement on the right side and send fluid for further studies 08/24: Remains critically ill but stabilizing. WBC count trending down today at 16.6. Right pigtail chest tube was placed yesterday with 1.1 L cloudy yellow fluid output concerning for parapneumonic effusion/early empyema. Cardiothoracic surgery consulted for recommendation regarding decortication. Chest x-ray today shows no pneumothorax, right lung consolidation with mild effusion. 08/25: Afebrile. Currently arousable on the ventilator but extremely encephalopathic. Tolerating tube feeds at goal. No bowel movement since admission. 08/26: Afebrile. Central line placed yesterday left IJ for IV access. No bowel movement. Aggressive enema today. Subjective 08/27: Afebrile. Very small bowel movement yesterday. KUB revealed no obstructive process. We will give 2 mg needs to be 1020 with atropine at bedside. Plan for CT thorax in a.m. to evaluate bilateral effusions. Might need another chest tube in the left side 08/28 Patient remains sedated and intubated. Afebrile. 08/29 Patient s/p extubation yesterday on 4L oxygen, off BIPAP. Afebrile 08/30: Remained on BiPAP overnight. KUB showed persistent cecal dilatation. Underwent colonoscopy today, intubated prior to procedure. Post procedure worsening distension highly suspicious for colon perforation. NG tube was placed rectal tube placed. Dr. Trinidad consulted Dr. Christiansen. Continue Zyvox, vanc , Diflucan, start Azactam and Flagyl to cover for peritonitis. There was large amount of stool up to transverse which required manual disimpaction. Objective Vital Signs Date Time Temp Pulse Resp B/P (MAP) Pulse Ox O2 Delivery O2 Flow Rate FiO2 08/30/17 10:39 97.2 90 141/82 (101) 93 Mechanical Ventilator 50 08/29/17 20:01 4.00 08/29/17 16:00 20 Intake and Output 08/30/17 08/30/17 08/31/17 08:00 16:00 00:00 Output Total 770 ml Balance -770 ml Result Diagram: 08/30/17 0340 08/30/17 0340 Imaging Last Impressions Chest X-Ray 08/29/17 0000 Signed Impressions: Service Date/Time: Tuesday, August 29, 2017 09:05 - CONCLUSION: 1. Hypoinflation with probable bibasilar atelectatic changes. 2. Bovina loop catheter seen just above the right hemidiaphragm. No significant effusion, however. Casey Márquez MD Abdomen X-Ray 08/29/17 0000 Signed Impressions: Service Date/Time: Tuesday, August 29, 2017 09:12 - CONCLUSION: 1. There is 15 cm of gaseous distention involving the cecum. 2. There is diffuse moderate stool throughout the entire colon with some mild to moderate dilatation of the transverse colon. This suggests a probable ileus of the colon. 3. The small bowel is nondilated. Mark Madden MD Chest CT 08/28/17 0800 Signed Impressions: Service Date/Time: Monday, August 28, 2017 11:05 - CONCLUSION: 1. Smallbore chest tube on the right with minimal colonic changes right base 2. Small left pleural effusion the consolidative changes in the left lower lobe. Luis Eduardo Jenkins MD FACR Abdomen/Pelvis CT 08/27/17 0000 Signed Impressions: Service Date/Time: Sunday, August 27, 2017 22:24 - CONCLUSION: 1. Right inguinal hernia containing a loop of small bowel less herniation than on prior CT scan 08/04/17. 2. Interval development of subcutaneous soft tissue swelling and induration about the lateral pelvic and proximal thigh soft tissues. 3. Interval development of left pleural effusion and left lower lung consolidation. There is a small right pleural effusion. 4. Right lower chest catheter and gastric tubes in place. Chris Rhoades MD Consultation 08/22/17 0000 Signed Impressions: Service Date/Time: Tuesday, August 22, 2017 00:00 - CONCLUSION: Volume of the right pleural effusion is not amenable to safe thoracentesis at this time. Marvin Presley MD Chest Ultrasound 08/22/17 0000 Signed Impressions: Service Date/Time: Tuesday, August 22, 2017 12:08 - CONCLUSION: Small left pleural effusion. No marking performed. Mj Sanchez MD Head CT 08/21/17 1357 Signed Impressions: Service Date/Time: Monday, August 21, 2017 16:05 - CONCLUSION: 1. No acute intracranial abnormality. Stable exam compared to previous dated 08/06/17. Jonathon Jenkins MD CT Angiography 08/21/17 1357 Signed Impressions: Service Date/Time: Monday, August 21, 2017 16:16 - CONCLUSION: 1. No evidence for pulmonary embolism. 2. Atherosclerosis. 3. Bilateral pleural effusions are identified right greater than left and patchy pulmonary consolidation is seen. Khanh Nina MD Brain MRI 08/21/17 0000 Signed Impressions: Service Date/Time: Monday, August 21, 2017 22:20 - CONCLUSION: 1. No acute intracranial abnormality. 2. Atrophy and chronic small vessel ischemic change. Chris Zuñiga Jr., MD Objective Remarks Examination after colonoscopy GENERAL: Patient is 76 yo male lying in bed intubated sedated, critically ill SKIN: Warm and dry. HEAD: Normocephalic. EYES: No scleral icterus. No injection or drainage. Pupils 2 mm ENT: Orotracheally intubated NECK: Supple, trachea midline. No JVD or lymphadenopathy. CARDIOVASCULAR: Regular rate and rhythm without murmurs, gallops, or rubs. RESPIRATORY: b/L equal air entry. Right pigtail chest tube in place 40 ml output in 24 hours GASTROINTESTINAL: Firm, distended, tympanic to percussion MUSCULOSKELETAL: Trace bilateral upper and lower extremity edema. 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 Due to acute colon perforation leave intubated. ACV mode of vent. Ventilator bundle Albuterol/ipratropium aerosols every 6 hours with albuterol aerosols every 2 hours as needed dyspnea Solumedrol 40mg Q12 CT thorax: No evidence for PE, small to mod pleural effusions R>L and patchy pulmonary consolidation is seen. 08/23 s/p pigtail chest tube placement and fluid studies consistent with early empyema (WBC 7000 with 98% neutrophils, LDH 734, MRSA +ve). Monitor CT drainage. Pulmonary is following. CTS following Repeat CT chest 08/28: Small bore chest tube on the right with minimal consolidative changes right base 2. Small left pleural effusion the consolidative changes in the left lower lobe Monitor CT drainage: 40ml in 24 hrs, check CXR CV: Severe sepsis CAD HTN Hyperlipidemia ASVD IV NS 2L bolus and maintenance fluid at 1 25 mL/h Monitor HR and BP MAP>65 mmHg. ASA 81 mg daily and clopidogrel 75 mg daily on hold for now in case of any surgical intervention/procedures needed 2D echo from 08/04 showed an EF of 55-60%. Increased diltiazem 60 mg every 6 hours. -Keep NPO now Home medications include amlodipine 10 mg daily and metoprolol succinate 25 mg daily and hydralazine 50 mg every 8 hours. Renal/FEN/: Hypernatremia BPH Monitor renal function, I's and O's and electrolyte replacement per protocol. Continue finasteride 5 mg daily and tamsulosin 0.4 mg daily when able for BPH GI: Acute Colon Perforation/peritonitis ileus Hypoalbuminemia Diverticulosis Colonoscopy done today 08/30/2017 with fecal disimpaction and complicated by colon perforation NG tube and rectal tube placed. CRS Dr. Christiansen consulted STAT. Broad-spectrum antibiotics as below IV fluid normal saline 2L KUB 08/30: Persistent cecal dilatation KUB 08/29. There is 15 cm of gaseous distention involving the cecum. 2. There is diffuse moderate stool throughout the entire colon with some mild to moderate dilatation of the transverse colon. This suggests a probable ileus of the colon. 3. The small bowel is nondilated. Seen by GI (Dr. Trinidad) given Relistor x1, Glycerin supp, Palmira lax, NGT and rectal tube will be inserted as well. Famotidine 20 mg twice daily for GI prophylaxis-change to IV Protonix Hold bowel regimen CT abd/pelvis last night: . Right inguinal hernia containing a loop of small bowel less herniation than on prior CT scan 08/04/17. 2. Interval development of subcutaneous soft tissue swelling and induration about the lateral pelvic and proximal thigh soft tissues. Interval development of left pleural effusion and left lower lung consolidation. There is a small right pleural effusion. 4. Right lower chest catheter and gastric tubes in place. 08/26 KUB -no obstructive process ID: MRSA empyema/bacteremia Colon perforation with acute peritonitis Continue abx per ID ( linezolid, vancomycin, Diflucan). Add Azactam and Flagyl due to colon perforation Repeat blood cultures Nasal aspirate is negative influenza BC 08/21 06/15 bottles: MRSA, Sputum culture 08/22, MRSA Fluid culture from 08/23/2017 p MRSA Cardiothoracic surgery consult high risk for surgical intervention. Dr. Christiansen consulted for colon perforation Heme: Leukocytosis Normocytic anemia Monitor CBC. No indication for transfusion of blood products at this time Endo: SSI with Accu-Cheks every 6 hours to maintain euglycemia/low regimen GI prophylaxis with famotidine and DVT prophylaxis with SCDs/hold dheparin Sq due to colon perforation Discussed with Dr. Trinidad CCT45 MIN Condition has now turned critical with guarded prognosis; patient developed acute peritonitis from colon perforation. His condition is more than likely terminal if not operated. Colorectal surgery consult is pending. Continue fluid resuscitation broad-spectrum antibiotics. Palliative care to meet with family to establish further goals of care Jeyson Hancock MD Aug 30, 2017 12:15
[2017-08-30] MEDS ORDERED: SODIUM CHLOR 0.9% 1000 ML INJ 1,000 ML IV ONE ×4 (12:45→13:45)
[2017-08-30] MEDS ORDERED: SODIUM CHLOR 0.9% 1000 ML INJ 1,000 ML IV SCH (13:00)
[2017-08-30] MEDS ORDERED: VANCOMYCIN INJ 1,500 MG in SODIUM CHLORID 0.9% 500 ML INJ 500 ML IV ONE (13:00)
[2017-08-30] MEDS ORDERED: metroNIDAZOLE 500 MG INJ 100 ML IV SCH (13:00)
--- NOTE | 2017-08-30 13:31 | HHI.HCPN ---
Reason for visit a. To assist with evaluation and management of symptoms including: Shortness of breath, anxiety/agitation, debility. b. To assist medical decision maker(s) with: better understanding of current medical conditions; weighing benefits/burdens of medical treatment options; making medical treatment decisions. . Subjective/Interval History Patient seen today to follow-up on comfort, goals. Went for colonoscopy this am, has had ongoing tx for ileus per GI. Unable to place NGT yesterday per nursing. + flatus. CXR stable LLL consolidation. WBC 18.1. Na elevated 152. Possible perforation to bowel during colonoscopy-->> f/up abdomen imaging = free air in peritoneum. Colorectal surgery consulted- spoke w family regarding benefits/burdens of emergency surgery. Palliative was called per family request. Pt now on mech vent - ETT was placed during colonoscopy for airway protection, now on diprivan, mech vent. Pt examined in room, sedated, minimally responsive to exam. +abdomen distended, firm. Met w family (, son Renan) at length approx 60 min. Much review of recent hospital course, recent trajectory, and current conditions/complications. Review of possible trajectories going forward. is tearful. They seem to understand overall poor prognosis. , son indicate pt would not want to have prolonged hospitalization, and potentially further complications and decline without good chance of recovery back to prior level of home living.THEY DO NOT WISH TO PROCEED W SURGERY. They request HOSPICE and comfort measures only. They wish to remove ventilator (which was placed during GI procedure) and transfer pt to [facility], which is near 's home, TODAY. DNR status entered. Hospice consult ordered. D/w primary RN, critical care Dr Hancock, called to Hospice, they have PO bed available. 1500 exhibits B, C signed, in chart. Family has met w hospice wishes to proceed with mech vent removal and transfer to the hospice care center this afternoon if stable enough to transfer. . Advance Directives Living Will: Never completed Health Care Surrogate: Never completed Durable Power of Carpenters Helper: Never completed Advance Directive Specifics Health Care Surrogate(s): No advance directives completed. As per [place] statute, healthcare proxy decision making falls to patient's Leatha Butts. . Objective Vital Signs Date Time Temp Pulse Resp B/P (MAP) Pulse Ox O2 Delivery O2 Flow Rate FiO2 08/30/17 12:17 100 50 08/30/17 12:00 78 118/58 (78) 98 Mechanical Ventilator 50 08/30/17 12:00 50 08/30/17 12:00 98.0 73 12 91/56 (68) 100 08/30/17 12:00 78 08/30/17 11:45 82 122/55 (77) 97 Mechanical Ventilator 50 08/30/17 11:30 90 108/60 (76) 96 Mechanical Ventilator 50 08/30/17 11:30 50 08/30/17 11:15 90 107/65 (79) 96 Mechanical Ventilator 50 08/30/17 11:00 82 166/80 (108) 99 Mechanical Ventilator 50 08/30/17 11:00 50 08/30/17 10:45 86 165/82 (109) 95 Mechanical Ventilator 50 08/30/17 10:39 50 08/30/17 10:39 97.2 90 141/82 (101) 93 Mechanical Ventilator 50 08/30/17 08:00 76 08/30/17 08:00 98.5 76 143/66 (91) 97 08/30/17 07:39 97 40 08/30/17 07:00 78 08/30/17 06:00 78 08/30/17 04:13 98 40 08/30/17 04:00 98.5 81 129/68 (88) 93 08/30/17 04:00 81 08/30/17 02:00 78 08/30/17 01:45 96 40 08/30/17 00:33 94 40 08/30/17 00:00 98.7 96 142/67 (92) 93 08/30/17 00:00 95 08/29/17 22:00 96 08/29/17 21:30 92 40 08/29/17 20:01 94 Nasal Cannula 4.00 08/29/17 20:00 98.1 91 187/93 (124) 93 08/29/17 20:00 91 08/29/17 18:00 97 08/29/17 17:00 97 08/29/17 16:00 94 08/29/17 16:00 98.1 94 170/93 (118) 92 08/29/17 16:00 98.7 94 20 170/93 (118) 92 08/29/17 15:00 93 08/29/17 14:00 96 Intake & Output 08/30/17 08/30/17 07:00 19:00 Intake Total 100 ml Output Total 770 ml 450 ml Balance -770 ml -350 ml IV Total 100 ml Output Urine Total 750 ml 450 ml Chest Tube Drainage Total 20 ml # Bowel Movements 1 Physical Exam CONSTITUTIONAL/GENERAL: This is an adequately nourished patient, sedated on mech vent TUBES/LINES/DRAINS: Rectal tube, Fang catheter, bilateral soft wrist restraints , ETT, PIVs, NGT SKIN: No jaundice, rashes, or lesions. Ecchymoses on upper extremities. No wounds seen anteriorly. Skin warm dry, generalized edema juan pablo BUE. NECK: Trachea midline. Supple, nontender. CARDIOVASCULAR: irregular rate and rhythm without murmurs. Peripheral pulses symmetric. +edema to all 4 extremities. RESPIRATORY/CHEST: Symmetric, unlabored respirations , on mech vent. + Scattered rhonchi . Right lateral chest tube to Pleur-evac drainage mod amount yellow fluid GASTROINTESTINAL: Abdomen firm, distended, large, round. No guarding. Bowel sounds intermittent GENITOURINARY: Fang catheter in place. MUSCULOSKELETAL: Extremities without clubbing, cyanosis. No mottling or clubbing. +edema to all 4 extremities. NEUROLOGICAL: sedated on Diprivan. No eye opening, no following commands. localizes to touch on extremities. Grasping 's hand. PSYCHIATRIC: Limited assessment secondary clinical condition --appears calm on mech vent . Diagnostic Tests Laboratory Laboratory Tests Test 08/27/17 20:15 08/28/17 04:45 08/28/17 15:15 08/28/17 18:30 Vancomycin Level Trough 28.3 MCG/ML (5.0-10.0) White Blood Count 11.4 TH/MM3 (4.0-11.0) Red Blood Count 3.22 MIL/MM3 (4.50-5.90) Hemoglobin 8.8 GM/DL (13.0-17.0) Hematocrit 27.3 % (39.0-51.0) Mean Corpuscular Volume 85.0 FL (80.0-100.0) Mean Corpuscular Hemoglobin 27.3 PG (27.0-34.0) Mean Corpuscular Hemoglobin Concent 32.1 % (32.0-36.0) Red Cell Distribution Width 17.1 % (11.6-17.2) Platelet Count 164 TH/MM3 (150-450) Mean Platelet Volume 8.5 FL (7.0-11.0) Neutrophils (%) (Auto) 94.3 % (16.0-70.0) Lymphocytes (%) (Auto) 3.2 % (9.0-44.0) Monocytes (%) (Auto) 2.3 % (0.0-8.0) Eosinophils (%) (Auto) 0.0 % (0.0-4.0) Basophils (%) (Auto) 0.2 % (0.0-2.0) Neutrophils # (Auto) 10.8 TH/MM3 (1.8-7.7) Lymphocytes # (Auto) 0.4 TH/MM3 (1.0-4.8) Monocytes # (Auto) 0.3 TH/MM3 (0-0.9) Eosinophils # (Auto) 0.0 TH/MM3 (0-0.4) Basophils # (Auto) 0.0 TH/MM3 (0-0.2) CBC Comment DIFF FINAL Differential Comment Blood Urea Nitrogen 38 MG/DL (7-18) Creatinine 1.25 MG/DL (0.60-1.30) 1.30 MG/DL (0.60-1.30) Random Glucose 110 MG/DL (74-106) Total Protein 5.2 GM/DL (6.4-8.2) Albumin 2.0 GM/DL (3.4-5.0) Calcium Level 7.6 MG/DL (8.5-10.1) Phosphorus Level 3.0 MG/DL (2.5-4.9) Magnesium Level 2.9 MG/DL (1.5-2.5) Alkaline Phosphatase 147 U/L (45-117) Aspartate Amino Transf (AST/SGOT) 19 U/L (15-37) Alanine Aminotransferase (ALT/SGPT) 54 U/L (12-78) Total Bilirubin 0.2 MG/DL (0.2-1.0) Sodium Level 150 MEQ/L (136-145) Potassium Level 4.3 MEQ/L (3.5-5.1) Chloride Level 114 MEQ/L (98-107) Carbon Dioxide Level 29.0 MEQ/L (21.0-32.0) Anion Gap 7 MEQ/L (5-15) Estimat Glomerular Filtration Rate 56 ML/MIN (>89) 53 ML/MIN (>89) Blood Gas Puncture Site RT RADIAL Blood Gas Patient Temperature 98.6 Blood Gas HCO3 30 mmol/L (22-26) Blood Gas Base Excess 4.8 mmol/L (-2-2) Blood Gas Oxygen Saturation 93 % (90-100) Arterial Blood pH 7.38 (7.380-7.420) Arterial Blood Partial Pressure CO2 52 mmHg (38-42) Arterial Blood Partial Pressure O2 72 mmHg (61-120) Arterial Blood Oxygen Content 14.3 Vol % (12.0-20.0) Arterial Blood Carboxyhemoglobin 1.1 % (0-4) Arterial Blood Methemoglobin 1.3 % (0-2) Blood Gas Hemoglobin 10.9 G/DL (12.0-16.0) Oxygen Delivery Device VENTILATOR Blood Gas Ventilator Setting CPAP/PEEP5/PS8 Blood Gas Inspired Oxygen 35 % Test 08/29/17 03:30 08/29/17 10:23 08/29/17 12:45 08/30/17 03:40 White Blood Count 16.7 TH/MM3 (4.0-11.0) 18.1 TH/MM3 (4.0-11.0) Red Blood Count 3.99 MIL/MM3 (4.50-5.90) 3.94 MIL/MM3 (4.50-5.90) Hemoglobin 10.8 GM/DL (13.0-17.0) 10.8 GM/DL (13.0-17.0) Hematocrit 33.3 % (39.0-51.0) 32.4 % (39.0-51.0) Mean Corpuscular Volume 83.5 FL (80.0-100.0) 82.3 FL (80.0-100.0) Mean Corpuscular Hemoglobin 27.0 PG (27.0-34.0) 27.4 PG (27.0-34.0) Mean Corpuscular Hemoglobin Concent 32.3 % (32.0-36.0) 33.3 % (32.0-36.0) Red Cell Distribution Width 17.1 % (11.6-17.2) 17.7 % (11.6-17.2) Platelet Count 226 TH/MM3 (150-450) 235 TH/MM3 (150-450) Mean Platelet Volume 8.7 FL (7.0-11.0) 8.4 FL (7.0-11.0) Neutrophils (%) (Auto) 96.8 % (16.0-70.0) 96.4 % (16.0-70.0) Lymphocytes (%) (Auto) 1.9 % (9.0-44.0) 1.8 % (9.0-44.0) Monocytes (%) (Auto) 1.3 % (0.0-8.0) 1.5 % (0.0-8.0) Eosinophils (%) (Auto) 0.0 % (0.0-4.0) 0.0 % (0.0-4.0) Basophils (%) (Auto) 0.0 % (0.0-2.0) 0.3 % (0.0-2.0) Neutrophils # (Auto) 16.2 TH/MM3 (1.8-7.7) 17.5 TH/MM3 (1.8-7.7) Lymphocytes # (Auto) 0.3 TH/MM3 (1.0-4.8) 0.3 TH/MM3 (1.0-4.8) Monocytes # (Auto) 0.2 TH/MM3 (0-0.9) 0.3 TH/MM3 (0-0.9) Eosinophils # (Auto) 0.0 TH/MM3 (0-0.4) 0.0 TH/MM3 (0-0.4) Basophils # (Auto) 0.0 TH/MM3 (0-0.2) 0.0 TH/MM3 (0-0.2) CBC Comment DIFF FINAL DIFF FINAL Differential Comment Blood Urea Nitrogen 35 MG/DL (7-18) 28 MG/DL (7-18) Creatinine 1.16 MG/DL (0.60-1.30) 1.04 MG/DL (0.60-1.30) Random Glucose 105 MG/DL (74-106) 120 MG/DL (74-106) Calcium Level 8.0 MG/DL (8.5-10.1) 7.8 MG/DL (8.5-10.1) Phosphorus Level 2.2 MG/DL (2.5-4.9) 2.3 MG/DL (2.5-4.9) 3.5 MG/DL (2.5-4.9) Magnesium Level 2.7 MG/DL (1.5-2.5) 2.5 MG/DL (1.5-2.5) Sodium Level 149 MEQ/L (136-145) 152 MEQ/L (136-145) Potassium Level 4.1 MEQ/L (3.5-5.1) 3.9 MEQ/L (3.5-5.1) Chloride Level 110 MEQ/L (98-107) 113 MEQ/L (98-107) Carbon Dioxide Level 32.5 MEQ/L (21.0-32.0) 33.5 MEQ/L (21.0-32.0) Anion Gap 7 MEQ/L (5-15) 6 MEQ/L (5-15) Estimat Glomerular Filtration Rate 61 ML/MIN (>89) 69 ML/MIN (>89) Random Vancomycin Level 25.8 COMMENT 15.3 COMMENT Urine Color YELLOW (YELLW/STRAW) Urine Turbidity HAZY (CLEAR) Urine pH 5.0 (5.0-8.5) Urine Specific [place] 1.014 (1.002-1.035) Urine Protein TRACE mg/dL (NEG-TRACE) Urine Glucose (UA) NEG mg/dL (NEG) Urine Ketones TRACE mg/dL (NEG) Urine Occult Blood MOD (NEG) Urine Nitrite NEG (NEG) Urine Bilirubin NEG (NEG) Urine Urobilinogen LESS THAN 2.0 MG/DL (LESS Urine Leukocyte Esterase LARGE (NEG) Urine RBC 33 /hpf (0-3) Urine WBC 33 /hpf (0-5) Urine WBC Clumps RARE (NONE) Urine Squamous Epithelial Cells <1 /hpf (0-5) Urine Bacteria OCC /hpf (NONE) Urine Mucus FEW /lpf (OCC) Urine Yeast with Hyphae OCC (NONE) Urine Yeast (Budding) MANY (NONE) Microscopic Urinalysis Comment CATH-CULTURE IND Result Diagram: 08/30/17 0340 08/30/17 0340 Microbiology Microbiology Date/Time Source Procedure Growth Status 08/29/17 12:45 Urine Catheterized Urine Urine Culture - Preliminary Patricia Albicans Resulted Imaging 08/30/17 repeat abdomen Xray - free air intraperitoneal Last Impressions Abdomen X-Ray 08/30/17 0600 Signed Impressions: Service Date/Time: Wednesday, August 30, 2017 03:11 - CONCLUSION: Stable cecal distention. No dilated loops of small bowel. Chris Rhoades MD Chest X-Ray 08/30/17 0000 Signed Impressions: Service Date/Time: Wednesday, August 30, 2017 03:08 - CONCLUSION: 1. Stable position to the pigtail right lower chest catheter. No evidence pneumothorax. 2. Stable patchy left lower lung consolidation. Chris Rhoades MD Chest CT 08/28/17 0800 Signed Impressions: Service Date/Time: Monday, August 28, 2017 11:05 - CONCLUSION: 1. Smallbore chest tube on the right with minimal colonic changes right base 2. Small left pleural effusion the consolidative changes in the left lower lobe. Luis Eduardo Jenkins MD FACR Abdomen/Pelvis CT 08/27/17 0000 Signed Impressions: Service Date/Time: Sunday, August 27, 2017 22:24 - CONCLUSION: 1. Right inguinal hernia containing a loop of small bowel less herniation than on prior CT scan 08/04/17. 2. Interval development of subcutaneous soft tissue swelling and induration about the lateral pelvic and proximal thigh soft tissues. 3. Interval development of left pleural effusion and left lower lung consolidation. There is a small right pleural effusion. 4. Right lower chest catheter and gastric tubes in place. Chris Rhoades MD Consultation 08/22/17 0000 Signed Impressions: Service Date/Time: Tuesday, August 22, 2017 00:00 - CONCLUSION: Volume of the right pleural effusion is not amenable to safe thoracentesis at this time. Marvin Presley MD Chest Ultrasound 08/22/17 0000 Signed Impressions: Service Date/Time: Tuesday, August 22, 2017 12:08 - CONCLUSION: Small left pleural effusion. No marking performed. Mj Sanchez MD Head CT 08/21/17 1357 Signed Impressions: Service Date/Time: Monday, August 21, 2017 16:05 - CONCLUSION: 1. No acute intracranial abnormality. Stable exam compared to previous dated 08/06/17. Jonathon Jenkins MD CT Angiography 08/21/17 1357 Signed Impressions: Service Date/Time: Monday, August 21, 2017 16:16 - CONCLUSION: 1. No evidence for pulmonary embolism. 2. Atherosclerosis. 3. Bilateral pleural effusions are identified right greater than left and patchy pulmonary consolidation is seen. Khanh Nina MD Brain MRI 08/21/17 0000 Signed Impressions: Service Date/Time: Monday, August 21, 2017 22:20 - CONCLUSION: 1. No acute intracranial abnormality. 2. Atrophy and chronic small vessel ischemic change. Chris Zuñiga Jr., MD Procedures * 08/21/17 -endotracheal intubation * 08/23/17 chest tube placed . Assessment and Plan Disease Oriented Problem List: (1) Respiratory failure (2) Sepsis (3) PNA (pneumonia) (4) COPD with exacerbation (5) Dementia Symptom Scale: (1) Shortness of breath 0-10 Scale: Unable to quantify (2) Anxiety 0-10 Scale: 10 (3) Debility 0-10 Scale: Unable to quantify Pertinent Non-Medical Issues Psychosocial: Patient born and raised in [place]. Lived in [place] for a few years. for the past 60 years, they have 3 children together. Patient is a [place] . Spiritual: No lutheran affiliation. Legal: No advance directives completed. Ethical issues impacting care: No ethical issues identified. . Important Contacts Leatha Butts , . . Prognosis Mr. Butts it is a 76-year-old male with a medical history significant for dementia, CHF, COPD, CAD, PVD, hypertension, hyperlipidemia, BPH. Patient with recurrent infections and recent acute hospitalizations. Admitted for respiratory failure, sepsis, pneumonia requiring intubation and mechanical ventilation. Patient with progressive clinical decline. Overall prognosis is guarded, patient high risk for further complications, continued decline and . . Code Status: Alternative Code Plan * CODE STATUS:DNR. * HEALTHCARE DECISION-MAKING: Patient unable to participate in medical decision making secondary to clinical condition, baseline dementia. No advance directives completed. As per [place] statue, healthcare proxy decision making falls to patient's Leatha Butts. has accepted this role and is fully supported by all of their 3 children. * GOALS OF CARE: THEY DO NOT WISH TO PROCEED W SURGERY. They request HOSPICE and comfort measures only. They wish to remove ventilator (which was placed during GI procedure) and transfer pt to [facility], which is near 's home, TODAY. DNR status entered. Hospice consult ordered. 1500 exhibits B, C signed, in chart. * 1500 comfort orders entered for pre-withdrawal, time of withdrawal and post withdrawal. * SYMPTOMS: = Dyspnea, secondary to respiratory failure, pneumonia, CHF. s/p medical extubation 08/28, tolerating NC daytime (4L) requiring Bipap at night. back on vent 08/30 for colonoscopy- family requesting withdrawal and hospice. = Anxiety/agitation: Exacerbated by dyspnea. Patient with dementia baseline with behavioral disturbances. Home regimen of Seroquel 100 mg twice daily. some episodes of restlessness. Sedatives held yesterday for CPAP/ medical extubation. = Debility: Acute on chronic. Progressive since June secondary to acute illness and recurrent infections. PT recommended PT at rehab during recent prior hospitalization, patient's inquiring regarding acute rehab. * Palliative care contact information has been provided to family. * Palliative care will continue to follow up for further clarification of goals of care as patient's clinical course continues to evolve. . Attestation To help prompt me to consider important information that might be impacting today's encounter and assessment, information from prior notes written by myself or my colleagues may have been "brought forward" into today's note. My signature on this note, however, is an attestation that I personally performed the exam, history, and/or decision-making noted today, and, unless otherwise indicated, the interactions with patient, family, and staff as well as the review of records all occurred today. I also attest that the listed assessment and stated plan reflect my best clinical judgment today based on the combination of historical information, prior notes, and today's exam/ interactions. When time spent is documented, it refers only to time spent today by the signer, or if indicated, combined time spent today by collaborating physician/nurse practitioner. Cristy Wolf Aug 30, 2017 13:31
[2017-08-30] MEDS ORDERED: AZTREONAM INJ 2,000 MG in SODIUM CHLORIDE 0.9% INJ 100 ML IV SCH (14:00)
[2017-08-30] MEDS ORDERED: PANTOPRAZOLE SODIUM 40 MG VIAL IV PUSH SCH (14:00)
[2017-08-30] MEDS ORDERED: MORPHINE SULFATE 4 MG/ML INJ IV PUSH ONE ×2 (15:00→15:15)
[2017-08-30] MEDS ORDERED: MIDAZOLAM HCL 5 MG/ML VIAL (1 ML) IV PUSH ONE (15:15)
[2017-08-30] MEDS ORDERED: MORPHINE SULFATE 4 MG/ML INJ IV PUSH PRN (15:30)
[2017-08-30] MEDS ORDERED: MORPHINE SULFATE 8 MG/ML INJ IV PUSH PRN (15:30)
[2017-08-30] MEDS ORDERED: HYOSCYAMINE 0.5 MG/ML AMP IV PUSH PRN (15:30)
--- NOTE | 2017-08-31 07:13 | HHI.DS ---
Discharge Summary Admission Date Aug 21, 2017 at 14:12 Admitting Diagnosis Resp Failure; Hypotension; AMS; PNA (1) Acute respiratory failure ICD Code: J96.00 - Acute respiratory failure, unspecified whether with hypoxia or hypercapnia Diagnosis: Principal Status: Acute (2) MRSA pneumonia ICD Code: J15.212 - Pneumonia due to Methicillin resistant Staphylococcus aureus Diagnosis: Principal Status: Acute (3) Severe sepsis ICD Code: A41.9 - Sepsis, unspecified organism; R65.20 - Severe sepsis without septic shock Diagnosis: Principal Status: Acute (4) Empyema ICD Code: J86.9 - Pyothorax without fistula Diagnosis: Principal Status: Acute (5) Colon perforation ICD Code: K63.1 - Perforation of intestine (nontraumatic) Diagnosis: Principal Status: Acute (6) COPD with exacerbation ICD Code: J44.1 - Chronic obstructive pulmonary disease with (acute) exacerbation Diagnosis: Principal Status: Acute (7) Metabolic encephalopathy ICD Code: G93.41 - Metabolic encephalopathy Diagnosis: Principal Status: Acute (8) Leukocytosis ICD Code: D72.829 - Elevated white blood cell count, unspecified Diagnosis: Principal Status: Acute (9) Chronic obstructive pulmonary disease ICD Code: J44.9 - Chronic obstructive pulmonary disease, unspecified Diagnosis: Secondary Status: Chronic (10) Hyperlipidemia ICD Code: E78.5 - Hyperlipidemia, unspecified Diagnosis: Secondary Status: Chronic (11) Peripheral vascular disease ICD Code: I73.9 - Peripheral vascular disease, unspecified Diagnosis: Secondary Status: Chronic (12) Dementia ICD Code: F03.90 - Unspecified dementia without behavioral disturbance Status: Chronic (13) History of myocardial infarction ICD Code: I25.2 - Old myocardial infarction Diagnosis: Secondary Status: Chronic Procedures Central line 08/25 Chest tube 08/[address] rashid 08/30 Brief History Patient is a 76-year-old male with multiple comorbidities, which include hypertension, hyperlipidemia, BPH, anemia of chronic disease, coronary artery disease, peripheral vascular disease, COPD on 2.5 L home oxygen, who presented to [facility] ED by EMS for respiratory distress and altered mental status requiring intubation in the field. In addition, patient was hypotensive and hypoxic. He was given 2 L Iv fluids by EVAC and an additional 1 L in the ED. Patient was started on Levophed. His laboratory data is significant for leukocytosis with a WBC of 23.7 and a mild lactic acidosis with lactic acid level of 2.3. Chest x-ray showed right basilar infiltrate concerning for pneumonia and ET tube above the jonah. In the ED, he was given cefepime, vancomycin. Patient also noted to have pinpoint pupils and was given Narcan without any significant effect. He was recently discharged from [facility] after he was admitted back on 08/04 for CHF, respiratory failure and acute right-sided stroke. He is scheduled to undergo CT scan of the brain, chest, abdomen and pelvis, which were ordered by ED. On his last admission, he had an echocardiogram on 08/04, which showed an EF of 55-60%. CBC/BMP: 08/30/17 0340 08/30/17 0340 Significant Findings Laboratory Tests Test 08/28/17 15:15 08/28/17 18:30 08/29/17 03:30 08/29/17 10:23 Blood Gas HCO3 30 mmol/L (22-26) Blood Gas Base Excess 4.8 mmol/L (-2-2) Arterial Blood Partial Pressure CO2 52 mmHg (38-42) Blood Gas Hemoglobin 10.9 G/DL (12.0-16.0) Estimat Glomerular Filtration Rate 53 ML/MIN (>89) 61 ML/MIN (>89) White Blood Count 16.7 TH/MM3 (4.0-11.0) Red Blood Count 3.99 MIL/MM3 (4.50-5.90) Hemoglobin 10.8 GM/DL (13.0-17.0) Hematocrit 33.3 % (39.0-51.0) Neutrophils (%) (Auto) 96.8 % (16.0-70.0) Lymphocytes (%) (Auto) 1.9 % (9.0-44.0) Neutrophils # (Auto) 16.2 TH/MM3 (1.8-7.7) Lymphocytes # (Auto) 0.3 TH/MM3 (1.0-4.8) Blood Urea Nitrogen 35 MG/DL (7-18) Calcium Level 8.0 MG/DL (8.5-10.1) Phosphorus Level 2.2 MG/DL (2.5-4.9) 2.3 MG/DL (2.5-4.9) Magnesium Level 2.7 MG/DL (1.5-2.5) Sodium Level 149 MEQ/L (136-145) Chloride Level 110 MEQ/L (98-107) Carbon Dioxide Level 32.5 MEQ/L (21.0-32.0) Test 08/29/17 12:45 08/30/17 03:40 Urine Turbidity HAZY (CLEAR) Urine Ketones TRACE mg/dL (NEG) Urine Occult Blood MOD (NEG) Urine Leukocyte Esterase LARGE (NEG) Urine RBC 33 /hpf (0-3) Urine WBC 33 /hpf (0-5) Urine WBC Clumps RARE (NONE) Urine Bacteria OCC /hpf (NONE) Urine Mucus FEW /lpf (OCC) Urine Yeast with Hyphae OCC (NONE) Urine Yeast (Budding) MANY (NONE) White Blood Count 18.1 TH/MM3 (4.0-11.0) Red Blood Count 3.94 MIL/MM3 (4.50-5.90) Hemoglobin 10.8 GM/DL (13.0-17.0) Hematocrit 32.4 % (39.0-51.0) Red Cell Distribution Width 17.7 % (11.6-17.2) Neutrophils (%) (Auto) 96.4 % (16.0-70.0) Lymphocytes (%) (Auto) 1.8 % (9.0-44.0) Neutrophils # (Auto) 17.5 TH/MM3 (1.8-7.7) Lymphocytes # (Auto) 0.3 TH/MM3 (1.0-4.8) Blood Urea Nitrogen 28 MG/DL (7-18) Random Glucose 120 MG/DL (74-106) Calcium Level 7.8 MG/DL (8.5-10.1) Sodium Level 152 MEQ/L (136-145) Chloride Level 113 MEQ/L (98-107) Carbon Dioxide Level 33.5 MEQ/L (21.0-32.0) Estimat Glomerular Filtration Rate 69 ML/MIN (>89) Imaging See EMR PE at Discharge GENERAL: Patient is 76 yo male lying in bed intubated sedated, critically ill SKIN: Warm and dry. HEAD: Normocephalic. EYES: No scleral icterus. No injection or drainage. Pupils 2 mm ENT: Orotracheally intubated NECK: Supple, trachea midline. No JVD or lymphadenopathy. CARDIOVASCULAR: Regular rate and rhythm without murmurs, gallops, or rubs. RESPIRATORY: b/L equal air entry. Right pigtail chest tube in place 40 ml output in 24 hours GASTROINTESTINAL: Firm, distended, tympanic to percussion MUSCULOSKELETAL: Trace bilateral upper and lower extremity edema. Neuro: Intubated heavily sedated with propofol Transfer Summary Patient is a 76-year-old male with multiple comorbidities, which include hypertension, hyperlipidemia, BPH, anemia of chronic disease, coronary artery disease, peripheral vascular disease, COPD on 2.5 L home oxygen, who presented to [facility] ED by EMS for respiratory distress and altered mental status requiring intubation in the field. In addition, patient was hypotensive and hypoxic. He was given 2 L Iv fluids by EVAC and an additional 1 L in the ED. Patient was started on Levophed, which is currently at 6 mcg. His laboratory data is significant for leukocytosis with a WBC of 23.7 and a mild lactic acidosis with lactic acid level of 2.3. Chest x-ray showed right basilar infiltrate concerning for pneumonia and ET tube above the jonah. ABG post intubation showed a pH of 7.39, CO2 of 44, PaO2 of 332, bicarb of 44, saturation 98%. In the ED, he was given cefepime, vancomycin. Patient also noted to have pinpoint pupils and was given Narcan without any significant effect. He was recently discharged from [facility] after he was admitted back on 08/04 for CHF, respiratory failure and acute right-sided stroke. He is scheduled to undergo CT scan of the brain, chest, abdomen and pelvis, which were ordered by ED. On his last admission, he had an echocardiogram on 08/04, which showed an EF of 55-60%. 08/22 Patient is sedated with Fentanyl drip and intubated. Afebrile. Off Levophed. 08/23: Patient remains profoundly septic. Encephalopathic white count is 22.4 which is slightly improved. His pleural effusion has increased in size and concerning for parapneumonic effusion/developing empyema. His chest x-ray shows bilateral infiltrates which are worsening. MRSA pneumonia is a concern. I will proceed with pigtail chest tube placement on the right side and send fluid for further studies 08/24: Remains critically ill but stabilizing. WBC count trending down today at 16.6. Right pigtail chest tube was placed yesterday with 1.1 L cloudy yellow fluid output concerning for parapneumonic effusion/early empyema. Cardiothoracic surgery consulted for recommendation regarding decortication. Chest x-ray today shows no pneumothorax, right lung consolidation with mild effusion. 08/25: Afebrile. Currently arousable on the ventilator but extremely encephalopathic. Tolerating tube feeds at goal. No bowel movement since admission. 08/26: Afebrile. Central line placed yesterday left IJ for IV access. No bowel movement. Aggressive enema today. 08/27: Afebrile. Very small bowel movement yesterday. KUB revealed no obstructive process. We will give 2 mg needs to be 1020 with atropine at bedside. Plan for CT thorax in a.m. to evaluate bilateral effusions. Might need another chest tube in the left side 08/28 Patient remains sedated and intubated. Afebrile. 08/29 Patient s/p extubation yesterday on 4L oxygen, off BIPAP. Afebrile 08/30: Remained on BiPAP overnight. KUB showed persistent cecal dilatation. Underwent colonoscopy today, intubated prior to procedure. Post procedure worsening distension highly suspicious for colon perforation. NG tube was placed rectal tube placed. Dr. Rashid consulted Dr. Christiansen. Continue Zyvox, vanc , Diflucan, start Azactam and Flagyl to cover for peritonitis. There was large amount of stool up to transverse which required manual disimpaction. After meeting with palliative care, family decided to [id number] to comfort measures and Hospice. He was discharged to Hospice care center, [facility] Course See transfer summary Pt Condition on Discharge: Deteriorating Discharge Disposition: Hospice/Med Facility Discharge Instructions DIET: Follow Instructions for: Nothing By Mouth Speech Therapy-Diet Recommends: Honey Thickened Liquids, Pureed Activities you can perform: Continue Bedrest Jeyson Hancock MD Aug 31, 2017 07:13
--- NOTE | 2017-08-31 09:17 | MB ---
cc: Garry Christiansen MD DATE: 08/30/2017 REQUESTING PHYSICIAN: Dr. Kim Trinidad REASON FOR CONSULTATION: Possible colonic perforation. HISTORY OF PRESENT ILLNESS: Mr. Butts is a 76-year-old male with multiple medical problems, who has been in and out of the hospital now several times for respiratory trouble and pneumonia. During this hospitalization, he has been on the ventilator due to pneumonia and possible aspiration. He has also had an empyema of his lung drained with a chest tube. The patient has had increasing amounts of constipation recently with abdominal distention and large amounts of stool within the colon. Dr. Trinidad brought the patient to the GI lab today for proposed decompression, colonoscopy and during the procedure, the patient became more distended and exhibited decreased respirations, and difficulty in possible removal of fecal impaction. During the procedure, the patient's abdomen became very distended and Dr. Trinidad was concerned for a colonic perforation. She consulted the undersigned on an emergency basis. The patient had been placed on a ventilator for the procedure and has been maintained on a ventilator postoperatively. Flat plate of the abdomen has been obtained, which has documented free air in the abdomen. Please see the multiple consults and history and physical well documented in the chart. PERTINENT PHYSICAL EXAMINATION: GENERAL: Sedated male on a ventilator. No response to stimuli due to IV sedation. ABDOMEN: Was grossly distended and tight. Quite a bit of tympany. No masses. Possible hernia was palpated. RECTAL: Deferred. LABORATORY STUDIES: Abdominal film does show free air in the abdomen, with a considerable amount of abdominal distention. IMPRESSION AND PLAN: Colonic perforation. Multiple medical problems. Lengthy discussion with the patient's and her son. The patient has been having more problems with short-term memory recently and his quality of life has declined considerably. He has been in and out of the hospital several times now for pneumonia and difficulty with his respirations. He has also had trouble with empyema and other comorbid conditions. Presently, he is in extremis with colonic perforation. These were all reviewed at great length with the patient's and son. I reviewed the possible option of going to surgery for decompression of the pneumoperitoneum and formation of a colostomy with irrigation of the abdomen versus consideration of hospice care and palliative therapy. The patient has already been seen by the palliative care service and a call was placed to the palliative care service for additional assistance and counseling for the family prior to making any decisions. The and the son are both favoring a nonoperative treatment and have seriously been considering hospice care with comfort measures only. We will allow them to discuss the benefits and possible outcomes with the palliative care team and if they do wish to proceed with operative treatment, would be happy to talk to him again prior to proceeding with any proposed surgery. Garry Christiansen MD [facility] [place] , 11:24 PM , 12:12 AM
== END 2017-08-30 19:20 | disposition hospice, inpatient (51) | DRG 870 ==
LOC: NEPE 12:41 → NEDA 14:12 → HIMN 16:25
PROVIDERS: ADMIT Internal Medicine Critical Care Medicine; ATTEND Internal Medicine Critical Care Medicine
PROC: 5A1955Z Respiratory Ventilation, Greater than 96 Consecutive Hours (ICD-10-PCS; principal; 2017-08-21)
PROC: 30233N1 Transfusion of Nonautologous Red Blood Cells into Peripheral Vein, Percutaneous Approach (ICD-10-PCS; 2017-08-21)
PROC: 0W9930Z Drainage of Right Pleural Cavity with Drainage Device, Percutaneous Approach (ICD-10-PCS; 2017-08-23)
PROC: 05HN33Z Insertion of Infusion Device into Left Internal Jugular Vein, Percutaneous Approach (ICD-10-PCS; 2017-08-25)
PROC: 0DJD8ZZ Inspection of Lower Intestinal Tract, Via Natural or Artificial Opening Endoscopic (ICD-10-PCS; 2017-08-30)
DX: A41.02 Sepsis due to Methicillin resistant Staphylococcus aureus (principal); J96.01 Acute respiratory failure with hypoxia; K63.1 Perforation of intestine (nontraumatic); R65.21 Severe sepsis with septic shock; J86.9 Pyothorax without fistula; K65.0 Generalized (acute) peritonitis; G92 Toxic encephalopathy; J15.212 Pneumonia due to Methicillin resistant Staphylococcus aureus; J91.8 Pleural effusion in other conditions classified elsewhere; I11.0 Hypertensive heart disease with heart failure; J44.0 Chronic obstructive pulmonary disease with (acute) lower respiratory infection; K56.7 Ileus, unspecified; E87.0 Hyperosmolality and hypernatremia; E87.2 Acidosis; F03.91 Unspecified dementia, unspecified severity, with behavioral disturbance; J44.1 Chronic obstructive pulmonary disease with (acute) exacerbation; B37.49 Other urogenital candidiasis; K59.39 Other megacolon; K91.89 Other postprocedural complications and disorders of digestive system; I50.9 Heart failure, unspecified; E87.5 Hyperkalemia; E78.5 Hyperlipidemia, unspecified; I25.10 Atherosclerotic heart disease of native coronary artery without angina pectoris; I73.9 Peripheral vascular disease, unspecified; N40.0 Benign prostatic hyperplasia without lower urinary tract symptoms; Z51.5 Encounter for palliative care; Z66 Do not resuscitate; D69.6 Thrombocytopenia, unspecified; D64.9 Anemia, unspecified; K57.30 Diverticulosis of large intestine without perforation or abscess without bleeding; E88.09 Other disorders of plasma-protein metabolism, not elsewhere classified; K59.00 Constipation, unspecified; Z99.81 Dependence on supplemental oxygen; Z87.891 Personal history of nicotine dependence; Z86.73 Personal history of transient ischemic attack (TIA), and cerebral infarction without residual deficits; Z88.0 Allergy status to penicillin; Z88.8 Allergy status to other drugs, medicaments and biological substances
CPT/HCPCS: 32551; 36430; 36556; 36600; 70450; 70553; 71045; 71250; 71275; 74018; 74176; 74177; 76604; 76937; 80048; 80053; 80202; 80307; 81001; 82550; 82565; 82805; 82945; 82948; 83605; 83615; 83690; 83735; 83880; 83986; 84100; 84132; 84157; 84484; 85025; 85610; 85730; 86403; 86850; 86900; 86901; 86920; 87015; 87040; 87070; 87086; 87102; 87116; 87147; 87186; 87205; 87206; 87449; 87641; 87804; 88112; 88305; 89051; 93005; 93306; 94002; 94003; 94150; 94640; 94664; 96365; 96375; A9579; C9113; J0330; J0456; J0461; J0610; J0692; J1100; J1644; J1720; J1815; J1940; J2020; J2212; J2250; J2270; J2310; J2370; J2405; J2710; J2765; J2920; J3010; J3370; J7030; J7040; J7050; P9016; P9047; Q9963; Q9967